=== PATIENT | male | born 1955 | race Caucasian/White ===

== ENCOUNTER 2017-03-08 23:40 | Inpatient (IN) | payer MEDICAID, OTHER ==
[~2017-03-08] VITALS: Ht 177.8 cm; Wt 81.6 kg
[~2017-03-08 23:40] MED LIST: ASPI81TA21 PO; CARV10; FURO40TA PO; LISI-360 PO; PRED-1 PO; WARF7.5T4 PO
[2017-03-08 23:49] VITALS: BP 143/68; PULSE 84; RESP 22; TEMP 98.8; O2SAT 98
[2017-03-09] VITALS (15 sets, daily range): BP systolic 118–147; BP diastolic 58–89; PULSE 40–115; RESP 12–20; TEMP 95.9–98.3; O2SAT 95–100
[2017-03-09] MEDS ORDERED: WARF-23 PO (00:01)
[2017-03-09] MEDS ORDERED: ASPI81CH CHEW (00:01)
[2017-03-09] MEDS ORDERED: FURO40TA PO (00:01)
[2017-03-09] MEDS ORDERED: LORazepam 2 MG/ML VIAL IV PUSH ONE (00:30)
[2017-03-09] MEDS ORDERED: SODIUM CHLORIDE 0.9% FLUSH 10 ML FLUSH IVF PRN (00:30)
[2017-03-09 00:58] LABS: AUTOMATED NEUTROPHIL # 2.4 TH/MM3 (1.8-7.7); BASOPHIL # 0.1 TH/MM3 (0-0.2); BASOPHIL % 2.1 % (0.0-2.0); EOSINOPHIL # 0.1 TH/MM3 (0-0.4); EOSINOPHIL % 3.4 % (0.0-4.0); HEMATOCRIT 29.4 % (39.0-51.0); HEMO FLAGS DIFF FINAL; LYMPH % 30.5 % (9.0-44.0); LYMPHOCYTE # 1.3 TH/MM3 (1.0-4.8); MEAN CELL VOLUME 87.9 FL (80.0-100.0); MONO % 9.2 % (0.0-8.0); NEUT % 54.8 % (16.0-70.0); PLATELET COUNT 164 TH/MM3 (150-450); RED BLOOD COUNT 3.35 MIL/MM3 (4.50-5.90); RED CELL DISTRIBUTION WIDTH 16.9 % (11.6-17.2); WHITE BLOOD COUNT 4.4 TH/MM3 (4.0-11.0)
--- NOTE | 2017-03-09 01:13 | RADRPT ---
EXAM DATE/TIME: 03/09/2017 00:29 [facility] COMPARISON: CHEST SINGLE AP, January 29, 2016, 1:17. INDICATIONS : Chest pain. MEDICAL HISTORY : Congestive heart failure. SURGICAL HISTORY : Pacemaker. Defibrillator ENCOUNTER: Initial ACUITY: 1 day PAIN SCORE: 10/10 LOCATION: Bilateral middle chest FINDINGS: A single view of the chest demonstrates the lungs to be symmetrically aerated without evidence of mas s, infiltrate or effusion. The cardiomediastinal contours are unremarkable. Osseous structures are intact. CONCLUSION: Normal examination. Left subclavian bipolar pacer, unchanged. Omar Egan MD on March 09, 2017 at 1:12 Board Certified Radiologist. This report was verified electronically.
[2017-03-09 01:17] LABS: APTT (PATIENT) 35.9 SEC (24.3-30.1); INTERNATIONAL NORMALIZED RATIO 1.6 RATIO; PROTHROMBIN TIME - PATIENT 17.8 SEC (9.8-11.6)
--- NOTE | 2017-03-09 01:18 | PD ---
HPI . Chest pain Chief Complaint: Chest Pain Time Seen by Provider: 00:29 Travel History International Travel<30 days: No Contact w/Intl Traveler<30days: No Traveled to known affect area: No History of Present Illness HPI Patient presents to us via [facility] with the chief complaint of chest pain. He had the acute onset of chest pain shortly prior to arrival. He rates it as a 10 out of 10. It is exacerbated by movement and breathing. PFSH Past Medical History Asthma: No Blood Disorders: No Anxiety: No Depression: Yes Heart Rhythm Problems: No Cancer: No Cardiac Catheterization: Yes Cardiovascular Problems: Yes High Cholesterol: Yes Chemotherapy: No Chest Pain: Yes Congestive Heart Failure: Yes COPD: No Diabetes: No Endocrine: No Gastrointestinal Disorders: No Genitourinary: No Hypertension: No Immune Disorder: No Implanted Vascular Access Dvce: No Musculoskeletal: No Neurologic: No Psychiatric: No Reproductive: No Respiratory: No Immunizations Current: Yes Radiation Therapy: No Sleep Apnea: No Thyroid Disease: No Tetanus Vaccination: Unknown Influenza Vaccination: No Past Surgical History Cardiac Surgery: Yes (cath ) Pacemaker: Yes (v paced) Social History Alcohol Use: Yes (socially) Tobacco Use: No Substance Use: No Allergies-Medications (Allergen,Severity, Reaction): Coded Allergies: Nitroglycerin (Verified Allergy, Severe, Anaphylaxis, 03/08/17) Reported Meds & Prescriptions Reported Meds & Active Scripts Active Reported Furosemide 40 Mg Tab 40 Mg PO BID Warfarin 5 Mg Tab 5 Mg PO DAILY Aspirin 81 Mg Chew 81 Mg CHEW DAILY Review of Systems Except as stated in HPI: all other systems reviewed are Neg Cardiovascular: Positive: Chest Pain or Discomfort Respiratory: Positive: Shortness of Breath Psychiatric: Positive: Anxiety Physical Exam Narrative GENERAL: Patient is very anxious appearing. SKIN: Warm and dry. He appears sunburn. HEAD: Atraumatic. Normocephalic. EYES: Pupils equal and round. Extraocular movements are intact. ENT: No nasal bleeding or discharge. Mucous membranes pink and moist. NECK: Trachea midline. Neck is supple. CARDIOVASCULAR: Regular rate and rhythm. Heart sounds are normal. RESPIRATORY: No accessory muscle use. Lungs are clear with good air movement throughout. He is tachypneic. He has chest wall tenderness. GASTROINTESTINAL: Abdomen soft, non-tender, nondistended. MUSCULOSKELETAL: No obvious deformities. No edema. NEUROLOGICAL: Awake and alert. No obvious cranial nerve deficits. Motor grossly within normal limits. Normal speech. PSYCHIATRIC: Anxious. Data Data Last Documented VS Vital Signs Date Time Temp Pulse Resp B/P Pulse Ox O2 Delivery O2 Flow Rate FiO2 03/09/17 02:05 78 12 138/74 99 Room Air 03/09/17 00:01 98.1 Orders Basic Metabolic Panel (Bmp) (03/09/17 00:29) Ckmb (Isoenzyme) Profile (03/09/17 00:29) Complete Blood Count With Diff (03/09/17:29) D-Dimer (03/09/17 00:29) Magnesium (Mg) (03/09/17 00:29) Prothrombin Time / Inr (Pt) (03/09/17 00:29) Act Partial Throm Time (Ptt) (03/09/17:29) Troponin I (03/09/17 00:29) Chest, Single Ap (03/09/17 00:29) Ecg Monitoring (03/09/17 00:29) Iv Access Insert/Monitor (03/09/17 00:29) Oximetry (03/09/17 00:29) Sodium Chloride 0.9% Flush (Ns Flush) (03/09/17 00:30) Lorazepam Inj (Ativan Inj) (03/09/17 00:30) Drug Screen, Random Urine (03/09/17 01:19) Alcohol (Ethanol) (03/09/17 00:36) Ct Pulmonary Angiogram (03/09/17 01:37) Morphine Inj (Morphine Inj) (03/09/17 02:00) Place In Observation (03/09/17 03:20) Activity Bed Rest With Brp (03/09/17 03:20) Vital Signs (Adult) Q4H (03/09/17 03:20) Cardiac Rhythm .As Directed (03/09/17 03:20) Notify Dr: Other .PRN (03/09/17 03:20) Notify Dr. Parameters (03/09/17 03:20) Resp Oxygen Nasal Cannula (03/09/17 ) Diet Npo (03/09/17 Breakfast) Ckmb (Isoenzyme) Profile (03/09/17 03:30) Ckmb (Isoenzyme) Profile (03/09/17 06:30) Troponin I (03/09/17 03:30) Troponin I (03/09/17 06:30) Electrocardiogram (03/09/17 03:30) Electrocardiogram (03/09/17 06:30) ^ Obtain (03/09/17 03:20) Sodium Chloride 0.9% Flush (Ns Flush) (03/09/17 03:30) Chief Communications Officer / Telemetry [id number].[id number] (03/09/17 03:20) Admit Order (Ed Use Only) (03/09/17 03:20) Labs Laboratory Tests Test 03/09/17 00:36 White Blood Count 4.4 TH/MM3 Red Blood Count 3.35 MIL/MM3 Hemoglobin 9.7 GM/DL Hematocrit 29.4 % Mean Corpuscular Volume 87.9 FL Mean Corpuscular Hemoglobin 29.0 PG Mean Corpuscular Hemoglobin 33.0 % Concent Red Cell Distribution Width 16.9 % Platelet Count 164 TH/MM3 Mean Platelet Volume 9.0 FL Neutrophils (%) (Auto) 54.8 % Lymphocytes (%) (Auto) 30.5 % Monocytes (%) (Auto) 9.2 % Eosinophils (%) (Auto) 3.4 % Basophils (%) (Auto) 2.1 % Neutrophils # (Auto) 2.4 TH/MM3 Lymphocytes # (Auto) 1.3 TH/MM3 Monocytes # (Auto) 0.4 TH/MM3 Eosinophils # (Auto) 0.1 TH/MM3 Basophils # (Auto) 0.1 TH/MM3 CBC Comment DIFF FINAL Differential Comment Prothrombin Time 17.8 SEC Prothromb Time International 1.6 RATIO Ratio Activated Partial 35.9 SEC Thromboplast Time D-Dimer Quantitative (PE/DVT) 0.84 MG/L FEU Sodium Level 142 MEQ/L Potassium Level 3.6 MEQ/L Chloride Level 109 MEQ/L Carbon Dioxide Level 25.0 MEQ/L Anion Gap 8 MEQ/L Blood Urea Nitrogen 11 MG/DL Creatinine 0.93 MG/DL Estimat Glomerular Filtration 83 ML/MIN Rate Random Glucose 90 MG/DL Calcium Level 8.2 MG/DL Magnesium Level 1.9 MG/DL Total Creatine Kinase 59 U/L Troponin I 0.03 NG/ML Ethyl Alcohol Level 10 MG/DL MDM Medical Decision Making Medical Screen Exam Complete: Yes Emergency Medical Condition: Yes Medical Record Reviewed: Yes (patient was seen here about a year ago with similar symptoms. He had an elevated troponin at that time. He does have a history of cardiomyopathy. He had had a clean catheter at an outside hospital about a month prior to that visit. Therefore, no further investigation was done.) Interpretation(s) EKG shows a paced rhythm. It is unchanged from previous. Differential Diagnosis Differential diagnosis of chest pain includes but is not limited to musculoskeletal pain, pulmonary embolism, acute coronary syndrome, pneumonia, pleurisy Narrative Course Patient presents with the chief complaint of chest pain. He appears to have an anxiety attack. He will be evaluated for possible ACS or PE. CBC & BMP Diagram 03/09/17 00:36 Initial cardiac enzymes are negative. INR is subtherapeutic at 1.6. D-dimer is slightly elevated at 0.84. A subsequent CT for PE was negative. Alcohol level is 10. He was treated with Ativan and morphine here. He is sound asleep. He reports allergy to nitroglycerin. I have a very low index suspicion for ACS. However, he does have a known cardiac history. Therefore, he will be placed in the chest pain center. Diagnosis Primary Impression: Chest pain Qualified Code: R07.9 - Chest pain, unspecified type Admitting Information Admitting Physician Requests: Observation Condition: Stable Светлана Schuler MD Mar 09, 2017 01:18
[2017-03-09 01:30] LABS: MAGNESIUM 1.9 MG/DL (1.5-2.5); POTASSIUM 3.6 MEQ/L (3.5-5.1)
[2017-03-09] MEDS ORDERED: MORPHINE SULFATE 8 MG/ML INJ IV PUSH ONE (02:00)
[2017-03-09] MEDS ORDERED: IOHEXOL 350 MG/ML 10 ML VIAL (for RAD DIAG) IV ONE (02:36)
--- NOTE | 2017-03-09 03:05 | RADRPT ---
EXAM DATE/TIME: 03/09/2017 02:36 [facility] COMPARISON: No previous studies available for comparison. INDICATIONS : Chest pain; rule out pulmonary embolus. IV CONTRAST: 74 cc Omnipaque 350 (iohexol) IV RADIATION DOSE: 17.11 CTDIvol (mGy) MEDICAL HISTORY : Myocardial infarction. Congestive heart failure. SURGICAL HISTORY : Pacemaker. ENCOUNTER: Initial ACUITY: 1 day PAIN SCALE: 7/10 LOCATION: chest TECHNIQUE: Volumetric scanning of the chest was performed using a pulmonary embolism protocol MIP images were re constructed. Using automated exposure control and adjustment of the mA and/or kV according to patien t size, radiation dose was kept as low as reasonably achievable to obtain optimal diagnostic quality images. FINDINGS: PULMONARY ARTERIES: No filling defects are seen in the pulmonary arteries through the segmental level. LUNGS: There is no consolidation or pneumothorax . No concerning pulmonary nodule is visualized. PLEURAE: There is no pleural thickening or pleural effusion. MEDIASTINUM: There is good visualization of the great vessels of the middle mediastinum. No evidence of mediastin al or hilar adenopathy/mass. MUSCULOSKELETAL: Within normal limits for patient age. MISCELLANEOUS: The visualized upper abdominal organs demonstrate no acute abnormality. CONCLUSION: Normal examination. Epicardial pacer wires. No evidence of pulmonary embolism. Omar Egan MD on March 09, 2017 at 3:03 Board Certified Radiologist. This report was verified electronically.
[2017-03-09] MEDS: MORPHINE SULFATE 4 MG/ML INJ IV PUSH PRN ×4 (06:52→21:48)
--- NOTE | 2017-03-09 08:45 | HHI.HP ---
HPI Primary Care Physician Non-Staff Chief Complaint Chest pain History of Present Illness This is a 61-year-old male with a reported history of a nonischemic cardiomyopathy. He apparently had a heart catheterization in [place] January 2016 and he states that he was told that there were no blockages but he had a low EF. He had defibrillator/pacemaker placed at that time. He follows Dr. Lazar of cardiology. He also states that last month is the fibular fired 3 times. He believes the first time it fired was when he had tripped over a parking lot curb stopper and it happened 2 more times within next 2 days. He was seen at an emergent [facility] and states that the defibrillator was interrogated but doesn't know the findings. He was discharged. He presents to the ED last evening with a complaint of developing a discomfort about 10:00 last evening while at home. He states it is still there. It as a pressure across the chest. States it hurts to take in a deep breath. Hurts with certain movements. Denies nausea or diaphoresis. Denies recent illness. The defibrillator has not fired recently. Patient reports that it is not terribly unusual for him to have chest discomfort. He states that he had a cholecystectomy 8-9 weeks ago with the thought that that may be causing some of his discomforts. Review of Systems General: Patient denies fevers, chills recent, and recent travel HEENT: Patient denies headache, sore throat, difficulty swallowing. Cardiovascular: Has the chest discomfort as mentioned above. Denies sensation of heart beating rapidly or irregularly. No syncope. Denies diaphoresis. Respiratory: Denies shortness of breath or inspirational chest discomfort. Denies coughing wheezing or hemoptysis. GI: Patient denies nausea, vomiting, diarrhea, abdominal pain, bloody stools. Musculoskeletal: Patient denies joint pain or edema. Denies calf pain or edema. Neurovascular: Patient denies numbness, tingling, weakness in extremities. Denies headache. Endocrine: Denies polyuria and polydipsia. Hematologic: Denies easy bruising. Skin: Denies rash or itching. Past Family Social History Allergies: Coded Allergies: Nitroglycerin (Verified Allergy, Severe, Anaphylaxis, 03/08/17) Past Medical History Reported history of nonischemic cardiomyopathy. Peripheral vascular disease with a left femoropopliteal bypass that was done age 37. He states that he was told by the surgeon that it was caused most likely from a football injury when he was in high school. He states he was told that a calcium buildup was pushing on the artery. Patient also history of hypertension. Cholecystectomy 8 -9 weeks ago thinking that may have been causing discomfort in his chest. Past Surgical History Cardiac catheterization January 2016 and reports that it was nonischemic. Defibrillator/pacemaker placed at that visit [facility]. Cholecystectomy 8-9 months ago. Left femoropopliteal bypass when he was 37 years of age. Reported Medications Reported Meds & Active Scripts Active Reported Furosemide 40 Mg Tab 40 Mg PO BID Warfarin 5 Mg Tab 5 Mg PO DAILY Aspirin 81 Mg Chew 81 Mg CHEW DAILY Active Ordered Medications Current Medications Medications (Trade) Dose Ordered Sig/Amelia Route Start Time Stop Time Status Last Admin (NS Flush) 2 ml UNSCH PRN IVF 03/09/17 00:30 (NS Flush) 2 ml UNSCH PRN IV FLUSH 03/09/17 03:30 (Morphine Inj) 4 mg Q3H PRN IV PUSH 03/09/17 05:00 03/09/17 06:52 Family History Denies family history of CAD. Social History Patient smokes occasionally. States that he will have maybe 1 pack of cigarettes a month. He had a couple beers and a shot of alcohol last evening the prior that had no alcohol for 6 months. He denies illicit drugs. States he recently moved to the area. Physical Exam Vital Signs Vital Signs Date Time Temp Pulse Resp B/P Pulse Ox O2 Delivery O2 Flow Rate FiO2 03/09/17 08:13 96 21 03/09/17 07:28 97.1 45 20 130/60 95 03/09/17 07:17 20 03/09/17 04:24 76 14 140/70 99 Room Air 03/09/17 04:00 95.9 40 20 147/62 99 03/09/17 03:49 99 03/09/17 02:05 78 12 138/74 99 Room Air 03/09/17 01:00 82 16 146/78 96 Room Air 03/09/17 00:01 98.1 80 14 143/68 100 Room Air 03/08/17 23:49 98.8 84 22 143/68 98 Physical Exam GENERAL: This is a well-nourished, well-developed patient, in no apparent distress. Patient speaks in clear complete sentences. Patient is pleasant. HEENT: Head is atraumatic and normocephalic. Neck is supple without lymphadenopathy and trachea is midline. No JVD or carotid bruits. CARDIOVASCULAR: Regular rate and rhythm without murmurs, gallops, or rubs. RESPIRATORY: Clear to auscultation. Breath sounds equal bilaterally. No wheezes , rales, or rhonchi. Chest wall is tender. No use of accessory muscles. Defibrillator/pacemaker site has no surrounding erythema and is nontender. GASTROINTESTINAL: Abdomen is nontender, nondistended. Abdomen soft. No obvious pulsatile mass or bruit. No CVA tenderness. Strong femoral pulses bilaterally. Normal bowel sounds in all quadrants. MUSCULOSKELETAL: Patient is moving upper and lower extremities freely. No calf tenderness or edema, no Homans sign. Strong pulses in upper and lower extremities. NEUROLOGICAL: Patient is alert and oriented. Cranial nerves 2-12 are grossly intact. No focal deficits and speech is clear. SKIN: No rash and turgor is normal. Laboratory Laboratory Tests Test 03/09/17 03/09/17 03/09/17 00:36 03:40 06:30 White Blood Count 4.4 Red Blood Count 3.35 Hemoglobin 9.7 Hematocrit 29.4 Mean Corpuscular Volume 87.9 Mean Corpuscular Hemoglobin 29.0 Mean Corpuscular Hemoglobin 33.0 Concent Red Cell Distribution Width 16.9 Platelet Count 164 Mean Platelet Volume 9.0 Neutrophils (%) (Auto) 54.8 Lymphocytes (%) (Auto) 30.5 Monocytes (%) (Auto) 9.2 Eosinophils (%) (Auto) 3.4 Basophils (%) (Auto) 2.1 Neutrophils # (Auto) 2.4 Lymphocytes # (Auto) 1.3 Monocytes # (Auto) 0.4 Eosinophils # (Auto) 0.1 Basophils # (Auto) 0.1 CBC Comment DIFF FINAL Differential Comment Prothrombin Time 17.8 Prothromb Time International 1.6 Ratio Activated Partial 35.9 Thromboplast Time D-Dimer Quantitative (PE/DVT) 0.84 Sodium Level 142 Potassium Level 3.6 Chloride Level 109 Carbon Dioxide Level 25.0 Anion Gap 8 Blood Urea Nitrogen 11 Creatinine 0.93 Estimat Glomerular Filtration 83 Rate Random Glucose 90 Calcium Level 8.2 Magnesium Level 1.9 Total Creatine Kinase 59 51 42 Troponin I 0.03 0.05 0.04 Ethyl Alcohol Level 10 Result Diagram: 03/09/17 0036 03/09/17 0036 Imaging Last [address] Angiography 03/09/17 0137 Signed Impressions: Service Date/Time: Thursday, March 09, 2017 02:36 - CONCLUSION: Normal examination. Epicardial pacer wires. No evidence of pulmonary embolism. Omar Egan MD Chest X-Ray 03/09/17 0029 Signed Impressions: Service Date/Time: Thursday, March 09, 2017 00:29 - CONCLUSION: Normal examination. Left subclavian bipolar pacer, unchanged. Omar Egan MD Course EKGs are atrial/ventricularly paced. Assessment and Plan Assessment and Plan * Atypical chest pain: Patient has had serial cardiac enzymes and EKGs for ruling out purposes. He has been seen by Dr. Miky Nice of cardiology in the chest pain center. At this time the patient will have a sedimentation rate drawn, lipase drawn, and had [employer] come into interrogate his defibrillator/ pacemaker. There will be no stress testing. Reports a heart catheterization about a year ago that had no blockages. Patient likely be discharged home today with instructions to follow-up with his mechanical insulator and local primary care physician. * Cardiomyopathy: Continue current medications. He needs to follow-up with her mechanical insulator. * Hypertension: Continue current medication. * Peripheral vascular disease: Continue current medication. * Tobacco abuse: Patient has been counseled on the importance of smoking cessation. Patient is stable at this time. He is agreeable to this plan. Bob Torres Mar 09, 2017 08:45
[2017-03-09] MEDS ORDERED: ACETAMINOPHEN/HYDROcodone 325 MG/7.5 MG TAB PO ONE (10:00)
[2017-03-09] MEDS: FUROSEMIDE 40 MG TAB PO SCH ×2 (10:08→19:33)
[2017-03-09] MEDS: ASPIRIN 81 MG CHEW TAB CHEW SCH (10:08)
[2017-03-09] MEDS ORDERED: WARF-21 PO (12:10)
[2017-03-09] MEDS ORDERED: LISI2.5T3 PO (12:11)
[2017-03-09 13:13] LABS: AMPHETAMINE, URINE NEG (NEG); BARBITURATES, URINE NEG (NEG); COCAINE, URINE NEG (NEG)
--- NOTE | 2017-03-09 14:21 | EKG ---
Date Performed: 03/09/2017 Time Performed: 03:44:16 PTAGE: 61 years EKG: ELECTRONIC VENTRICULAR PACEMAKER ABNORMAL RHYTHM ECG PREVIOUS TRACING : 01/29/2016 12.19 DOCTOR: Miky Nice Interpretating Date/Time 03/09/2017 14:20:05
--- NOTE | 2017-03-09 14:23 | EKG ---
Date Performed: 03/09/2017 Time Performed: 07:36:19 PTAGE: 61 years EKG: ELECTRONIC ATRIAL PACEMAKER ELECTRONIC VENTRICULAR PACEMAKER ABNORMAL RHYTHM ECG PREVIOUS TRACING : 03/09/2017 03.44 Since previous tracing, atrial pacer present DOCTOR: Miky Nice Interpretating Date/Time 03/09/2017 14:22:16
[2017-03-09] MEDS: LORazepam 2 MG/ML VIAL IV PUSH PRN ×2 (14:56→21:48)
[2017-03-09] MEDS: DOCUSATE SODIUM 100 MG CAP PO SCH (19:33)
[2017-03-10] VITALS (31 sets, daily range): BP systolic 106–128; BP diastolic 43–85; PULSE 76–114; RESP 16–20; TEMP 97.9–99; O2SAT 96–99
[2017-03-10 06:09] LABS: MEAN CELL VOLUME 87.4 FL (80.0-100.0); MEAN CORPUSCULAR HEMOGLOBIN 29.7 PG (27.0-34.0); MEAN CORPUSCULAR HGB CONC 33.9 % (32.0-36.0); PLATELET COUNT 157 TH/MM3 (150-450); RED BLOOD COUNT 3.32 MIL/MM3 (4.50-5.90); RED CELL DISTRIBUTION WIDTH 16.5 % (11.6-17.2); REVIEW FLAG FINAL; WHITE BLOOD COUNT 3.4 TH/MM3 (4.0-11.0)
[2017-03-10 06:34] LABS: BICARBONATE 29.6 MEQ/L (21.0-32.0); MAGNESIUM 1.5 MG/DL (1.5-2.5); POTASSIUM 3.6 MEQ/L (3.5-5.1)
--- NOTE | 2017-03-10 07:11 | MB ---
cc: NAMITA DUQUE MICHAEL DATE OF CONSULTATION 03/09/2017 REASON FOR CONSULTATION Defibrillatory shock defibrillator end of life. HISTORY OF PRESENT ILLNESS Mr. Valenzuela is a 61-year-old gentleman with a history of nonischemic cardiomyopathy, previous left heart catheterization done in [place] in January of 2016. There was no occlusive disease. The patient has previous defibrillatory shock. He was admitted due to chest pain. Workup was negative. He had three defibrillatory shocks in January. Interrogation of the device showed device end of life for over two to three-months. I was consulted for evaluation and management. The chart was reviewed. The patient was evaluated. ALLERGIES NITROGLYCERIN SOCIAL HISTORY The patient smoked a pack of cigarettes over a month. He had a couple of beers maybe once or twice a month. FAMILY HISTORY Noncontributory to his current medical condition. MEDICATIONS He is on: 1. Lasix 2. Aspirin 3. Coumadin REVIEW OF SYSTEMS Refers no chest pain or chest discomfort. At this point, no vomiting. No fever. PHYSICAL EXAM Alert, fully oriented. VITAL SIGNS: His blood pressure on evaluation 118/58, pulse 77, respiratory rate 20. LUNGS: Ventilated. CARDIOVASCULAR: S1-S2, no gallop. No murmur. ABDOMEN: Soft, obese. No mass. No wheeze. EXTREMITIES: With no edema. Electrocardiogram shows sinus rhythm, episode of AV synchronized pacing. LABORATORY DATA Hemoglobin is 9.7, potassium 3.6, creatinine 0.93, troponin 0.03, magnesium 1.9, INR 1.6. ASSESSMENT AND RECOMMENDATIONS Mr. Valenzuela has non-ischemic cardiomyopathy. He had a left heart catheterization in [facility] in [place] in January last year that indicated no occlusion. He has a negative troponin. No active ST or T-wave changes. The gentleman received in the past multiple defibrillatory shocks. The device was implanted in 2000 and end of life two to three months ago. This gentleman needs generator replacement. The risks, the nature and the benefit of the procedure are clearly stated to him. The risks include pneumothorax, cardiac perforation, stroke and even . He understood and agreed to proceed. This is secondary prevention. Namita Dquue MD /JUAN J /6:48 PM /7:03 AM
--- NOTE | 2017-03-10 08:24 | PD.CARD.PN ---
Subjective Subjective Remarks Had some CP last night, pending ICD generator change. Objective Medications Current Medications Medications (Trade) Dose Ordered Sig/Amelia Route Start Time Stop Time Status Last Admin (NS Flush) 2 ml UNSCH PRN IVF 03/09/17 00:30 (NS Flush) 2 ml UNSCH PRN IV FLUSH 03/09/17 03:30 (Morphine Inj) 4 mg Q3H PRN IV PUSH 03/09/17 05:00 03/09/17 21:48 (Aspirin Chew) 81 mg DAILY CHEW 03/09/17 10:00 03/09/17 10:08 (Lasix) 40 mg BID PO 03/09/17 10:00 03/09/17 19:33 (Ativan Inj) 0.5 mg Q4H PRN IV PUSH 03/09/17 13:00 03/09/17 21:48 (Roxicodone) 5 mg Q4H PRN PO 03/09/17 16:45 (Roxicodone) 10 mg Q4H PRN PO 03/09/17 16:45 03/09/17 19:34 (Colace) 100 mg BID PO 03/09/17 21:00 03/09/17 19:33 Vital Signs / I&O Vital Signs Date Time Temp Pulse Resp B/P Pulse Ox O2 Delivery O2 Flow Rate FiO2 03/10/17 06:00 92 03/10/17 05:00 92 03/10/17 04:00 90 03/10/17 03:57 98.6 91 16 110/43 97 03/10/17 03:00 103 03/10/17 02:00 78 03/10/17 01:00 82 03/10/17 00:00 82 03/09/17 23:03 98.3 75 16 140/76 98 03/09/17 23:00 80 03/09/17 22:00 115 03/09/17 19:23 97.0 83 20 138/63 95 03/09/17 16:25 97.9 77 20 118/58 96 03/09/17 11:20 97.6 80 18 137/89 95 03/09/17 10:08 70 I/O 03/09/17 03/09/17 03/09/17 03/10/17 03/10/17 03/10/17 07:00 15:00 23:00 07:00 15:00 23:00 Intake Total 480 ml 480 ml Output Total 600 ml 500 ml 700 ml Balance -600 ml -20 ml -220 ml Intake Oral 480 ml 480 ml Output Urine Total 600 ml 500 ml 700 ml # Voids 3 # Bowel Movements 0 Physical Exam GENERAL: Well-nourished, well-developed patient. SKIN: Warm and dry. HEAD: Normocephalic. EYES: No scleral icterus. No injection or drainage. NECK: Supple, trachea midline. No JVD or lymphadenopathy. CARDIOVASCULAR: Regular rate and rhythm without murmurs, gallops, or rubs. RESPIRATORY: Breath sounds equal bilaterally. No accessory muscle use. GASTROINTESTINAL: Abdomen soft, non-tender, nondistended. EXTREMITIES: No cyanosis, or edema. NEUROLOGICAL: Awake, alert, and oriented x 3. Non-focal. Laboratory Laboratory Tests Test 03/09/17 03/10/17 12:50 05:08 Urine Opiates Screen POS Urine Barbiturates Screen NEG Urine Amphetamines Screen NEG Urine Benzodiazepines Screen POS Urine Cocaine Screen NEG Urine Cannabinoids Screen NEG White Blood Count 3.4 TH/MM3 Red Blood Count 3.32 MIL/MM3 Hemoglobin 9.9 GM/DL Hematocrit 29.0 % Mean Corpuscular Volume 87.4 FL Mean Corpuscular Hemoglobin 29.7 PG Mean Corpuscular Hemoglobin 33.9 % Concent Red Cell Distribution Width 16.5 % Platelet Count 157 TH/MM3 Mean Platelet Volume 9.0 FL Sodium Level 139 MEQ/L Potassium Level 3.6 MEQ/L Chloride Level 103 MEQ/L Carbon Dioxide Level 29.6 MEQ/L Anion Gap 6 MEQ/L Blood Urea Nitrogen 11 MG/DL Creatinine 0.91 MG/DL Estimat Glomerular Filtration 85 ML/MIN Rate Random Glucose 95 MG/DL Calcium Level 8.5 MG/DL Magnesium Level 1.5 MG/DL Imaging Last Impressions CT Angiography 03/09/17 0137 Signed Impressions: Service Date/Time: Thursday, March 09, 2017 02:36 - CONCLUSION: Normal examination. Epicardial pacer wires. No evidence of pulmonary embolism. Omar Egan MD Chest X-Ray 03/09/17 0029 Signed Impressions: Service Date/Time: Thursday, March 09, 2017 00:29 - CONCLUSION: Normal examination. Left subclavian bipolar pacer, unchanged. Omar Egan MD Assessment and Plan Problem List: (1) Cardiomyopathy Assessment and Plan: Pending ICD generator change for SCD prevention. Device at EOL. Pt. admitted with CP, will require an ischemic w/u prior to gen change. (2) Chest pain Assessment and Plan: Dr. Goldstein consulted to evaluate for LHC today. C/O chest pain overnight. Serial troponin negative. History of cath in [place] 1 year ago per history. Assessment and Plan Assessment and plan d/w pt., RN, Dr. Adames Problem Qualifiers (1) Cardiomyopathy: Qualified Code: I42.9 - Cardiomyopathy, unspecified type (2) Chest pain: Qualified Code: R07.9 - Chest pain, unspecified type Karishma Cooper Mar 10, 2017 08:24
[2017-03-10] MEDS: SODIUM CHLOR 0.9% 1000 ML INJ 1,000 ML IV SCH (08:29)
[2017-03-10] MEDS ORDERED: ASPIRIN 325 MG TAB PO SCH (08:30)
[2017-03-10] MEDS ORDERED: diphenhydrAMINE HCL 50 MG CAP PO SCH (08:30)
[2017-03-10] MEDS: DOCUSATE SODIUM 100 MG CAP PO SCH ×2 (08:38→21:00)
[2017-03-10] MEDS: FUROSEMIDE 40 MG TAB PO SCH ×2 (08:38→21:00)
[2017-03-10] MEDS: LORazepam 2 MG/ML VIAL IV PUSH PRN ×2 (08:39→23:07)
[2017-03-10] MEDS: MORPHINE SULFATE 4 MG/ML INJ IV PUSH PRN ×4 (08:40→20:56)
[2017-03-10] MEDS: SODIUM CHLORIDE 0.9% FLUSH 10 ML FLUSH IV FLUSH PRN (08:41)
[2017-03-10] MEDS ORDERED: HEPARIN-NS/PF INJ 500 ML ONE (08:58)
[2017-03-10] MEDS: ASPIRIN 81 MG CHEW TAB CHEW SCH (09:00)
[2017-03-10] MEDS ORDERED: BACITRACIN OINT 0.9 GM PKT TOP ONE (10:15)
[2017-03-10] MEDS ORDERED: LORazepam 2 MG/ML VIAL IV PRN (10:15)
[2017-03-10] MEDS ORDERED: METOCLOPRAMIDE HCL 10 MG/2 ML VIAL IV PRN (10:15)
[2017-03-10] MEDS ORDERED: ONDANSETRON HCL 4 MG/2 ML VIAL IV PRN (10:15)
[2017-03-10] MEDS ORDERED: ATROPINE SULFATE 1 MG/ML VIAL IV PRN (10:15)
[2017-03-10] MEDS ORDERED: SODIUM CHLOR 0.9% 250 ML INJ 250 ML IV PRN (10:15)
[2017-03-10] MEDS ORDERED: LIDOCAINE HCL 1% 50 ML VIAL INFIL PRN (10:15)
[2017-03-10] MEDS ORDERED: MISC INFORMATION XX ONE (10:15)
--- NOTE | 2017-03-10 10:25 | HHI.PR ---
Subjective Remarks The patient was seen following catheterization. He reported no improvement in pain. He said that he was very anxious and requested Ativan. He had no other acute complaints. Objective Vitals Vital Signs Date Time Temp Pulse Resp B/P Pulse Ox O2 Delivery O2 Flow Rate FiO2 03/10/17 10:16 96 21 03/10/17 06:00 92 03/10/17 05:00 92 03/10/17 04:00 90 03/10/17 03:57 98.6 91 16 110/43 97 03/10/17 03:00 103 03/10/17 02:00 78 03/10/17 01:00 82 03/10/17 00:00 82 03/09/17 23:03 98.3 75 16 140/76 98 03/09/17 23:00 80 03/09/17 22:00 115 03/09/17 19:23 97.0 83 20 138/63 95 03/09/17 16:25 97.9 77 20 118/58 96 03/09/17 11:20 97.6 80 18 137/89 95 I/O 03/09/17 03/09/17 03/09/17 03/10/17 03/10/17 03/10/17 07:00 15:00 23:00 07:00 15:00 23:00 Intake Total 480 ml 480 ml Output Total 600 ml 500 ml 700 ml Balance -600 ml -20 ml -220 ml Intake Oral 480 ml 480 ml Output Urine Total 600 ml 500 ml 700 ml # Voids 3 # Bowel Movements 0 Result Diagram: 03/10/17 0508 03/10/17 [address] Angiography 03/09/17 0137 Signed Impressions: Service Date/Time: Thursday, March 09, 2017 02:36 - CONCLUSION: Normal examination. Epicardial pacer wires. No evidence of pulmonary embolism. Omar Egan MD Chest X-Ray 03/09/17 0029 Signed Impressions: Service Date/Time: Thursday, March 09, 2017 00:29 - CONCLUSION: Normal examination. Left subclavian bipolar pacer, unchanged. Omar Egan MD Objective Remarks GENERAL: This is a well-nourished, well-developed patient, in no apparent distress. HEENT: Head is atraumatic and normocephalic. Neck is supple without lymphadenopathy and trachea is midline. No JVD or carotid bruits. CARDIOVASCULAR: Regular rate and rhythm without murmurs, gallops, or rubs. RESPIRATORY: Clear to auscultation. Breath sounds equal bilaterally. No wheezes , rales, or rhonchi. Chest wall is tender. No use of accessory muscles. Defibrillator/pacemaker site has no surrounding erythema and is nontender. GASTROINTESTINAL: Abdomen is nontender, nondistended. Abdomen soft. No obvious pulsatile mass or bruit. Normal bowel sounds in all quadrants. MUSCULOSKELETAL: Patient is moving upper and lower extremities freely. NEUROLOGICAL: Patient is alert and oriented. Cranial nerves 2-12 are grossly intact. No focal deficits and speech is clear. SKIN: No rash and turgor is normal. PSYCH: Anxious. Procedures Cardiac catheterization 03/10. Medications and IVs Current Medications Medications (Trade) Dose Ordered Sig/Amelia Route Start Time Stop Time Status Last Admin (NS Flush) 2 ml UNSCH PRN IVF 03/09/17 00:30 (NS Flush) 2 ml UNSCH PRN IV FLUSH 03/09/17 03:30 03/10/17 08:41 (Morphine Inj) 4 mg Q3H PRN IV PUSH 03/09/17 05:00 03/10/17 08:40 (Aspirin Chew) 81 mg DAILY CHEW 03/09/17 10:00 03/09/17 10:08 (Lasix) 40 mg BID PO 03/09/17 10:00 03/10/17 08:38 (Ativan Inj) 0.5 mg Q4H PRN IV PUSH 03/09/17 13:00 03/10/17 08:39 (Roxicodone) 5 mg Q4H PRN PO 03/09/17 16:45 (Roxicodone) 10 mg Q4H PRN PO 03/09/17 16:45 03/09/17 19:34 Docusate Sodium 100 mg 100 mg BID PO 03/09/17 21:00 03/10/17 08:38 (NS 1000 ml Inj) 1,000 ml @ 30 mls/hr Q24H IV 03/10/17 08:29 03/15/17 08:28 Miscellaneous Information 1 ONCE ONCE XX 03/10/17 10:15 03/10/17 10:16 UNV (Ativan Inj) 0.5 mg UNSCH PRN IV 03/10/17 10:15 03/11/17 10:14 UNV Atropine Sulfate 0.5 mg 0.5 mg UNSCH PRN IV 03/10/17 10:15 UNV (NS 250 ml Inj) 250 ml @ 500 mls/hr ONCE PRN IV 03/10/17 10:15 03/11/17 10:14 UNV (Reglan Inj) 10 mg Q4H PRN IV 03/10/17 10:15 UNV (Zofran Inj) 4 mg Q4H PRN IV 03/10/17 10:15 UNV (Xylocaine 1% Inj (50 ml)) 10 ml UNSCH PRN INFIL 03/10/17 10:15 03/11/17 10:14 UNV (Bacitracin Oint Packet) 0.9 gm ONCE ONCE TOP 03/10/17 10:15 03/10/17 10:16 UNV A/P Assessment and Plan Atypical chest pain/ Cardiomyopathy Patient has had serial cardiac enzymes and EKGs for ruling out purposes. He has been seen by Dr. Miky Nice of cardiology in the chest pain center. Reports a heart catheterization about a year ago that had no blockages. Pacemaker was interrogated. The pt will need a generator change. Cardiology was consulted and catheterization was recommended prior to proceeding with generator exchange. Cath 03/10 without obstructive coronary disease, EF of about 20%. - EP to perform generator exchange. - pain control with a bowel regimen. - anxiolytics as needed. - incentive spirometry. - physical therapy. - Continue cardiac regimen. Anemia/ Leukopenia Hemoglobin level lower than previous values. WBC count stable. - check iron studies, B12, folate level and Hemoccult. - follow CBC. Tobacco abuse The patient reports smoking occasionally. - Patient has been counseled on the importance of smoking cessation. PPx: SCDs. Discharge Planning Awaiting generator exchange. Gato Swanson DO Mar 10, 2017 10:25
[2017-03-10] MEDS ORDERED: POTASSIUM CHLORIDE 20 MEQ CONTROLLED RELEASE TAB PO ONE (10:30)
[2017-03-10] MEDS ORDERED: MAGNESIUM SULFATE 1 GM PREMIX 100 ML IV ONE (10:30)
[2017-03-10] MEDS ORDERED: LORazepam 1 MG TAB PO PRN (10:30)
[2017-03-10] MEDS: SENNOSIDES 8.6 MG TAB PO SCH (10:30)
[2017-03-10] MEDS ORDERED: IOHEXOL 350 MG/ML 50 ML BTL (for Cath Lab) OTHER ONE (10:49)
[2017-03-10] MEDS ORDERED: IOHEXOL 350 MG/ML 100 ML BTL (for Cath Lab) OTHER ONE (10:49)
--- NOTE | 2017-03-10 11:09 | MB ---
Interventional Cardiology Consult cc: LEX ROSE MD DATE OF CONSULTATION 03/10/2017 REASON FOR CONSULTATION The patient is a 61-year-old man who does have a history of a nonischemic cardiomyopathy by catheterization in 2016 with an EF of approximately 20%. He subsequently had a device placed. He has had several episodes of VT and chest pain and interventional cardiology was requested to evaluate him for catheterization. The patient is having ongoing chest pain. PAST MEDICAL HISTORY Past medical history is significant for: 1. PVD with a left fem-pop bypass that was done at age 37. 2. He has a cholecystectomy eight to nine months ago. 3. Nonischemic cardiomyopathy OUTPATIENT MEDICATIONS Reportedly include: 1. Lasix 2. Coumadin 3. Aspirin FAMILY HISTORY Negative for CAD. SOCIAL HISTORY The patient occasionally smokes. PHYSICAL EXAM VITAL SIGNS: 98.6, 91, 16, 110/43. GENERAL: He is a well-appearing elderly man who is in no apparent distress. NECK: His neck is free from JVD. LUNGS: The lungs are bilaterally clear to auscultation. CARDIOVASCULAR: On examination, he has a normal S1 and an S2. ABDOMEN: The abdomen is soft. EXTREMITIES: The extremities are free from edema. Pacer interrogation shows there were five episodes of VT on 01/24/2017. He has had increasing fluid. LAB VALUES Significant for an INR of 1.6. His D-dimer was elevated at 0.84. Cardiac enzymes are 0.03/0.05/0.04 and his creatinine is 0.91. His hemoglobin is 9.9. CT angiogram was negative for any PE. IMPRESSION Evaluation for cardiac Cath - The patient has had refractory chest pain and V- tach although they do not necessarily correlate. A catheterization was requested to verify as his previous scan is over a year old and he is having ongoing symptoms. I believe this is reasonable given that this would be a life threatening event. The patient is agreeable to catheterization despite a several percent risk for , [place], CVA and bleeding. Lex Rose M.D. ELDER/JUAN J /8:34 AM /10:58 AM PREETI
--- NOTE | 2017-03-10 12:21 | MA ---
cc: LEX ROSE MD DATE 03/10/2017 INDICATION Refractory chest pain and VT. PROCEDURE Left eye catheterization, selective coronary injury, left ventriculography and ascending aortic angiography. DETAILS OF PROCEDURE The patient gave informed consent. He was prepped in the usual fashion. A subcutaneous injection of lidocaine was made in the right inguinal area. Access was achieved in the right femoral artery and a 4-Lebanese sheath was inserted. An angiogram was obtained through the sheath. The patient had ongoing 8 out of 10 chest pain throughout the case. A JL-4 and JR-4 were utilized to engage left and right coronary arteries. Angiograms were obtained in multiple views and projections. We then utilized an angled 4-Lebanese pigtail catheter for the left ventriculogram and ascending aortic angiogram. The patient was stable throughout. FINDINGS LEFT VENTRICULOGRAM This shows an EF of 20% with global hypokinesis. There was no gradient on an earlier pullback. ASCENDING AORTIC ANGIOGRAM Free of any dissection. CORONARY ANATOMY Left Main - This vessel is angiographically normal and gives rise to LAD and circumflex. LAD - The LAD gives rise to an LAD and ramus. There is a separate ostia for the circumflex. This vessel has an ostial 30% stenosis. The LAD is fairly large proximally and has a large first diagonal that functions essentially has a twin LAD. It is free of any significant disease. The mid-LAD does taper down and had some significant tortuosity. It is about 1.5 mm in the mid-vessel and is about 0.5 mm a the apex. Ramus - This is a large caliber ramus which appears to be a circumflex. However, the circumflex is anomalously located in a separate ostia. This large ramus has the course of a usual OM. It is in any case large and free of any significant disease. Circumflex - This has a separate ostia and is smaller. There is no significant disease. RCA - This is a dominant vessel that is free of any significant disease. The PDA is diminutive. CONCLUSION 1. Noncardiac chest pain. 2. 30% ostial LAD lesion that will be medically managed. 3. Nonischemic cardiomyopathy with an EF of 20%. 4. No aortic dissection on the ascending aortic angiogram. Lex Rose M.D. BAB/SSB /10:00 AM /12:13 PM
[2017-03-10 12:23] LABS: FERRITIN 39 NG/ML (26-388); TRANSFERRIN IRON PROFILE 234 MG/DL (200-360)
--- NOTE | 2017-03-10 17:37 | EKG ---
Date Performed: 03/08/2017 Time Performed: 23:49:26 PTAGE: 61 years EKG: ELECTRONIC VENTRICULAR PACEMAKER ABNORMAL RHYTHM ECG Since PREVIOUS TRACING , no significant change noted PREVIOUS TRACIN01/29/2016 12.19 DOCTOR: Dorothy Goldstein Interpretating Date/Time 03/10/2017 17:37:08
[2017-03-10] MEDS ORDERED: CHLORHEXIDINE GLUCONATE 2 % 1 PACK (2 CLOTHS) TOP SCH (19:30)
[2017-03-10] MEDS ORDERED: POVIDONE IODINE 5% (ANTISEPSIS KIT) 4 APPLICATIONS EACH NARE SCH (19:30)
[2017-03-10] MEDS ORDERED: MUPIROCIN 2% OINT 1 APPLIC/GM SYR NASAL SCH (19:30)
[2017-03-10] MEDS ORDERED: LORazepam 2 MG/ML VIAL IV PUSH PRN (20:15)
--- NOTE | 2017-03-10 23:03 | EKG ---
Date Performed: 03/10/2017 Time Performed: 18:54:30 PTAGE: 61 years EKG: Sinus tachycardia. Right axis deviation Left bundle branch block Abnormal ECG PREVIOUS TRACING : 03/09/2017 07.36 Compared to the previous tracing, previously AV paced with frequent PVCs DOCTOR: Gene Rendon Interpretating Date/Time 03/10/2017 23:02:41
[2017-03-10] MEDS ORDERED: LORazepam 2 MG/ML VIAL IV PUSH ONE (23:30)
[2017-03-10] MEDS ORDERED: HALOPERIDOL LACTATE 5 MG/ML AMP IV PUSH ONE (23:30)
[2017-03-11] VITALS (17 sets, daily range): BP systolic 85–120; BP diastolic 46–70; PULSE 88–120; RESP 16–20; TEMP 98.1–98.6; O2SAT 94–98
[2017-03-11] MEDS: LORazepam 2 MG/ML VIAL IV PUSH PRN ×4 (01:52→22:37)
[2017-03-11] MEDS: MORPHINE SULFATE 4 MG/ML INJ IV PUSH PRN ×3 (04:53→19:10)
[2017-03-11 06:20] LABS: HEMATOCRIT 30.6 % (39.0-51.0); MEAN CELL VOLUME 87.6 FL (80.0-100.0); MEAN CORPUSCULAR HEMOGLOBIN 29.6 PG (27.0-34.0); MEAN CORPUSCULAR HGB CONC 33.8 % (32.0-36.0); PLATELET COUNT 156 TH/MM3 (150-450); RED BLOOD COUNT 3.49 MIL/MM3 (4.50-5.90); RED CELL DISTRIBUTION WIDTH 16.3 % (11.6-17.2); REVIEW FLAG FINAL; WHITE BLOOD COUNT 3.5 TH/MM3 (4.0-11.0)
[2017-03-11 06:44] LABS: BICARBONATE 32.6 MEQ/L (21.0-32.0); MAGNESIUM 1.7 MG/DL (1.5-2.5); POTASSIUM 3.4 MEQ/L (3.5-5.1)
[2017-03-11] MEDS: FUROSEMIDE 40 MG TAB PO SCH ×2 (08:17→20:07)
[2017-03-11] MEDS: DOCUSATE SODIUM 100 MG CAP PO SCH ×2 (08:17→20:07)
[2017-03-11] MEDS: LORazepam 0.5 MG TAB PO PRN (08:17)
[2017-03-11] MEDS: SODIUM CHLORIDE 0.9% FLUSH 10 ML FLUSH IV FLUSH PRN (08:17)
[2017-03-11] MEDS: ASPIRIN 81 MG CHEW TAB CHEW SCH (08:17)
[2017-03-11] MEDS: SENNOSIDES 8.6 MG TAB PO SCH (08:17)
--- NOTE | 2017-03-11 08:36 | HHI.PR ---
Subjective Remarks Feeling ok Objective Vital Signs Date Time Temp Pulse Resp B/P Pulse Ox O2 Delivery O2 Flow Rate FiO2 03/11/17 04:12 98.1 88 16 99/63 94 03/11/17 01:00 97 03/11/17 00:00 96 03/10/17 23:02 98.1 92 16 116/58 97 03/10/17 22:00 106 03/10/17 21:51 98 21 03/10/17 21:00 102 03/10/17 20:00 114 03/10/17 19:35 97.9 106 20 128/79 99 03/10/17 19:00 76 03/10/17 18:00 96 03/10/17 17:09 16 03/10/17 17:00 104 03/10/17 16:33 16 03/10/17 15:00 99.0 93 16 123/73 98 03/10/17 15:00 100 03/10/17 15:00 93 123/73 03/10/17 14:00 82 03/10/17 14:00 87 117/67 03/10/17 13:00 84 118/70 03/10/17 13:00 84 03/10/17 12:15 16 03/10/17 12:00 88 119/68 03/10/17 12:00 88 03/10/17 11:30 83 114/67 03/10/17 11:16 97.9 16 112/64 98 03/10/17 11:00 86 03/10/17 11:00 97.9 98 16 112/64 98 03/10/17 10:45 78 115/68 03/10/17 10:25 89 113/62 03/10/17 10:16 96 21 03/10/17 10:08 90 112/65 I/O 03/10/17 03/10/17 03/10/17 03/11/17 03/11/17 03/11/17 07:00 15:00 23:00 07:00 15:00 23:00 Intake Total 480 ml 860 ml 240 ml Output Total 700 ml 825 ml Balance -220 ml 860 ml -585 ml Intake Oral 480 ml 360 ml 240 ml IV Total 500 ml Output Urine Total 700 ml 825 ml # Bowel Movements 0 Result Diagram: 4/19/17 0517 4/19/17 0517 Imaging Alert, fully oriented now. Knows his name, where is he and the reason for admission and the procedure that was done yesterday Lungs: ventilated Heart: S1, S2 regular, no gallop Abdomen: soft, no mass Ext: no edema Current Medications Medications (Trade) Dose Ordered Sig/Amelia Route Start Time Stop Time Status Last Admin (NS Flush) 2 ml UNSCH PRN IVF 03/09/17 00:30 (NS Flush) 2 ml UNSCH PRN IV FLUSH 03/09/17 03:30 03/11/17 08:17 (Aspirin Chew) 81 mg DAILY CHEW 03/09/17 10:00 03/11/17 08:17 (Lasix) 40 mg BID PO 03/09/17 10:00 03/11/17 08:17 (Roxicodone) 5 mg Q4H PRN PO 03/09/17 16:45 (Roxicodone) 10 mg Q4H PRN PO 03/09/17 16:45 03/11/17 08:16 Docusate Sodium 100 mg 100 mg BID PO 03/09/17 21:00 03/11/17 08:17 (NS 1000 ml Inj) 1,000 ml @ 30 mls/hr Q24H IV 03/10/17 08:29 03/15/17 08:28 (Ativan Inj) 0.5 mg UNSCH PRN IV 03/10/17 10:15 03/11/17 10:14 03/10/17 19:49 Atropine Sulfate 0.5 mg 0.5 mg UNSCH PRN IV 03/10/17 10:15 (NS 250 ml Inj) 250 ml @ 500 mls/hr ONCE PRN IV 03/10/17 10:15 03/11/17 10:14 (Reglan Inj) 10 mg Q4H PRN IV 03/10/17 10:15 (Zofran Inj) 4 mg Q4H PRN IV 03/10/17 10:15 (Xylocaine 1% Inj (50 ml)) 10 ml UNSCH PRN INFIL 03/10/17 10:15 03/11/17 10:14 (Senokot) 17.2 mg DAILY PO 03/10/17 10:30 03/11/17 08:17 (Ativan) 0.5 mg Q8H PRN PO 03/10/17 18:30 03/11/17 08:17 (Morphine Inj) 2 mg Q4H PRN IV PUSH 03/10/17 18:00 03/11/17 04:53 (Ativan Inj) 1 mg Q2H PRN IV PUSH 03/10/17 20:15 03/11/17 04:[address] Angiography 03/09/17 0137 Signed Impressions: Service Date/Time: Thursday, March 09, 2017 02:36 - CONCLUSION: Normal examination. Epicardial pacer wires. No evidence of pulmonary embolism. Omar Egan MD Chest X-Ray 03/09/17 0029 Signed Impressions: Service Date/Time: Thursday, March 09, 2017 00:29 - CONCLUSION: Normal examination. Left subclavian bipolar pacer, unchanged. Omar Egan MD Assessment and Plan Problem List: (1) Cardiomyopathy Status: Acute Plan: Stable. O optimal medical management Non ischemic. EF 20% (2) Chest pain Status: Acute Plan: No chest pain reported today (3) Alcohol intoxication Status: Acute Plan: Apparently developed alcohol withdrawal . Was agitated last night. Getting better. Device replacement was cancel this morning. Will be observed. If continue to improve, gen replacement in AM. (4) ICD (implantable cardioverter-defibrillator) battery depletion Status: Acute Plan: Gen EOL. Will need battery replacement Problem Qualifiers (1) Cardiomyopathy: Qualified Code: I42.9 - Cardiomyopathy, unspecified type (2) Chest pain: Qualified Code: R07.9 - Chest pain, unspecified type Tea Adames MD Mar 11, 2017 08:36
[2017-03-11] MEDS ORDERED: LORazepam 2 MG/ML VIAL IV PUSH PRN (11:15)
[2017-03-11] MEDS ORDERED: LORazepam 2 MG TAB PO PRN (11:15)
[2017-03-11] MEDS ORDERED: LORazepam 1 MG TAB PO PRN (11:15)
[2017-03-11] MEDS ORDERED: FLUMAZENIL 0.5 MG/5 ML VIAL IV PUSH PRN (11:15)
--- NOTE | 2017-03-11 12:05 | HHI.PR ---
Subjective Remarks DW sitter at bedside. More calm today. Still intermittent episode of hallucinations. Patient reports he is feeling ok. Objective Vitals Vital Signs Date Time Temp Pulse Resp B/P Pulse Ox O2 Delivery O2 Flow Rate FiO2 03/11/17 10:00 94 03/11/17 09:00 92 03/11/17 08:56 98 21 03/11/17 08:00 100 03/11/17 08:00 98.6 100 18 85/46 95 03/11/17 04:12 98.1 88 16 99/63 94 03/11/17 01:00 97 03/11/17 00:00 96 03/10/17 23:02 98.1 92 16 116/58 97 03/10/17 22:00 106 03/10/17 21:51 98 21 03/10/17 21:00 102 03/10/17 20:00 114 03/10/17 19:35 97.9 106 20 128/79 99 03/10/17 19:00 76 03/10/17 18:00 96 03/10/17 17:09 16 03/10/17 17:00 104 03/10/17 16:33 16 03/10/17 15:00 99.0 93 16 123/73 98 03/10/17 15:00 100 03/10/17 15:00 93 123/73 03/10/17 14:00 82 03/10/17 14:00 87 117/67 03/10/17 13:00 84 118/70 03/10/17 13:00 84 03/10/17 12:15 16 I/O 03/10/17 03/10/17 03/10/17 03/11/17 03/11/17 03/11/17 07:00 15:00 23:00 07:00 15:00 23:00 Intake Total 480 ml 860 ml 240 ml Output Total 700 ml 825 ml Balance -220 ml 860 ml -585 ml Intake Oral 480 ml 360 ml 240 ml IV Total 500 ml Output Urine Total 700 ml 825 ml # Bowel Movements 0 Result Diagram: 03/11/1751603/11/[address] Angiography 03/09/17 0137 Signed Impressions: Service Date/Time: Thursday, March 09, 2017 02:36 - CONCLUSION: Normal examination. Epicardial pacer wires. No evidence of pulmonary embolism. Omar Egan MD Chest X-Ray 03/09/17 0029 Signed Impressions: Service Date/Time: Thursday, March 09, 2017 00:29 - CONCLUSION: Normal examination. Left subclavian bipolar pacer, unchanged. Omar Egan MD Objective Remarks GENERAL: Patient appearing older than stated age, somnolent, in no apparent distress. CARDIOVASCULAR: Normal rate and regular rhythm without murmurs, gallops, or rubs. RESPIRATORY: Good respiratory efforts. Breath sounds equal and clear to auscultation bilaterally. GASTROINTESTINAL: Abdomen soft, non-tender, non-distended. Normal active bowel sounds MUSCULOSKELETAL: Extremities without cyanosis, or edema. NEURO: Somnolent, alert and oriented to time and place. PSYCH: Calm. Reports of hallucinations today but none currently. Procedures Cardiac catheterization 03/10. A/P Assessment and Plan 61-year-old male with: Atypical chest pain/ Cardiomyopathy Patient has had serial cardiac enzymes and EKGs for ruling out purposes. He has been seen by Dr. Miky Nice of cardiology in the chest pain center. Reports a heart catheterization about a year ago that had no blockages. Pacemaker was interrogated. The pt will need a generator change. Cardiology was consulted and catheterization was recommended prior to proceeding with generator exchange. Cath 03/10 without obstructive coronary disease, EF of about 20%. - EP to perform generator exchange. Patient went into alcohol withdrawal which delayed procedure. Hopefully can be done tomorrow. - pain control with a bowel regimen. - anxiolytics as needed. - incentive spirometry. - physical therapy. - Continue cardiac regimen. Alcohol withdrawal: CIWA protocol Anemia/ Leukopenia Hemoglobin level lower than previous values. WBC count stable. - check iron studies, B12, folate level and Hemoccult. - follow CBC. Tobacco abuse The patient reports smoking occasionally. - Patient has been counseled on the importance of smoking cessation. PPx: SCDs. Discharge Planning Discharge pending clinical improvement. 1-2 days Consuelo Laboy MD Mar 11, 2017 12:05
[2017-03-11] MEDS ORDERED: POTASSIUM CHLORIDE 10 MEQ CONTROLLED RELEASE TAB PO ONE (14:00)
[2017-03-12] VITALS (27 sets, daily range): BP systolic 90–116; BP diastolic 54–68; PULSE 86–112; RESP 16–18; TEMP 97.6–98.8; O2SAT 92–99
[2017-03-12] MEDS: LORazepam 2 MG/ML VIAL IV PUSH PRN ×6 (00:29→22:17)
[2017-03-12 07:03] LABS: HEMATOCRIT 29.2 % (39.0-51.0); MEAN CELL VOLUME 87.9 FL (80.0-100.0); MEAN CORPUSCULAR HEMOGLOBIN 29.2 PG (27.0-34.0); MEAN CORPUSCULAR HGB CONC 33.3 % (32.0-36.0); PLATELET COUNT 148 TH/MM3 (150-450); RED BLOOD COUNT 3.33 MIL/MM3 (4.50-5.90); RED CELL DISTRIBUTION WIDTH 16.3 % (11.6-17.2); REVIEW FLAG FINAL; WHITE BLOOD COUNT 4.3 TH/MM3 (4.0-11.0)
[2017-03-12 07:15] LABS: BICARBONATE 30.8 MEQ/L (21.0-32.0); POTASSIUM 3.9 MEQ/L (3.5-5.1)
[2017-03-12] MEDS: SODIUM CHLOR 0.9% 1000 ML INJ 1,000 ML IV SCH (07:20)
[2017-03-12] MEDS: SENNOSIDES 8.6 MG TAB PO SCH (08:09)
[2017-03-12] MEDS: DOCUSATE SODIUM 100 MG CAP PO SCH ×2 (08:09→21:00)
[2017-03-12] MEDS: ASPIRIN 81 MG CHEW TAB CHEW SCH (08:09)
[2017-03-12] MEDS: FUROSEMIDE 40 MG TAB PO SCH ×2 (08:10→21:00)
--- NOTE | 2017-03-12 12:08 | HHI.PR ---
Subjective Remarks Seen in follow-up for cardiomyopathy, alcohol withdrawal, encephalopathy, tobacco abuse The patient is alert and oriented. However he does not understand his current medical condition. No further hallucinations reported. He is still requiring IV Ativan for alcohol withdrawal symptoms. Objective Vitals Vital Signs Date Time Temp Pulse Resp B/P Pulse Ox O2 Delivery O2 Flow Rate FiO2 03/12/17 11:00 98 03/12/17 10:00 90 03/12/17 09:00 86 03/12/17 08:43 16 03/12/17 08:34 95 21 03/12/17 08:00 97.6 95 16 107/62 92 03/12/17 08:00 98 03/12/17 07:00 96 03/12/17 06:00 98 03/12/17 05:01 96 03/12/17 04:03 100 03/12/17 03:31 98.0 106 18 90/54 96 03/12/17 03:05 91 03/12/17 02:00 92 03/12/17 01:00 94 03/12/17 00:00 98 03/12/17 00:00 98.0 110 18 108/62 95 03/11/17 23:00 106 03/11/17 22:00 118 03/11/17 21:12 96 03/11/17 21:00 104 03/11/17 20:00 98.6 107 18 120/70 95 03/11/17 20:00 120 03/11/17 19:00 107 03/11/17 18:32 97 03/11/17 13:00 97 03/11/17 12:00 97 20 103/57 03/11/17 12:00 93 I/O 03/11/17 03/11/17 03/11/17 03/12/17 03/12/17 03/12/17 07:00 15:00 23:00 07:00 15:00 23:00 Intake Total 240 ml 240 ml Output Total 825 ml 500 ml Balance -585 ml -260 ml Intake Oral 240 ml 240 ml Output Urine Total 825 ml 500 ml Result Diagram: 03/12/17 0508 03/12/17 0508 Objective Remarks GENERAL: Patient appearing older than stated age, somnolent, in no apparent distress. CARDIOVASCULAR: Normal rate and regular rhythm without murmurs, gallops, or rubs. RESPIRATORY: Good respiratory efforts. Breath sounds equal and clear to auscultation bilaterally. GASTROINTESTINAL: Abdomen soft, non-tender, non-distended. Normal active bowel sounds MUSCULOSKELETAL: Extremities without cyanosis, or edema. NEURO: Somnolent, alert and oriented to time and place. PSYCH: Calm. Does not understand his current medical situation. Procedures Cardiac catheterization 03/10. A/P Assessment and Plan 61-year-old male with: Atypical chest pain/ Cardiomyopathy Patient has had serial cardiac enzymes and EKGs for ruling out purposes. He has been seen by Dr. Miky Nice of cardiology in the chest pain center. Reports a heart catheterization about a year ago that had no blockages. Pacemaker was interrogated. The pt will need a generator change. Cardiology was consulted and catheterization was recommended prior to proceeding with generator exchange. Cath 03/10 without obstructive coronary disease, EF of about 20%. - EP planning to perform generator exchange. Patient went into alcohol withdrawal which delayed the procedure. Currently he does not have capacity to give consent as he has no insight into his current medical condition. Discussed with RN who will attempt to contact his family. - pain control with a bowel regimen. - anxiolytics as needed. - incentive spirometry. - physical therapy. - Continue cardiac regimen. Alcohol withdrawal: CINE protocol. Check Ammonia levels. Anemia: Likely secondary to marrow suppression from chronic alcohol use. - H&H stable - follow CBC. Tobacco abuse The patient reports smoking occasionally. - Patient has been counseled on the importance of smoking cessation. PPx: SCDs. Discharge Planning Discharge pending clinical improvement. Alcohol withdrawal. EP following. Patient need AICD generator replacement when safe and if can provide consent. Consuelo Laboy MD Mar 12, 2017 12:08
[2017-03-12] MEDS: MORPHINE SULFATE 4 MG/ML INJ IV PUSH PRN (19:29)
[2017-03-12 19:33] LABS: AUTOMATED NEUTROPHIL # 3.1 TH/MM3 (1.8-7.7); BASOPHIL # 0.1 TH/MM3 (0-0.2); BASOPHIL % 1.5 % (0.0-2.0); EOSINOPHIL # 0.2 TH/MM3 (0-0.4); EOSINOPHIL % 4.3 % (0.0-4.0); HEMATOCRIT 32.4 % (39.0-51.0); HEMO FLAGS DIFF FINAL; LYMPH % 19.4 % (9.0-44.0); MEAN CELL VOLUME 88.9 FL (80.0-100.0); MEAN CORPUSCULAR HEMOGLOBIN 28.4 PG (27.0-34.0); MONO % 11.7 % (0.0-8.0); NEUT % 63.1 % (16.0-70.0); PLATELET COUNT 141 TH/MM3 (150-450); RED BLOOD COUNT 3.65 MIL/MM3 (4.50-5.90); RED CELL DISTRIBUTION WIDTH 16.5 % (11.6-17.2); WHITE BLOOD COUNT 4.9 TH/MM3 (4.0-11.0)
[2017-03-12 20:00] LABS: BICARBONATE 28.4 MEQ/L (21.0-32.0); POTASSIUM 4.1 MEQ/L (3.5-5.1)
[2017-03-13] VITALS (16 sets, daily range): BP systolic 89–138; BP diastolic 51–72; PULSE 78–122; RESP 18–20; TEMP 98–98.6; O2SAT 93–95
[2017-03-13] MEDS: LORazepam 2 MG/ML VIAL IV PUSH PRN ×3 (00:42→06:19)
[2017-03-13] MEDS: MORPHINE SULFATE 4 MG/ML INJ IV PUSH PRN (01:47)
[2017-03-13] MEDS: SODIUM CHLOR 0.9% 1000 ML INJ 1,000 ML IV SCH (08:29)
[2017-03-13] MEDS: SENNOSIDES 8.6 MG TAB PO SCH (09:00)
[2017-03-13] MEDS: FUROSEMIDE 40 MG TAB PO SCH ×2 (09:00→21:59)
[2017-03-13] MEDS: DOCUSATE SODIUM 100 MG CAP PO SCH ×2 (09:00→21:59)
[2017-03-13] MEDS: ASPIRIN 81 MG CHEW TAB CHEW SCH (09:00)
--- NOTE | 2017-03-13 09:36 | PD.CARD.PN ---
Subjective Subjective Remarks No events overnight on telemetry Currently lethargic from Ativan, but without it he's withdrawing Objective Medications Current Medications Medications (Trade) Dose Ordered Sig/Amelia Route Start Time Stop Time Status Last Admin (NS Flush) 2 ml UNSCH PRN IVF 03/09/17 00:30 (NS Flush) 2 ml UNSCH PRN IV FLUSH 03/09/17 03:30 03/11/17 08:17 (Aspirin Chew) 81 mg DAILY CHEW 03/09/17 10:00 03/12/17 08:09 (Lasix) 40 mg BID PO 03/09/17 10:00 03/12/17 21:00 (Roxicodone) 5 mg Q4H PRN PO 03/09/17 16:45 (Roxicodone) 10 mg Q4H PRN PO 03/09/17 16:45 03/12/17 08:10 Docusate Sodium 100 mg 100 mg BID PO 03/09/17 21:00 03/12/17 21:00 (NS 1000 ml Inj) 1,000 ml @ 30 mls/hr Q24H IV 03/10/17 08:29 03/15/17 08:28 (Atropine Inj) 0.5 mg UNSCH PRN IV 03/10/17 10:15 (Reglan Inj) 10 mg Q4H PRN IV 03/10/17 10:15 (Zofran Inj) 4 mg Q4H PRN IV 03/10/17 10:15 (Senokot) 17.2 mg DAILY PO 03/10/17 10:30 03/12/17 08:09 (Ativan) 0.5 mg Q8H PRN PO 03/10/17 18:30 03/11/17 08:17 (Morphine Inj) 2 mg Q4H PRN IV PUSH 03/10/17 18:00 03/13/17 01:47 (Romazicon Inj) 0.2 mg Q1M PRN IV PUSH 03/11/17 11:15 (Ativan) 1 mg Q4H PRN PO 03/11/17 11:15 (Ativan Inj) 1 mg Q4H PRN IV PUSH 03/11/17 11:15 (Ativan) 2 mg Q2H PRN PO 03/11/17 11:15 03/11/17 17:15 (Ativan Inj) 2 mg Q2H PRN IV PUSH 03/11/17 11:15 03/13/17 06:19 (Ativan Inj) 2 mg Q1H PRN IV PUSH 03/11/17 11:15 03/12/17 08:10 (Ativan Inj) 2 mg Q15M PRN IV PUSH 03/11/17 11:15 03/11/17 20:08 Vital Signs / I&O Vital Signs Date Time Temp Pulse Resp B/P Pulse Ox O2 Delivery O2 Flow Rate FiO2 03/13/17 06:00 94 03/13/17 05:00 98 03/13/17 04:00 98.0 78 18 96/59 95 03/13/17 04:00 94 03/13/17 03:00 115 03/13/17 02:00 110 03/13/17 01:00 122 03/13/17 00:00 108 03/13/17 00:00 98.0 108 18 108/59 95 03/12/17 23:00 98 03/12/17 22:00 94 03/12/17 21:00 92 03/12/17 20:21 98 03/12/17 20:00 102 03/12/17 20:00 98.0 95 18 116/68 95 03/12/17 19:00 90 03/12/17 18:00 90 03/12/17 17:00 104 03/12/17 16:00 98.8 100 16 103/63 97 03/12/17 16:00 90 03/12/17 15:00 92 03/12/17 14:00 112 03/12/17 13:00 110 03/12/17 12:00 97.8 96 16 101/64 99 03/12/17 12:00 100 03/12/17 11:00 98 03/12/17 10:00 90 I/O 03/12/17 03/12/17 03/12/17 03/13/17 03/13/17 03/13/17 07:00 15:00 23:00 07:00 15:00 23:00 Intake Total 240 ml 360 ml 420 ml Output Total 500 ml 550 ml Balance -260 ml 360 ml -130 ml Intake Oral 240 ml 360 ml 420 ml Output Urine Total 500 ml 550 ml # Voids 3 4 # Bowel Movements 0 Physical Exam GENERAL: NAD, lethargic SKIN: Warm and dry. HEAD: Atraumatic. Normocephalic. EYES: Pupils equal and round. No scleral icterus. No injection or drainage. ENT: No nasal bleeding or discharge. Mucous membranes pink and moist. NECK: Trachea midline. No JVD. CARDIOVASCULAR: Regular rate and rhythm. RESPIRATORY: No accessory muscle use. Clear to auscultation. Breath sounds equal bilaterally. GASTROINTESTINAL: Abdomen soft, non-tender, nondistended. Hepatic and splenic margins not palpable. MUSCULOSKELETAL: Extremities without clubbing, cyanosis, or edema. No obvious deformities. NEUROLOGICAL: Lethargic Laboratory Laboratory Tests Test 03/12/17 03/12/17 14:59 19:23 Ammonia 22 MCMOL/L White Blood Count 4.9 TH/MM3 Red Blood Count 3.65 MIL/MM3 Hemoglobin 10.4 GM/DL Hematocrit 32.4 % Mean Corpuscular Volume 88.9 FL Mean Corpuscular Hemoglobin 28.4 PG Mean Corpuscular Hemoglobin 32.0 % Concent Red Cell Distribution Width 16.5 % Platelet Count 141 TH/MM3 Mean Platelet Volume 8.9 FL Neutrophils (%) (Auto) 63.1 % Lymphocytes (%) (Auto) 19.4 % Monocytes (%) (Auto) 11.7 % Eosinophils (%) (Auto) 4.3 % Basophils (%) (Auto) 1.5 % Neutrophils # (Auto) 3.1 TH/MM3 Lymphocytes # (Auto) 1.0 TH/MM3 Monocytes # (Auto) 0.6 TH/MM3 Eosinophils # (Auto) 0.2 TH/MM3 Basophils # (Auto) 0.1 TH/MM3 CBC Comment DIFF FINAL Differential Comment Sodium Level 135 MEQ/L Potassium Level 4.1 MEQ/L Chloride Level 99 MEQ/L Carbon Dioxide Level 28.4 MEQ/L Anion Gap 8 MEQ/L Blood Urea Nitrogen 28 MG/DL Creatinine 1.60 MG/DL Estimat Glomerular Filtration 44 ML/MIN Rate Random Glucose 112 MG/DL Calcium Level 8.8 MG/DL Assessment and Plan Problem List: (1) Cardiomyopathy (2) Chest pain (3) Alcohol intoxication (4) ICD (implantable cardioverter-defibrillator) battery depletion Assessment and Plan 1) ICD at EOL 2) Patient unable to sign own consent, nurse attempting to get consent from family 3) Will be re-evaluated for battery change next week by Dr. Adames if consent can be obtained 4) ETOH withdrawal per the primary team Problem Qualifiers (1) Cardiomyopathy: Qualified Code: I42.9 - Cardiomyopathy, unspecified type (2) Chest pain: Qualified Code: R07.9 - Chest pain, unspecified type Gene Rendon DO Mar 13, 2017 09:36
--- NOTE | 2017-03-13 10:21 | HHI.PR ---
Subjective Remarks Pt encountered laying a bed. Alert and oriented x 1-self only. Follows commands. Based on responses, pt is unreliable in providing history or self report. In no apparent distress. mentation is on/off. Poor judgement. When asked, he is denying having any pain at this time. Denies chest pain, sob, n/v/d/c. No fever or chills. Objective Vitals Vital Signs Date Time Temp Pulse Resp B/P Pulse Ox O2 Delivery O2 Flow Rate FiO2 03/13/17 06:00 94 03/13/17 05:00 98 03/13/17 04:00 98.0 78 18 96/59 95 03/13/17 04:00 94 03/13/17 03:00 115 03/13/17 02:00 110 03/13/17 01:00 122 03/13/17 00:00 108 03/13/17 00:00 98.0 108 18 108/59 95 03/12/17 23:00 98 03/12/17 22:00 94 03/12/17 21:00 92 03/12/17 20:21 98 03/12/17 20:00 102 03/12/17 20:00 98.0 95 18 116/68 95 03/12/17 19:00 90 03/12/17 18:00 90 03/12/17 17:00 104 03/12/17 16:00 98.8 100 16 103/63 97 03/12/17 16:00 90 03/12/17 15:00 92 03/12/17 14:00 112 03/12/17 13:00 110 03/12/17 12:00 97.8 96 16 101/64 99 03/12/17 12:00 100 03/12/17 11:00 98 I/O 03/12/17 03/12/17 03/12/17 03/13/17 03/13/17 03/13/17 07:00 15:00 23:00 07:00 15:00 23:00 Intake Total 240 ml 360 ml 420 ml Output Total 500 ml 550 ml Balance -260 ml 360 ml -130 ml Intake Oral 240 ml 360 ml 420 ml Output Urine Total 500 ml 550 ml # Voids 3 4 # Bowel Movements 0 Result Diagram: 03/12/17192203/12/171922 Other Results Reviewed nursing record. Pt with [place] coma scale of 13. CIWA score at 01:45 was reported as 11 and at 0400 this morning of 0. Imaging Per medical record, vascular ultra sound completed on 03/12/17 at 00:00, results have not posted at this time. Objective Remarks GENERAL: Constitutional: pt laying abed, responsive to questions with low voice. No apparent distress. SKIN: Warm and dry. HEAD: Normocephalic. EYES: No scleral icterus. No injection or drainage. NECK: Supple, trachea midline. No JVD or lymphadenopathy. CARDIOVASCULAR: Regular rate and rhythm without murmurs, gallops, or rubs. RESPIRATORY: Breath sounds equal bilaterally. No accessory muscle use. GASTROINTESTINAL: Abdomen soft, non-tender, nondistended. MUSCULOSKELETAL: No cyanosis, or edema. Neurological: Moves limbs on command, grasps fingers yet needs direction to release examiner's hand. Muscle strength is 3/5. When present with one finger he said he saw "12". BACK: Nontender without obvious deformity. Procedures Cardiac catheterization 03/10. Medications and IVs Current Medications Medications (Trade) Dose Ordered Sig/Amelia Route Start Time Stop Time Status Last Admin (NS Flush) 2 ml UNSCH PRN IVF 03/09/17 00:30 (NS Flush) 2 ml UNSCH PRN IV FLUSH 03/09/17 03:30 03/11/17 08:17 (Aspirin Chew) 81 mg DAILY CHEW 03/09/17 10:00 03/13/17 09:00 (Lasix) 40 mg BID PO 03/09/17 10:00 03/12/17 21:00 (Roxicodone) 5 mg Q4H PRN PO 03/09/17 16:45 (Roxicodone) 10 mg Q4H PRN PO 03/09/17 16:45 03/12/17 08:10 Docusate Sodium 100 mg 100 mg BID PO 03/09/17 21:00 03/13/17 09:00 (NS 1000 ml Inj) 1,000 ml @ 30 mls/hr Q24H IV 03/10/17 08:29 03/15/17 08:28 (Atropine Inj) 0.5 mg UNSCH PRN IV 03/10/17 10:15 (Reglan Inj) 10 mg Q4H PRN IV 03/10/17 10:15 (Zofran Inj) 4 mg Q4H PRN IV 03/10/17 10:15 (Senokot) 17.2 mg DAILY PO 03/10/17 10:30 03/13/17 09:00 (Ativan) 0.5 mg Q8H PRN PO 03/10/17 18:30 03/11/17 08:17 (Morphine Inj) 2 mg Q4H PRN IV PUSH 03/10/17 18:00 03/13/17 01:47 (Romazicon Inj) 0.2 mg Q1M PRN IV PUSH 03/11/17 11:15 (Ativan) 1 mg Q4H PRN PO 03/11/17 11:15 (Ativan Inj) 1 mg Q4H PRN IV PUSH 03/11/17 11:15 (Ativan) 2 mg Q2H PRN PO 03/11/17 11:15 03/11/17 17:15 (Ativan Inj) 2 mg Q2H PRN IV PUSH 03/11/17 11:15 03/13/17 06:19 (Ativan Inj) 2 mg Q1H PRN IV PUSH 03/11/17 11:15 03/12/17 08:10 (Ativan Inj) 2 mg Q15M PRN IV PUSH 03/11/17 11:15 03/11/17 20:08 A/P Assessment and Plan Atypical chest pain/ Cardiomyopathy Patient has had serial cardiac enzymes and EKGs for ruling out purposes. He has been seen by Dr. Miky Nice of cardiology in the chest pain center. Reports a heart catheterization about a year ago that had no blockages. Pacemaker was interrogated. The pt will need a generator change. Cardiology was consulted and catheterization was recommended prior to proceeding with generator exchange. Cath 03/10 without obstructive coronary disease, EF of about 20%. - EP planning to perform generator exchange. Patient went into alcohol withdrawal which delayed the procedure. Currently he does not have capacity to give consent as he has no insight into his current medical condition. Discussed with RN who will attempt to contact his family. - pain control with a bowel regimen. - anxiolytics as needed. - incentive spirometry. - physical therapy. - Continue cardiac regimen. 03/13/17 Pt has been seen by Dr. Vega with cardiology, plan is to replace pt's defibrillator batteries if pt improves and consent can be obtained. Patient is oriented only by name, follows some commands, poor judgement Paged by the nurse. Pt was also noted agitated, will give haldol, , soft restraints. Will consult psychiatry Also patient daughter doesn't want to give consents on behalf of her father. Alcohol withdrawal: CIWA protocol. Check Ammonia levels. 03/13/17 Ciwa protocol continues, score noted t obe 0 this am, as noted above. Ammonia level of 03/12/17 was 20, within normal limits. Anemia: Likely secondary to marrow suppression from chronic alcohol use. - H&H stable - follow CBC. 03/13/17 H&H are improving, though continue to be in anemic levels. Continue to follow CBC. Tobacco abuse The patient reports smoking occasionally. - Patient has been counseled on the importance of smoking cessation. 03/13/17 When pt's mental status, would advise reviewing smoking cessation information PPx: SCDs. Written by Ki Gross, acting as scribe for Dr. Myers on 03/13/17 at 10:20. This note was transcribed by scribJose FLOREZ. I, Dr. Salud Myers personally performed the history, physical exam, and medical decision making; and confirmed the accuracy of the information in the transcribed note. Authenticated by Dr. Salud Myers on 03/13/17 at 10:20. Ki Gross Jr. Mar 13, 2017 10:20 Salud Myers MD Mar 13, 2017 15:46
[2017-03-13] MEDS ORDERED: HALOPERIDOL LACTATE 5 MG/ML AMP IV PUSH PRN (15:45)
[2017-03-14] VITALS (27 sets, daily range): BP systolic 101–117; BP diastolic 49–70; PULSE 76–92; RESP 18–20; TEMP 97.7–99.3; O2SAT 79–97
[2017-03-14] MEDS: LORazepam 2 MG/ML VIAL IV PUSH PRN ×2 (00:59→11:45)
[2017-03-14 05:27] LABS: AUTOMATED NEUTROPHIL # 2.7 TH/MM3 (1.8-7.7); BASOPHIL # 0.1 TH/MM3 (0-0.2); BASOPHIL % 1.2 % (0.0-2.0); EOSINOPHIL # 0.2 TH/MM3 (0-0.4); EOSINOPHIL % 3.2 % (0.0-4.0); HEMATOCRIT 29.9 % (39.0-51.0); HEMO FLAGS DIFF FINAL; LYMPHOCYTE # 1.5 TH/MM3 (1.0-4.8); MEAN CELL VOLUME 88.4 FL (80.0-100.0); MEAN CORPUSCULAR HEMOGLOBIN 29.2 PG (27.0-34.0); MONO % 11.2 % (0.0-8.0); NEUT % 54.4 % (16.0-70.0); PLATELET COUNT 125 TH/MM3 (150-450); RED BLOOD COUNT 3.38 MIL/MM3 (4.50-5.90); RED CELL DISTRIBUTION WIDTH 16.3 % (11.6-17.2)
[2017-03-14 05:57] LABS: BICARBONATE 28.6 MEQ/L (21.0-32.0); POTASSIUM 3.5 MEQ/L (3.5-5.1)
[2017-03-14] MEDS: SODIUM CHLOR 0.9% 1000 ML INJ 1,000 ML IV SCH (08:29)
[2017-03-14] MEDS: MORPHINE SULFATE 4 MG/ML INJ IV PUSH PRN ×3 (09:52→22:32)
[2017-03-14] MEDS: ASPIRIN 81 MG CHEW TAB CHEW SCH (09:55)
[2017-03-14] MEDS: DOCUSATE SODIUM 100 MG CAP PO SCH ×2 (09:55→20:50)
[2017-03-14] MEDS: SENNOSIDES 8.6 MG TAB PO SCH (09:55)
[2017-03-14] MEDS: FUROSEMIDE 40 MG TAB PO SCH ×2 (09:55→20:50)
--- NOTE | 2017-03-14 10:30 | PD.CARD.PN ---
Subjective Subjective Remarks Somewhat more oriented today, less agitation Objective Medications Current Medications Medications (Trade) Dose Ordered Sig/Amelia Route Start Time Stop Time Status Last Admin (NS Flush) 2 ml UNSCH PRN IVF 03/09/17 00:30 (NS Flush) 2 ml UNSCH PRN IV FLUSH 03/09/17 03:30 03/11/17 08:17 (Aspirin Chew) 81 mg DAILY CHEW 03/09/17 10:00 03/14/17 09:55 (Lasix) 40 mg BID PO 03/09/17 10:00 03/14/17 09:55 (Roxicodone) 5 mg Q4H PRN PO 03/09/17 16:45 (Roxicodone) 10 mg Q4H PRN PO 03/09/17 16:45 03/13/17 21:59 Docusate Sodium 100 mg 100 mg BID PO 03/09/17 21:00 03/14/17 09:55 (NS 1000 ml Inj) 1,000 ml @ 30 mls/hr Q24H IV 03/10/17 08:29 03/15/17 08:28 (Atropine Inj) 0.5 mg UNSCH PRN IV 03/10/17 10:15 (Reglan Inj) 10 mg Q4H PRN IV 03/10/17 10:15 (Zofran Inj) 4 mg Q4H PRN IV 03/10/17 10:15 (Senokot) 17.2 mg DAILY PO 03/10/17 10:30 03/14/17 09:55 (Ativan) 0.5 mg Q8H PRN PO 03/10/17 18:30 03/11/17 08:17 (Morphine Inj) 2 mg Q4H PRN IV PUSH 03/10/17 18:00 03/14/17 09:52 (Romazicon Inj) 0.2 mg Q1M PRN IV PUSH 03/11/17 11:15 (Ativan) 1 mg Q4H PRN PO 03/11/17 11:15 (Ativan Inj) 1 mg Q4H PRN IV PUSH 03/11/17 11:15 (Ativan) 2 mg Q2H PRN PO 03/11/17 11:15 03/11/17 17:15 (Ativan Inj) 2 mg Q2H PRN IV PUSH 03/11/17 11:15 03/13/17 06:19 (Ativan Inj) 2 mg Q1H PRN IV PUSH 03/11/17 11:15 03/14/17 00:59 (Ativan Inj) 2 mg Q15M PRN IV PUSH 03/11/17 11:15 03/11/17 20:08 (Haldol Inj) 2 mg Q6HR PRN IV PUSH 03/13/17 15:45 Vital Signs / I&O Vital Signs Date Time Temp Pulse Resp B/P Pulse Ox O2 Delivery O2 Flow Rate FiO2 03/14/17 08:25 93 21 03/14/17 06:00 80 03/14/17 05:00 83 03/14/17 04:45 97.8 81 20 101/49 94 03/14/17 04:00 80 03/14/17 03:00 78 03/14/17 02:00 78 03/14/17 01:00 84 03/14/17 00:00 99.1 87 20 104/55 92 03/14/17 00:00 86 03/13/17 23:00 88 03/13/17 22:40 20 03/13/17 22:30 94 21 03/13/17 22:00 84 03/13/17 21:00 86 03/13/17 20:00 90 03/13/17 20:00 98.6 86 20 138/72 93 03/13/17 19:00 85 03/13/17 12:00 98.5 91 18 100/58 93 03/13/17 10:33 95 21 I/O 03/13/17 03/13/17 03/13/17 03/14/17 03/14/17 03/14/17 07:00 15:00 23:00 07:00 15:00 23:00 Intake Total 420 ml 520 ml Output Total 550 ml 280 ml Balance -130 ml 240 ml Intake Oral 420 ml 520 ml IV Total 0 ml Output Urine Total 550 ml 280 ml Emesis 0 ml # Voids 4 1 # Bowel Movements 1 Physical Exam GENERAL: NAD, AAOx3 SKIN: Warm and dry. HEAD: Atraumatic. Normocephalic. EYES: Pupils equal and round. No scleral icterus. No injection or drainage. ENT: No nasal bleeding or discharge. Mucous membranes pink and moist. NECK: Trachea midline. No JVD. CARDIOVASCULAR: Regular rate and rhythm. RESPIRATORY: No accessory muscle use. Clear to auscultation. Breath sounds equal bilaterally. GASTROINTESTINAL: Abdomen soft, non-tender, nondistended. Hepatic and splenic margins not palpable. MUSCULOSKELETAL: Extremities without clubbing, cyanosis, or edema. No obvious deformities. NEUROLOGICAL: No focal deficits Laboratory Laboratory Tests Test 03/14/17 04:07 White Blood Count 5.0 TH/MM3 Red Blood Count 3.38 MIL/MM3 Hemoglobin 9.9 GM/DL Hematocrit 29.9 % Mean Corpuscular Volume 88.4 FL Mean Corpuscular Hemoglobin 29.2 PG Mean Corpuscular Hemoglobin 33.0 % Concent Red Cell Distribution Width 16.3 % Platelet Count 125 TH/MM3 Mean Platelet Volume 10.8 FL Neutrophils (%) (Auto) 54.4 % Lymphocytes (%) (Auto) 30.0 % Monocytes (%) (Auto) 11.2 % Eosinophils (%) (Auto) 3.2 % Basophils (%) (Auto) 1.2 % Neutrophils # (Auto) 2.7 TH/MM3 Lymphocytes # (Auto) 1.5 TH/MM3 Monocytes # (Auto) 0.6 TH/MM3 Eosinophils # (Auto) 0.2 TH/MM3 Basophils # (Auto) 0.1 TH/MM3 CBC Comment DIFF FINAL Differential Comment Sodium Level 138 MEQ/L Potassium Level 3.5 MEQ/L Chloride Level 103 MEQ/L Carbon Dioxide Level 28.6 MEQ/L Anion Gap 6 MEQ/L Blood Urea Nitrogen 28 MG/DL Creatinine 1.14 MG/DL Estimat Glomerular Filtration 66 ML/MIN Rate Random Glucose 87 MG/DL Calcium Level 8.8 MG/DL Magnesium Level 2.0 MG/DL Assessment and Plan Problem List: (1) Cardiomyopathy (2) Chest pain (3) Alcohol intoxication (4) ICD (implantable cardioverter-defibrillator) battery depletion Assessment and Plan 1) ICD at EOL 2) Daughter does not want to sign the consent for ICD generator change... patient is more oriented today 3) Dr. Adames will be back next week for consideration of ICD generator change if patient is able to consent 4) ETOH withdrawal per the primary team 5) Please call with any questions over the weekend Problem Qualifiers (1) Cardiomyopathy: Qualified Code: I42.9 - Cardiomyopathy, unspecified type (2) Chest pain: Qualified Code: R07.9 - Chest pain, unspecified type Gene Rendon DO Mar 14, 2017 10:30
--- NOTE | 2017-03-14 15:13 | HHI.PR ---
Subjective Remarks In bed, he is more awake and oriented today x full name, , location. Not by time. Discussed events patient says he is agreable to change to AICD, says his cardiology is Dr Glover. He says he did have chest pain after he walked with the PT today. he is feeling much jessie rnow. Pain meds helped. No fever or chills. No n/v/d/c. Objective Vitals Vital Signs Date Time Temp Pulse Resp B/P Pulse Ox O2 Delivery O2 Flow Rate FiO2 03/14/17 14:28 16 03/14/17 14:10 16 03/14/17 12:00 98.4 81 18 117/66 92 03/14/17 08:25 93 21 03/14/17 07:30 97.7 79 18 112/62 79 03/14/17 06:00 80 03/14/17 05:00 83 03/14/17 04:45 97.8 81 20 101/49 94 03/14/17 04:00 80 03/14/17 03:00 78 03/14/17 02:00 78 03/14/17 01:00 84 03/14/17 00:00 99.1 87 20 104/55 92 03/14/17 00:00 86 03/13/17 23:00 88 03/13/17 22:30 94 21 03/13/17 22:00 84 03/13/17 21:00 86 03/13/17 20:00 90 03/13/17 20:00 98.6 86 20 138/72 93 03/13/17 19:00 85 I/O 03/13/17 03/13/17 03/13/17 03/14/17 03/14/17 03/14/17 07:00 15:00 23:00 07:00 15:00 23:00 Intake Total 420 ml 520 ml Output Total 550 ml 280 ml Balance -130 ml 240 ml Intake Oral 420 ml 520 ml IV Total 0 ml Output Urine Total 550 ml 280 ml Emesis 0 ml # Voids 4 1 # Bowel Movements 1 Result Diagram: 03/14/1740603/14/17[address] Angiography 03/09/17 0137 Signed Impressions: Service Date/Time: Thursday, March 09, 2017 02:36 - CONCLUSION: Normal examination. Epicardial pacer wires. No evidence of pulmonary embolism. Omar Egan MD Chest X-Ray 03/09/17 0029 Signed Impressions: Service Date/Time: Thursday, March 09, 2017 00:29 - CONCLUSION: Normal examination. Left subclavian bipolar pacer, unchanged. Omar Egan MD Objective Remarks GENERAL: Pleasant 61 yo male, in bed, appears in nad. SKIN: Warm and dry. HEAD: Atraumatic. Normocephalic. EYES: Pupils equal and round. No scleral icterus. No injection or drainage. ENT: No nasal bleeding or discharge. Mucous membranes pink and moist. NECK: Trachea midline. No JVD. CARDIOVASCULAR: Regular rate and rhythm. RESPIRATORY: No accessory muscle use. Clear to auscultation. Breath sounds equal bilaterally. GASTROINTESTINAL: Abdomen soft, non-tender, nondistended. Hepatic and splenic margins not palpable. MUSCULOSKELETAL: Extremities without clubbing, cyanosis, or edema. No obvious deformities. NEUROLOGICAL: Awake and alert x name, , location. No obvious cranial nerve deficits. Motor grossly within normal limits. Five out of 5 muscle strength in the arms and legs. Normal speech. PSYCHIATRIC: Appropriate mood and affect; poor insight and judgment. Procedures Cardiac catheterization 03/10. A/P Assessment and Plan 61-year-old male with: Atypical chest pain/ Cardiomyopathy Patient has had serial cardiac enzymes and EKGs for ruling out purposes. He has been seen by Dr. Miky Nice of cardiology in the chest pain center. Reports a heart catheterization about a year ago that had no blockages. Pacemaker was interrogated. The pt will need a generator change. Cardiology was consulted and catheterization was recommended prior to proceeding with generator exchange. Cath 03/10 without obstructive coronary disease, EF of about 20%. - EP planning to perform generator exchange. Patient went into alcohol withdrawal which delayed the procedure. Currently he does not have capacity to give consent as he has no insight into his current medical condition. Discussed with RN who will attempt to contact his family. - pain control with a bowel regimen. - anxiolytics as needed. - incentive spirometry. - physical therapy. - Continue cardiac regimen. Alcohol withdrawal: CIWA protocol. Check Ammonia levels. Improving. Anemia: Likely secondary to marrow suppression from chronic alcohol use. - H&H stable - follow CBC. Tobacco abuse The patient reports smoking occasionally. - Patient has been counseled on the importance of smoking cessation. PPx: SCDs. Discharge Planning Discharge pending clinical improvement. Alcohol withdrawal. EP following. Patient need AICD generator replacement when safe and if can provide consent. Patient is improving , he is alert and oriented by name, , location. Says his cardiology is Dr Glover. Salud Myers MD Mar 14, 2017 15:13
[2017-03-14] MEDS: SODIUM CHLORIDE 0.9% FLUSH 10 ML FLUSH IV FLUSH PRN (20:51)
[2017-03-15] VITALS (23 sets, daily range): BP systolic 101–136; BP diastolic 61–75; PULSE 76–108; RESP 18–22; TEMP 97.9–99.2; O2SAT 94–100
[2017-03-15] MEDS: LORazepam 2 MG/ML VIAL IV PUSH PRN ×2 (00:32→09:15)
--- NOTE | 2017-03-15 07:19 | HHI.PR ---
Subjective Remarks More awake and alert today (amada gillis , location, year and month). Says he did not have any chest pain since yesterday when he walked with PT. No fever or chills. No n/v/d/c. Says he wants to have the surgery. No tremors. Objective Vitals Vital Signs Date Time Temp Pulse Resp B/P Pulse Ox O2 Delivery O2 Flow Rate FiO2 03/15/17 06:00 78 03/15/17 05:00 80 03/15/17 04:00 81 03/15/17 03:20 98.6 81 20 126/71 99 03/15/17 03:00 78 03/15/17 02:00 76 03/15/17 01:00 87 03/15/17 00:29 99.2 91 20 136/75 100 03/15/17 00:00 83 03/14/17 23:00 86 03/14/17 22:37 20 03/14/17 22:00 84 03/14/17 21:00 82 03/14/17 21:00 20 03/14/17 20:00 86 03/14/17 19:59 99.3 86 20 108/69 97 03/14/17 19:00 91 03/14/17 17:00 84 03/14/17 16:00 77 18 110/70 96 03/14/17 16:00 80 03/14/17 15:00 80 03/14/17 14:00 84 03/14/17 13:00 86 03/14/17 12:00 98.4 81 18 117/66 92 03/14/17 12:00 92 03/14/17 11:00 76 03/14/17 10:00 84 03/14/17 09:00 86 03/14/17 08:25 93 21 03/14/17 08:00 84 03/14/17 07:30 97.7 79 18 112/62 97 I/O 03/14/17 03/14/17 03/14/17 03/15/17 03/15/17 03/15/17 07:00 15:00 23:00 07:00 15:00 23:00 Intake Total 520 ml 600 ml 480 ml Output Total 280 ml 0 ml Balance 240 ml 600 ml 480 ml Intake Oral 520 ml 600 ml 480 ml IV Total 0 ml 0 ml Output Urine Total 280 ml Emesis 0 ml 0 ml # Voids 1 3 3 # Bowel Movements 1 0 Result Diagram: 03/14/17 0407 03/14/17[address] Angiography 03/09/17 013 Signed Impressions: Service Date/Time: Thursday, March 09, 2017 02:36 - CONCLUSION: Normal examination. Epicardial pacer wires. No evidence of pulmonary embolism. Omar Egan MD Chest X-Ray 03/09/17 0029 Signed Impressions: Service Date/Time: Thursday, March 09, 2017 00:29 - CONCLUSION: Normal examination. Left subclavian bipolar pacer, unchanged. Omar Egan MD Objective Remarks GENERAL: Pleasant 61 yo male, in bed, appears in nad. SKIN: Warm and dry. HEAD: Atraumatic. Normocephalic. EYES: Pupils equal and round. No scleral icterus. No injection or drainage. ENT: No nasal bleeding or discharge. Mucous membranes pink and moist. NECK: Trachea midline. No JVD. CARDIOVASCULAR: Regular rate and rhythm. RESPIRATORY: No accessory muscle use. Clear to auscultation. Breath sounds equal bilaterally. GASTROINTESTINAL: Abdomen soft, non-tender, nondistended. Hepatic and splenic margins not palpable. MUSCULOSKELETAL: Extremities without clubbing, cyanosis, or edema. No obvious deformities. NEUROLOGICAL: Awake and alert x name, , location. No obvious cranial nerve deficits. Motor grossly within normal limits. Five out of 5 muscle strength in the arms and legs. Normal speech. PSYCHIATRIC: Appropriate mood and affect; poor insight and judgment. Procedures Cardiac catheterization 03/10. A/P Assessment and Plan 61-year-old male with: Atypical chest pain/ Cardiomyopathy Patient has had serial cardiac enzymes and EKGs for ruling out purposes. He has been seen by Dr. Miky Nice of cardiology in the chest pain center. Reports a heart catheterization about a year ago that had no blockages. Pacemaker was interrogated. The pt will need a generator change. Cardiology was consulted and catheterization was recommended prior to proceeding with generator exchange. Cath 03/10 without obstructive coronary disease, EF of about 20%. - EP planning to perform generator exchange. Patient went into alcohol withdrawal which delayed the procedure. Currently he does not have capacity to give consent as he has no insight into his current medical condition. Discussed with RN who will attempt to contact his family. - pain control with a bowel regimen. - anxiolytics as needed. - incentive spirometry. - physical therapy. - Continue cardiac regimen. Alcohol withdrawal: CIWA protocol. Check Ammonia levels. Improving. Anemia: Likely secondary to marrow suppression from chronic alcohol use. - H&H stable - follow CBC. Tobacco abuse The patient reports smoking occasionally. - Patient has been counseled on the importance of smoking cessation. PPx: SCDs. Discharge Planning Discharge pending clinical improvement. Alcohol withdrawal. EP following. Patient need AICD generator replacement when safe and if can provide consent. Patient is improving , he is alert and oriented by name, , location, year and month. Salud Myers MD Mar 15, 2017 07:19
[2017-03-15] MEDS: ASPIRIN 81 MG CHEW TAB CHEW SCH (09:00)
[2017-03-15] MEDS: SENNOSIDES 8.6 MG TAB PO SCH (09:15)
[2017-03-15] MEDS: FUROSEMIDE 40 MG TAB PO SCH ×2 (09:15→20:49)
[2017-03-15] MEDS: DOCUSATE SODIUM 100 MG CAP PO SCH ×2 (09:15→20:49)
[2017-03-15] MEDS: MORPHINE SULFATE 4 MG/ML INJ IV PUSH PRN ×2 (09:46→17:24)
[2017-03-15] MEDS ORDERED: LIDOCAINE/D5W INJ 500 ML IV SCH (19:01)
[2017-03-15] MEDS ORDERED: LIDOCAINE HCL 2% 100 MG/5 ML SYRINGE IV PUSH ONE (19:15)
[2017-03-15] MEDS ORDERED: MAGNESIUM SULFATE 1 GM PREMIX 100 ML IV ONE (19:45)
[2017-03-15] MEDS ORDERED: NS IV ONE ×2 (19:45)
[2017-03-15] MEDS ORDERED: MAGNESIUM SULFATE IV ONE ×2 (19:45)
[2017-03-15] MEDS ORDERED: AMIODARONE INJ 150 MG in DEXTROSE 5% IN WATER 100ML INJ 97 ML IV ONE ×2 (20:00)
[2017-03-15] MEDS: DEXTROSE 5% IV SCH ×2 (20:50)
[2017-03-15] MEDS: AMIODARONE IV SCH ×2 (20:50)
[2017-03-15] MEDS: WATER IV SCH ×2 (20:50)
[2017-03-15 23:58] LABS: ALT (GPT) 44 U/L (12-78); ANION GAP 9 MEQ/L (5-15); AST (GOT) 71 U/L (15-37); BICARBONATE 27.5 MEQ/L (21.0-32.0); BLOOD UREA NITROGEN 24 MG/DL (7-18); CHLORIDE 99 MEQ/L (98-107); GLOMERULAR FILTRATION RATE 70 ML/MIN (>89); SODIUM (NA) 135 MEQ/L (136-145)
[2017-03-15 23:59] LABS: POTASSIUM 3.5 MEQ/L (3.5-5.1)
[2017-03-16] VITALS (16 sets, daily range): BP systolic 93–140; BP diastolic 47–76; PULSE 66–88; RESP 16–18; TEMP 97.6–99; O2SAT 94–100
[2017-03-16 00:01] LABS: ALKALINE PHOSPHATASE 75 U/L (45-117); TOTAL BILIRUBIN ADULT 1.2 MG/DL (0.2-1.0)
[2017-03-16] MEDS ORDERED: POTASSIUM CHLORIDE 20 MEQ CONTROLLED RELEASE TAB PO ONE (00:45)
[2017-03-16 06:05] LABS: BASOPHIL # 0.1 TH/MM3 (0-0.2); BASOPHIL % 1.4 % (0.0-2.0); EOSINOPHIL # 0.1 TH/MM3 (0-0.4); EOSINOPHIL % 2.5 % (0.0-4.0); HEMATOCRIT 33.2 % (39.0-51.0); HEMO FLAGS DIFF FINAL; LYMPH % 22.8 % (9.0-44.0); LYMPHOCYTE # 1.2 TH/MM3 (1.0-4.8); MEAN CELL VOLUME 89.5 FL (80.0-100.0); MEAN CORPUSCULAR HEMOGLOBIN 28.9 PG (27.0-34.0); MEAN CORPUSCULAR HGB CONC 32.3 % (32.0-36.0); MONO % 16.2 % (0.0-8.0); NEUT % 57.1 % (16.0-70.0); PLATELET COUNT 134 TH/MM3 (150-450); RED BLOOD COUNT 3.71 MIL/MM3 (4.50-5.90); RED CELL DISTRIBUTION WIDTH 16.3 % (11.6-17.2); WHITE BLOOD COUNT 5.3 TH/MM3 (4.0-11.0)
[2017-03-16 06:31] LABS: BICARBONATE 27.9 MEQ/L (21.0-32.0); POTASSIUM 3.7 MEQ/L (3.5-5.1)
--- NOTE | 2017-03-16 07:12 | HHI.PR ---
Subjective Remarks Patient with weak voice, appears sleepy. He is oriented by name, , location, year/month. He is complaining of chest pain. No n/v/d/c. he is able to eat. Did not fee any palpitations. No diaphoresis. Objective Vitals Vital Signs Date Time Temp Pulse Resp B/P Pulse Ox O2 Delivery O2 Flow Rate FiO2 03/16/17 04:00 77 03/16/17 00:00 95 Nasal Cannula 3.00 03/16/17 00:00 88 03/16/17 00:00 85 16 114/60 95 03/15/17 20:58 98 Nasal Cannula 3.00 03/15/17 20:00 99.2 95 22 123/70 95 03/15/17 20:00 102 03/15/17 19:55 95 Nasal Cannula 3.00 03/15/17 18:34 18 03/15/17 17:00 92 03/15/17 16:00 90 03/15/17 15:00 92 03/15/17 14:00 108 03/15/17 13:00 90 03/15/17 12:00 98.7 88 18 112/63 96 03/15/17 12:00 100 03/15/17 11:00 78 03/15/17 10:00 84 03/15/17 09:00 106 03/15/17 08:00 82 03/15/17 08:00 97.9 78 18 101/61 94 I/O 03/15/17 03/15/17 03/15/17 03/16/17 03/16/17 03/16/17 07:00 15:00 23:00 07:00 15:00 23:00 Intake Total 480 ml Output Total 0 ml Balance 480 ml Intake Oral 480 ml IV Total 0 ml Emesis 0 ml # Voids 3 # Bowel Movements 0 Result Diagram: 03/16/17 0520 03/16/17 [address] Angiography 03/09/17 0137 Signed Impressions: Service Date/Time: Thursday, March 09, 2017 02:36 - CONCLUSION: Normal examination. Epicardial pacer wires. No evidence of pulmonary embolism. Omar Egan MD Chest X-Ray 03/09/17 0029 Signed Impressions: Service Date/Time: Thursday, March 09, 2017 00:29 - CONCLUSION: Normal examination. Left subclavian bipolar pacer, unchanged. Omar Egan MD Objective Remarks GENERAL: Pleasant 61 yo male, in bed, appears in nad. SKIN: Warm and dry. HEAD: Atraumatic. Normocephalic. EYES: Pupils equal and round. No scleral icterus. No injection or drainage. ENT: No nasal bleeding or discharge. Mucous membranes pink and moist. NECK: Trachea midline. No JVD. CARDIOVASCULAR: Regular rate and rhythm. RESPIRATORY: No accessory muscle use. Clear to auscultation. Breath sounds equal bilaterally. GASTROINTESTINAL: Abdomen soft, non-tender, nondistended. Hepatic and splenic margins not palpable. MUSCULOSKELETAL: Extremities without clubbing, cyanosis, or edema. No obvious deformities. NEUROLOGICAL: Awake and alert x name, , location. No obvious cranial nerve deficits. Motor grossly within normal limits. Five out of 5 muscle strength in the arms and legs. Normal speech. PSYCHIATRIC: Appropriate mood and affect; poor insight and judgment. Procedures Cardiac catheterization 03/10. A/P Assessment and Plan 61-year-old male with: Atypical chest pain/ Cardiomyopathy Patient has had serial cardiac enzymes and EKGs for ruling out purposes. He has been seen by Dr. Miky Nice of cardiology in the chest pain center. Reports a heart catheterization about a year ago that had no blockages. Pacemaker was interrogated. The pt will need a generator change. Cardiology was consulted and catheterization was recommended prior to proceeding with generator exchange. Cath 03/10 without obstructive coronary disease, EF of about 20%. - EP planning to perform generator exchange. Patient went into alcohol withdrawal which delayed the procedure. Currently he does not have capacity to give consent as he has no insight into his current medical condition. Discussed with RN who will attempt to contact his family, daughter says she would not take decisions for him. However, the patient mentation is improving. - Currently on amiodarone drip . Plan for AICD replacement poss tomorrow? NPO after midnight - pain control with a bowel regimen. - anxiolytics as needed. - incentive spirometry. - physical therapy. - Continue cardiac regimen. Alcohol withdrawal: [facility] protocol. Check Ammonia levels. Improving. Anemia: Likely secondary to marrow suppression from chronic alcohol use. - H&H stable - follow CBC. Tobacco abuse The patient reports smoking occasionally. - Patient has been counseled on the importance of smoking cessation. PPx: SCDs. Discharge Planning Discharge pending clinical improvement. Alcohol withdrawal. EP following. Patient need AICD generator replacement when safe and if can provide consent. Patient is improving , he is alert and oriented by name, , location, year and month. Salud Myers MD Mar 16, 2017 07:12
[2017-03-16] MEDS: WATER IV SCH ×4 (07:52→21:07)
[2017-03-16] MEDS: DEXTROSE 5% IV SCH ×4 (07:52→21:07)
[2017-03-16] MEDS: AMIODARONE IV SCH ×4 (07:52→21:07)
[2017-03-16] MEDS: MORPHINE SULFATE 4 MG/ML INJ IV PUSH PRN ×3 (08:29→17:07)
[2017-03-16] MEDS: DOCUSATE SODIUM 100 MG CAP PO SCH ×2 (09:23→21:07)
[2017-03-16] MEDS: FUROSEMIDE 40 MG TAB PO SCH ×2 (09:23→21:07)
[2017-03-16] MEDS: ASPIRIN 81 MG CHEW TAB CHEW SCH (09:23)
[2017-03-16] MEDS: SENNOSIDES 8.6 MG TAB PO SCH (09:23)
[2017-03-16] MEDS ORDERED: MORPHINE SULFATE 4 MG/ML INJ IV PUSH ONE (09:55)
[2017-03-16] MEDS ORDERED: EPINEPHrine HCL (1:10,000) 1 MG/10 ML SYRINGE ONE (14:48)
[2017-03-16] MEDS ORDERED: ATROPINE SULFATE 1 MG/10 ML SYRINGE ONE (14:48)
--- NOTE | 2017-03-16 17:10 | EKG ---
Date Performed: 03/16/2017 Time Performed: 08:35:14 PTAGE: 61 years EKG: Sinus rhythm with ventricular pacing Prolonged QT interval Abnormal ECG PREVIOUS TRACING : 03/10/2017 18.54 DOCTOR: Mane Coombs Interpretating Date/Time 03/16/2017 17:08:35
[2017-03-16] MEDS: ACETAMINOPHEN/HYDROcodone 325 MG/5 MG TAB PO PRN (21:08)
--- NOTE | 2017-03-16 23:40 | HHI.PR ---
Subjective Remarks Doing ok Objective Vital Signs Date Time Temp Pulse Resp B/P Pulse Ox O2 Delivery O2 Flow Rate FiO2 03/16/17 23:00 76 03/16/17 22:00 78 03/16/17 21:00 80 03/16/17 20:45 74 03/16/17 19:30 100 Nasal Cannula 2.00 03/16/17 19:30 97.6 77 16 140/73 100 03/16/17 19:00 76 03/16/17 18:00 68 03/16/17 17:16 16 03/16/17 17:00 72 03/16/17 16:00 Nasal Cannula 2.00 03/16/17 16:00 97.6 77 16 121/68 98 03/16/17 16:00 71 03/16/17 15:53 20 03/16/17 15:00 72 03/16/17 12:00 80 03/16/17 12:00 98.4 69 18 108/58 97 03/16/17 11:00 97 Nasal Cannula 2.00 03/16/17 10:55 96 Nasal Cannula 3.00 03/16/17 08:00 98.9 76 18 112/76 96 03/16/17 08:00 76 03/16/17 07:00 97 Nasal Cannula 2.00 03/16/17 04:00 77 03/16/17 04:00 95 Nasal Cannula 3.00 03/16/17 04:00 99.0 66 18 93/47 94 03/16/17 00:00 95 Nasal Cannula 3.00 03/16/17 00:00 88 03/16/17 00:00 85 16 114/60 95 I/O 03/15/17 03/15/17 03/15/17 03/16/17 03/16/17 03/16/17 07:00 15:00 23:00 07:00 15:00 23:00 Intake Total 480 ml 979 ml 802 ml Output Total 0 ml 425 ml 350 ml Balance 480 ml 554 ml 452 ml Intake Oral 480 ml 340 ml 760 ml IV Total 0 ml 639 ml 42 ml Output Urine Total 425 ml 350 ml Emesis 0 ml # Voids 3 # Bowel Movements 0 0 Result Diagram: 03/16/1720 03/16/1720 Imaging Alert, fully oriented, in bed Lungs: ventilated Heart: S!, S2 regular, no gallop Abdomen: sift, no mass Ext: no edema Last Impressions CT Angiography 03/09/17 0137 Signed Impressions: Service Date/Time: Thursday, March 09, 2017 02:36 - CONCLUSION: Normal examination. Epicardial pacer wires. No evidence of pulmonary embolism. Omar Egan MD Chest X-Ray 03/09/17 0029 Signed Impressions: Service Date/Time: Thursday, March 09, 2017 00:29 - CONCLUSION: Normal examination. Left subclavian bipolar pacer, unchanged. Omar Egan MD Current Medications Medications (Trade) Dose Ordered Sig/Amelia Route Start Time Stop Time Status Last Admin (NS Flush) 2 ml UNSCH PRN IVF 03/09/17 00:30 03/15/17 20:51 (NS Flush) 2 ml UNSCH PRN IV FLUSH 03/09/17 03:30 03/14/17 20:51 (Aspirin Chew) 81 mg DAILY CHEW 03/09/17 10:00 03/16/17 09:23 (Lasix) 40 mg BID PO 03/09/17 10:00 03/16/17 21:07 (Colace) 100 mg BID PO 03/09/17 21:00 03/16/17 21:07 (Atropine Inj) 0.5 mg UNSCH PRN IV 03/10/17 10:15 (Reglan Inj) 10 mg Q4H PRN IV 03/10/17 10:15 (Zofran Inj) 4 mg Q4H PRN IV 03/10/17 10:15 (Senokot) 17.2 mg DAILY PO 03/10/17 10:30 03/16/17 09:23 (Ativan) 0.5 mg Q8H PRN PO 03/10/17 18:30 03/11/17 08:17 (Morphine Inj) 2 mg Q4H PRN IV PUSH 03/10/17 18:00 03/16/17 17:07 (Romazicon Inj) 0.2 mg Q1M PRN IV PUSH 03/11/17 11:15 (Ativan) 1 mg Q4H PRN PO 03/11/17 11:15 (Ativan Inj) 1 mg Q4H PRN IV PUSH 03/11/17 11:15 03/15/17 09:15 (Ativan) 2 mg Q2H PRN PO 03/11/17 11:15 03/11/17 17:15 (Ativan Inj) 2 mg Q2H PRN IV PUSH 03/11/17 11:15 03/15/17 00:32 (Ativan Inj) 2 mg Q1H PRN IV PUSH 03/11/17 11:15 03/14/17 00:59 Lorazepam 2 mg 2 mg Q15M PRN IV PUSH 03/11/17 11:15 03/11/17 20:08 (Cordarone Inj/ D5W Inj) 250 ml @ 0 mls/hr CONTINUOUS IV 03/15/17 20:00 03/16/17 21:07 ([place] 5-325 Mg) 1 tab Q6H PRN PO 03/16/17 20:00 03/16/17 21:08 Assessment and Plan Problem List: (1) Cardiomyopathy Status: Acute Plan: Stable. O optimal medical management Non ischemic. EF 20% (2) Chest pain Status: Acute Plan: Patient today report chest pain 09/01. I was called by the CVICU staff. I did explain to Patricia the nurse that patient had a recent cath and there was no significant occlusion. Device was previously postpone due to chest pain. Morphine was given and pain completely resolved. Further management by hospitalist (3) Alcohol intoxication Status: Acute Plan: Patient appears to be completely oriented. (4) ICD (implantable cardioverter-defibrillator) battery depletion Status: Acute Plan: Device replacement was again scheduled for today. This morning patient developed chest pain that resolved completely with morphine. Later, consent was obtained. This afternoon when GAURAV Mcqueen, went to talk to the patient, he was alert and oriented. Suddenly in a change of mood patient appear agitated and slammed his phone at the nurse station. Nurses refer patient getting agitated earlier and disoriented. Because of that, procedure was cancelled. Apparently there are moments of lucidity followed by agitation and disorientation. No family(he has a son) available to sign consent. Before proceed, I need an other MR (the hospitalist) to state in a note that the patient agree for device replacement and understand the procedure. Problem Qualifiers (1) Cardiomyopathy: Qualified Code: I42.9 - Cardiomyopathy, unspecified type (2) Chest pain: Qualified Code: R07.9 - Chest pain, unspecified type Tea Adames MD Mar 16, 2017 23:40
[2017-03-17] VITALS (26 sets, daily range): BP systolic 103–138; BP diastolic 62–75; PULSE 66–92; RESP 18; TEMP 97.5–98.5; O2SAT 96–100
[2017-03-17] MEDS ORDERED: CYCLOBENZAPRINE HCL 10 MG TAB PO PRN (07:15)
[2017-03-17 07:24] LABS: AUTOMATED NEUTROPHIL # 2.7 TH/MM3 (1.8-7.7); BASOPHIL # 0.1 TH/MM3 (0-0.2); EOSINOPHIL # 0.2 TH/MM3 (0-0.4); EOSINOPHIL % 4.8 % (0.0-4.0); HEMATOCRIT 30.7 % (39.0-51.0); HEMO FLAGS DIFF FINAL; LYMPH % 23.8 % (9.0-44.0); LYMPHOCYTE # 1.1 TH/MM3 (1.0-4.8); MEAN CELL VOLUME 87.9 FL (80.0-100.0); MEAN CORPUSCULAR HEMOGLOBIN 30.1 PG (27.0-34.0); MEAN CORPUSCULAR HGB CONC 34.2 % (32.0-36.0); MONO % 11.2 % (0.0-8.0); NEUT % 58.2 % (16.0-70.0); PLATELET COUNT 153 TH/MM3 (150-450); RED BLOOD COUNT 3.49 MIL/MM3 (4.50-5.90); WHITE BLOOD COUNT 4.6 TH/MM3 (4.0-11.0)
[2017-03-17] MEDS ORDERED: PILL SPLITTER OTHER PRN (07:45)
[2017-03-17 08:02] LABS: BICARBONATE 30.8 MEQ/L (21.0-32.0); MAGNESIUM 1.9 MG/DL (1.5-2.5); POTASSIUM 3.5 MEQ/L (3.5-5.1)
[2017-03-17] MEDS: SENNOSIDES 8.6 MG TAB PO SCH (09:13)
[2017-03-17] MEDS: DOCUSATE SODIUM 100 MG CAP PO SCH ×2 (09:13→20:04)
[2017-03-17] MEDS: ASPIRIN 81 MG CHEW TAB CHEW SCH (09:14)
[2017-03-17] MEDS: FUROSEMIDE 40 MG TAB PO SCH ×2 (09:14→20:04)
--- NOTE | 2017-03-17 12:06 | HHI.PR ---
Subjective Remarks Seen air pollution specialist. Patient is alert and oriented and is capable to give consent. He is alert and oriented by name, , location, year/month, president , knows his medical problems and his doctors that he follows as OP. He is telling me he knows about the indications of the cardiology to replace AICD and he is agreeable, says Dr Glover cardiology placed the AICD initially. Patient denies any chest pain sob at this time. Objective Vitals Vital Signs Date Time Temp Pulse Resp B/P Pulse Ox O2 Delivery O2 Flow Rate FiO2 03/17/17 10:00 92 03/17/17 09:00 66 03/17/17 08:00 72 03/17/17 07:15 98.2 76 18 123/71 98 03/17/17 07:15 98 Room Air 03/17/17 07:00 79 03/17/17 06:22 77 03/17/17 05:25 72 03/17/17 04:16 66 03/17/17 03:46 98 Room Air 03/17/17 03:46 97.8 73 18 118/67 99 03/17/17 03:10 70 03/17/17 02:00 68 03/17/17 01:30 72 03/17/17 00:33 68 03/16/17 23:30 97.8 75 18 116/63 97 03/16/17 23:30 97 Nasal Cannula 1.00 03/16/17 23:00 76 03/16/17 22:00 78 03/16/17 21:00 80 03/16/17 20:45 74 03/16/17 19:30 100 Nasal Cannula 2.00 03/16/17 19:30 97.6 77 16 140/73 100 03/16/17 19:00 76 03/16/17 18:00 68 03/16/17 17:16 16 03/16/17 17:00 72 03/16/17 16:00 Nasal Cannula 2.00 03/16/17 16:00 97.6 77 16 121/68 98 03/16/17 16:00 71 03/16/17 15:53 20 03/16/17 15:00 72 03/16/17 12:00 80 03/16/17 12:00 98.4 69 18 108/58 97 I/O 4/24/03/16/17 03/16/17 03/17/17 03/17/17 03/17/17 07:00 15:00 23:00 07:00 15:00 23:00 Intake Total 979 ml 802 ml 448 ml Output Total 425 ml 350 ml 550 ml Balance 554 ml 452 ml -102 ml Intake Oral 340 ml 760 ml 240 ml IV Total 639 ml 42 ml 208 ml Output Urine Total 425 ml 350 ml 550 ml # Bowel Movements 0 Result Diagram: 03/17/17 0624 03/17/17 [address] Angiography 03/09/17 0137 Signed Impressions: Service Date/Time: Thursday, March 09, 2017 02:36 - CONCLUSION: Normal examination. Epicardial pacer wires. No evidence of pulmonary embolism. Omar Egan MD Chest X-Ray 03/09/17 0029 Signed Impressions: Service Date/Time: Thursday, March 09, 2017 00:29 - CONCLUSION: Normal examination. Left subclavian bipolar pacer, unchanged. Omar Egan MD Objective Remarks GENERAL: Pleasant 61 yo male, in bed, appears in nad. SKIN: Warm and dry. HEAD: Atraumatic. Normocephalic. EYES: Pupils equal and round. No scleral icterus. No injection or drainage. ENT: No nasal bleeding or discharge. Mucous membranes pink and moist. NECK: Trachea midline. No JVD. CARDIOVASCULAR: Regular rate and rhythm. RESPIRATORY: No accessory muscle use. Clear to auscultation. Breath sounds equal bilaterally. GASTROINTESTINAL: Abdomen soft, non-tender, nondistended. Hepatic and splenic margins not palpable. MUSCULOSKELETAL: Extremities without clubbing, cyanosis, or edema. No obvious deformities. NEUROLOGICAL: Awake and alert x name, , location. No obvious cranial nerve deficits. Motor grossly within normal limits. Five out of 5 muscle strength in the arms and legs. Normal speech. PSYCHIATRIC: Appropriate mood and affect; poor insight and judgment. Procedures Cardiac catheterization 03/10. A/P Assessment and Plan 61-year-old male with: Atypical chest pain/ Cardiomyopathy Patient has had serial cardiac enzymes and EKGs for ruling out purposes. He has been seen by Dr. Miky Nice of cardiology in the chest pain center. Reports a heart catheterization about a year ago that had no blockages. Pacemaker was interrogated. The pt will need a generator change. Cardiology was consulted and catheterization was recommended prior to proceeding with generator exchange. Cath 03/10 without obstructive coronary disease, EF of about 20%. - EP planning to perform generator exchange. Patient went into alcohol withdrawal which delayed the procedure. Currently he does have capacity to give consent, he does have insight regardin g his medical problems and the plan for AICD replacement. - Currently on amiodarone drip . Plan for AICD replacement - pain control with a bowel regimen. - anxiolytics as needed. - incentive spirometry. - physical therapy. - Continue cardiac regimen. Alcohol withdrawal: [facility] protocol. Check Ammonia levels. Improving. Anemia: Likely secondary to marrow suppression from chronic alcohol use. - H&H stable - follow CBC. Tobacco abuse The patient reports smoking occasionally. - Patient has been counseled on the importance of smoking cessation. PPx: SCDs. Discharge Planning Discharge pending clinical improvement. Alcohol withdrawal. EP following. Patient need AICD generator replacement. Patient is improving , he is alert and oriented by name, , location, year and month, president of the . He also has insight regarding his medical problems, says AICD was placed by Dr Glover and cardiology here recommends replacement of AICD, Patient is agreeable with the palan. Salud Myers MD Mar 17, 2017 12:06
[2017-03-17] MEDS: LORazepam 0.5 MG TAB PO PRN ×2 (12:48→20:14)
[2017-03-17] MEDS: WATER IV SCH ×2 (13:46)
[2017-03-17] MEDS: AMIODARONE IV SCH ×2 (13:46)
[2017-03-17] MEDS: DEXTROSE 5% IV SCH ×2 (13:46)
[2017-03-17] MEDS ORDERED: ceFAZolin INJ 1,000 MG VIAL ONE (17:07)
[2017-03-17] MEDS ORDERED: VANCOMYCIN 500 MG VIAL ONE (17:07)
[2017-03-17] MEDS ORDERED: VANCOMYCIN HCL 1000 MG VIAL ONE (17:07)
[2017-03-17] MEDS ORDERED: LIDOCAINE HCL 2% 50 ML VIAL ONE (17:07)
[2017-03-17] MEDS ORDERED: DO NOT ADM ANY ANTICOAGULANT DRUGS PRN (18:07)
[2017-03-17] MEDS ORDERED: ONDANSETRON HCL 4 MG/2 ML VIAL IV PRN (19:30)
[2017-03-17] MEDS: ACETAMINOPHEN/HYDROcodone 325 MG/5 MG TAB PO PRN (20:04)
[2017-03-17] MEDS ORDERED: MIDAZOLAM HCL 2 MG/2 ML VIAL ONE (20:14)
[2017-03-17] MEDS: MORPHINE SULFATE 4 MG/ML INJ IV PUSH PRN (23:33)
[2017-03-18] VITALS (14 sets, daily range): BP systolic 119–138; BP diastolic 65–84; PULSE 72–99; RESP 18; TEMP 97.4–98.4; O2SAT 98–100
[2017-03-18] MEDS: ceFAZolin 2 GM PREMIX 50 ML IV SCH ×2 (01:16→09:00)
--- NOTE | 2017-03-18 07:12 | HHI.PR ---
Subjective Remarks Pain at the surgical site. No sob, lightheadedness. Thinks pain is less with the new device. Patient is however asking for IV ana meds only morphine or dilaudid No n/v/d/c. Objective Vitals Vital Signs Date Time Temp Pulse Resp B/P Pulse Ox O2 Delivery O2 Flow Rate FiO2 03/18/17 06:10 79 03/18/17 05:07 72 03/18/17 04:38 85 03/18/17 04:25 100 Room Air 03/18/17 04:25 98.4 86 18 119/65 100 03/18/17 03:00 77 03/18/17 02:00 78 03/18/17 01:00 80 03/18/17 00:38 77 03/17/17 23:51 79 03/17/17 23:30 96 Room Air 03/17/17 23:30 98.3 83 18 138/75 96 03/17/17 22:00 82 03/17/17 21:27 99 21 03/17/17 21:00 72 03/17/17 20:00 76 03/17/17 19:30 98.0 70 16 119/64 100 Room Air 03/17/17 19:15 71 16 120/59 100 Room Air 03/17/17 19:15 72 03/17/17 19:15 97.5 76 18 125/66 100 03/17/17 19:15 100 Room Air 03/17/17 19:00 68 16 120/59 100 Room Air 03/17/17 18:45 74 16 104/70 100 Room Air 03/17/17 18:30 67 15 113/59 100 Room Air 03/17/17 18:15 97.5 71 15 117/57 100 Room Air 03/17/17 16:00 84 03/17/17 15:00 98 Room Air 03/17/17 15:00 74 03/17/17 15:00 98.5 87 18 111/62 98 03/17/17 14:00 71 03/17/17 13:00 85 03/17/17 12:00 79 03/17/17 11:00 98 Room Air 03/17/17 11:00 98.3 72 18 103/63 99 03/17/17 11:00 77 03/17/17 10:00 92 4/25/17 09:00 66 03/17/17 08:00 72 03/17/17 07:15 98.2 76 18 123/71 98 03/17/17 07:15 98 Room Air I/O 03/17/17 03/17/17 03/17/17 03/18/17 03/18/17 03/18/17 07:00 15:00 23:00 07:00 15:00 23:00 Intake Total 448 ml 500 ml 770 ml Output Total 550 ml 5 ml 451 ml Balance -102 ml 495 ml 319 ml Intake Oral 240 ml 0 ml 720 ml IV Total 208 ml 100 ml 50 ml Other 400 ml Output Urine Total 550 ml 0 ml 450 ml Stool Total 1 ml Estimated Blood Loss 5 ml # Voids 3 Result Diagram: 03/17/17 0624 03/17/[address] Angiography 03/09/17 0137 Signed Impressions: Service Date/Time: Thursday, March 09, 2017 02:36 - CONCLUSION: Normal examination. Epicardial pacer wires. No evidence of pulmonary embolism. Omar Egan MD Chest X-Ray 03/09/17 0029 Signed Impressions: Service Date/Time: Thursday, March 09, 2017 00:29 - CONCLUSION: Normal examination. Left subclavian bipolar pacer, unchanged. Omar Egan MD Objective Remarks GENERAL: Pleasant 61 yo male, in bed, appears in nad. SKIN: Warm and dry. HEAD: Atraumatic. Normocephalic. EYES: Pupils equal and round. No scleral icterus. No injection or drainage. ENT: No nasal bleeding or discharge. Mucous membranes pink and moist. NECK: Trachea midline. No JVD. CARDIOVASCULAR: Regular rate and rhythm. RESPIRATORY: No accessory muscle use. Clear to auscultation. Breath sounds equal bilaterally. GASTROINTESTINAL: Abdomen soft, non-tender, nondistended. Hepatic and splenic margins not palpable. MUSCULOSKELETAL: Extremities without clubbing, cyanosis, or edema. No obvious deformities. NEUROLOGICAL: Awake and alert x name, , location. No obvious cranial nerve deficits. Motor grossly within normal limits. Five out of 5 muscle strength in the arms and legs. Normal speech. PSYCHIATRIC: Appropriate mood and affect; poor insight and judgment. Procedures Cardiac catheterization 03/10. A/P Assessment and Plan 61-year-old male with: Atypical chest pain/ Cardiomyopathy Patient has had serial cardiac enzymes and EKGs for ruling out purposes. He has been seen by Dr. Miky Nice of cardiology in the chest pain center. Reports a heart catheterization about a year ago that had no blockages. Pacemaker was interrogated. The pt will need a generator change. Cardiology was consulted and catheterization was recommended prior to proceeding with generator exchange. Cath 03/10 without obstructive coronary disease, EF of about 20%. - EP planning to perform generator exchange. Patient went into alcohol withdrawal which delayed the procedure. Currently he does have capacity to give consent, he does have insight regardin g his medical problems and the plan for AICD replacement. - Currently on amiodarone drip . Plan for AICD replacement - pain control with a bowel regimen. - anxiolytics as needed. - incentive spirometry. - physical therapy. - Continue cardiac regimen. Alcohol withdrawal: [facility] protocol. Check Ammonia levels. Improving. Anemia: Likely secondary to marrow suppression from chronic alcohol use. - H&H stable - follow CBC. Tobacco abuse The patient reports smoking occasionally. - Patient has been counseled on the importance of smoking cessation. PPx: SCDs. Discharge Planning Discharge pending clinical improvement. Alcohol withdrawal. EP following. Patient had AICD generator replacement. Patient is improving , he is alert and oriented by name, , location, year and month, president of the . He also has insight regarding his medical problems. Drug seeking behavior, wants only IV morphine and dilaudid. Appears stable. Poss DC if cleared by Dr Adames for DC Salud Myers MD Mar 18, 2017 07:12
[2017-03-18] MEDS: ASPIRIN 81 MG CHEW TAB CHEW SCH (09:00)
[2017-03-18] MEDS ORDERED: RAMIPRIL 5 MG CAP PO SCH (09:00)
[2017-03-18] MEDS ORDERED: CARVEDILOL 6.25 MG TAB PO SCH (09:00)
[2017-03-18] MEDS: SENNOSIDES 8.6 MG TAB PO SCH (09:00)
[2017-03-18] MEDS: DOCUSATE SODIUM 100 MG CAP PO SCH (09:00)
[2017-03-18] MEDS ORDERED: PROPOFOL 200 MG/20 ML AMP IV ONE (09:13)
[2017-03-18] MEDS: FUROSEMIDE 40 MG TAB PO SCH (09:33)
--- NOTE | 2017-03-18 11:05 | EKG ---
Date Performed: 03/17/2017 Time Performed: 20:02:22 PTAGE: 61 years EKG: Demand pacing Pacemaker rhythm - no further analysis Abnormal ECG PREVIOUS TRACING : 03/16/2017 08.35 Compared to prior tracing no significant change DOCTOR: Dorothy Goldstein Interpretating Date/Time 03/18/2017 11:04:40
[2017-03-18] MEDS ORDERED: FURO40TA PO (12:21)
[2017-03-18] MEDS ORDERED: RAMI5CAP PO (12:21)
[2017-03-18] MEDS ORDERED: ASPI81CH CHEW (12:21)
[2017-03-18] MEDS ORDERED: CARV6.25 PO (12:21)
--- NOTE | 2017-03-18 12:21 | HHI.DS ---
Discharge Summary Admission Date Mar 11, 2017 at 11:13 Discharge Date: Mar 18, 2017 Admitting Diagnosis chest pain (1) ICD (implantable cardioverter-defibrillator) battery depletion ICD Code: Z45.02 Diagnosis: Principal (2) Alcohol intoxication ICD Code: F10.129 Diagnosis: Secondary (3) PVD (peripheral vascular disease) ICD Code: I73.9 Diagnosis: Secondary (4) Chest pain ICD Code: R07.9 Diagnosis: Secondary (5) Cardiomyopathy ICD Code: I42.9 Diagnosis: Secondary (6) NSTEMI (non-ST elevated myocardial infarction) ICD Code: I21.4 Diagnosis: Secondary Procedures Cardiac catheterization 03/10. Brief History - From Admission This is a 61-year-old male with a reported history of a nonischemic cardiomyopathy. He apparently had a heart catheterization in [place] January 2016 and he states that he was told that there were no blockages but he had a low EF. He had defibrillator/pacemaker placed at that time. He follows Dr. Lazar of cardiology. He also states that last month is the fibular fired 3 times. He believes the first time it fired was when he had tripped over a parking lot curb stopper and it happened 2 more times within next 2 days. He was seen at an emergent [facility] and states that the defibrillator was interrogated but doesn't know the findings. He was discharged. He presents to the ED last evening with a complaint of developing a discomfort about 10:00 last evening while at home. He states it is still there. It as a pressure across the chest. States it hurts to take in a deep breath. Hurts with certain movements. Denies nausea or diaphoresis. Denies recent illness. The defibrillator has not fired recently. Patient reports that it is not terribly unusual for him to have chest discomfort. He states that he had a cholecystectomy 8-9 weeks ago with the thought that that may be causing some of his discomforts. CBC/BMP: 03/17/17 0624 03/17/17 0624 Significant Findings Laboratory Tests Test 03/15/17 03/16/17 03/17/17 22:58 05:20 06:24 Sodium Level 135 MEQ/L 135 MEQ/L (136-145) (136-145) Blood Urea Nitrogen 24 MG/DL (7-18) 22 MG/DL (7-18) 27 MG/DL (7-18) Estimat Glomerular Filtration 70 ML/MIN (>89) 69 ML/MIN (>89) 59 ML/MIN (>89) Rate Random Glucose 119 MG/DL (74-106) Total Bilirubin 1.2 MG/DL (0.2-1.0) Aspartate Amino Transf 71 U/L (15-37) (AST/SGOT) Albumin 2.8 GM/DL (3.4-5.0) Red Blood Count 3.71 MIL/MM3 3.49 MIL/MM3 (4.50-5.90) (4.50-5.90) Hemoglobin 10.7 GM/DL 10.5 GM/DL (13.0-17.0) (13.0-17.0) Hematocrit 33.2 % 30.7 % (39.0-51.0) (39.0-51.0) Platelet Count 134 TH/MM3 (150-450) Monocytes (%) (Auto) 16.2 % 11.2 % (0.0-8.0) (0.0-8.0) Eosinophils (%) (Auto) 4.8 % (0.0-4.0) Imaging Last Impressions CT Angiography 03/09/17 0137 Signed Impressions: Service Date/Time: Thursday, March 09, 2017 02:36 - CONCLUSION: Normal examination. Epicardial pacer wires. No evidence of pulmonary embolism. Omar Egan MD Chest X-Ray 03/09/17 0029 Signed Impressions: Service Date/Time: Thursday, March 09, 2017 00:29 - CONCLUSION: Normal examination. Left subclavian bipolar pacer, unchanged. Omar Egan MD PE at Discharge GENERAL: Pleasant 61 yo male, in bed, appears in nad. SKIN: Warm and dry. HEAD: Atraumatic. Normocephalic. EYES: Pupils equal and round. No scleral icterus. No injection or drainage. ENT: No nasal bleeding or discharge. Mucous membranes pink and moist. NECK: Trachea midline. No JVD. CARDIOVASCULAR: Regular rate and rhythm. RESPIRATORY: No accessory muscle use. Clear to auscultation. Breath sounds equal bilaterally. GASTROINTESTINAL: Abdomen soft, non-tender, nondistended. Hepatic and splenic margins not palpable. MUSCULOSKELETAL: Extremities without clubbing, cyanosis, or edema. No obvious deformities. NEUROLOGICAL: Awake and alert x name, , location. No obvious cranial nerve deficits. Motor grossly within normal limits. Five out of 5 muscle strength in the arms and legs. Normal speech. PSYCHIATRIC: Appropriate mood and affect; poor insight and judgment. Hospital Course 61-year-old male with: Atypical chest pain/ Cardiomyopathy Patient has had serial cardiac enzymes and EKGs for ruling out purposes. He has been seen by Dr. Miky Nice of cardiology in the chest pain center. Reports a heart catheterization about a year ago that had no blockages. Pacemaker was interrogated. The pt will need a generator change. Cardiology was consulted and catheterization was recommended prior to proceeding with generator exchange. Cath 03/10 without obstructive coronary disease, EF of about 20%. - EP planning to perform generator exchange. Patient went into alcohol withdrawal which delayed the procedure. Currently he does have capacity to give consent, he does have insight regarding his medical problems and he had AICD replacement. - Was treated with amiodarone drip , off after AICD replacement. Improved. - pain control with a bowel regimen. - anxiolytics as needed. - incentive spirometry. - physical therapy. - Continue cardiac regimen. Alcohol withdrawal: [facility] protocol. Check Ammonia levels. Improving. Anemia: Likely secondary to marrow suppression from chronic alcohol use. - H&H stable - follow CBC. Tobacco abuse The patient reports smoking occasionally. - Patient has been counseled on the importance of smoking cessation. PPx: SCDs. Discharge Planning Discharge pending clinical improvement. Alcohol withdrawal. EP following. Patient had AICD generator replacement. Patient is improving , he is alert and oriented by name, , location, year and month, president of the . He also has insight regarding his medical problems. no tremors, did not require ativan lately. Drug seeking behavior, wants only IV morphine and dilaudid. Appears stable. Cleared by Dr Adames for DC, to follow up as OP. Patient to follow up as OP with PCP and consultants. Pt Condition on Discharge: Stable Discharge Disposition: Discharge Home Discharge Time: > 30 minutes Discharge Instructions DIET: Follow Instructions for: As Tolerated, No Restrictions Activities you can perform: Regular-No Restrictions Follow up Referrals: Cardiology - 1 Week PCP Follow-up - 3-5 Days New Medications: Thiamine (Thiamine) 100 Mg Tab 100 MG PO DAILY Nutritional Supplement #60 Ref 0 TAB Carvedilol (Coreg) 6.25 Mg Tab 6.25 MG PO Q12HR Blood Pressure Management #60 TAB Ramipril (Ramipril) 5 Mg Cap 5 MG PO DAILY Blood Pressure Management #30 CAP Continued Medications: Aspirin (Aspirin) 81 Mg Chew 81 MG CHEW DAILY Blood Clot Prevention #30 Ref 0 TAB (This prescription has been renewed) Furosemide (Furosemide) 40 Mg Tab 40 MG PO BID Blood Pressure Management #60 Ref 0 TAB (This prescription has been renewed) Discontinued Medications: Lisinopril (Lisinopril) 2.5 Mg Tab Unknown Dose PO DAILY #30 Ref 0 TAB Warfarin (Warfarin) 7.5 Mg Tab 7.5 MG PO DAILY Blood Clot Prevention #30 Ref 0 TAB Salud Myers MD Mar 18, 2017 12:21
[2017-03-18] MEDS ORDERED: THIA100T PO (12:23)
--- NOTE | 2017-03-20 09:51 | MP ---
cc: NAMITA DUQUE M.D. DATE OF SURGERY: 03/20/2017 PROCEDURE 1. Biventricular pacer defibrillator removal. 2. Biventricular pacer defibrillator implantation. 3. Ventricular tachycardia induction for device testing. INDICATION Mr. Valenzuela is a 51-year-old gentleman with congestive heart failure, cardiomyopathy, ejection fraction 20%, previous defibrillator implanted in 2010, defibrillator end-of-life, who will undergo generator replacement and device testing. The risks, the nature and the benefit of the procedure were clearly stated to him. The risks include pneumothorax, cardiac perforation, stroke and even . He understood and agreed to proceed. The patient's EF is 20%. The patient is on optimum medical management. DETAILS OF PROCEDURE After written informed consent was obtained, the patient was brought to the EP lab where he was prepped and draped in the usual sterile fashion. Conscious sedation was initiated and maintained throughout the procedure by the anesthesiologist. Once sedation was verified, the left infraclavicular area was anesthetized with 2% Xylocaine. Using a 11 blade scalpel, a 3 cm incision was made over the existing generator. This incision was then taken down to the fascial layer using Bovie cautery and blunt dissection. Once exposed the generator was removed from the pocket. was removed around the lead. The pocket was expanded. Pocket revision was performed. Then the lead was connected to the generator and after adequate pacing and sensing thresholds were obtained, the pocket was copiously irrigated using antibiotic solution. The leads were connected to the new generator and placed into the pocket. I did proceed with device testing. Initial induction consisted of T-wave shock which induced ventricular tachycardia but the tachyarrhythmia was self-limited. At that point the patient was already on amiodarone and lidocaine IV due to ventricular tachycardia. I decided not to proceed with further testing. I did proceed with wound closure. The deep fascial layer was approximated using 2-0 Vicryl suture in a continuous fashion. The subcutaneous layer was approximated using 2-0 Vicryl suture in a continuous fashion. The subcuticular layer was approximated using 2-0 Vicryl suture in a continuous fashion. Dermabond adhesive was applied to the wound followed by a sterile pressure dressing. There was no complication. The patient tolerated the procedure. Blood loss minimal. HARDWARE The explanted defibrillator generator is a [employer]tr[employer], model [id number], serial number [id number]. The implanted biventricular defibrillator is a [employer]tronic, model [id number], serial number [id number]. THRESHOLDS The right atrial pacing threshold in the bipolar mode was 0.5 volts at 0.5 milliseconds, lead impedance 400 ohms, P wave at 2.5 millivolts. The right ventricular pacing threshold in the bipolar mode was 1.25 volts at 0.5 milliseconds, lead impedance 430 ohms, R wave over 20 millivolts. The left ventricular pacing threshold in the bipolar mode was 0.7 volts at 0.5 milliseconds, lead impedance 456 ohms. The right ventricular defibrillatory threshold could not be reached. The patient is on a lot of medication. Multiple induction attempts induced ventricular tachycardia but was self-limited. SETTINGS The device is set in a DDD 60, upper limit 130 beats per minute. LV first by 40 milliseconds. AVD paced at 140 and sensed at 160. The defibrillatory portion was for two zones, one zone for ventricular tachycardia between 170 and 250 beats per minute. Initial therapy consists of one burst of ATP, one RAMP, 81%, 10 pause, 10 milliseconds incremental followed by 20 then 25 and all subsequent shocks at 35 defibrillatory shock. The second zone is for ventricular fibrillation above 250 beats per minute, first therapy at 25 and all subsequent shocks 35 defibrillatory shock. CONCLUSIONS Successful biventricular pacer defibrillator removal, biventricular pacer defibrillator replacement and device testing. COMMENT/RECOMMENDATION The patient is going to be transferred to the telemetry unit. He will be observed and when stable can be discharged home. Namita Duque MD HS/TISHA /10:56 PM /9:34 AM
== END 2017-03-18 14:58 | disposition home or self-care (01) | DRG 245 ==
LOC: NEPC 23:40 → NEDA 03-09 03:24 → NEPGCP 03-09 04:50 → HCIS 03-09 17:14 → OBSVTOIN 03-11 11:13 → HCVR 03-15 19:52 → HCIS 03-16 15:01
PROVIDERS: ADMIT Hospitalist; ATTEND Hospitalist
PROC: 4A023N7 Measurement of Cardiac Sampling and Pressure, Left Heart, Percutaneous Approach (ICD-10-PCS; 2017-03-10)
PROC: B2111ZZ Fluoroscopy of Multiple Coronary Arteries using Low Osmolar Contrast (ICD-10-PCS; 2017-03-10)
PROC: B2151ZZ Fluoroscopy of Left Heart using Low Osmolar Contrast (ICD-10-PCS; 2017-03-10)
PROC: 0JPT0PZ Removal of Cardiac Rhythm Related Device from Trunk Subcutaneous Tissue and Fascia, Open Approach (ICD-10-PCS; principal; 2017-03-17)
PROC: 0JH608Z Insertion of Defibrillator Generator into Chest Subcutaneous Tissue and Fascia, Open Approach (ICD-10-PCS; 2017-03-17)
DX: R07.89 Other chest pain (principal); I42.9 Cardiomyopathy, unspecified; I50.9 Heart failure, unspecified; F10.239 Alcohol dependence with withdrawal, unspecified; I10 Essential (primary) hypertension; F32.9 Major depressive disorder, single episode, unspecified; E78.00 Pure hypercholesterolemia, unspecified; Y90.0 Blood alcohol level of less than 20 mg/100 ml; F41.8 Other specified anxiety disorders; I73.9 Peripheral vascular disease, unspecified; F17.200 Nicotine dependence, unspecified, uncomplicated; D64.9 Anemia, unspecified; Z53.8 Procedure and treatment not carried out for other reasons; Z45.02 Encounter for adjustment and management of automatic implantable cardiac defibrillator
CPT/HCPCS: 33264; 71010; 71275; 76937; 80048; 80053; 80307; 82140; 82550; 82607; 82728; 82746; 83540; 83550; 83690; 83735; 84100; 84484; 85025; 85027; 85379; 85610; 85652; 85730; 93005; 93458; 93567; 96374; 96375; C1730; C1731; C1732; C1759; C1766; C1769; C1882; C1893; C2630; G0378; J0171; J0282; J0461; J0690; J1630; J1644; J2060; J2250; J2270; J3010; J3370; J3475; J7060; Q0163; Q9967

== ENCOUNTER 2017-03-20 11:24 | Emergency (ER) | payer MEDICAID, OTHER ==
[~2017-03-20] VITALS: Ht 172.7 cm; Wt 82.0 kg
[~2017-03-20 11:24] MED LIST changes: +ASPI81CH CHEW; -ASPI81TA21 PO; -CARV10; +CARV6.25 PO; -LISI-360 PO; -PRED-1 PO; +RAMI5CAP PO; +THIA100T PO; -WARF7.5T4 PO
[2017-03-20 11:26] VITALS: BP 139/65; PULSE 105; RESP 20; TEMP 98; O2SAT 97
--- NOTE | 2017-03-20 11:37 | PD ---
Physical Exam Date Seen by Provider: Mar 20, 2017 Time Seen by Provider: 11:33 Narrative 61 yo male that presents to the ED for evaluation of weakness, palpitations, defibrillator went off today. Was just discharged from here two days ago. Chest pain present on left side chest. SOB. Triston did a cath on him recently and Dr Adames put the new pacemaker and defibrillator. No trauma. No other complains. Concerned that something is going off. Took his meds today, cannot take nitro secondary to allergy. Pain is 9/10. Vitals sign stable. Patient awaiting bed placement. Data Data Last Documented VS Vital Signs Date Time Temp Pulse Resp B/P Pulse Ox O2 Delivery O2 Flow Rate FiO2 03/20/17 11:26 98.0 105 20 139/65 97 Room Air [facility] Medical Record Reviewed: Yes Supervised Visit with LENIN: Ghulam Garcia Mar 20, 2017 11:37
--- NOTE | 2017-03-20 12:08 | PD ---
HPI Chief Complaint: Cardiac Complaint Time Seen by Provider: 12:08 Travel History International Travel<30 days: No Contact w/Intl Traveler<30days: No Traveled to known affect area: No History of Present Illness HPI 61-year-old male recently discharged 2 days ago after cardiac catheterization and replacement of his pacemaker/defibrillator Dr. Bush. Patient states he was at home when he developed chest pain and his defibrillator went off times one. He continues to have anxiety, and chest discomfort of 9/10. He denies nausea, vomiting, or other symptoms. Patient states that the fever on and off the one time. He has no fever or chills or other symptoms. Patient states he is allergic to nitroglycerin. PFSH Past Medical History Hx Anticoagulant Therapy: Yes (COUMADIN ) Asthma: No Blood Disorders: No Anxiety: No Depression: Yes Heart Rhythm Problems: No Cancer: No Cardiac Catheterization: Yes Cardiovascular Problems: Yes (HTN ) High Cholesterol: Yes Chemotherapy: No Chest Pain: Yes Congestive Heart Failure: Yes COPD: No Diabetes: No Endocrine: No Gastrointestinal Disorders: No Genitourinary: No Hypertension: No Immune Disorder: No Implanted Vascular Access Dvce: No Musculoskeletal: No Neurologic: No Psychiatric: No Reproductive: No Respiratory: No Immunizations Current: Yes Radiation Therapy: No Sleep Apnea: No Thyroid Disease: No ?: Past Surgical History Cardiac Surgery: Yes (cath ) Coronary Artery Bypass Graft: No Pacemaker: Yes (v paced) Social History Alcohol Use: Yes (socially) Tobacco Use: No Substance Use: No Allergies-Medications (Allergen,Severity, Reaction): Coded Allergies: Nitroglycerin (Verified Allergy, Severe, Anaphylaxis, 03/20/17) Reported Meds & Prescriptions Reported Meds & Active Scripts Active Thiamine (Thiamine HCl) 100 Mg Tab 100 Mg PO DAILY Ramipril 5 Mg Cap 5 Mg PO DAILY Coreg (Carvedilol) 6.25 Mg Tab 6.25 Mg PO Q12HR Furosemide 40 Mg Tab 40 Mg PO BID Aspirin 81 Mg Chew 81 Mg CHEW DAILY Reported Warfarin 7.5 Mg Tab 7.5 Mg PO DAILY Review of Systems Except as stated in HPI: all other systems reviewed are Neg General / Constitutional: No: Fever Eyes: No: Visual changes HENT: No: Headaches Cardiovascular: Positive: Chest Pain or Discomfort, Other (patient reports defibrillator activated 1.) Respiratory: No: Cough, Shortness of Breath, Wheezing Gastrointestinal: No: Nausea, Vomiting, Diarrhea, Abdominal Pain Genitourinary: No: Dysuria Musculoskeletal: No: Pain Skin: No Rash Neurologic: No: Weakness Psychiatric: No: Depression Endocrine: No: Polydipsia Hematologic/Lymphatic: No: Easy Bruising Physical Exam Narrative GENERAL: Patient appears anxious and in distress. SKIN: Warm and dry. Normal color. Normal turgor. Well healing surgical wound to the left upper chest status post pacemaker/defibrillator placement. No signs of infection. No wound dehiscence. HEAD: Atraumatic. Normocephalic. EYES: Pupils equal and round. No scleral icterus. No injection or drainage. ENT: No nasal bleeding or discharge. Mucous membranes pink and moist. Pharynx is clear. Airway is patent. NECK: Trachea midline. No JVD. Supple nontender. CARDIOVASCULAR: Regular rate and rhythm. No murmurs gallops or rubs appreciated. RESPIRATORY: No accessory muscle use. Clear to auscultation. Breath sounds equal bilaterally. GASTROINTESTINAL: Abdomen soft, non-tender, nondistended. Hepatic and splenic margins not palpable. MUSCULOSKELETAL: Extremities without clubbing, cyanosis, or edema. No obvious deformities. NEUROLOGICAL: Awake and alert. No obvious cranial nerve deficits. Motor grossly within normal limits. Five out of 5 muscle strength in the arms and legs. Normal speech. PSYCHIATRIC: Appropriate mood and affect; insight and judgment normal. Data Data Last Documented VS Vital Signs Date Time Temp Pulse Resp B/P Pulse Ox O2 Delivery O2 Flow Rate FiO2 03/20/17 15:42 97.8 91 16 115/64 99 Room Air Orders Electrocardiogram (03/20/17 ) Complete Blood Count With Diff (03/20/17 11:40) Comprehensive Metabolic Panel (03/20/17 11:40) Troponin I (03/20/17 11:40) Prothrombin Time / Inr (Pt) (03/20/17 11:40) Act Partial Throm Time (Ptt) (03/20/17 11:40) Electrocardiogram (03/20/17 12:14) Chest, Single Ap (03/20/17 12:14) Ecg Monitoring (03/20/17 12:14) Bilateral Bp Monitoring (03/20/17 12:14) Iv Access Insert/Monitor (03/20/17 12:14) Oximetry (03/20/17 12:14) Oxygen Administration (03/20/17 12:14) Aspirin Chew (Aspirin Chew) (03/20/17 12:15) Morphine Inj (Morphine Inj) (03/20/17 12:15) Sodium Chloride 0.9% Flush (Ns Flush) (03/20/17 12:15) Sodium Chlorid 0.9% 500 Ml Inj (Ns 500 M (03/20/17 12:15) Lorazepam Inj (Ativan Inj) (03/20/17 12:15) Magnesium (Mg) (03/20/17 12:25) Amiodarone Inj (Cordarone Inj) (03/20/17 15:45) Labs Laboratory Tests Test 03/20/17 12:25 White Blood Count 6.4 TH/MM3 Red Blood Count 3.66 MIL/MM3 Hemoglobin 10.8 GM/DL Hematocrit 32.2 % Mean Corpuscular Volume 88.1 FL Mean Corpuscular Hemoglobin 29.6 PG Mean Corpuscular Hemoglobin 33.6 % Concent Red Cell Distribution Width 16.2 % Platelet Count 219 TH/MM3 Mean Platelet Volume 9.4 FL Neutrophils (%) (Auto) 67.7 % Lymphocytes (%) (Auto) 19.1 % Monocytes (%) (Auto) 7.5 % Eosinophils (%) (Auto) 3.2 % Basophils (%) (Auto) 2.5 % Neutrophils # (Auto) 4.3 TH/MM3 Lymphocytes # (Auto) 1.2 TH/MM3 Monocytes # (Auto) 0.5 TH/MM3 Eosinophils # (Auto) 0.2 TH/MM3 Basophils # (Auto) 0.2 TH/MM3 CBC Comment DIFF FINAL Differential Comment Prothrombin Time 13.5 SEC Prothromb Time International 1.2 RATIO Ratio Activated Partial 31.5 SEC Thromboplast Time Sodium Level 139 MEQ/L Potassium Level 3.2 MEQ/L Chloride Level 106 MEQ/L Carbon Dioxide Level 23.4 MEQ/L Anion Gap 10 MEQ/L Blood Urea Nitrogen 25 MG/DL Creatinine 1.25 MG/DL Estimat Glomerular Filtration 59 ML/MIN Rate Random Glucose 105 MG/DL Calcium Level 7.8 MG/DL Magnesium Level 1.7 MG/DL Total Bilirubin 0.5 MG/DL Aspartate Amino Transf 65 U/L (AST/SGOT) Alanine Aminotransferase 38 U/L (ALT/SGPT) Alkaline Phosphatase 75 U/L Troponin I 0.03 NG/ML Total Protein 7.7 GM/DL Albumin 2.7 GM/DL [facility] Medical Decision Making Medical Screen Exam Complete: Yes Emergency Medical Condition: Yes Differential Diagnosis Defibrillator activation. Chest pain. Anxiety. Recent ICD placement. Recent and non-STEMI. Narrative Course Patient is felt to be medically stable at time of exam. Laboratory including CBC, CMP, and cardiac enzymes. Chest x-ray is ordered as well as EKG. IV access is obtained and the patient is given 4 mg morphine IV as well as 4 mg Zofran IV, as well as 1 mg lorazepam IV. [employer] is called to come and evaluate his pacemaker. CBC is unremarkable except for his chronic anemia which is stable compared to previous. CMP is unremarkable. Troponin is 0.03. Chest x-ray shows no acute process. EKG shows ventricular paced rhythm. Interrogation of the pacemaker/defibrillator shows that the patient did in fact have a run of V. tach appropriately defibrillated by his defibrillator. Call was placed to Dr. Pineda, and Dr. Cabrera spoke with Dr. Enrique who recommended amiodarone under 150 mg IV, and a continuing dose of 400 mg twice a day and follow-up with Dr. Pineda. Diagnosis Primary Impression: Defibrillator discharge Additional Impression: Arrhythmia, ventricular Referrals: Tea Adames MD call for appointment Patient Instructions: General Instructions Additional Instructions: CBC is unremarkable except for his chronic anemia which is stable compared to previous. CMP is unremarkable. Troponin is 0.03. Chest x-ray shows no acute process. EKG shows ventricular paced rhythm. Interrogation of the pacemaker/defibrillator shows that the patient did in fact have a run of V. tach appropriately defibrillated by his defibrillator. Call was placed to Dr. Pineda, and Dr. Cabrera spoke with Dr. Enrique who recommended amlodipine under 150 mg IV, and a continuing dose of 400 mg twice a day and follow-up with Dr. Pineda. Med/Other Pt SpecificInfo: Prescription(s) given Scripts Amiodarone 400 Mg [id number] Mg PO BID #60 TAB Ref 0 Prov:Omar Cabrera MD 03/20/17 Disposition: 01 DISCHARGE HOME Condition: Stable Narinder Almanzar Mar 20, 2017 12:08
[2017-03-20] MEDS ORDERED: ASPIRIN 81 MG CHEW TAB PO ONE (12:15)
[2017-03-20] MEDS ORDERED: SODIUM CHLORIDE 0.9% FLUSH 10 ML FLUSH IVF PRN (12:15)
[2017-03-20] MEDS ORDERED: LORazepam 2 MG/ML VIAL IV PUSH ONE (12:15)
[2017-03-20] MEDS ORDERED: MORPHINE SULFATE 4 MG/ML INJ IV PUSH ONE (12:15)
[2017-03-20] MEDS ORDERED: SODIUM CHLORID 0.9% 500 ML INJ 500 ML IV ONE (12:15)
[2017-03-20 12:16] VITALS: BP_SYST 110; BP_SYST 125; BP_DIAS 70; BP_DIAS 71; PULSE 89; RESP 16; RESP 17; O2SAT 99
[2017-03-20] MEDS ORDERED: WARF-21 PO (12:52)
[2017-03-20 12:55] LABS: AUTOMATED NEUTROPHIL # 4.3 TH/MM3 (1.8-7.7); BASOPHIL # 0.2 TH/MM3 (0-0.2); BASOPHIL % 2.5 % (0.0-2.0); EOSINOPHIL # 0.2 TH/MM3 (0-0.4); EOSINOPHIL % 3.2 % (0.0-4.0); HEMATOCRIT 32.2 % (39.0-51.0); HEMO FLAGS DIFF FINAL; LYMPH % 19.1 % (9.0-44.0); LYMPHOCYTE # 1.2 TH/MM3 (1.0-4.8); MEAN CELL VOLUME 88.1 FL (80.0-100.0); MEAN CORPUSCULAR HEMOGLOBIN 29.6 PG (27.0-34.0); MEAN CORPUSCULAR HGB CONC 33.6 % (32.0-36.0); MONO % 7.5 % (0.0-8.0); NEUT % 67.7 % (16.0-70.0); PLATELET COUNT 219 TH/MM3 (150-450); RED BLOOD COUNT 3.66 MIL/MM3 (4.50-5.90); RED CELL DISTRIBUTION WIDTH 16.2 % (11.6-17.2); WHITE BLOOD COUNT 6.4 TH/MM3 (4.0-11.0)
[2017-03-20 13:04] LABS: APTT (PATIENT) 31.5 SEC (24.3-30.1); INTERNATIONAL NORMALIZED RATIO 1.2 RATIO; PROTHROMBIN TIME - PATIENT 13.5 SEC (9.8-11.6)
[2017-03-20 13:17] LABS: ANION GAP 10 MEQ/L (5-15); AST (GOT) 65 U/L (15-37); BICARBONATE 23.4 MEQ/L (21.0-32.0); BLOOD UREA NITROGEN 25 MG/DL (7-18); CHLORIDE 106 MEQ/L (98-107); GLOMERULAR FILTRATION RATE 59 ML/MIN (>89); MAGNESIUM 1.7 MG/DL (1.5-2.5); POTASSIUM 3.2 MEQ/L (3.5-5.1); SODIUM (NA) 139 MEQ/L (136-145)
[2017-03-20 13:24] LABS: ALKALINE PHOSPHATASE 75 U/L (45-117); ALT (GPT) 38 U/L (12-78); TOTAL BILIRUBIN ADULT 0.5 MG/DL (0.2-1.0)
--- NOTE | 2017-03-20 13:32 | RADRPT ---
EXAM DATE/TIME: 03/20/2017 12:32 [place] COMPARISON: CHEST SINGLE AP, March 09, 2017, 0:29. INDICATIONS : Patient states chest pains. MEDICAL HISTORY : Congestive heart failure. SURGICAL HISTORY : Pacemaker. Defibrillator ENCOUNTER: Initial ACUITY: 1 day PAIN SCORE: 6/10 LOCATION: Bilateral chest FINDINGS: Pacemaker is implanted in the left chest. Heart is minimally enlarged, pulmonary vascularity is norm al. Portion of bony skeleton visualized unremarkable. CONCLUSION: 1. Mild compensated cardiomegaly. 2. Pacer in good position. Vince Aparicio MD FACR on March 20, 2017 at 13:29 Board Certified Radiologist. This report was verified electronically.
[2017-03-20 13:51] VITALS: BP 126/74; PULSE 91; RESP 16; TEMP 97.8; O2SAT 98
[2017-03-20 15:42] VITALS: BP 115/64; PULSE 91; RESP 16; TEMP 97.8; O2SAT 99
[2017-03-20] MEDS ORDERED: AMIODARONE INJ 150 MG in DEXTROSE 5% IN WATER 100ML INJ 97 ML IV ONE ×2 (15:45)
[2017-03-20] MEDS ORDERED: AMIO400T PO (16:09)
[2017-03-20] MEDS ORDERED: ACETAMINOPHEN/HYDROcodone 325 MG/10 MG TAB PO ONE (16:30)
--- NOTE | 2017-03-20 17:00 | PD ---
Data Data Last Documented VS Vital Signs Date Time Temp Pulse Resp B/P Pulse Ox O2 Delivery O2 Flow Rate FiO2 03/20/17 15:42 97.8 91 16 115/64 99 Room Air Orders Electrocardiogram (03/20/17 ) Complete Blood Count With Diff (03/20/17 11:40) Comprehensive Metabolic Panel (03/20/17 11:40) Troponin I (03/20/17 11:40) Prothrombin Time / Inr (Pt) (03/20/17 11:40) Act Partial Throm Time (Ptt) (03/20/17 11:40) Chest, Single Ap (03/20/17 12:14) Ecg Monitoring (03/20/17 12:14) Bilateral Bp Monitoring (03/20/17 12:14) Iv Access Insert/Monitor (03/20/17 12:14) Oximetry (03/20/17 12:14) Oxygen Administration (03/20/17 12:14) Aspirin Chew (Aspirin Chew) (03/20/17 12:15) Morphine Inj (Morphine Inj) (03/20/17 12:15) Sodium Chloride 0.9% Flush (Ns Flush) (03/20/17 12:15) Sodium Chlorid 0.9% 500 Ml Inj (Ns 500 M (03/20/17 12:15) Lorazepam Inj (Ativan Inj) (03/20/17 12:15) Magnesium (Mg) (03/20/17 12:25) Amiodarone Inj (Cordarone Inj) (03/20/17 15:45) Acetamin-Hydrocod 325-10 Mg ([place] 10-32 (03/20/17 16:30) Labs Laboratory Tests Test 03/20/17 12:25 White Blood Count 6.4 TH/MM3 Red Blood Count 3.66 MIL/MM3 Hemoglobin 10.8 GM/DL Hematocrit 32.2 % Mean Corpuscular Volume 88.1 FL Mean Corpuscular Hemoglobin 29.6 PG Mean Corpuscular Hemoglobin 33.6 % Concent Red Cell Distribution Width 16.2 % Platelet Count 219 TH/MM3 Mean Platelet Volume 9.4 FL Neutrophils (%) (Auto) 67.7 % Lymphocytes (%) (Auto) 19.1 % Monocytes (%) (Auto) 7.5 % Eosinophils (%) (Auto) 3.2 % Basophils (%) (Auto) 2.5 % Neutrophils # (Auto) 4.3 TH/MM3 Lymphocytes # (Auto) 1.2 TH/MM3 Monocytes # (Auto) 0.5 TH/MM3 Eosinophils # (Auto) 0.2 TH/MM3 Basophils # (Auto) 0.2 TH/MM3 CBC Comment DIFF FINAL Differential Comment Prothrombin Time 13.5 SEC Prothromb Time International 1.2 RATIO Ratio Activated Partial 31.5 SEC Thromboplast Time Sodium Level 139 MEQ/L Potassium Level 3.2 MEQ/L Chloride Level 106 MEQ/L Carbon Dioxide Level 23.4 MEQ/L Anion Gap 10 MEQ/L Blood Urea Nitrogen 25 MG/DL Creatinine 1.25 MG/DL Estimat Glomerular Filtration 59 ML/MIN Rate Random Glucose 105 MG/DL Calcium Level 7.8 MG/DL Magnesium Level 1.7 MG/DL Total Bilirubin 0.5 MG/DL Aspartate Amino Transf 65 U/L (AST/SGOT) Alanine Aminotransferase 38 U/L (ALT/SGPT) Alkaline Phosphatase 75 U/L Troponin I 0.03 NG/ML Total Protein 7.7 GM/DL Albumin 2.7 GM/DL MDM Supervised Visit with LENIN: Yes Narrative Course The history, exam, and medical decision-making in the associated mid-level provider note were completed with my assistance. I reviewed and agree with the findings presented. I attest that I had a [id number] encounter with the patient on the same day, and personally performed and documented my assessment and findings in the medical record. *My assessment and Findings: 7-year-old man who presents emergency department after his defibrillator fired. He's had a couple firings recently. He was just admitted for chest pain and had his AICD battery pack replaced by Dr. Adames. If fired this morning. Interrogation shows that was inappropriate shock or V. tach. Looks well. This one episode. Is not on any antiarrhythmics. We spoke with Dr. Enrique, on-call for Dr. Adames, recommends a load of amiodarone, and outpatient follow-up. Patient agreeable. Diagnosis Primary Impression: Defibrillator discharge Additional Impression: Arrhythmia, ventricular Referrals: Tea Adames MD call for appointment Patient Instructions: General Instructions, Chest Pain (ED), Pacemaker Generator Change (GEN) Departure Forms: Tests/Procedures Additional Instruction: CBC is unremarkable except for his chronic anemia which is stable compared to previous. CMP is unremarkable. Troponin is 0.03. Chest x-ray shows no acute process. EKG shows ventricular paced rhythm. Interrogation of the pacemaker/defibrillator shows that the patient did in fact have a run of V. tach appropriately defibrillated by his defibrillator. Call was placed to Dr. Pineda, and Dr. Cabrera spoke with Dr. Enrique who recommended amlodipine under 150 mg IV, and a continuing dose of 400 mg twice a day and follow-up with Dr. Pineda. Scripts Amiodarone 400 Mg Cpr186 Mg PO BID #60 TAB Ref 0 Prov:Omar Cabrera MD 03/20/17 Disposition: 01 DISCHARGE HOME Condition: Stable Omar Cabrera MD Mar 20, 2017 17:00
[2017-03-20 17:34] VITALS: BP 120/77; TEMP 97.8
--- NOTE | 2017-03-21 19:31 | EKG ---
Date Performed: 03/20/2017 Time Performed: 11:46:29 PTAGE: 61 years EKG: ELECTRONIC VENTRICULAR PACEMAKER ABNORMAL RHYTHM ECG PREVIOUS TRACING : 03/17/2017 20.02 Compared to prior tracing no significant change DOCTOR: Darya Francis Interpretating Date/Time 03/21/2017 19:30:41
== END 2017-03-20 17:34 | disposition home or self-care (01) ==
LOC: NEPE 11:24
DX: I49.8 Other specified cardiac arrhythmias (principal); I47.2 Ventricular tachycardia; R94.31 Abnormal electrocardiogram [ECG] [EKG]; E78.00 Pure hypercholesterolemia, unspecified; Z95.810 Presence of automatic (implantable) cardiac defibrillator; Z98.890 Other specified postprocedural states; Z79.01 Long term (current) use of anticoagulants; Z86.59 Personal history of other mental and behavioral disorders
CPT/HCPCS: 71010; 80053; 83735; 84484; 85025; 85610; 85730; 93005; 96361; 96365; 96375; 99284; J0282; J2060; J2270; J7040

== ENCOUNTER 2017-05-11 16:42 | Observation (INO) | payer MEDICAID ==
[~2017-05-11] VITALS: Ht 172.7 cm; Wt 91.0 kg
[~2017-05-11 16:42] MED LIST changes: +AMIO400T PO; +WARF-21 PO
[2017-05-11 16:45] VITALS: BP 129/71; PULSE 132; RESP 20; TEMP 98; O2SAT 100
[2017-05-11 17:37] VITALS: BP 137/81; PULSE 117; RESP 20; TEMP 99.7; O2SAT 97
[2017-05-11 17:38] LABS: AUTOMATED NEUTROPHIL # 6.1 TH/MM3 (1.8-7.7); EOSINOPHIL % 0.3 % (0.0-4.0); HEMATOCRIT 31.6 % (39.0-51.0); HEMO FLAGS DIFF FINAL; LYMPH % 2.1 % (9.0-44.0); LYMPHOCYTE # 0.1 TH/MM3 (1.0-4.8); MEAN CELL VOLUME 88.5 FL (80.0-100.0); MEAN CORPUSCULAR HEMOGLOBIN 29.1 PG (27.0-34.0); MEAN CORPUSCULAR HGB CONC 32.9 % (32.0-36.0); MONO % 0.7 % (0.0-8.0); NEUT % 96.9 % (16.0-70.0); PLATELET COUNT 135 TH/MM3 (150-450); RED BLOOD COUNT 3.57 MIL/MM3 (4.50-5.90); RED CELL DISTRIBUTION WIDTH 17.3 % (11.6-17.2); WHITE BLOOD COUNT 6.3 TH/MM3 (4.0-11.0)
[2017-05-11] MEDS ORDERED: ASPIRIN 325 MG TAB PO ONE (17:45)
[2017-05-11] MEDS ORDERED: ONDANSETRON HCL 4 MG/2 ML VIAL IV PUSH ONE (17:45)
[2017-05-11] MEDS ORDERED: MORPHINE SULFATE 4 MG/ML INJ IV PUSH ONE (17:45)
--- NOTE | 2017-05-11 17:50 | RADRPT ---
EXAM DATE/TIME: 05/11/2017 16:53 [facility] COMPARISON: CHEST SINGLE AP, March 20, 2017, 12:32. INDICATIONS : Chest pain. MEDICAL HISTORY : Congestive heart failure. SURGICAL HISTORY : Pacemaker. ENCOUNTER: Initial ACUITY: 1 day PAIN SCORE: 10/10 LOCATION: Bilateral chest FINDINGS: There is a pacing/AICD device in place from the left subclavian approach. The heart size is normal. T he lungs are grossly clear. No effusion is seen. CONCLUSION: No definite acute abnormality is seen. There is a pacing/AICD device in good positio n. Nito Silva MD on May 11, 2017 at 17:40 Board Certified Radiologist. This report was verified electronically.
[2017-05-11 18:06] LABS: ANION GAP 10 MEQ/L (5-15); BICARBONATE 26.1 MEQ/L (21.0-32.0); BLOOD UREA NITROGEN 13 MG/DL (7-18); CHLORIDE 105 MEQ/L (98-107); CREATINE KINASE 126 U/L (39-308); GLOMERULAR FILTRATION RATE 78 ML/MIN (>89); POTASSIUM 4.2 MEQ/L (3.5-5.1); SODIUM (NA) 141 MEQ/L (136-145)
[2017-05-11 18:19] LABS: CKMB 1.8 NG/ML (0.5-3.6)
[2017-05-11 18:27] LABS: INDIRECT BILIRUBIN 0.4 MG/DL (0.0-0.8); TOTAL BILIRUBIN ADULT 0.8 MG/DL (0.2-1.0)
[2017-05-11] MEDS ORDERED: SODIUM CHLOR 0.9% 1000 ML INJ 1,000 ML IV SCH ×2 (18:43→20:20)
--- NOTE | 2017-05-11 18:49 | PD ---
HPI Chief Complaint: Chest Pain Time Seen by Provider: 18:45 Travel History International Travel<30 days: No Contact w/Intl Traveler<30days: No Traveled to known affect area: No History of Present Illness HPI 61-year-old male that presents to the ED for evaluation of midsternal chest pain. Per patient she's had this pain for the past 2 hours. He denies any shortness of breath. Per patient she does have a history of triple bypass in the past as well as a defibrillator. Per patient he is defibrillator secondary to SVTs. Per patient he does not feel like the fibular is going. Patient denies any drugs recently. He states that he is compliant with his medications. He does take Coumadin. He denies any cough or runny nose. He denies any abdominal pain. No nausea or vomiting. No bowel movement or urinary issues. Allergy to nitroglycerin which gives him convulsions. He denies any back pain. No neck pain. States that the pain is significant and attendant does not radiate. States mainly on the epigastric area. PFSH Past Medical History Hx Anticoagulant Therapy: Yes (COUMADIN ) Asthma: No Blood Disorders: No Anxiety: No Depression: Yes Heart Rhythm Problems: Yes Cancer: No Cardiac Catheterization: Yes Cardiovascular Problems: Yes (HTN ) High Cholesterol: Yes Chemotherapy: No Chest Pain: Yes Congestive Heart Failure: Yes COPD: No Diabetes: No Diminished Hearing: No Endocrine: No Gastrointestinal Disorders: No Genitourinary: No Hypertension: No Immune Disorder: No Implanted Vascular Access Dvce: No Musculoskeletal: No Neurologic: No Psychiatric: No Reproductive: No Respiratory: No Immunizations Current: Yes Radiation Therapy: No Sleep Apnea: No Thyroid Disease: No Tetanus Vaccination: < 5 Years Past Surgical History Abdominal Surgery: Yes (GALLBLADDER REMOVAL) Cardiac Surgery: Yes (CATH , [employer] ICD PLACEMENT 2017 ) Coronary Artery Bypass Graft: No Pacemaker: Yes (v paced) Family History Family Myocardial Infarction: Yes (father) Social History Alcohol Use: Yes (RARE) Tobacco Use: No Substance Use: No Allergies-Medications (Allergen,Severity, Reaction): Coded Allergies: Nitroglycerin (Verified Allergy, Severe, Anaphylaxis, 05/11/17) Reported Meds & Prescriptions Reported Meds & Active Scripts Active Furosemide 40 Mg Tab 40 Mg PO BID Aspirin 81 Mg Chew 81 Mg CHEW DAILY Reported Warfarin 7.5 Mg Tab 7.5 Mg PO DAILY Review of Systems Except as stated in HPI: all other systems reviewed are Neg Physical Exam Narrative GENERAL: SKIN: Warm and dry. HEAD: Atraumatic. Normocephalic. EYES: Pupils equal and round. No scleral icterus. No injection or drainage. ENT: No nasal bleeding or discharge. Mucous membranes pink and moist. Tongue is midline. No uvula deviation. NECK: Trachea midline. No JVD. CARDIOVASCULAR: Regular rate and rhythm. No murmurs, S3, S4. Chest pain is not really reproducible with touch. RESPIRATORY: No accessory muscle use. Clear to auscultation. Breath sounds equal bilaterally. GASTROINTESTINAL: Abdomen soft, non-tender, nondistended. Hepatic and splenic margins not palpable. MUSCULOSKELETAL: Extremities without clubbing, cyanosis, or edema. No obvious deformities. Full range of motion of the upper and lower extremities bilaterally. 2+ pulses bilaterally. NEUROLOGICAL: Awake and alert. No obvious cranial nerve deficits. Motor grossly within normal limits. Five out of 5 muscle strength in the arms and legs. Normal speech. PSYCHIATRIC: Appropriate mood and affect; insight and judgment normal. Data Data Last Documented VS Vital Signs Date Time Temp Pulse Resp B/P Pulse Ox O2 Delivery O2 Flow Rate FiO2 05/11/17 20:39 80 18 155/69 95 Room Air 05/11/17 17:37 99.7 Orders Electrocardiogram (05/11/17 ) Electrocardiogram (05/11/17 16:48) Complete Blood Count With Diff (05/11/17 16:48) Basic Metabolic Panel (Bmp) (05/11/17 16:48) Ckmb (Isoenzyme) Profile (05/11/17 16:48) Troponin I (05/11/17 16:48) Chest, Single Ap (05/11/17 16:48) B-Type Natriuretic Peptide (05/11/17 16:56) Lipase (05/11/17 17:33) Morphine Inj (Morphine Inj) (05/11/17 17:45) Ondansetron Inj (Zofran Inj) (05/11/17 17:45) Aspirin (Aspirin) (05/11/17 17:45) Hepatic Functional Panel (05/11/17 17:42) CKMB (05/11/17 16:50) CKMB% (05/11/17 16:50) Sodium Chlor 0.9% 1000 Ml Inj (Ns 1000 M (05/11/17 18:43) Coag Profile (05/11/17 18:49) Ct Pulmonary Angiogram (05/11/17 ) Iohexol 350 Inj (Omnipaque 350 Inj) (05/11/17 19:58) Lorazepam Inj (Ativan Inj) (05/11/17 20:30) Sodium Chlor 0.9% 1000 Ml Inj (Ns 1000 M (05/11/17 20:20) Admit Order (Ed Use Only) (05/11/17 20:36) Place In Observation (05/11/17 ) Vital Signs (Adult) Q4H (05/11/17 20:36) Activity Oob With Assistance (05/11/17 20:36) Book Cutter / Telemetry .CONTINUOUS (05/11/17 20:36) Intake + Output MAGUE.QSHIFT (05/11/17 20:36) Diet Heart Healthy (05/12/17 Breakfast) Sodium Chloride 0.9% Flush (Ns Flush) (05/11/17 20:45) Sodium Chloride 0.9% Flush (Ns Flush) (05/11/17 21:00) Basic Metabolic Panel (Bmp) (05/12/17 06:00) Complete Blood Count With Diff (05/12/17 06:00) Creatine Kinase (Cpk) (05/12/17 01:00) Creatine Kinase (Cpk) (05/12/17 07:00) Troponin I (05/12/17 01:00) Troponin I (05/12/17 07:00) Electrocardiogram (05/12/17 01:00) Electrocardiogram (05/12/17 07:00) Case Management Consult (05/11/17 20:36) Naloxone Inj (Narcan Inj) (05/11/17 20:45) Alcohol Withdrawal Asmt-Ciwa Q4HX18 (05/11/17 20:36) ^ Seizure Precautions (05/11/17 20:36) Sodium Chloride 0.9% Flush (Ns Flush) (05/11/17 20:45) Sodium Chloride 0.9% Flush (Ns Flush) (05/11/17 21:00) Consult Cm-Etoh Abuse Dc Plan (05/11/17 ) Flumazenil Inj (Romazicon Inj) (05/11/17 20:45) Lorazepam (Ativan) (05/11/17 20:45) Lorazepam Inj (Ativan Inj) (05/11/17 20:45) Lorazepam (Ativan) (05/11/17 20:45) Lorazepam Inj (Ativan Inj) (05/11/17 20:45) Lorazepam Inj (Ativan Inj) (05/11/17 20:45) Lorazepam Inj (Ativan Inj) (05/11/17 20:45) Labs Laboratory Tests Test 05/11/17 05/11/17 05/11/17 16:50 17:50 19:05 White Blood Count 6.3 TH/MM3 Red Blood Count 3.57 MIL/MM3 Hemoglobin 10.4 GM/DL Hematocrit 31.6 % Mean Corpuscular Volume 88.5 FL Mean Corpuscular Hemoglobin 29.1 PG Mean Corpuscular Hemoglobin 32.9 % Concent Red Cell Distribution Width 17.3 % Platelet Count 135 TH/MM3 Mean Platelet Volume 9.4 FL Neutrophils (%) (Auto) 96.9 % Lymphocytes (%) (Auto) 2.1 % Monocytes (%) (Auto) 0.7 % Eosinophils (%) (Auto) 0.3 % Basophils (%) (Auto) 0.0 % Neutrophils # (Auto) 6.1 TH/MM3 Lymphocytes # (Auto) 0.1 TH/MM3 Monocytes # (Auto) 0.0 TH/MM3 Eosinophils # (Auto) 0.0 TH/MM3 Basophils # (Auto) 0.0 TH/MM3 CBC Comment DIFF FINAL Differential Comment Sodium Level 141 MEQ/L Potassium Level 4.2 MEQ/L Chloride Level 105 MEQ/L Carbon Dioxide Level 26.1 MEQ/L Anion Gap 10 MEQ/L Blood Urea Nitrogen 13 MG/DL Creatinine 0.98 MG/DL Estimat Glomerular Filtration 78 ML/MIN Rate Random Glucose 128 MG/DL Calcium Level 8.1 MG/DL Total Creatine Kinase 126 U/L Creatine Kinase MB 1.8 NG/ML Troponin I 0.05 NG/ML B-Type Natriuretic Peptide 91 PG/ML Lipase 111 U/L Total Bilirubin 0.8 MG/DL Direct Bilirubin 0.4 MG/DL Indirect Bilirubin 0.4 MG/DL Aspartate Amino Transf 109 U/L (AST/SGOT) Alanine Aminotransferase 55 U/L (ALT/SGPT) Alkaline Phosphatase 89 U/L Total Protein 7.2 GM/DL Albumin 2.6 GM/DL Prothrombin Time 13.6 SEC Prothromb Time International 1.2 RATIO Ratio Activated Partial 28.5 SEC Thromboplast Time MDM Medical Decision Making Medical Screen Exam Complete: Yes Emergency Medical Condition: Yes Medical Record Reviewed: Yes Interpretation(s) EKG showed tachycardia but no sign of acute ischemia read by me and attending. BMP Diagram 05/11/17 16:50 CBC Diagram 05/11/17 16:50 LFTS and lipase WNL Troponin and CKMB WNL CXR negative CT chest negative Differential Diagnosis Chest pain versus tachycardia versus pancreatitis versus acute abdomen versus n STEMI Narrative Course 61-year-old male that presents to the ED for evaluation of chest pain. Patient was properly examined and was found to have signs and symptoms concerning for ACS. Labs and imaging ordered. Patient does appear to be very tachycardic on exam. We have interrogation of the pacemaker done. Labs and imaging here were essentially unremarkable other than for tachycardia. My attending Dr. Cortes evaluated the patient and recommends CT to rule out any sign of PE. CT negative she recommends admission of this for chest pain rule out. This was discussed with the patient is in agreement with plan. Patient was given IV fluids and CT was ordered. CT showed no sign of PE. At this time his symptoms appear to be more consistent with a typical pain. Possibility of withdrawal with patient for she does have significant history of heart disease. We do recommend admission for cardiac rule out. RADHA was paged. Dr Vázquez agrees to obs admission. Diagnosis Primary Impression: Chest pain Qualified Code: R07.9 - Chest pain, unspecified type Additional Impression: Tachycardia Admitting Information Admitting Physician Requests: Observation Ghulam Crowell May 11, 2017 18:49
[2017-05-11 19:06] VITALS: BP 150/68; PULSE 110; RESP 18; O2SAT 98
[2017-05-11] MEDS ORDERED: IOHEXOL 350 MG/ML 10 ML VIAL (for RAD DIAG) IV ONE (19:58)
[2017-05-11 20:15] LABS: APTT (PATIENT) 28.5 SEC (24.3-30.1); INTERNATIONAL NORMALIZED RATIO 1.2 RATIO; PROTHROMBIN TIME - PATIENT 13.6 SEC (9.8-11.6)
--- NOTE | 2017-05-11 20:18 | RADRPT ---
EXAM DATE/TIME: 05/11/2017 19:54 [facility] COMPARISON: CT PULMONARY ANGIOGRAM, March 09, 2017, 2:36. INDICATIONS : Chest pain with tachycardia today. IV CONTRAST: 50 cc Omnipaque 350 (iohexol) IV RADIATION DOSE: 16.32 CTDIvol (mGy) MEDICAL HISTORY : Myocardial infarction. Cardiovascular disease Congestive heart failure.Cardiac catherization. Hyperte nsion. SURGICAL HISTORY : Pacemaker. Cholecystectomy. ENCOUNTER: Initial ACUITY: 1 day PAIN SCALE: 9/10 LOCATION: chest TECHNIQUE: Volumetric scanning of the chest was performed using a pulmonary embolism protocol MIP images were re constructed. Using automated exposure control and adjustment of the mA and/or kV according to patien t size, radiation dose was kept as low as reasonably achievable to obtain optimal diagnostic quality images. FINDINGS: PULMONARY ARTERIES: No filling defects are seen in the pulmonary arteries through the segmental level. LUNGS: There is no consolidation or pneumothorax . No concerning pulmonary nodule is visualized. PLEURAE: There is no pleural thickening or pleural effusion. MEDIASTINUM: There is coronary artery calcification and calcification of the mitral anulus. Left chest wall cardia c pacing device is present and there are biventricular pacing leads in place. No lymphadenopathy is s een. MUSCULOSKELETAL: No acute abnormality. MISCELLANEOUS: The visualized upper abdominal organs demonstrate no acute abnormality. There is bilateral gynecomast ia. CONCLUSION: No PE or acute abnormality is identified. Nito Borja MD on May 11, 2017 at 20:13 Board Certified Radiologist. This report was verified electronically.
[2017-05-11] MEDS ORDERED: LORazepam 2 MG/ML VIAL IV PUSH ONE (20:30)
[2017-05-11 20:39] VITALS: BP 155/69; PULSE 80; RESP 18; O2SAT 95
[2017-05-11] MEDS ORDERED: LORazepam 2 MG/ML VIAL IV PUSH PRN ×4 (20:45)
[2017-05-11] MEDS ORDERED: LORazepam 1 MG TAB PO PRN (20:45)
[2017-05-11] MEDS ORDERED: FLUMAZENIL 0.5 MG/5 ML VIAL IV PUSH PRN (20:45)
[2017-05-11] MEDS ORDERED: NALOXONE HCL 0.4 MG/ML AMP IV PRN (20:45)
[2017-05-11] MEDS ORDERED: LORazepam 2 MG TAB PO PRN (20:45)
[2017-05-11] MEDS ORDERED: SODIUM CHLORIDE 0.9% FLUSH 10 ML FLUSH IV FLUSH PRN ×2 (20:45)
[2017-05-11] MEDS ORDERED: SODIUM CHLORIDE 0.9% FLUSH 10 ML FLUSH IV FLUSH SCH (21:00)
[2017-05-11] MEDS: SODIUM CHLORIDE 0.9% FLUSH 10 ML FLUSH IV FLUSH SCH (21:25)
[2017-05-11 21:56] VITALS: BP 128/76; PULSE 70; RESP 18; TEMP 98.1; O2SAT 98
[2017-05-12] VITALS (7 sets, daily range): BP systolic 105–133; BP diastolic 52–64; PULSE 57–78; RESP 18–20; TEMP 98–98.5; O2SAT 94–98
[2017-05-12 03:24] LABS: AUTOMATED NEUTROPHIL # 6.6 TH/MM3 (1.8-7.7); BASOPHIL # 0.1 TH/MM3 (0-0.2); BASOPHIL % 0.9 % (0.0-2.0); EOSINOPHIL % 0.2 % (0.0-4.0); HEMATOCRIT 27.7 % (39.0-51.0); LYMPH % 10.1 % (9.0-44.0); LYMPHOCYTE # 0.8 TH/MM3 (1.0-4.8); MEAN CELL VOLUME 88.8 FL (80.0-100.0); MEAN CORPUSCULAR HEMOGLOBIN 29.3 PG (27.0-34.0); MEAN CORPUSCULAR HGB CONC 32.9 % (32.0-36.0); MONO % 6.7 % (0.0-8.0); NEUT % 82.1 % (16.0-70.0); PLATELET COUNT 99 TH/MM3 (150-450); RED BLOOD COUNT 3.12 MIL/MM3 (4.50-5.90); RED CELL DISTRIBUTION WIDTH 16.7 % (11.6-17.2); WHITE BLOOD COUNT 8.1 TH/MM3 (4.0-11.0)
[2017-05-12 03:26] LABS: HEMO FLAGS AUTO DIFF
[2017-05-12 03:49] LABS: BICARBONATE 31.5 MEQ/L (21.0-32.0); POTASSIUM 3.7 MEQ/L (3.5-5.1)
[2017-05-12 03:52] LABS: PLATELET ESTIMATE SMEAR LOW (NORMAL); PLATELET MORPHOLOGY NORMAL (NORMAL); SCAN/DIFF AUTO DIFF CONFIRMED
[2017-05-12 04:07] LABS: CALCIUM-PROTEIN CORRECTED 7.7 MG/DL (8.5-10.1)
--- NOTE | 2017-05-12 04:19 | HHI.HP ---
HPI Service [facility] Primary Care Physician No Primary Care Physician Admission Diagnosis chest pain r/o ACS, tachycardia Diagnoses: Travel History International Travel<30 Days: No Contact w/Intl Traveler <30 Da: No Traveled to Known Affected Are: No History of Present Illness c/o chest pain since yesterday never went away sharp stabbing pain radiates to left shoulder was nauseous vomited yesterday 3-4x , no black or red pain worsened with breathing, or pushing chest fell down 3-4 days ago coming down the stairs and missed a step and hit head, but no loss of consciousness Initially reported he is not on blood thinners. However later stated that he is on Coumadin at home and that he has not taken it for past 3 days or so. His INR is within normal limits. no fever no cough dizziness , light headead shortness of breath yesterday no diarrhea, no burning urination, no blood tachycardia here Review of Systems Except as stated in HPI: all other systems reviewed are Neg Past Family Social History Past Medical History htn- havent taken bp meds for few months ago no dm chf- 30% s/p aicd s/p ppm copd - unsure , but smoker for >20yrs DVT - bilateral - latest one was RLE chronic anticoagulation on coumadin - hasnt taken it for about 2 days Past Surgical History aicd, ppm coronary angiogram cholecystectomy Allergies: Coded Allergies: Nitroglycerin (Verified Allergy, Severe, Anaphylaxis, 05/11/17) Family History mother- vascular problems- varicose veins Social History half a pack a day, started smoking at age 41- used to smoke prior, but then stopped for 20yrs till 41yo quit drinking 6 months ago- but again drinking heavily for 3 days straight, but then stopped drinking 3 days ago no drugs Physical Exam Vital Signs Vital Signs Date Time Temp Pulse Resp B/P Pulse Ox O2 Delivery O2 Flow Rate FiO2 05/12/17 02:33 66 05/12/17 00:21 98.0 77 18 127/58 97 05/11/17 21:56 98.1 70 18 128/76 98 05/11/17 20:39 80 18 155/69 95 Room Air 05/11/17 19:06 110 18 150/68 98 Room Air 05/11/17 18:09 20 05/11/17 17:37 99.7 117 20 137/81 97 05/11/17 16:45 98.0 132 20 129/71 100 Physical Exam GENERAL: This is a well-nourished, well-developed patient, in no apparent distress. SKIN: Left periorbital ecchymosis. Cool and dry.flushed skin, poor skin hygiene HEAD: Atraumatic. Normocephalic. No temporal or scalp tenderness. EYES: No scleral icterus. No injection or drainage. ENT: Nose without bleeding, purulent drainage or septal hematoma. Airway patent. NECK: Trachea midline. No JVD or lymphadenopathy. Supple, nontender, no meningeal signs. CARDIOVASCULAR: Regular rate and rhythm without murmurs, gallops, or rubs. RESPIRATORY: Clear to auscultation. Breath sounds equal bilaterally. No wheezes , rales, or rhonchi. GASTROINTESTINAL: Abdomen soft, non-tender, nondistended. No guarding. MUSCULOSKELETAL: Extremities without clubbing, cyanosis, or edema No calf tenderness NEUROLOGICAL: Awake and alert. Motor and sensory grossly within normal limits.normal speech. Laboratory Laboratory Tests Test 05/11/17 05/11/17 05/11/17 05/12/17 16:50 17:50 19:05 02:53 White Blood Count 6.3 8.1 Red Blood Count 3.57 3.12 Hemoglobin 10.4 9.1 Hematocrit 31.6 27.7 Mean Corpuscular Volume 88.5 88.8 Mean Corpuscular Hemoglobin 29.1 29.3 Mean Corpuscular Hemoglobin 32.9 32.9 Concent Red Cell Distribution Width 17.3 16.7 Platelet Count 135 99 Mean Platelet Volume 9.4 8.7 Neutrophils (%) (Auto) 96.9 82.1 Lymphocytes (%) (Auto) 2.1 10.1 Monocytes (%) (Auto) 0.7 6.7 Eosinophils (%) (Auto) 0.3 0.2 Basophils (%) (Auto) 0.0 0.9 Neutrophils # (Auto) 6.1 6.6 Lymphocytes # (Auto) 0.1 0.8 Monocytes # (Auto) 0.0 0.5 Eosinophils # (Auto) 0.0 0.0 Basophils # (Auto) 0.0 0.1 CBC Comment DIFF FINAL AUTO DIFF Differential Comment AUTO DIFF CONFIRMED Sodium Level 141 143 Potassium Level 4.2 3.7 Chloride Level 105 106 Carbon Dioxide Level 26.1 31.5 Anion Gap 10 6 Blood Urea Nitrogen 13 14 Creatinine 0.98 0.90 Estimat Glomerular Filtration 78 86 Rate Random Glucose 128 98 Calcium Level 8.1 7.4 Total Creatine Kinase 126 59 Creatine Kinase MB 1.8 Troponin I 0.05 0.06 B-Type Natriuretic Peptide 91 Lipase 111 Total Bilirubin 0.8 Direct Bilirubin 0.4 Indirect Bilirubin 0.4 Aspartate Amino Transf 109 (AST/SGOT) Alanine Aminotransferase 55 (ALT/SGPT) Alkaline Phosphatase 89 Total Protein 7.2 6.6 Albumin 2.6 Ethyl Alcohol Level 13 Prothrombin Time 13.6 Prothromb Time International 1.2 Ratio Activated Partial 28.5 Thromboplast Time Platelet Estimate LOW Platelet Morphology Comment NORMAL Protein Corrected Calcium 7.7 Result Diagram: 05/12/17 0253 05/12/17 0253 Imaging Last [address] 05/12/17 0000 Signed Impressions: Service Date/Time: Friday, May 12, 2017 05:07 - CONCLUSION: 1. Questionable small amounts of subdural blood in between the leaves of the falx cerebri. Otherwise no evidence of intracranial hemorrhage. No mass effect or midline shift. 2. There are nonacute extra-axial fluid collections anterior to both temporal lobes typical of benign arachnoid cysts. These are right larger than left. Nito Fisher MD ADDENDUM: A mildly displaced, non-acute healed appearing fracture seen of the left zygomatic arch. There is mildly comminuted , minimally displaced fracture of the lateral wall of the left orbit that is also probably nonacute. I don't see any associated periorbital soft tissue swelling. Nito Fisher MD CT Angiography 05/11/17 0000 Signed Impressions: Service Date/Time: Thursday, May 11, 2017 19:54 - CONCLUSION: No PE or acute abnormality is identified. Nito Borja MD Assessment and Plan Assessment and Plan Impression: Chest painrule out AR. Frequent fallswith left periorbital ecchymosis which seems to be improving. History of EtOH abusewith current relapse and discontinuation about 3 days ago. Watch for DT. Tachycardialikely secondary to alcohol withdrawal. Chronic anticoagulation on Coumadin per patient. We'll need to rule out IC bleed given that patient had fallen down about 3 days ago. Subtherapeutic INRpatient reports not taking Coumadin for about 2 days. Thrombocytopenialikely due to EtOH abuse. htn- havent taken bp meds for few months ago no dm chf- 30% s/p aicd s/p ppm copd - unsure , but smoker for >20yrs DVT - bilateral - latest one was RLE chronic anticoagulation on coumadin - hasnt taken it for about 2 days Plan: Head CT stat. Serial cardiac enzymes and EKGs. Alcohol withdrawal protocol. CT pulmonary angiogramreviewed. No evidence of pulmonary embolism. No infiltrates/pulmonary edema/pneumothorax. For now, hold blood thinners to head CT is negative. DVT prophylaxiswith SCD. GI prophylaxis on pantoprazole. Discussed Condition With Patient, ER physician, nursing staff Beverley Vázquez MD May 12, 2017 04:19
[2017-05-12] MEDS: MORPHINE SULFATE 4 MG/ML INJ IV PUSH PRN ×4 (04:44→18:18)
--- NOTE | 2017-05-12 05:33 | RADRPT ---
EXAM DATE/TIME: 05/12/2017 05:07 This report includes an Addendum and supersedes previous reports for this exam. [facility] COMPARISON: No previous studies available for comparison. INDICATIONS : Trauma, fell and hit head 3-4 days ago. RADIATION DOSE: 43.69 CTDIvol (mGy) MEDICAL HISTORY : Cardiovascular disease. Myocardial infarction. Hypertension. SURGICAL HISTORY : Pacemaker. ENCOUNTER: Initial ACUITY: 3 days PAIN SCALE: 0/10 LOCATION: cranial TECHNIQUE: Multiple contiguous axial images were obtained of the head. Using automated exposure control and adj ustment of the mA and/or kV according to patient size, radiation dose was kept as low as reasonably a chievable to obtain optimal diagnostic quality images. FINDINGS: Mildly prominent thickness of the falx cerebri and small subdural blood in between the leaves would b e possible. No other evidence of intracranial hemorrhage. There is no mass effect or midline shift. Nonacute/low-attenuation extra-axial fluid collections are seen anterior to the temporal lobes m easuring 2.3 x 3.1 cm on the right and 1.3 x 2.6 cm on the left. No mass or evidence of an acute ischemic event. CONCLUSION: 1. Questionable small amounts of subdural blood in between the leaves of the falx cerebri. Otherwise no evidence of intracranial hemorrhage. No mass effect or midline shift. 2. There are nonacute extra-axial fluid collections anterior to both temporal lobes typical of benign arachnoid cysts. These are right larger than left. Nito Fisher MD on May 12, 2017 at 5:28 Board Certified Radiologist. This report was verified electronically. ADDENDUM: A mildly displaced, non-acute healed appearing fracture seen of the left zygomatic arch. There is mil dly comminuted, minimally displaced fracture of the lateral wall of the left orbit that is also proba germaine nonacute. I don't see any associated periorbital soft tissue swelling. Nito Fisher MD on May 12, 2017 at 5:57 Board Certified Radiologist. This report was verified electronically.
[2017-05-12] MEDS ORDERED: CALCIUM GLUCONATE 10% 1 GM/10 ML VIAL IV PUSH ONE (08:15)
[2017-05-12] MEDS ORDERED: CALCIUM GLUCONATE INJ 1 GM in SODIUM CHLORIDE 0.9% INJ 100 ML IV ONE (08:15)
[2017-05-12] MEDS: THIAMINE HCL 100 MG TAB PO SCH (08:54)
[2017-05-12] MEDS: SODIUM CHLORIDE 0.9% FLUSH 10 ML FLUSH IV FLUSH SCH (08:54)
[2017-05-12] MEDS: FUROSEMIDE 40 MG TAB PO SCH (08:54)
--- NOTE | 2017-05-12 11:10 | HHI.PR ---
Subjective Remarks Follow up for fall, chest pain, subdural hematoma. The patient reports continued chest pains this morning, located substernally, described as sharp stabbing pains, relieved by IV Morphine. Denies any shortness of breath, nausea/ vomiting, or diaphoresis. He reports his leg swelling is at baseline. He denies any specific headache but does report facial pain throughout left cheek and periorbital area. Denies any neck pain. Denies any other medical complaints at this time. Objective Vitals Vital Signs Date Time Temp Pulse Resp B/P Pulse Ox O2 Delivery O2 Flow Rate FiO2 05/12/17 08:54 78 05/12/17 08:28 98.3 76 18 133/64 97 05/12/17 04:36 98.2 68 18 129/62 98 05/12/17 02:33 66 05/12/17 00:21 98.0 77 18 127/58 97 05/11/17 21:56 98.1 70 18 128/76 98 05/11/17 20:39 80 18 155/69 95 Room Air 05/11/17 19:06 110 18 150/68 98 Room Air 05/11/17 18:09 20 05/11/17 17:37 99.7 117 20 137/81 97 05/11/17 16:45 98.0 132 20 129/71 100 I/O 05/11/17 05/11/17 05/11/17 05/12/17 05/12/17 05/12/17 07:00 15:00 23:00 07:00 15:00 23:00 Intake Total 1000 ml 240 ml Output Total 400 ml Balance 1000 ml -160 ml Intake Oral 240 ml IV Total 1000 ml Output Urine Total 400 ml Result Diagram: 05/12/17 0253 05/12/17 0253 Imaging Last Impressions Head CT 05/12/17 0000 Signed Impressions: Service Date/Time: Friday, May 12, 2017 05:07 - CONCLUSION: 1. Questionable small amounts of subdural blood in between the leaves of the falx cerebri. Otherwise no evidence of intracranial hemorrhage. No mass effect or midline shift. 2. There are nonacute extra-axial fluid collections anterior to both temporal lobes typical of benign arachnoid cysts. These are right larger than left. Nito Fisher MD ADDENDUM: A mildly displaced, non-acute healed appearing fracture seen of the left zygomatic arch. There is mildly comminuted , minimally displaced fracture of the lateral wall of the left orbit that is also probably nonacute. I don't see any associated periorbital soft tissue swelling. Nito Fisher MD CT Angiography 05/11/17 0000 Signed Impressions: Service Date/Time: Thursday, May 11, 2017 19:54 - CONCLUSION: No PE or acute abnormality is identified. Nito Borja MD Objective Remarks GENERAL: Well-nourished, well-developed male patient in NAD. SKIN: Warm and dry. No rash. HEENT: Normocephalic. Left periorbital ecchymosis. Pupils equal and round. Mucous membranes pink and moist. NECK: Supple. Trachea midline. CARDIOVASCULAR: Regular rate and rhythm. S1, S2 noted. No murmur appreciated. RESPIRATORY: No accessory muscle use. Clear to auscultation. Breath sounds equal bilaterally. GASTROINTESTINAL: Abdomen soft, non-tender, nondistended. Normoactive bowel sounds x4. MUSCULOSKELETAL: No obvious deformities. 1+ bilateral lower extremity edema. NEUROLOGICAL: Awake and alert. No obvious cranial nerve deficits. Motor grossly within normal limits. Normal speech. PSYCHIATRIC: Appropriate mood and affect; insight and judgment normal. Medications and IVs Current Medications Medications (Trade) Dose Ordered Sig/Amelia Route Start Time Stop Time Status Last Admin (NS Flush) 2 ml UNSCH PRN IV FLUSH 05/11/17 20:45 (NS Flush) 2 ml BID IV FLUSH 05/11/17 21:00 05/12/17 08:54 (Narcan Inj) 0.4 mg UNSCH PRN IV 05/11/17 20:45 (Romazicon Inj) 0.2 mg Q1M PRN IV PUSH 05/11/17 20:45 (Ativan) 1 mg Q4H PRN PO 05/11/17 20:45 (Ativan Inj) 1 mg Q4H PRN IV PUSH 05/11/17 20:45 (Ativan) 2 mg Q2H PRN PO 05/11/17 20:45 (Ativan Inj) 2 mg Q2H PRN IV PUSH 05/11/17 20:45 (Ativan Inj) 2 mg Q1H PRN IV PUSH 05/11/17 20:45 (Ativan Inj) 2 mg Q15M PRN IV PUSH 05/11/17 20:45 (Morphine Inj) 2 mg Q4H PRN IV PUSH 05/12/17 04:00 05/12/17 09:12 (Lasix) 40 mg BID PO 05/12/17 09:00 05/12/17 08:54 (Vitamin B1) 100 mg DAILY PO 05/12/17 09:00 05/12/17 08:54 A/P Assessment and Plan 61-year-old male with history of HTN, CHF, nonischemic cardiomyopathy, s/p AICD , bilateral DVTs on Coumadin, presents with chest pain, recent fall Atypical chest pain: s/p cardiac catheterization 03/10/[address] Goldstein showed 30% ostial LAD lesion, recommended medical management. CT-PA images reviewed, no evidence for PE. Troponins 0.05, 0.06 and EKG without acute ischemic changes. Possibly musculoskeletal with recent fall. -Continue to rule out ACS with serial cardiac enzymes/EKGs. -continue BB, JOE -aspirin on hold with subdural hematoma -[employer] pacer interrogation showed normal pacer function, no VT/VF episodes, however with 15 episodes SVT and sinus tach -IV morphine prn chest pain -patient with ongoing chest pain today, will consult cardiology CHF/Nonischemic Cardiomyopathy: EF by cath 20% in February 2017. S/p pacer/AICD. BNP 91. Does not appear to be in acute exacerbation. -continue home medications including Coreg and Rampiril -continue lasix 40mg bid Subdural Hematoma: secondary to recent fall 3 days prior to arrival. -Head CT reviewed, shows questionable subdural hematoma. Also has old healed maxillofacial fractures. -Patient cannot undergo MRI due to AICD placement. -monitor neuro checks -hold patient's Coumadin -control blood pressure -consult neurosurgery. Frequent falls: suspect secondary to alcohol abuse although patient denies alcohol use with recent fall. +Left periorbital ecchymosis, seems to be improving. -Consult PT Alcohol abuse: patient denies recent alcohol abuse however told admitting MD he relapsed, but stopped drinking 3 days ago -Monitor for withdrawal -CIWA protocol -thiamine/folate/multivitamin Chronic anticoagulation with Subtherapeutic INR: on Coumadin for DVTs per the patient. However ran out of meds and did not take for 2 days, patient did refill prescription yesterday.States a PCP in [place] follows his INR however he hasn't had any recent INR check because he's been on Coumadin since age 37 and he knows when his level is "out of whack". -INR 1.2 subtherapeutic -Hold coumadin for now with subdural hematoma, until cleared by neurosurgery -Monitor INR daily Thrombocytopenia: suspect secondary to EtOH abuse. -avoid antiplatelets -monitor CBC Hypertension: patient reports not taking meds for a few months. -monitor BP, adjust antihypertensives as needed DVT prophylaxis: teds/SCDs, avoid chemical prophylaxis until cleared by neurosurgery GI prophylaxis: pantoprazole. Brandee Collado PA-C May 12, 2017 11:10 am
[2017-05-12] MEDS: RAMIPRIL 5 MG CAP PO SCH (11:23)
[2017-05-12] MEDS: CARVEDILOL 6.25 MG TAB PO SCH ×2 (11:23→21:00)
--- NOTE | 2017-05-12 11:51 | PD.CONS ---
(Sixto Connolly) [facility] Service Neurosurgery Consult Requested By Dr Vázquez Reason for Consult Questionable subdural haematoma s/p fall approximately 4 days ago Primary Care Physician No Primary Care Physician History of Present Illness This is a 61-year-old male who was going down the steps at his home and fell. He states that he struck his face which is numb and painful to the left cheek. He denies any loss of consciousness but did say it "rang my carrion." He endorses some lightheadedness after that but is unable to say whether it was present before he fell. Then two days ago he had nausea with vomiting and developed chest pain which was worse yesterday prompting him to come into the Emergency Department for evaluation. The pain did radiate toward the left shoulder. He was taking warfarin for a history of deep venous thromboses to the right lower extremity. He reported not having taken it for a few days before admission and his INR was within normal limits. (Sixto Connolly) Review of Systems CONSTITUTIONAL: Patient denies any fever or chills. HEENT: Patient complains of pain and numbness to the left cheek and blood to the left eye. He states he did have double vision for 2 days following the fall but now it is blurry to the left eye. NECK: Patient denies any neck pain. RESPIRATORY: Patient states some shortness of breath due to pain. He denies any productive cough. CARDIOVASCULAR: Patient complains of chest pain with radiation to the left shoulder yesterday. Today still with the chest pain. GASTROINTESTINAL: Patient states that he had nausea for the past two days with vomiting but he denies any at present. He denies any abdominal pain or incontinence of stool. GENITOURINARY: Patient denies any incontinence of urine. INTEGUMENTARY: Patient states several small abrasions and cuts from fall. MUSCULOSKELETAL: Patient states that he gets cramps from using a diuretic and at night his feet are restless. HAEMATOLOGICAL/LYMPHATIC: Patient states that he bruises and bleeds easily due to being on warfarin. NEUROLOGICAL: Patient states that he has been lightheaded since the fall and is unsure if he was before he fell. He did have a "really bad" headache yesterday but none at present. He has numbness to the left cheek. He denies any dizziness or tingling. PSYCHIATRIC: Patient states "Not really." He does not elaborate. (Sixto Connolly) Past Family Social History Allergies: Coded Allergies: Nitroglycerin (Verified Allergy, Severe, Anaphylaxis, 05/11/17) Past Medical History Congestive heart failure Cardiac dysrhythmia problems (irregular heartbeat) Cholecystitis Deep vein thromboses Chronic anticoagulation with warfarin Peripheral vascular disease Hypertension Pneumonia (as child) Tonsillitis Past Surgical History Tonsillectomy Cholecystectomy Angiogram Pacemaker insertion x2 Arterial bypass LLE Active Ordered Medications Current Medications Medications (Trade) Dose Ordered Sig/Amelia Route Start Time Stop Time Status Last Admin (NS Flush) 2 ml UNSCH PRN IV FLUSH 05/11/17 20:45 (NS Flush) 2 ml BID IV FLUSH 05/11/17 21:00 05/12/17 08:54 (Narcan Inj) 0.4 mg UNSCH PRN IV 05/11/17 20:45 (Romazicon Inj) 0.2 mg Q1M PRN IV PUSH 05/11/17 20:45 (Ativan) 1 mg Q4H PRN PO 05/11/17 20:45 05/12/17 11:01 (Ativan Inj) 1 mg Q4H PRN IV PUSH 05/11/17 20:45 (Ativan) 2 mg Q2H PRN PO 05/11/17 20:45 (Ativan Inj) 2 mg Q2H PRN IV PUSH 05/11/17 20:45 (Ativan Inj) 2 mg Q1H PRN IV PUSH 05/11/17 20:45 (Ativan Inj) 2 mg Q15M PRN IV PUSH 05/11/17 20:45 (Morphine Inj) 2 mg Q4H PRN IV PUSH 05/12/17 04:00 05/12/17 09:12 (Lasix) 40 mg BID PO 05/12/17 09:00 05/12/17 08:54 (Vitamin B1) 100 mg DAILY PO 05/12/17 09:00 05/12/17 08:54 Family History Father - CAD w/CABG, diverticulitis Mother - Vascular problems (varicose veins) Social History 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, 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 Smoker for 23 years, about a pack per week Reports having quit drinking approximately 6 months ago but about 10 days ago went on a binge for 2 days No illicit drug use (Sixto Connolly) Physical Exam Vital Signs Vital Signs Date Time Temp Pulse Resp B/P Pulse Ox O2 Delivery O2 Flow Rate FiO2 05/12/17 08:54 78 05/12/17 08:28 98.3 76 18 133/64 97 05/12/17 04:36 98.2 68 18 129/62 98 05/12/17 02:33 66 05/12/17 00:21 98.0 77 18 127/58 97 05/11/17 21:56 98.1 70 18 128/76 98 05/11/17 20:39 80 18 155/69 95 Room Air 05/11/17 19:06 110 18 150/68 98 Room Air 05/11/17 18:09 20 05/11/17 17:37 99.7 117 20 137/81 97 05/11/17 16:45 98.0 132 20 129/71 100 Physical Exam GENERAL: This is a well-developed, well-nourished male who appears his stated age. No apparent distress. HEENT: Normocephalic. Left maxilla & zygoma numb & mildly TTP and extends to nasal bridge. PERRLA, EOMs intact, inferior left lateral eye subconjunctival haemorrhage. MMM & pink, no lesions. TMs intact & pearly calix, no evident drainage or erythema to canals, no external lesions/wounds. Nares moist & pink, nasal bridge NTTP. NECK: Midline cervical spine is NTTP, no step off or deformities, no JVD, trachea midline. RESPIRATORY: CTAB w/o W/R/R, equal excursion, nonlaboured, on RA. Mildly TTP to sternum. CARDIOVASCULAR: S1S2 w/RRR w/o M/G/R, radial & pedal pulses 2+ bilaterally, cap refill < 2 sec. Monitor is sinus rhythm w/o any ectopy noted. GASTROINTESTINAL: Abdomen soft, nontender, no organomegaly or palpable masses, positive bowel sounds. GENITOURINARY: Normal male genitalia. INTEGUMENTARY: Several small abrasions/lacerations are noted to the upper extremities w/o any evident drainage, erythema or streaking. No other rashes, lesions or ulcerations are noted. MUSCULOSKELETAL: CARDONA w/o difficulty, no deformities or clubbing, extremities NTTP. Thoracolumbar spine NTTP, no step offs or deformities. HAEMATOLOGICAL/LYMPHATIC: No evident ecchymosis. No palpable lymph nodes. NEUROLOGICAL: AAOx3. Speech clear & appropriate. Follows simple commands. CN II - XII intact except for numbness/pain along branches 2 & 3 of the left CN VII. Sensation intact to light touch to all extremities. Motor strength 5/5 to all major flexion & extension muscle groups to include hand extensors & intrinsics. DTR to BLE 3+ & BUE 2+. No ankle clonus. No Small's sign. PSYCHIATRIC: Affect is slightly flat. Laboratory Laboratory Tests Test 05/11/17 05/11/17 05/11/17 05/12/17 16:50 17:50 19:05 02:53 White Blood Count 6.3 8.1 Red Blood Count 3.57 3.12 Hemoglobin 10.4 9.1 Hematocrit 31.6 27.7 Mean Corpuscular Volume 88.5 88.8 Mean Corpuscular Hemoglobin 29.1 29.3 Mean Corpuscular Hemoglobin 32.9 32.9 Concent Red Cell Distribution Width 17.3 16.7 Platelet Count 135 99 Mean Platelet Volume 9.4 8.7 Neutrophils (%) (Auto) 96.9 82.1 Lymphocytes (%) (Auto) 2.1 10.1 Monocytes (%) (Auto) 0.7 6.7 Eosinophils (%) (Auto) 0.3 0.2 Basophils (%) (Auto) 0.0 0.9 Neutrophils # (Auto) 6.1 6.6 Lymphocytes # (Auto) 0.1 0.8 Monocytes # (Auto) 0.0 0.5 Eosinophils # (Auto) 0.0 0.0 Basophils # (Auto) 0.0 0.1 CBC Comment DIFF FINAL AUTO DIFF Differential Comment AUTO DIFF CONFIRMED Sodium Level 141 143 Potassium Level 4.2 3.7 Chloride Level 105 106 Carbon Dioxide Level 26.1 31.5 Anion Gap 10 6 Blood Urea Nitrogen 13 14 Creatinine 0.98 0.90 Estimat Glomerular Filtration 78 86 Rate Random Glucose 128 98 Calcium Level 8.1 7.4 Total Creatine Kinase 126 59 Creatine Kinase MB 1.8 Troponin I 0.05 0.06 B-Type Natriuretic Peptide 91 Lipase 111 Total Bilirubin 0.8 Direct Bilirubin 0.4 Indirect Bilirubin 0.4 Aspartate Amino Transf 109 (AST/SGOT) Alanine Aminotransferase 55 (ALT/SGPT) Alkaline Phosphatase 89 Total Protein 7.2 6.6 Albumin 2.6 Ethyl Alcohol Level 13 Prothrombin Time 13.6 Prothromb Time International 1.2 Ratio Activated Partial 28.5 Thromboplast Time Platelet Estimate LOW Platelet Morphology Comment NORMAL Protein Corrected Calcium 7.7 Test 05/12/17 09:30 Total Creatine Kinase 54 Troponin I 0.06 (Sixto Connolly) Result Diagram: 05/12/17 0253 05/12/17 0253 Imaging Recent Impressions Head CT 05/12/17 0000 Signed Impressions: Service Date/Time: Friday, May 12, 2017 05:07 - CONCLUSION: 1. Questionable small amounts of subdural blood in between the leaves of the falx cerebri. Otherwise no evidence of intracranial hemorrhage. No mass effect or midline shift. 2. There are nonacute extra-axial fluid collections anterior to both temporal lobes typical of benign arachnoid cysts. These are right larger than left. Nito Fisher MD ADDENDUM: A mildly displaced, non-acute healed appearing fracture seen of the left zygomatic arch. There is mildly comminuted , minimally displaced fracture of the lateral wall of the left orbit that is also probably nonacute. I don't see any associated periorbital soft tissue swelling. Nito Fisher MD CT Angiography 05/11/17 0000 Signed Impressions: Service Date/Time: Thursday, May 11, 2017 19:54 - CONCLUSION: No PE or acute abnormality is identified. Nito Borja MD (Sixto Connolly) Assessment and Plan Assessment and Plan Impression: Small bilateral middle fossa probable chronic subdural haematomas Numbness along the left CN VII 2nd & 3rd branches Inferior left lateral subconjunctival haemorrhage Chest pain S/P fall 3-4 days ago Plan: Primary mgmt per Hospitalist Neuro checks Mobilise patient w/assistance PRN Repeat CT brain w/o contrast in 3-5 days (Sixto Connolly) Attending Statement I have personally seen and examined the patient on the date of this note. Pertinent documentation and study results have been reviewed by the undersigned. I have personally developed the treatment plan and performed medical decision making. Agree with findings, exam, and treatment plan as noted above. Patient has moderate left periorbital edema and ecchymosis but tympanic membranes clear no definite basilar skull fracture on CT scan. He does have a left orbital fracture which per radiology report may be chronic, but based on the patient's present findings and history is likely acute. His cranial nerve and extremity sensorimotor exam are nonfocal. Discussed findings at length with the patient. The increased subdural space at the bilateral anterior middle fossa may represent arachnoid cyst versus small chronic subdural effusion or hematoma. No neurosurgical intervention anticipated at the present time. A follow-up CT scan of the head in 5-7 days should be prudent to make certain that the anterior middle fossa fluid collections are stable. He may resume anticoagulation from a neurosurgery standpoint. (Domenico Sanford MD) Sixto Connolly May 12, 2017 11:51 Domenico Sanford MD May 12, 2017 17:56
--- NOTE | 2017-05-12 16:41 | EKG ---
Date Performed: 05/11/2017 Time Performed: 16:52:11 PTAGE: 61 years EKG: ELECTRONIC VENTRICULAR PACEMAKER ABNORMAL RHYTHM ECG PREVIOUS TRACING : 03/20/2017 11.46 Since previous tracing, no significant change noted DOCTOR: Dorothy Goldstein Interpretating Date/Time 05/12/2017 16:39:32
--- NOTE | 2017-05-12 16:42 | EKG ---
Date Performed: 05/12/2017 Time Performed: 06:48:16 PTAGE: 61 years EKG: ELECTRONIC VENTRICULAR PACEMAKER ABNORMAL RHYTHM ECG PREVIOUS TRACING : 05/12/2017 00.55 Since previous tracing, no significant change noted DOCTOR: Dorothy Goldstein Interpretating Date/Time 05/12/2017 16:41:38
--- NOTE | 2017-05-12 16:42 | EKG ---
Date Performed: 05/12/2017 Time Performed: 00:55:40 PTAGE: 61 years EKG: ELECTRONIC VENTRICULAR PACEMAKER PREVIOUS TRACING : 05/11/2017 16.52 Since previous tracing, no significant change noted DOCTOR: Dorothy Goldstein Interpretating Date/Time 05/12/2017 16:41:20
[2017-05-12] MEDS: WARFARIN SOD 7.5 MG TAB PO SCH (18:19)
[2017-05-12 19:18] LABS: AMPHETAMINE, URINE NEG (NEG); BARBITURATES, URINE NEG (NEG); COCAINE, URINE NEG (NEG)
[2017-05-13] VITALS (8 sets, daily range): BP systolic 97–149; BP diastolic 56–69; PULSE 60–80; RESP 14–21; TEMP 96.9–98.1; O2SAT 96–99
[2017-05-13] MEDS: FUROSEMIDE 40 MG TAB PO SCH ×3 (00:01→21:02)
[2017-05-13] MEDS: SODIUM CHLORIDE 0.9% FLUSH 10 ML FLUSH IV FLUSH SCH ×3 (00:02→21:02)
[2017-05-13] MEDS: MORPHINE SULFATE 4 MG/ML INJ IV PUSH PRN ×5 (00:54→20:56)
[2017-05-13] MEDS: MULTIVITAMINS/MINERALS THERAPEUTIC TAB PO SCH (08:23)
[2017-05-13] MEDS: CARVEDILOL 6.25 MG TAB PO SCH ×2 (08:23→21:00)
[2017-05-13] MEDS: FOLIC ACID 1 MG TAB PO SCH (08:23)
[2017-05-13] MEDS: THIAMINE HCL 100 MG TAB PO SCH (08:23)
[2017-05-13] MEDS: RAMIPRIL 5 MG CAP PO SCH (08:24)
[2017-05-13] MEDS: ASPIRIN 81 MG CHEW TAB CHEW SCH (08:24)
[2017-05-13 09:34] LABS: AUTOMATED NEUTROPHIL # 2.1 TH/MM3 (1.8-7.7); BASOPHIL % 1.3 % (0.0-2.0); EOSINOPHIL # 0.2 TH/MM3 (0-0.4); EOSINOPHIL % 5.3 % (0.0-4.0); HEMATOCRIT 32.4 % (39.0-51.0); HEMO FLAGS DIFF FINAL; LYMPH % 20.2 % (9.0-44.0); LYMPHOCYTE # 0.7 TH/MM3 (1.0-4.8); MEAN CELL VOLUME 87.8 FL (80.0-100.0); MONO % 9.8 % (0.0-8.0); NEUT % 63.4 % (16.0-70.0); PLATELET COUNT 109 TH/MM3 (150-450); RED BLOOD COUNT 3.69 MIL/MM3 (4.50-5.90); RED CELL DISTRIBUTION WIDTH 16.7 % (11.6-17.2); WHITE BLOOD COUNT 3.4 TH/MM3 (4.0-11.0)
[2017-05-13 09:42] LABS: INTERNATIONAL NORMALIZED RATIO 1.2 RATIO; PROTHROMBIN TIME - PATIENT 13.9 SEC (9.8-11.6)
[2017-05-13 10:05] LABS: BICARBONATE 29.1 MEQ/L (21.0-32.0); POTASSIUM 3.6 MEQ/L (3.5-5.1)
--- NOTE | 2017-05-13 12:21 | EKG ---
Date Performed: 05/13/2017 Time Performed: 08:30:34 PTAGE: 61 years EKG: ELECTRONIC ATRIAL PACEMAKER ELECTRONIC VENTRICULAR PACEMAKER ABNORMAL RHYTHM ECG NO PREVIOUS TRACING DOCTOR: Taye Cuenca Interpretating Date/Time 05/13/2017 12:20:46
[2017-05-13] MEDS ORDERED: ALUMINUM/MAGNESIUM/SIMETH 30 ML CUP PO ONE (13:45)
--- NOTE | 2017-05-13 13:50 | HHI.PR ---
Subjective Remarks Follow-up for chest pain and subdural hematoma. The patient states that he had a pretty good night with regards to chest pain, but the chest pain did recur later in the morning. He states that with the chest pain he gets shortness of breath. Currently chest pain and shortness breath are resolved. The patient denies any pain with deep breathing. He states he's had 2 normal pulmonary angiogram so far this urine doesn't really want to repeat one. He states he had an upper endoscopy in the past that was reportedly normal. He does have some pain behind his left thigh today. He states he was seen by neurosurgery today who recommended continued monitoring. He feels like chest pain is worse afternoon and in the evening. He feels like the chest pain is relieved whenever he drinks a cold beverage. Objective Vitals Vital Signs Date Time Temp Pulse Resp B/P Pulse Ox O2 Delivery O2 Flow Rate FiO2 05/13/17 10:04 96.9 66 14 149/69 99 05/13/17 07:34 60 05/13/17 04:00 97.7 65 20 130/64 96 05/13/17 00:00 97.1 61 20 134/65 96 05/12/17 20:00 98.5 69 20 115/62 94 05/12/17 20:00 57 05/12/17 16:21 98.1 62 18 105/52 94 I/O 05/12/17 05/12/17 05/12/17 05/13/17 05/13/17 05/13/17 07:00 15:00 23:00 07:00 15:00 23:00 Intake Total 240 ml 360 ml 360 ml Output Total 400 ml 500 ml Balance -160 ml 360 ml -500 ml 360 ml Intake Oral 240 ml 360 ml 360 ml Output Urine Total 400 ml 500 ml Result Diagram: 05/13/17 0915 05/13/17 0915 Imaging Last Impressions Head CT 05/12/17 0000 Signed Impressions: Service Date/Time: Friday, May 12, 2017 05:07 - CONCLUSION: 1. Questionable small amounts of subdural blood in between the leaves of the falx cerebri. Otherwise no evidence of intracranial hemorrhage. No mass effect or midline shift. 2. There are nonacute extra-axial fluid collections anterior to both temporal lobes typical of benign arachnoid cysts. These are right larger than left. Nito Fisher MD ADDENDUM: A mildly displaced, non-acute healed appearing fracture seen of the left zygomatic arch. There is mildly comminuted , minimally displaced fracture of the lateral wall of the left orbit that is also probably nonacute. I don't see any associated periorbital soft tissue swelling. Nito Fisher MD Chest X-Ray 05/11/17 1648 Signed Impressions: Service Date/Time: Thursday, May 11, 2017 16:53 - CONCLUSION: No definite acute abnormality is seen. There is a pacing/AICD device in good position. Nito Silva MD CT Angiography 05/11/17 0000 Signed Impressions: Service Date/Time: Thursday, May 11, 2017 19:54 - CONCLUSION: No PE or acute abnormality is identified. Nito Borja MD Objective Remarks GENERAL: Well-developed well-nourished. In no acute distress. SKIN: Warm and dry. Left periorbital ecchymosis. HEENT: Normocephalic. Pupils equal and round. Mucous membranes pink and moist. CARDIOVASCULAR: Regular rate and rhythm. No murmur appreciated. Chest wall nontender to palpation. RESPIRATORY: No accessory muscle use. Clear to auscultation. Breath sounds equal bilaterally. GASTROINTESTINAL: Abdomen soft, non-tender, nondistended. Bowel sounds x4. MUSCULOSKELETAL: No obvious deformities. No clubbing or cyanosis. 1+ bilateral lower extremity edema. NEUROLOGICAL: Awake and alert. No focal neurological deficits. Moves upper and lower extremities spontaneously. Normal speech. PSYCHIATRIC: Pleasant mood and affect; insight and judgment normal. A/P Assessment and Plan 61-year-old male with history of HTN, CHF, nonischemic cardiomyopathy, s/p AICD , bilateral DVTs on Coumadin, presents with chest pain, recent fall Atypical chest pain: s/p cardiac catheterization 03/10/[address] Goldstein showed 30% ostial LAD lesion, recommended medical management. CT-PA reviewed, no evidence for PE. Troponins 0.05, 0.06, 0.06 and EKG without acute ischemic changes. Possible GI etiology. -continue BB, JOE -aspirin on hold with subdural hematoma -[employer] pacer interrogation showed normal pacer function, no VT/VF episodes, however with 15 episodes SVT and sinus tach -IV morphine prn chest pain -patient with ongoing chest pain, consulted cardiology -GI cocktail 1 and start Protonix CHF/Nonischemic Cardiomyopathy: EF by cath 20% in February 2017. S/p pacer/AICD. BNP 91. Does not appear to be in acute exacerbation. -continue home medications including Coreg, Rampiril, and Lasix 40mg bid Subdural Hematoma: secondary to recent fall 3 days prior to arrival. -Head CT reviewed, shows questionable subdural hematoma. Also has old healed maxillofacial fractures. -Patient cannot undergo MRI due to AICD placement. -monitor neuro checks -control blood pressure -consulted neurosurgery, cleared to resume anticoagulation. Frequent falls: suspect secondary to alcohol abuse although patient denies alcohol use with recent fall. +Left periorbital ecchymosis, seems to be improving. -Consult PT Alcohol abuse: patient denies recent alcohol abuse however told admitting MD he relapsed, but stopped drinking 3 days ago -Monitor for withdrawal -[facility] protocol -thiamine/folate/multivitamin Chronic anticoagulation with Subtherapeutic INR: on Coumadin for DVTs per the patient. However ran out of meds and did not take for 2 days, patient did refill prescription yesterday.States a PCP in [place] follows his INR however he hasn't had any recent INR check because he's been on Coumadin since age 37 and he knows when his level is "out of whack". -INR 1.2 subtherapeutic -Clear by neurosurgery, resumed Coumadin with pharmacy consult -Monitor INR daily Thrombocytopenia: suspect secondary to EtOH abuse. -monitor CBC, currently appears stable Hypertension: patient reports not taking meds for a few months. -monitor BP, adjust antihypertensives as needed DVT prophylaxis: teds/SCDs, avoid chemical prophylaxis until cleared by neurosurgery Discharge Planning Follow-up cardiology recommendations, follow-up neurosurgery recommendations, follow-up PT recommendations. Amish Wilson May 13, 2017 13:50
[2017-05-13] MEDS: PANTOPRAZOLE SOD 40 MG DELAYED RELEASE TAB PO SCH (14:26)
[2017-05-13] MEDS: WARFARIN SOD 7.5 MG TAB PO SCH (16:05)
--- NOTE | 2017-05-13 21:48 | MB ---
cc: NAMITA DUQUE M.D. DATE OF CONSULTATION 05/13/17 REASON FOR CONSULTATION Chest pain. HISTORY OF PRESENT ILLNESS Mr. Valenzuela is a 61-year-old gentleman with history of congestive heart failure, coronary artery disease, previous DVT with a defibrillator implantation, ejection fraction 30%. The gentleman was admitted due to chest pain. Gentleman refers having a fall a couple of days before hospitalization. A CT scan possible subdural hematoma. A chest x-ray indicated chronic subdural hematoma. I was consulted for further evaluation and management. The chart was reviewed. The patient was evaluated. ALLERGIES NITROGLYCERIN. SOCIAL HISTORY The patient currently smokes half-a-pack of cigarettes a day but stopped drinking 6 months ago. FAMILY HISTORY Noncontributory to his current medical condition. MEDICATIONS The gentleman is on: 1. Coumadin. 2. Aspirin. 3. Coreg. 4. Folic acid. 5. Lasix. 6. Altace. 7. Protonix. 8. Thiamine. REVIEW OF SYSTEMS Gentleman refers chest pain but chest pain relieved with painkiller. There was no radiation of the chest pain. But no shortness of breath. He refers some headache. PHYSICAL EXAMINATION GENERAL: Alert, fully oriented. VITAL SIGNS: His blood pressure on evaluation was 130/64, pulse 65, respiratory rate 20 LUNGS: Ventilated. CARDIOVASCULAR: S1-S2, regular. No gallop. ABDOMEN: Soft. No mass. No bruits. EXTREMITIES: No edema. CARDIOLOGY STUDIES Electrocardiogram shows AV synchronized pacing. LABORATORY DATA Hemoglobin 10.7, white blood cell 3.4. The patient was positive for opioid and positive for alcohol in urine. Potassium 3.6, creatinine 0.97, troponin 0.06. INR 1.2. ASSESSMENT AND RECOMMENDATIONS Mr. Valenzuela apparently he was drinking 3 days straight before hospitalization. He has a fall. He has some subdural hematoma. He complained about chest pain. There was no radiation of the chest pain. At the same time pain relief with painkiller. This is not typical angina. Also, because of the possible subdural hematoma the patient is not a good candidate for antiplatelet therapy. Troponin 0.06. At that point my recommendation is continue with current management. Observation. Apparently, there is a plan by neurosurgery to repeat head CT scan in 3-5 days. I will monitor the gentleman during hospitalization. MD ADÁN Saeed /7:08 PM /9:39 PM
[2017-05-14 01:38] VITALS: BP 104/56; PULSE 68; RESP 20; TEMP 98.3; O2SAT 96
[2017-05-14 04:16] VITALS: BP 116/65; PULSE 59; RESP 19; TEMP 98.1; O2SAT 95
[2017-05-14] MEDS: MORPHINE SULFATE 4 MG/ML INJ IV PUSH PRN ×2 (05:29→11:37)
[2017-05-14 06:17] VITALS: BP 108/58; PULSE 61; RESP 21; TEMP 98.1; O2SAT 93
[2017-05-14 07:48] VITALS: BP 122/60; PULSE 67; RESP 24; TEMP 98.1; O2SAT 98
[2017-05-14] MEDS: THIAMINE HCL 100 MG TAB PO SCH (08:27)
[2017-05-14] MEDS: ASPIRIN 81 MG CHEW TAB CHEW SCH (08:27)
[2017-05-14] MEDS: FUROSEMIDE 40 MG TAB PO SCH (08:28)
[2017-05-14] MEDS: FOLIC ACID 1 MG TAB PO SCH (08:28)
[2017-05-14] MEDS: PANTOPRAZOLE SOD 40 MG DELAYED RELEASE TAB PO SCH (08:28)
[2017-05-14] MEDS: CARVEDILOL 6.25 MG TAB PO SCH (08:28)
[2017-05-14] MEDS: MULTIVITAMINS/MINERALS THERAPEUTIC TAB PO SCH (08:28)
[2017-05-14] MEDS: RAMIPRIL 5 MG CAP PO SCH (08:28)
[2017-05-14] MEDS ORDERED: ONDANSETRON HCL 4 MG/2 ML VIAL IV PUSH PRN (09:00)
[2017-05-14] MEDS: SODIUM CHLORIDE 0.9% FLUSH 10 ML FLUSH IV FLUSH SCH (09:04)
--- NOTE | 2017-05-14 09:52 | HHI.PR ---
Subjective Remarks Follow-up for chest pain and subdural hematoma. The patient continues to complain of midsternal chest pain, unchanged overnight. He reports no relief with GI cocktail. He states the only thing that helps the pain is morphine. He is willing to try oral pain control. He understands the need for outpatient follow-up. He states he walked well with PT today and did not need a walker. The patient states he takes ibuprofen for chest pain maybe once a week, denies daily use. Objective Vitals Vital Signs Date Time Temp Pulse Resp B/P Pulse Ox O2 Delivery O2 Flow Rate FiO2 05/14/17 07:48 98.1 67 24 122/60 98 05/14/17 06:17 98.1 61 21 108/58 93 05/14/17 04:16 98.1 59 19 116/65 95 05/14/17 01:38 98.3 68 20 104/56 96 05/13/17 23:01 98.1 75 20 98/56 96 05/13/17 20:00 97.1 68 21 122/59 98 05/13/17 20:00 70 05/13/17 17:04 97.3 80 16 147/65 97 05/13/17 14:44 60 97/57 05/13/17 10:04 96.9 66 14 149/69 99 I/O 05/13/17 05/13/17 05/13/17 05/14/17 05/14/17 05/14/17 07:00 15:00 23:00 07:00 15:00 23:00 Intake Total 360 ml Output Total 500 ml Balance -500 ml 360 ml Intake Oral 360 ml Output Urine Total 500 ml # Voids 1 Result Diagram: 05/13/17 0915 05/13/17 0915 Imaging Last Impressions Head CT 05/12/17 0000 Signed Impressions: Service Date/Time: Friday, May 12, 2017 05:07 - CONCLUSION: 1. Questionable small amounts of subdural blood in between the leaves of the falx cerebri. Otherwise no evidence of intracranial hemorrhage. No mass effect or midline shift. 2. There are nonacute extra-axial fluid collections anterior to both temporal lobes typical of benign arachnoid cysts. These are right larger than left. Nito Fisher MD ADDENDUM: A mildly displaced, non-acute healed appearing fracture seen of the left zygomatic arch. There is mildly comminuted , minimally displaced fracture of the lateral wall of the left orbit that is also probably nonacute. I don't see any associated periorbital soft tissue swelling. Nito Fisher MD Chest X-Ray 05/11/17 1648 Signed Impressions: Service Date/Time: Thursday, May 11, 2017 16:53 - CONCLUSION: No definite acute abnormality is seen. There is a pacing/AICD device in good position. Nito Silva MD CT Angiography 05/11/17 0000 Signed Impressions: Service Date/Time: Thursday, May 11, 2017 19:54 - CONCLUSION: No PE or acute abnormality is identified. Nito Borja MD Objective Remarks GENERAL: Well-developed well-nourished. In no acute distress. SKIN: Warm and dry. Left periorbital ecchymosis. HEENT: Normocephalic. Pupils equal and round. Mucous membranes pink and moist. CARDIOVASCULAR: Regular rate and rhythm. No murmur appreciated. Chest wall nontender to palpation. RESPIRATORY: No accessory muscle use. Clear to auscultation. Breath sounds equal bilaterally. GASTROINTESTINAL: Abdomen soft, non-tender, nondistended. Bowel sounds x4. MUSCULOSKELETAL: No obvious deformities. No clubbing or cyanosis. 1+ bilateral lower extremity edema. NEUROLOGICAL: Awake and alert. No focal neurological deficits. Moves upper and lower extremities spontaneously. Normal speech. PSYCHIATRIC: Appropriate mood and affect; insight and judgment normal. A/P Assessment and Plan 61-year-old male with history of HTN, CHF, nonischemic cardiomyopathy, s/p AICD , bilateral DVTs on Coumadin, presents with chest pain, recent fall Atypical chest pain: s/p cardiac catheterization 03/10/[address] Goldstein showed 30% ostial LAD lesion, recommended medical management. CT-PA reviewed, no evidence for PE. Troponins 0.05, 0.06, 0.06 and EKG without acute ischemic changes. Possible GI or musculoskeletal etiology. -continue BB, JOE -aspirin on hold with subdural hematoma -[employer] pacer interrogation showed normal pacer function, no VT/VF episodes, however with 15 episodes SVT and sinus tach -Wean IV morphine to oral tramadol. -consulted cardiology with ongoing chest pain, Dr. Adames recommended continuing current management, no further input from cardiology -started Protonix, patient counseled to avoid NSAIDs, recommended GI follow- up outpatient CHF/Nonischemic Cardiomyopathy: EF by cath 20% in February 2017. S/p pacer/AICD. BNP 91. Does not appear to be in acute exacerbation. -continue home medications including Coreg, Rampiril, and Lasix 40mg bid Subdural Hematoma: secondary to recent fall 3 days prior to arrival. -Head CT reviewed, shows questionable subdural hematoma. Also has old healed maxillofacial fractures. -Patient cannot undergo MRI due to AICD placement. -monitor neuro checks -control blood pressure -consulted neurosurgery, cleared to resume anticoagulation, will need repeat head CT in 5-7 days -Follow-up final neurosurgery recommendations Frequent falls: suspect secondary to alcohol abuse although patient denies alcohol use with recent fall. +Left periorbital ecchymosis, seems to be improving. -Consulted PT, patient ambulated well, follow-up report Alcohol abuse: patient denies recent alcohol abuse however told admitting MD he relapsed, but stopped drinking 3 days ago. Counseled on alcohol and the patient reports he intends no further alcohol use. -Monitor for withdrawal -[facility] protocol -thiamine/folate/multivitamin Chronic anticoagulation with Subtherapeutic INR: on Coumadin for DVTs per the patient. However ran out of meds and did not take for 2 days, patient did refill prescription yesterday.States a PCP in [place] follows his INR however he hasn't had any recent INR check because he's been on Coumadin since age 37 and he knows when his level is "out of whack". -INR 1.2 subtherapeutic -Clear by neurosurgery, resumed Coumadin with pharmacy consult -Monitor INR daily Thrombocytopenia: suspect secondary to EtOH abuse. -monitor CBC, currently appears stable Hypertension: patient reports not taking meds for a few months. -monitor BP, adjust antihypertensives as needed DVT prophylaxis: teds/SCDs, avoid chemical prophylaxis until cleared by neurosurgery Discharge Planning Follow-up INR, follow-up neurosurgery recommendations, follow-up PT recommendations. Possible discharge later today with outpatient follow-up if patient cleared. Amish Wilson May 14, 2017 09:52
[2017-05-14] MEDS ORDERED: traMADol HCL 50 MG TAB PO PRN (10:00)
[2017-05-14 11:23] LABS: INTERNATIONAL NORMALIZED RATIO 1.3 RATIO; PROTHROMBIN TIME - PATIENT 14.1 SEC (9.8-11.6)
[2017-05-14 11:42] VITALS: RESP 16
[2017-05-14] MEDS ORDERED: PANT40TA3 PO (11:43)
[2017-05-14] MEDS ORDERED: ULTR50TA5 PO (11:43)
[2017-05-14] MEDS ORDERED: CARV6.25 PO (11:43)
[2017-05-14] MEDS ORDERED: RAMI5CAP PO (11:43)
[2017-05-14] MEDS ORDERED: TRAM50TA PO (11:47)
--- NOTE | 2017-05-14 11:48 | HHI.NSPN ---
History Chief Complaint: Chest pain Interval History 05/12: This is a 61-year-old male who was going down the steps at his home and fell. He states that he struck his face which is numb and painful to the left cheek. He denies any loss of consciousness but did say it "rang my carrion." He endorses some lightheadedness after that but is unable to say whether it was present before he fell. Then two days ago he had nausea with vomiting and developed chest pain which was worse yesterday prompting him to come into the Emergency Department for evaluation. The pain did radiate toward the left shoulder. He was taking warfarin for a history of deep venous thromboses to the right lower extremity. He reported not having taken it for a few days before admission and his INR was within normal limits. 05/14: The patient states that he is doing okay today. He states that he is still having the chest pain that brought him to the ED. He states that he still has the pain and numbness to the left side of the face and states that if feels full under the eye. He denies any headache today but did have one yesterday. System Review Comments CONSTITUTIONAL: Patient denies any fever or chills. HEENT: Patient still with pain and numbness to the left cheek and blood to the left eye. He denies any visual problems at present. NECK: Patient denies any neck pain. RESPIRATORY: Patient has shortness of breath only with severe pain. He denies any productive cough. CARDIOVASCULAR: Patient still with chest pain and a racing heart when he has the pain. He denies any irregular heartbeat. GASTROINTESTINAL: Patient denies any abdominal pain, nausea, vomiting or incontinence of stool. GENITOURINARY: Patient denies any incontinence of urine. INTEGUMENTARY: Patient states several small abrasions and cuts from fall. MUSCULOSKELETAL: Patient denies any back or extremity pain or any extremity weakness. NEUROLOGICAL: Patient with left side facial numbness still. He did have a headache yesterday but none at present. He denies any dizziness or tingling. Exam Results Vital Signs Date Time Temp Pulse Resp B/P Pulse Ox O2 Delivery O2 Flow Rate FiO2 05/14/17 11:18 16 05/14/17 07:48 98.1 67 122/60 98 05/11/17 20:39 Room Air Intake and Output 05/13/17 05/13/17 05/14/17 08:00 16:00 00:00 Intake Total 360 ml Output Total 500 ml Balance -500 ml 360 ml Physical Examination GENERAL: Awake & alert, no apparent distress. HEENT: Normocephalic. Left maxilla & zygoma numb & mildly TTP and extends to nasal bridge. PERRLA, EOMs intact, inferior left lateral eye subconjunctival haemorrhage. NECK: No JVD, trachea midline. RESPIRATORY: CTAB w/o W/R/R, equal excursion, nonlaboured, on RA. CARDIOVASCULAR: S1S2 w/RRR w/o M/G/R, radial & pedal pulses 2+ bilaterally, cap refill < 2 sec. GASTROINTESTINAL: Abdomen soft, nontender, positive bowel sounds. INTEGUMENTARY: Several small abrasions/lacerations are noted to the upper extremities w/o any evident drainage, erythema or streaking. No other rashes, lesions or ulcerations are noted. MUSCULOSKELETAL: CARDONA w/o difficulty, no deformities or clubbing, extremities NTTP. NEUROLOGICAL: AAOx3. Speech clear & appropriate. Follows simple commands. CN II - XII intact except for numbness/pain along branches 2 & 3 of the left CN VII. Sensation intact to light touch to all extremities. Motor strength 5/5 to all major flexion & extension muscle groups. PSYCHIATRIC: Flat affect but readily interacts. Medical Decision Making Impression and Plan Impression: Small bilateral middle fossa probable chronic subdural haematomas Numbness along the left CN VII 2nd & 3rd branches Inferior left lateral subconjunctival haemorrhage Chest pain S/P fall 3-4 days ago The increased subdural space at the bilateral anterior middle fossa may represent arachnoid cyst versus small chronic subdural effusion or hematoma. Patient remains neurologically intact Plan: Discussed plan of care with patient who verbalised his understanding and no questions asked. Primary mgmt per Hospitalist Neuro checks Mobilise patient w/assistance PRN No indication for NSGY intervention, will therefore sign off. If we may be of further assistance please consult the service as needed. Thank you for allowing us to participate in your patient's care. The patient should have a follow-up CT scan of the head in 5-7 days in order to ascertain that the anterior middle fossa fluid collections are stable. Once the CT is done we will see him in the office. Sixto Connolly May 14, 2017 11:48
--- NOTE | 2017-05-14 11:49 | HHI.DS ---
Discharge Summary Admission Date May 11, 2017 at 20:38 Discharge Date: May 14, 2017 Admitting Diagnosis chest pain r/o ACS, tachycardia (1) Chest pain ICD Code: R07.9 Diagnosis: Principal (2) Arrhythmia, ventricular ICD Code: I49.9 Diagnosis: Secondary (3) Cardiomyopathy ICD Code: I42.9 Diagnosis: Secondary (4) Subdural hematoma ICD Code: I62.00 Diagnosis: Principal Procedures None Brief History - From Admission c/o chest pain since yesterday never went away sharp stabbing pain radiates to left shoulder was nauseous vomited yesterday 3-4x , no black or red pain worsened with breathing, or pushing chest fell down 3-4 days ago coming down the stairs and missed a step and hit head, but no loss of consciousness Initially reported he is not on blood thinners. However later stated that he is on Coumadin at home and that he has not taken it for past 3 days or so. His INR is within normal limits. no fever no cough dizziness , light headead shortness of breath yesterday no diarrhea, no burning urination, no blood tachycardia here CBC/BMP: 05/13/17 0915 05/13/17 0915 Significant Findings Laboratory Tests Test 05/11/17 05/11/17 05/11/17 05/12/17 16:50 17:50 19:05 02:53 Red Blood Count 3.57 MIL/MM3 3.12 MIL/MM3 (4.50-5.90) (4.50-5.90) Hemoglobin 10.4 GM/DL 9.1 GM/DL (13.0-17.0) (13.0-17.0) Hematocrit 31.6 % 27.7 % (39.0-51.0) (39.0-51.0) Red Cell Distribution Width 17.3 % (11.6-17.2) Platelet Count 135 TH/MM3 99 TH/MM3 (150-450) (150-450) Neutrophils (%) (Auto) 96.9 % 82.1 % (16.0-70.0) (16.0-70.0) Lymphocytes (%) (Auto) 2.1 % (9.0-44.0) Lymphocytes # (Auto) 0.1 TH/MM3 0.8 TH/MM3 (1.0-4.8) (1.0-4.8) Estimat Glomerular Filtration 78 ML/MIN (>89) 86 ML/MIN (>89) Rate Random Glucose 128 MG/DL (74-106) Calcium Level 8.1 MG/DL 7.4 MG/DL (8.5-10.1) (8.5-10.1) Direct Bilirubin 0.4 MG/DL (0.0-0.2) Aspartate Amino Transf 109 U/L (15-37) (AST/SGOT) Albumin 2.6 GM/DL (3.4-5.0) Ethyl Alcohol Level 13 MG/DL (0-5) Prothrombin Time 13.6 SEC (9.8-11.6) Platelet Estimate LOW (NORMAL) Protein Corrected Calcium 7.7 MG/DL (8.5-10.1) Troponin I 0.06 NG/ML (0.02-0.05) Test 05/12/17 05/12/17 05/13/17 05/14/17 09:30 18:14 09:15 10:50 Troponin I 0.06 NG/ML (0.02-0.05) Urine Opiates Screen POS (NEG) White Blood Count 3.4 TH/MM3 (4.0-11.0) Red Blood Count 3.69 MIL/MM3 (4.50-5.90) Hemoglobin 10.7 GM/DL (13.0-17.0) Hematocrit 32.4 % (39.0-51.0) Platelet Count 109 TH/MM3 (150-450) Monocytes (%) (Auto) 9.8 % (0.0-8.0) Eosinophils (%) (Auto) 5.3 % (0.0-4.0) Lymphocytes # (Auto) 0.7 TH/MM3 (1.0-4.8) Prothrombin Time 13.9 SEC 14.1 SEC (9.8-11.6) (9.8-11.6) Blood Urea Nitrogen 20 MG/DL (7-18) Estimat Glomerular Filtration 79 ML/MIN (>89) Rate Calcium Level 8.4 MG/DL (8.5-10.1) Imaging Last Impressions Head CT 05/12/17 0000 Signed Impressions: Service Date/Time: Friday, May 12, 2017 05:07 - CONCLUSION: 1. Questionable small amounts of subdural blood in between the leaves of the falx cerebri. Otherwise no evidence of intracranial hemorrhage. No mass effect or midline shift. 2. There are nonacute extra-axial fluid collections anterior to both temporal lobes typical of benign arachnoid cysts. These are right larger than left. Nito Fisher MD ADDENDUM: A mildly displaced, non-acute healed appearing fracture seen of the left zygomatic arch. There is mildly comminuted , minimally displaced fracture of the lateral wall of the left orbit that is also probably nonacute. I don't see any associated periorbital soft tissue swelling. Nito Fisher MD Chest X-Ray 05/11/17 1648 Signed Impressions: Service Date/Time: Thursday, May 11, 2017 16:53 - CONCLUSION: No definite acute abnormality is seen. There is a pacing/AICD device in good position. Nito Silva MD CT Angiography 05/11/17 0000 Signed Impressions: Service Date/Time: Thursday, May 11, 2017 19:54 - CONCLUSION: No PE or acute abnormality is identified. Nito Borja MD PE at Discharge GENERAL: Well-developed well-nourished. In no acute distress. SKIN: Warm and dry. Left periorbital ecchymosis. HEENT: Normocephalic. Pupils equal and round. Mucous membranes pink and moist. CARDIOVASCULAR: Regular rate and rhythm. No murmur appreciated. Chest wall nontender to palpation. RESPIRATORY: No accessory muscle use. Clear to auscultation. Breath sounds equal bilaterally. GASTROINTESTINAL: Abdomen soft, non-tender, nondistended. Bowel sounds x4. MUSCULOSKELETAL: No obvious deformities. No clubbing or cyanosis. 1+ bilateral lower extremity edema. NEUROLOGICAL: Awake and alert. No focal neurological deficits. Moves upper and lower extremities spontaneously. Normal speech. PSYCHIATRIC: Appropriate mood and affect; insight and judgment normal. Pt update on day of discharge Discussed with neurosurgery, clear for discharge from their perspective for outpatient CT and follow-up. INR today subtherapeutic, outpatient INR monitoring with PCP and cardiology. 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 Goldstein showed 30% ostial LAD lesion, recommended medical management. CT-PA reviewed, no evidence for PE. Troponins 0.05, 0.06, 0.06 and EKG without acute ischemic changes. Possible GI or musculoskeletal etiology. -continue BB, JOE, aspirin -[employer] pacer interrogation showed normal pacer function, no VT/VF episodes, however with 15 episodes SVT and sinus tach -Oral tramadol prn pain. -consulted cardiology with ongoing chest pain, Dr. Adames recommended continuing current management, no further input from cardiology -started Protonix, patient counseled to avoid NSAIDs, recommended GI follow- up outpatient CHF/Nonischemic Cardiomyopathy: EF by cath 20% in February 2017. S/p pacer/AICD. BNP 91. Does not appear to be in acute exacerbation. -continue home medications including Coreg, Rampiril, and Lasix 40mg bid Subdural Hematoma: secondary to recent fall 3 days prior to arrival. -Head CT reviewed, shows questionable subdural hematoma. Also has old healed maxillofacial fractures. -Patient cannot undergo MRI due to AICD placement. -consulted neurosurgery, cleared to resume anticoagulation, will need repeat head CT, and an outpatient follow-up Frequent falls: suspect secondary to alcohol abuse although patient denies alcohol use with recent fall. +Left periorbital ecchymosis, seems to be improving. -Consulted PT, recommended no restrictions Chronic anticoagulation with Subtherapeutic INR: on Coumadin for DVTs per the patient. However ran out of meds and did not take for 2 days, patient did refill prescription yesterday.States a PCP in [place] follows his INR however he hasn't had any recent INR check because he's been on Coumadin since age 37 and he knows when his level is "out of whack". -INR 1.3 subtherapeutic -Clear by neurosurgery, resumed Coumadin with pharmacy consult -Monitor INR Pt Condition on Discharge: Stable Discharge Disposition: Discharge Home Discharge Time: > 30 minutes Discharge Instructions DIET: Follow Instructions for: Heart Healthy Diet Activities you can perform: Regular-No Restrictions Activities to Avoid: Concussion Sports, Contact Sports Follow up Referrals: Cardiology - 10 Days with Tea Adames MD Neurosurgery - 1 Week with Domenico Sanford MD PCP Follow-up - 1 Week New Orders: CT Brain W/O Contrast - 05/18/17 PT/INR - 3-5 Days New Medications: Tramadol (Tramadol) 50 Mg Tab 50 MG PO Q8H PRN PAIN #10 Ref 0 TAB Carvedilol (Coreg) 6.25 Mg Tab 3.125 MG PO Q12HR Blood Pressure Management #30 TAB Pantoprazole (Pantoprazole) 40 Mg Tab 40 MG PO DAILY Reflux #30 TAB Ramipril (Ramipril) 5 Mg Cap 5 MG PO DAILY Blood Pressure Management #30 CAP Continued Medications: Aspirin (Aspirin) 81 Mg Chew 81 MG CHEW DAILY Blood Clot Prevention #30 Ref 0 TAB Furosemide (Furosemide) 40 Mg Tab 40 MG PO BID Blood Pressure Management #60 Ref 0 TAB Warfarin (Warfarin) 7.5 Mg Tab 7.5 MG PO DAILY Blood Clot Prevention #30 Ref 0 TAB Amish Wilson May 14, 2017 11:49 Salud Myers MD May 14, 2017 21:14
== END 2017-05-14 12:38 | disposition home or self-care (01) ==
LOC: NEPC 16:42 → NEDA 20:38 → NEPHCDU 21:49
PROVIDERS: ADMIT Hospitalist; ATTEND Hospitalist
DX: R07.89 Other chest pain (principal); R00.0 Tachycardia, unspecified; I42.9 Cardiomyopathy, unspecified; I11.0 Hypertensive heart disease with heart failure; I50.9 Heart failure, unspecified; J44.9 Chronic obstructive pulmonary disease, unspecified; R29.6 Repeated falls; D69.6 Thrombocytopenia, unspecified; F10.10 Alcohol abuse, uncomplicated; R20.0 Anesthesia of skin; H11.32 Conjunctival hemorrhage, left eye; I73.9 Peripheral vascular disease, unspecified; I25.2 Old myocardial infarction; Z82.49 Family history of ischemic heart disease and other diseases of the circulatory system; F17.210 Nicotine dependence, cigarettes, uncomplicated; Z95.0 Presence of cardiac pacemaker; Z86.718 Personal history of other venous thrombosis and embolism; Z79.01 Long term (current) use of anticoagulants; Z88.8 Allergy status to other drugs, medicaments and biological substances; Z79.82 Long term (current) use of aspirin
CPT/HCPCS: 70450; 71010; 71275; 80048; 80076; 80307; 82550; 82552; 83690; 83880; 84155; 84484; 85025; 85610; 85730; 93005; 96361; 96374; 96375; 97163; 99285; G0378; J0610; J2060; J2270; J2405; J7030; Q9967

== ENCOUNTER 2017-05-29 22:59 | Inpatient (IN) | payer MEDICAID ==
[~2017-05-29] VITALS: Ht 170.2 cm; Wt 92.0 kg
[~2017-05-29 22:59] MED LIST changes: -AMIO400T PO; +PANT40TA3 PO; -THIA100T PO; +TRAM50TA PO
[2017-05-29 23:13] VITALS: BP 123/59; PULSE 96; RESP 16; TEMP 98.1; O2SAT 98
[2017-05-29 23:19] VITALS: RESP 16; O2SAT 98
[2017-05-29] MEDS ORDERED: SODIUM CHLORIDE 0.9% FLUSH 10 ML FLUSH IVF PRN (23:30)
[2017-05-29] MEDS ORDERED: ASPIRIN 81 MG CHEW TAB PO ONE (23:30)
[2017-05-29 23:45] LABS: AUTOMATED NEUTROPHIL # 2.5 TH/MM3 (1.8-7.7); BASOPHIL # 0.1 TH/MM3 (0-0.2); BASOPHIL % 1.5 % (0.0-2.0); EOSINOPHIL # 0.1 TH/MM3 (0-0.4); EOSINOPHIL % 2.8 % (0.0-4.0); HEMATOCRIT 36.5 % (39.0-51.0); HEMO FLAGS DIFF FINAL; LYMPH % 39.6 % (9.0-44.0); LYMPHOCYTE # 2.1 TH/MM3 (1.0-4.8); MEAN CELL VOLUME 88.6 FL (80.0-100.0); MEAN CORPUSCULAR HEMOGLOBIN 29.1 PG (27.0-34.0); MEAN CORPUSCULAR HGB CONC 32.9 % (32.0-36.0); MONO % 8.1 % (0.0-8.0); PLATELET COUNT 163 TH/MM3 (150-450); RED BLOOD COUNT 4.12 MIL/MM3 (4.50-5.90); RED CELL DISTRIBUTION WIDTH 16.6 % (11.6-17.2); WHITE BLOOD COUNT 5.2 TH/MM3 (4.0-11.0)
[2017-05-29 23:47] LABS: APTT (PATIENT) 33.8 SEC (24.3-30.1); INTERNATIONAL NORMALIZED RATIO 1.5 RATIO; PROTHROMBIN TIME - PATIENT 16.7 SEC (9.8-11.6)
[2017-05-30] VITALS (11 sets, daily range): BP systolic 123–149; BP diastolic 60–71; PULSE 66–89; RESP 16–18; TEMP 97.3–98.5; O2SAT 94–98
--- NOTE | 2017-05-30 00:03 | RADRPT ---
EXAM DATE/TIME: 05/29/2017 23:21 [facility] COMPARISON: CHEST SINGLE AP, May 11, 2017, 16:53. INDICATIONS : Chest pain. MEDICAL HISTORY : None. SURGICAL HISTORY : Pacemaker. ENCOUNTER: Initial ACUITY: 1 day PAIN SCORE: 7/10 LOCATION: Bilateral chest FINDINGS: A single view of the chest demonstrates the lungs to be hypoinflated with minimal bibasilar atelectat ic changes. Accounting for the low lung volumes, the heart size is upper limits of normal. Left subcl adriana bipolar pacer/defibrillator is radiographically intact. Osseous structures are intact. CONCLUSION: Hypoinflation with minimal bibasilar atelectatic changes but no confluent infiltrate. Octavio Reeder MD on May 29, 2017 at 23:47 Board Certified Radiologist. This report was verified electronically.
[2017-05-30 00:09] LABS: BICARBONATE 30.1 MEQ/L (21.0-32.0); POTASSIUM 3.4 MEQ/L (3.5-5.1)
--- NOTE | 2017-05-30 01:26 | PD ---
HPI Chief Complaint: Chest Pain Time Seen by Provider: 23:16 Travel History International Travel<30 days: No Contact w/Intl Traveler<30days: No Traveled to known affect area: No History of Present Illness HPI Patient is a 61 year old male who comes in complaining of chest pain. He says the pain started about an hour ago. He has history of CHF with EF of 20%. He says he has some shortness of breath. He denies nausea or vomiting. He drinks daily. PFSH Past Medical History Hx Anticoagulant Therapy: Yes (COUMADIN ) Asthma: No Blood Disorders: No Anxiety: Yes Depression: Yes Heart Rhythm Problems: Yes Cancer: No Cardiac Catheterization: Yes Cardiovascular Problems: Yes (HTN ) High Cholesterol: Yes Chemotherapy: No Chest Pain: Yes Congestive Heart Failure: Yes COPD: No Diabetes: No Diminished Hearing: No Endocrine: No Gastrointestinal Disorders: No Genitourinary: No Hypertension: No Immune Disorder: No Implanted Vascular Access Dvce: Yes Musculoskeletal: No Neurologic: No Psychiatric: No Reproductive: No Respiratory: No Immunizations Current: Yes Radiation Therapy: No Sleep Apnea: No Thyroid Disease: No Tetanus Vaccination: Unknown Influenza Vaccination: Yes Past Surgical History Abdominal Surgery: Yes (GALLBLADDER REMOVAL) Body Medical Devices: pacemaker Cardiac Surgery: Yes (CATH , [employer] ICD PLACEMENT 2017 ) Coronary Artery Bypass Graft: No Pacemaker: Yes (v paced) Other Surgery: Yes (HEART CATH, LEFT FEM-POP BYPASS, AICD ) Family History Family Myocardial Infarction: Yes (father) Social History Alcohol Use: Yes (RARE) Tobacco Use: No Substance Use: No Allergies-Medications (Allergen,Severity, Reaction): Coded Allergies: Nitroglycerin (Verified Allergy, Severe, Anaphylaxis, 05/29/17) Reported Meds & Prescriptions Reported Meds & Active Scripts Active Tramadol (Tramadol HCl) 50 Mg Tab 50 Mg PO Q8H PRN Pantoprazole (Pantoprazole Sodium) 40 Mg Tab 40 Mg PO DAILY Ramipril 5 Mg Cap 5 Mg PO DAILY Coreg (Carvedilol) 6.25 Mg Tab 3.125 Mg PO Q12HR Furosemide 40 Mg Tab 40 Mg PO BID Aspirin 81 Mg Chew 81 Mg CHEW DAILY Reported Warfarin 7.5 Mg Tab 7.5 Mg PO DAILY Review of Systems Except as stated in HPI: all other systems reviewed are Neg General / Constitutional: No: Fever, Chills HENT: No: Headaches, Lightheadedness Cardiovascular: Positive: Chest Pain or Discomfort Respiratory: Positive: Shortness of Breath, No: Cough Gastrointestinal: No: Nausea, Vomiting Skin: No Rash, No Change in Pigmentation Neurologic: No: Weakness, Dizziness Physical Exam Narrative GENERAL: Awake and alert, in no acute distress. SKIN: Focused skin assessment warm/dry. HEAD: Atraumatic. Normocephalic. EYES: Pupils equal and round. No scleral icterus. ENT: Mucous membranes pink and moist. NECK: Trachea midline. No JVD. CARDIOVASCULAR: Regular rate and rhythm. No murmur appreciated. RESPIRATORY: No accessory muscle use. Clear to auscultation. Breath sounds equal bilaterally. GASTROINTESTINAL: Abdomen soft, non-tender, nondistended. MUSCULOSKELETAL: No obvious deformities. No clubbing. No cyanosis. No edema. NEUROLOGICAL: Awake and alert. No obvious cranial nerve deficits. Motor grossly within normal limits. Normal speech. PSYCHIATRIC: Appropriate mood and affect; insight and judgment normal. Data Data Last Documented VS Vital Signs Date Time Temp Pulse Resp B/P Pulse Ox O2 Delivery O2 Flow Rate FiO2 05/29/17 23:19 16 98 Room Air 05/29/17 23:13 98.1 96 123/59 Orders Basic Metabolic Panel (Bmp) (05/29/17 23:17) Complete Blood Count With Diff (05/29/17 23:17) Prothrombin Time / Inr (Pt) (05/29/17 23:17) Act Partial Throm Time (Ptt) (05/29/17 23:17) Troponin I (05/29/17 23:17) Lipase (05/29/17 23:17) Chest, Single Ap (05/29/17 23:17) Ecg Monitoring (05/29/17 23:17) Iv Access Insert/Monitor (05/29/17 23:17) Oximetry (05/29/17 23:17) Aspirin Chew (Aspirin Chew) (05/29/17 23:30) Sodium Chloride 0.9% Flush (Ns Flush) (05/29/17 23:30) Alcohol (Ethanol) (05/29/17 23:17) Activity Bed Rest With Brp (05/30/17 01:24) Vital Signs (Adult) Q4H (05/30/17 01:24) Cardiac Rhythm .As Directed (05/30/17 01:24) Notify Dr: Other .PRN (05/30/17 01:24) Notify Dr. Parameters (05/30/17 01:24) Resp Oxygen Nasal Cannula (05/30/17 ) Diet Heart Healthy (05/30/17 Breakfast) Ckmb (Isoenzyme) Profile (05/30/17 02:20) Ckmb (Isoenzyme) Profile (05/30/17 05:20) Troponin I (05/30/17 02:20) Troponin I (05/30/17 05:20) Electrocardiogram (05/30/17 02:20) Electrocardiogram (05/30/17 05:20) ^ Obtain (05/30/17 01:24) Sodium Chloride 0.9% Flush (Ns Flush) (05/30/17 01:30) Sodium Chloride 0.9% Flush (Ns Flush) (05/30/17 09:00) Construction Supervisor/Carpenter / Telemetry MAGEU.Q8H (05/30/17 01:24) Admit Order (Ed Use Only) (05/30/17 ) CKMB (05/30/17 02:45) CKMB% (05/30/17 02:45) Labs Laboratory Tests Test 05/29/17 23:20 White Blood Count 5.2 TH/MM3 Red Blood Count 4.12 MIL/MM3 Hemoglobin 12.0 GM/DL Hematocrit 36.5 % Mean Corpuscular Volume 88.6 FL Mean Corpuscular Hemoglobin 29.1 PG Mean Corpuscular Hemoglobin 32.9 % Concent Red Cell Distribution Width 16.6 % Platelet Count 163 TH/MM3 Mean Platelet Volume 9.1 FL Neutrophils (%) (Auto) 48.0 % Lymphocytes (%) (Auto) 39.6 % Monocytes (%) (Auto) 8.1 % Eosinophils (%) (Auto) 2.8 % Basophils (%) (Auto) 1.5 % Neutrophils # (Auto) 2.5 TH/MM3 Lymphocytes # (Auto) 2.1 TH/MM3 Monocytes # (Auto) 0.4 TH/MM3 Eosinophils # (Auto) 0.1 TH/MM3 Basophils # (Auto) 0.1 TH/MM3 CBC Comment DIFF FINAL Differential Comment Prothrombin Time 16.7 SEC Prothromb Time International 1.5 RATIO Ratio Activated Partial 33.8 SEC Thromboplast Time Sodium Level 148 MEQ/L Potassium Level 3.4 MEQ/L Chloride Level 111 MEQ/L Carbon Dioxide Level 30.1 MEQ/L Anion Gap 7 MEQ/L Blood Urea Nitrogen 17 MG/DL Creatinine 1.12 MG/DL Estimat Glomerular Filtration 67 ML/MIN Rate Random Glucose 104 MG/DL Calcium Level 8.5 MG/DL Troponin I 0.05 NG/ML Lipase 187 U/L Ethyl Alcohol Level 363 MG/DL MDM Medical Decision Making Medical Screen Exam Complete: Yes Emergency Medical Condition: Yes Medical Record Reviewed: Yes Interpretation(s) ECG shows paced rhythm Differential Diagnosis ACS vs NSTEMI vs STEMI Narrative Course Patient is a 61 year old male who comes in complaining of chest pain. Exam shows no acute abnormalities. IV established, labs sent. 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 Labs show negative Troponin. Given Aspirin. Placed in chest pain center for further management. Diagnosis Primary Impression: Chest pain Qualified Code: R07.9 - Chest pain, unspecified type Admitting Information Admitting Physician Requests: Spring Rice MD May 30, 2017 01:26
[2017-05-30] MEDS ORDERED: SODIUM CHLORIDE 0.9% FLUSH 10 ML FLUSH IV FLUSH PRN (01:30)
[2017-05-30 04:12] LABS: CREATINE KINASE 102 U/L (39-308)
[2017-05-30 04:24] LABS: CKMB 0.9 NG/ML (0.5-3.6)
[2017-05-30] MEDS ORDERED: BISACODYL 10 MG SUPP RECTAL PRN (05:45)
[2017-05-30] MEDS ORDERED: MAGNESIUM HYDROXIDE SUSP 30 ML CUP PO PRN (05:45)
[2017-05-30] MEDS ORDERED: ACETAMINOPHEN 325 MG TAB PO PRN ×2 (05:45)
[2017-05-30] MEDS ORDERED: LACTULOSE SYRUP 20 GM/30 ML CUP PO PRN (05:45)
[2017-05-30] MEDS ORDERED: SENNOSIDES 8.6 MG TAB PO PRN (05:45)
[2017-05-30] MEDS ORDERED: NALOXONE HCL 0.4 MG/ML AMP IV PRN (05:45)
--- NOTE | 2017-05-30 05:51 | HHI.HP ---
[facility] Service [facility] Hospital[facility] Primary Care Physician No Primary Care Physician Admission Diagnosis Chest Pain Diagnoses: Chief Complaint: chest pain Travel History International Travel<30 Days: No Contact w/Intl Traveler <30 Da: No Traveled to Known Affected Are: No History of Present Illness Written by Anais Kelley, acting as scribe for Dr. Cooper] on 05/30/17 at 05: 51. 61 y/o male with a history of HTN, COPD, CHF, AICD and DVTs presents to the ED with complaints of chest pain. He describes the pain as burning mid sternal chest pain, 10/10, with associated nausea that started today. Upon examination patient looks very painful and emotional. He states he is a recovering alcoholic and started drinking 2 days ago. He denies any fever, chills, sob, or vomiting. Recently admitted April 2017 for similar episode, No intervention was needed. Last cardiac catheterization 03/10/[address] Goldstein showed 30% ostial LAD lesion, recommended medical management Review of Systems Constitutional: DENIES: Fever, Chills Respiratory: DENIES: Cough, Shortness of breath Cardiovascular: COMPLAINS OF: Chest pain, DENIES: Lower Extremity Edema Gastrointestinal: COMPLAINS OF: Nausea, DENIES: Vomiting Genitourinary: DENIES: Hematuria, Dysuria Musculoskeletal: DENIES: Back pain, Neck pain Integumentary: DENIES: Rash Hematologic/lymphatic: DENIES: Lymphadenopathy Immunologic/allergic: DENIES: Urticaria Past Family Social History Past Medical History HTN CHF, EF 30% aicd ppm copd DVT - bilateral - latest one was RLE chronic anticoagulation on coumadin Past Surgical History Arterial bypass Cholecystectomy Reported Medications Reported Meds & Active Scripts Active Tramadol (Tramadol HCl) 50 Mg Tab 50 Mg PO Q8H PRN Pantoprazole (Pantoprazole Sodium) 40 Mg Tab 40 Mg PO DAILY Ramipril 5 Mg Cap 5 Mg PO DAILY Coreg (Carvedilol) 6.25 Mg Tab 3.125 Mg PO Q12HR Furosemide 40 Mg Tab 40 Mg PO BID Aspirin 81 Mg Chew 81 Mg CHEW DAILY Reported Warfarin 7.5 Mg Tab 7.5 Mg PO DAILY Allergies: Coded Allergies: Nitroglycerin (Verified Allergy, Severe, Anaphylaxis, 05/29/17) Active Ordered Medications Current Medications Medications (Trade) Dose Ordered Sig/Amelia Route Start Time Stop Time Status Last Admin (NS Flush) 2 ml UNSCH PRN IVF 05/29/17 23:30 (NS Flush) 2 ml UNSCH PRN IV FLUSH 05/30/17 01:30 (NS Flush) 2 ml BID IV FLUSH 05/30/17 09:00 (NS Flush) 2 ml UNSCH PRN IV FLUSH 05/30/17 05:45 UNV (NS Flush) 2 ml BID IV FLUSH 05/30/17 09:00 UNV (Tylenol) 650 mg Q4H PRN PO 05/30/17 05:45 UNV (Zofran Inj) 4 mg Q6H PRN IVP 05/30/17 05:45 UNV (Tylenol) 650 mg Q6H PRN PO 05/30/17 05:45 UNV (Anderson 5-325 Mg) 1 tab Q4H PRN PO 05/30/17 05:45 UNV (Anderson 7.5-325 Mg) 1 tab Q4H PRN PO 05/30/17 05:45 UNV (Narcan Inj) 0.4 mg UNSCH PRN IV 05/30/17 05:45 UNV (Milk Of Magnesia Liq) 30 ml Q12H PRN PO 05/30/17 05:45 UNV (Senokot) 17.2 mg Q12H PRN PO 05/30/17 05:45 UNV (Dulcolax Supp) 10 mg DAILY PRN RECTAL 05/30/17 05:45 UNV (Lactulose Liq) 30 ml DAILY PRN PO 05/30/17 05:45 UNV Family History mother- vascular problems- varicose veins Social History Tobacco use: 1 PP week Alcohol use: recovering alcoholic, started drinking again 2 days ago Illicit drug use: Denies Physical Exam Vital Signs Vital Signs Date Time Temp Pulse Resp B/P Pulse Ox O2 Delivery O2 Flow Rate FiO2 05/30/17 04:26 82 05/30/17 03:26 98.0 77 16 123/60 98 05/30/17 01:31 98 21 05/29/17 23:19 16 98 Room Air 7/7/17 23:13 98.1 96 16 123/59 98 05/29/17 23:08 104 16 97 Room Air Physical Exam GENERAL: This is a well-nourished, well-developed patient, who is having chest pain and is very emotional SKIN: No rashes, ecchymoses or lesions. Cool and dry. HEAD: Atraumatic. Normocephalic. No temporal or scalp tenderness. EYES: Pupils equal round and reactive. Extraocular motions intact. ENT: Nose without bleeding, purulent drainage or septal hematoma. Throat without erythema, tonsillar hypertrophy or exudate. Uvula midline. Airway patent. NECK: Trachea midline. No JVD or lymphadenopathy. Supple, nontender, no meningeal signs. CARDIOVASCULAR: Regular rate and rhythm without murmurs, gallops, or rubs. RESPIRATORY: Clear to auscultation. Breath sounds equal bilaterally. No wheezes , rales, or rhonchi. GASTROINTESTINAL: Abdomen soft, non-tender, nondistended. No hepato-splenomegaly , or palpable masses. No guarding. MUSCULOSKELETAL: Extremities without clubbing, cyanosis, or edema. No joint tenderness, effusion, or edema noted. No calf tenderness. Negative Homans sign bilaterally. NEUROLOGICAL: Awake and alert. Cranial nerves II through XII intact. Motor and sensory grossly within normal limits. Five out of 5 muscle strength in all muscle groups. Normal speech. Laboratory Laboratory Tests Test 05/29/17 05/30/17 23:20 02:45 White Blood Count 5.2 Red Blood Count 4.12 Hemoglobin 12.0 Hematocrit 36.5 Mean Corpuscular Volume 88.6 Mean Corpuscular Hemoglobin 29.1 Mean Corpuscular Hemoglobin 32.9 Concent Red Cell Distribution Width 16.6 Platelet Count 163 Mean Platelet Volume 9.1 Neutrophils (%) (Auto) 48.0 Lymphocytes (%) (Auto) 39.6 Monocytes (%) (Auto) 8.1 Eosinophils (%) (Auto) 2.8 Basophils (%) (Auto) 1.5 Neutrophils # (Auto) 2.5 Lymphocytes # (Auto) 2.1 Monocytes # (Auto) 0.4 Eosinophils # (Auto) 0.1 Basophils # (Auto) 0.1 CBC Comment DIFF FINAL Differential Comment Prothrombin Time 16.7 Prothromb Time International 1.5 Ratio Activated Partial 33.8 Thromboplast Time Sodium Level 148 Potassium Level 3.4 Chloride Level 111 Carbon Dioxide Level 30.1 Anion Gap 7 Blood Urea Nitrogen 17 Creatinine 1.12 Estimat Glomerular Filtration 67 Rate Random Glucose 104 Calcium Level 8.5 Troponin I 0.05 0.07 Lipase 187 Ethyl Alcohol Level 363 Total Creatine Kinase 102 Creatine Kinase MB 0.9 Result Diagram: 05/29/17 2320 05/29/17 2320 Assessment and Plan Problem List: (1) Chest pain ICD Code: R07.9 Status: Acute (2) Elevated troponin ICD Code: R74.8 Status: Acute Assessment and Plan 61 y/o male with a history of HTN, COPD, CHF, AICD and DVTs presents to the ED with complaints of chest pain. Atypical Chest pain r/o ACS, patient is noted to have chest pain admissions after alcohol binges Troponin .05-->.07, baseline is .06 -3rd set pending -EKG shows paced rhythm, no ST elevation -Consult Cardiology -Morphine IV for pain management ETOH abuse -Encouraged to quit -Withdraw precautions -CIWA protocol ordered DVT prophylaxis: SCDs This note was transcribed by keith Kelley. I, Dr. Jacques Barber personally performed the history, physical exam, and medical decision making; and confirmed the accuracy of the information in the transcribed note. Authenticated by Dr. Jacques Barber on 05/30/17 at 06:26. Discussed Condition With Patient and RN Problem Qualifiers (1) Chest pain: Qualified Code: R07.9 - Chest pain, unspecified type Anais Kelley May 30, 2017 05:51 Jacques Barber MD May 30, 2017 06:26
[2017-05-30] MEDS ORDERED: MORPHINE SULFATE 8 MG/ML INJ IV PUSH ONE (06:00)
[2017-05-30] MEDS ORDERED: CALCIUM CARBONATE 500 MG CHEWABLE TAB CHEW PRN (06:00)
[2017-05-30] MEDS ORDERED: MORPHINE SULFATE 4 MG/ML INJ IV PUSH ONE (06:15)
[2017-05-30] MEDS: PANTOPRAZOLE SODIUM 40 MG VIAL IV PUSH SCH (06:17)
[2017-05-30] MEDS ORDERED: LORazepam 2 MG/ML VIAL IV PUSH PRN ×4 (06:30)
[2017-05-30] MEDS ORDERED: LORazepam 1 MG TAB PO PRN (06:30)
[2017-05-30] MEDS ORDERED: LORazepam 2 MG TAB PO PRN (06:30)
[2017-05-30] MEDS ORDERED: FLUMAZENIL 0.5 MG/5 ML VIAL IV PUSH PRN (06:30)
[2017-05-30 06:37] LABS: BICARBONATE 29.6 MEQ/L (21.0-32.0); POTASSIUM 3.5 MEQ/L (3.5-5.1)
[2017-05-30] MEDS: MULTIVITAMINS/MINERALS THERAPEUTIC TAB PO SCH (08:07)
[2017-05-30] MEDS: SODIUM CHLORIDE 0.9% FLUSH 10 ML FLUSH IV FLUSH SCH ×2 (08:07→20:33)
[2017-05-30] MEDS: THIAMINE HCL 100 MG TAB PO SCH (08:07)
[2017-05-30] MEDS: FOLIC ACID 1 MG TAB PO SCH (08:07)
[2017-05-30] MEDS: ACETAMINOPHEN/HYDROcodone 325 MG/7.5 MG TAB PO PRN ×3 (08:08→20:33)
[2017-05-30] MEDS ORDERED: SODIUM CHLORIDE 0.9% FLUSH 10 ML FLUSH IV FLUSH SCH (09:00)
[2017-05-30] MEDS ORDERED: LORazepam 2 MG/ML VIAL IV PUSH ONE (09:30)
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
[2017-05-30] MEDS: RAMIPRIL 5 MG CAP PO SCH (10:14)
[2017-05-30] MEDS: CARVEDILOL 3.125 MG TAB PO SCH ×2 (10:14→20:33)
[2017-05-30] MEDS ORDERED: DIATRIZOATE MEGLUM/DIATRIZOATE SOD 9 ML CUP PO ONE (10:15)
[2017-05-30 10:18] LABS: INDIRECT BILIRUBIN 0.4 MG/DL (0.0-0.8); TOTAL BILIRUBIN ADULT 0.6 MG/DL (0.2-1.0)
--- NOTE | 2017-05-30 11:53 | PD.CONS ---
HPI History of Present Illness This is a 61 year old male with past medical history of HTN, COPD, CHF, AICD and DVTs on Coumadin EF of 20 %, presents to the ED with complaints of chest pain. The pain is described as constant burning below and mid sternum, started 8 hrs ago. States, it hurts to breath. The pain was preceded by 2 episodes of vomiting. He is recovering alcoholic. He was sober for 8 months, but started drinking heavily 2 days ago, etoh levels 363. He denies any fever, chills, hematemesis, melena, hematochezia or change in bowels. He never had EGD/ colonoscopy before. He reports 90 ibs weight loss due to eating better and walking. Troponin high, cardiology consulted. (Meliza Ricci) PFSH Past Medical History HTN CHF, EF 30% aicd ppm copd DVT - bilateral - latest one was RLE chronic anticoagulation on coumadin Past Surgical History Arterial bypass Cholecystectomy (Meliza Ricci) Coded Allergies: Nitroglycerin (Verified Allergy, Severe, Anaphylaxis, 05/29/17) Medications Current Medications Medications (Trade) Dose Ordered Sig/Amelia Route Start Time Stop Time Status Last Admin (NS Flush) 2 ml UNSCH PRN IV FLUSH 05/30/17 05:45 (NS Flush) 2 ml BID IV FLUSH 05/30/17 09:00 05/30/17 08:07 (Tylenol) 650 mg Q4H PRN PO 05/30/17 05:45 (Zofran Inj) 4 mg Q6H PRN IVP 05/30/17 05:45 (Tylenol) 650 mg Q6H PRN PO 05/30/17 05:45 ([place] 5-325 Mg) 1 tab Q4H PRN PO 05/30/17 05:45 ([place] 7.5-325 Mg) 1 tab Q4H PRN PO 05/30/17 05:45 05/30/17 08:08 (Narcan Inj) 0.4 mg UNSCH PRN IV 05/30/17 05:45 (Milk Of Magnesia Liq) 30 ml Q12H PRN PO 05/30/17 05:45 (Senokot) 17.2 mg Q12H PRN PO 05/30/17 05:45 (Dulcolax Supp) 10 mg DAILY PRN RECTAL 7/8/17 05:45 (Lactulose Liq) 30 ml DAILY PRN PO 05/30/17 05:45 (Tums Chew) 500 mg Q2H PRN CHEW 05/30/17 06:00 (Protonix Inj) 40 mg Q24H IV PUSH 05/30/17 06:00 05/30/17 06:17 (Romazicon Inj) 0.2 mg Q1M PRN IV PUSH 05/30/17 06:30 (Ativan) 1 mg Q4H PRN PO 05/30/17 06:30 (Ativan Inj) 1 mg Q4H PRN IV PUSH 05/30/17 06:30 (Ativan) 2 mg Q2H PRN PO 05/30/17 06:30 (Ativan Inj) 2 mg Q2H PRN IV PUSH 05/30/17 06:30 (Ativan Inj) 2 mg Q1H PRN IV PUSH 05/30/17 06:30 (Ativan Inj) 2 mg Q15M PRN IV PUSH 05/30/17 06:30 (Folate) 1 mg DAILY PO 05/30/17 09:00 06/04/17 08:59 05/30/17 08:07 (Vitamin B1) 100 mg DAILY PO 05/30/17 09:00 05/30/17 08:07 (Theragran M Tab) 1 tab DAILY PO 05/30/17 09:00 06/04/17 08:59 05/30/17 08:07 (Aspirin Chew) 81 mg DAILY CHEW 05/31/17 09:00 (Coreg) 3.125 mg Q12HR PO 05/30/17 09:30 05/30/17 10:14 (Altace) 5 mg DAILY PO 05/30/17 09:30 05/30/17 10:14 Family History No family hx of colon or gastric cancer Social History Tobacco use: 1 PP week Alcohol use: recovering alcoholic, started drinking again 2 days ago Illicit drug use: Denies (Meliza Ricci) Review of Systems Constitutional: COMPLAINS OF: Fatigue, DENIES: Chills Endocrine: DENIES: Polyuria Eyes: DENIES: Double Vision Ears, nose, mouth, throat: DENIES: Hoarseness Respiratory: COMPLAINS OF: Shortness of breath Cardiovascular: DENIES: Lower Extremity Edema Gastrointestinal: COMPLAINS OF: Abdominal pain, Nausea, Vomiting, DENIES: Black stools, Bloody stools, Constipation, Diarrhea, Difficulty Swallowing, Odynophagia, Swelling of Abdomen, Heartburn, Hematemesis Genitourinary: DENIES: Hematuria Musculoskeletal: DENIES: Neck pain Integumentary: DENIES: Jaundice Hematologic/lymphatic: DENIES: Bruising Immunologic/allergic: DENIES: Eczema Neurologic: DENIES: Abnormal gait Psychiatric: DENIES: Anxiety (Meliza Ricci) GI Exam Vitals I&O Vital Signs Date Time Temp Pulse Resp B/P Pulse Ox O2 Delivery O2 Flow Rate FiO2 05/30/17 08:00 97.3 86 18 132/68 97 05/30/17 04:26 82 05/30/17 03:26 98.0 77 16 123/60 98 05/30/17 01:31 98 21 05/29/17 23:19 16 98 Room Air 05/29/17 23:13 98.1 96 16 123/59 98 05/29/17 23:08 104 16 97 Room Air I/O 05/29/17 05/29/17 05/29/17 05/30/17 05/30/17 05/30/17 07:00 15:00 23:00 07:00 15:00 23:00 Intake Total 240 ml Balance 240 ml Intake Oral 240 ml Imaging Last Impressions Chest X-Ray 05/29/17 2507 Signed Impressions: Service Date/Time: Monday, May 29, 2017 23:21 - CONCLUSION: Hypoinflation with minimal bibasilar atelectatic changes but no confluent infiltrate. Octavio Reeder MD Laboratory Test 05/29/17 05/30/17 05/30/17 23:20 02:45 05:50 White Blood Count 5.2 TH/MM3 Red Blood Count 4.12 MIL/MM3 Hemoglobin 12.0 GM/DL Hematocrit 36.5 % Mean Corpuscular Volume 88.6 FL Mean Corpuscular Hemoglobin 29.1 PG Mean Corpuscular Hemoglobin 32.9 % Concent Red Cell Distribution Width 16.6 % Platelet Count 163 TH/MM3 Mean Platelet Volume 9.1 FL Neutrophils (%) (Auto) 48.0 % Lymphocytes (%) (Auto) 39.6 % Monocytes (%) (Auto) 8.1 % Eosinophils (%) (Auto) 2.8 % Basophils (%) (Auto) 1.5 % Neutrophils # (Auto) 2.5 TH/MM3 Lymphocytes # (Auto) 2.1 TH/MM3 Monocytes # (Auto) 0.4 TH/MM3 Eosinophils # (Auto) 0.1 TH/MM3 Basophils # (Auto) 0.1 TH/MM3 CBC Comment DIFF FINAL Differential Comment Prothrombin Time 16.7 SEC Prothromb Time International 1.5 RATIO Ratio Activated Partial 33.8 SEC Thromboplast Time Sodium Level 148 MEQ/L 148 MEQ/L Potassium Level 3.4 MEQ/L 3.5 MEQ/L Chloride Level 111 MEQ/L 112 MEQ/L Carbon Dioxide Level 30.1 MEQ/L 29.6 MEQ/L Anion Gap 7 MEQ/L 6 MEQ/L Blood Urea Nitrogen 17 MG/DL 17 MG/DL Creatinine 1.12 MG/DL 0.95 MG/DL Estimat Glomerular Filtration 67 ML/MIN 81 ML/MIN Rate Random Glucose 104 MG/DL 90 MG/DL Calcium Level 8.5 MG/DL 8.0 MG/DL Troponin I 0.05 NG/ML 0.07 NG/ML 0.06 NG/ML Lipase 187 U/L Ethyl Alcohol Level 363 MG/DL Total Creatine Kinase 102 U/L 89 U/L Creatine Kinase MB 0.9 NG/ML Total Bilirubin 0.6 MG/DL Direct Bilirubin 0.2 MG/DL Indirect Bilirubin 0.4 MG/DL Aspartate Amino Transf 138 U/L (AST/SGOT) Alanine Aminotransferase 70 U/L (ALT/SGPT) Alkaline Phosphatase 86 U/L Total Protein 7.4 GM/DL Albumin 2.7 GM/DL Physical Examination HEENT: normocephalic; atraumatic; no jaundice. NECK: Neck is supple, no JVD, no lymphadenopathy. CHEST: Chest is clear to auscultation and percussion. CARDIAC: Regular rate and rhythm with no murmur gallop or rubs. ABDOMEN: Soft, nondistended, epigastric pain; no hepatosplenomegaly; bowel sounds are present in all four quadrants. EXTREMITIES: No clubbing, cyanosis, or edema. SKIN: Normal; no rash; no jaundice. SHIP SCALER: No focal deficits; alert and oriented times three. (Meliza Ricci) Assessment and Plan Plan - Atypical chest pain- patient with hx of COPD, CHF, AICD, EF of 20, elevated troponin- Cardiology consulted and symptoms felt to be noncardiac in nature and signed off. - upper abdomen burning pain for 8 hrs with 2 episodes of vomiting- no hx of PUD , never had EGD before, started drinking heavily for [address] ordered but pending - Wt loss of 90 ibs weight loss due to eating better and walking. Never had colonoscopy before - Alcohol abuse- He is recovering alcoholic. He was sober for 8 months, but started drinking heavily 2 days ago etoh levels 363. It seems has hx of on going melonie drinking - Slight anemia (12.0/36.5)- no active bleeding - Elevation in AST- likely related to alcohol intake, rest normal, lipase normal - HTN, COPD, CHF, AICD and DVTs on Coumadin, per attending Plan: - EGD/colonoscopy on Thursday if still here or could be done as an OP - Await CT - Advised to alcohol cessation - Supportive care - Patient seen and examined by Dr Blanco and myself and this note is written on her behalf. (Meliza Ricci) Physician Comments seen, examined agree with above advance diet (Emily Blanco MD) Meliza Ricci May 30, 2017 11:53 Emily Blanco MD May 30, 2017 17:41
[2017-05-30] MEDS ORDERED: IOHEXOL 350 MG/ML 10 ML VIAL (for RAD DIAG) IV ONE (13:33)
--- NOTE | 2017-05-30 13:56 | RADRPT ---
EXAM DATE/TIME: 05/30/2017 13:18 [place] COMPARISON: No previous studies available for comparison. INDICATIONS : Diffuse abdomen pain for one day. IV CONTRAST: 100 cc Omnipaque 350 (iohexol) IV ORAL CONTRAST: Prescribed oral contrast ingested. RADIATION DOSE: 10.09 CTDIvol (mGy) MEDICAL HISTORY : Hypertension. Cardiovascular disease SURGICAL HISTORY : Cholecystectomy. ENCOUNTER: Initial ACUITY: 1 day PAIN SCALE: 7/10 LOCATION: Bilateral upper quadrant TECHNIQUE: Volumetric scanning of the abdomen and pelvis was performed. Using automated exposure control and ad justment of the mA and/or kV according to patient size, radiation dose was kept as low as reasonably achievable to obtain optimal diagnostic quality images. DICOM format image data is available electro nically for review and comparison. FINDINGS: LOWER LUNGS: The visualized lower lungs are clear. Gynecomastia on the right. LIVER: Nodular cirrhotic liver without lesion. There is no dilation of the biliary tree. No abdominal asci rashmi. Cholecystectomy. SPLEEN: Normal size without lesion. PANCREAS: Within normal limits. KIDNEYS: Normal in size and shape. There is no mass, stone or hydronephrosis. ADRENAL GLANDS: Within normal limits. VASCULAR: There is no aortic aneurysm. BOWEL/MESENTERY: Diverticulosis without diverticulitis. There is no free intraperitoneal air or fluid. ABDOMINAL WALL: Within normal limits. RETROPERITONEUM: There is no lymphadenopathy. BLADDER: No wall thickening or mass. REPRODUCTIVE: Within normal limits. INGUINAL: There is no lymphadenopathy or hernia. MUSCULOSKELETAL: Within normal limits for patient age. CONCLUSION: 1. Cirrhotic appearing liver without abdominal ascites. 2. Diverticulosis without diverticulitis. 3. Gynecomastia on the right. Eric Sherman MD on May 30, 2017 at 13:52 Board Certified Radiologist. This report was verified electronically.
--- NOTE | 2017-05-30 15:22 | MB ---
cc: TRISTAN SU MD DATE OF CONSULTATION: 05/30/2017. REASON FOR CONSULTATION: Atypical chest pain. Indeterminate troponin. HISTORY OF PRESENT ILLNESS: The patient is a 61-year-old alcoholic gentleman who presents with sharp pleuritic chest pain. He also has a history of a nonischemic cardiomyopathy with most recent cardiac catheterization only this past February showing only mild coronary disease and exclusion of noncardiac chest pain was made. Currently the patient says he is feeling better though still is somewhat tender in epigastric region. PAST MEDICAL HISTORY: 1. Noncardiac chest pain with cardiac catheterization 03/10/2017 showing only a 30% left anterior descending lesion for which medical therapy was recommended. 2. AICD. 3. DVTs (the patient is supposed to be on warfarin but history of subtherapeutic INRs). 4. COPD. 5. Alcohol abuse. CURRENT MEDICATIONS: 1. Aspirin 81 milligrams daily. 2. Coreg 3.125 milligrams q. 12. 3. Ramipril 5 milligrams daily. 4. Folate 1 milligrams daily. 5. Thiamine. ALLERGIES: NITROGLYCERIN. PHYSICAL EXAMINATION: VITAL SIGNS: Afebrile, pulse 86, respiratory rate 18, blood pressure 132/68, satting 97 on two liters. GENERAL: A pleasant gentleman in no distress. NECK: No jugular venous distention. LUNGS: Clear to auscultation bilaterally. CARDIOVASCULAR: Regular rate and rhythm. No murmurs appreciated. ABDOMEN: Mildly tender in the epigastric region. EXTREMITIES: No edema. LABORATORY DATA: INR is 1.5. Toxicology positive for alcohol. Sodium 148, potassium 3.5, chloride 112, bicarb 29.6, BUN 17, creatinine 0.95. Troponin 0.05, 0.07, 0.06. White count 5.2, hematocrit 36.5, platelets 163. EKGS: EKG shows a paced rhythm. IMPRESSION: 1. Atypical chest pain. The patient has a history of atypical / noncardiac chest pain and presents with same. His cardiac catheterization showing only mild coronary disease was less than 3 months ago, and I would not recommend a repeat study based on this. His indeterminate level troponin is nonspecific, particularly in the setting of a low ejection fraction. His pains are atypical and pleuritic and more epigastric than substernal or left upper chest. The GI team has been consulted as well. Given the absence of significant coronary disease on his recent cardiac catheterization, I will sign off at this time. He does not require any further cardiac risk stratification prior to any planned procedure; however, given his low ejection fraction, he would be at a high risk for any said procedure, particularly if significant fluids are given. Please call with any further questions. Thank you again for the opportunity to participate in this patient's care. MD ENREIDA Nguyen/LYNETTE /11:50 AM /3:20 PM
--- NOTE | 2017-05-30 15:24 | EKG ---
Date Performed: 05/30/2017 Time Performed: 08:02:23 PTAGE: 61 years EKG: ELECTRONIC VENTRICULAR PACEMAKER ABNORMAL RHYTHM ECG PREVIOUS TRACING : 05/30/2017 05.49 Compared to prior tracing no significant change DOCTOR: Gene Rendon Interpretating Date/Time 05/30/2017 15:22:40
--- NOTE | 2017-05-30 15:30 | EKG ---
Date Performed: 05/30/2017 Time Performed: 05:49:11 PTAGE: 61 years EKG: ELECTRONIC VENTRICULAR PACEMAKER ABNORMAL RHYTHM ECG PREVIOUS TRACING : 05/30/2017 02.53 Compared to prior tracing no significant change DOCTOR: Gene Rendon Interpretating Date/Time 05/30/2017 15:28:35
--- NOTE | 2017-05-30 15:48 | EKG ---
Date Performed: 05/30/2017 Time Performed: 02:53:24 PTAGE: 61 years EKG: ELECTRONIC VENTRICULAR PACEMAKER, electronic atrial pacemaker ABNORMAL RHYTHM ECG PREVIOUS TRACING : 05/13/2017 08.30 Compared to prior tracing no significant change DOCTOR: Gene Rendon Interpretating Date/Time 05/30/2017 15:46:13
--- NOTE | 2017-05-30 16:06 | EKG ---
Date Performed: 05/29/2017 Time Performed: 23:12:04 PTAGE: 61 years EKG: ELECTRONIC VENTRICULAR PACEMAKER ABNORMAL RHYTHM ECG Compared to the PREVIOUS TRACING from 05/13/17, previously AV paced, now V-paced with rate increase DOCTOR: Gene Rendon Interpretating Date/Time 05/30/2017 16:04:33
[2017-05-31] VITALS (7 sets, daily range): BP systolic 122–136; BP diastolic 60–70; PULSE 61–67; RESP 18–20; TEMP 97.3–98; O2SAT 93–98
[2017-05-31] MEDS: ACETAMINOPHEN/HYDROcodone 325 MG/7.5 MG TAB PO PRN ×3 (00:33→10:01)
[2017-05-31] MEDS: PANTOPRAZOLE SODIUM 40 MG VIAL IV PUSH SCH (05:07)
[2017-05-31 07:42] LABS: AUTOMATED NEUTROPHIL # 1.5 TH/MM3 (1.8-7.7); BASOPHIL # 0.1 TH/MM3 (0-0.2); EOSINOPHIL # 0.2 TH/MM3 (0-0.4); EOSINOPHIL % 5.8 % (0.0-4.0); HEMATOCRIT 33.6 % (39.0-51.0); HEMO FLAGS DIFF FINAL; LYMPH % 31.8 % (9.0-44.0); LYMPHOCYTE # 0.9 TH/MM3 (1.0-4.8); MEAN CELL VOLUME 87.7 FL (80.0-100.0); MEAN CORPUSCULAR HEMOGLOBIN 29.6 PG (27.0-34.0); MEAN CORPUSCULAR HGB CONC 33.7 % (32.0-36.0); MONO % 8.2 % (0.0-8.0); NEUT % 52.2 % (16.0-70.0); PLATELET COUNT 119 TH/MM3 (150-450); RED BLOOD COUNT 3.83 MIL/MM3 (4.50-5.90); WHITE BLOOD COUNT 2.8 TH/MM3 (4.0-11.0)
[2017-05-31] MEDS: MULTIVITAMINS/MINERALS THERAPEUTIC TAB PO SCH (08:08)
[2017-05-31] MEDS: THIAMINE HCL 100 MG TAB PO SCH (08:08)
[2017-05-31] MEDS: RAMIPRIL 5 MG CAP PO SCH (08:08)
[2017-05-31] MEDS: CARVEDILOL 3.125 MG TAB PO SCH ×2 (08:08→21:04)
[2017-05-31] MEDS: ONDANSETRON HCL 4 MG/2 ML VIAL IVP PRN (08:09)
[2017-05-31] MEDS: FOLIC ACID 1 MG TAB PO SCH (08:09)
[2017-05-31] MEDS: SODIUM CHLORIDE 0.9% FLUSH 10 ML FLUSH IV FLUSH SCH ×2 (08:09→21:04)
[2017-05-31] MEDS: ASPIRIN 81 MG CHEW TAB CHEW SCH (08:09)
[2017-05-31 08:10] LABS: BICARBONATE 31.6 MEQ/L (21.0-32.0); MAGNESIUM 1.6 MG/DL (1.5-2.5)
[2017-05-31 08:23] LABS: POTASSIUM 3.9 MEQ/L (3.5-5.1)
--- NOTE | 2017-05-31 14:48 | HHI.PR ---
Subjective Remarks Patient reports he still having mid epigastric discomfort and chest pain. He believes anxiety is contributing. Objective Vitals Vital Signs Date Time Temp Pulse Resp B/P Pulse Ox O2 Delivery O2 Flow Rate FiO2 05/31/17 12:00 97.8 61 20 133/65 95 05/31/17 08:00 65 05/31/17 08:00 97.9 66 20 133/70 93 05/31/17 08:00 65 05/31/17 06:43 18 05/31/17 04:00 98.0 61 18 133/65 94 05/31/17 00:00 97.8 63 18 136/65 98 05/30/17 22:44 66 05/30/17 22:15 98.5 82 18 145/63 95 05/30/17 19:52 94 05/30/17 19:23 98.5 77 18 149/71 96 05/30/17 19:22 89 05/30/17 16:00 97.9 75 18 149/71 97 I/O 05/30/17 05/30/17 05/30/17 05/31/17 05/31/17 05/31/17 07:00 15:00 23:00 07:00 15:00 23:00 Intake Total 240 ml 700 ml 496 ml 240 ml Output Total 450 ml Balance 240 ml 700 ml 496 ml -210 ml Intake Oral 240 ml 700 ml 480 ml 240 ml IV Total 16 ml Output Urine Total 450 ml # Voids 2 2 # Bowel Movements 1 2 Result Diagram: 05/31/17 0652 05/31/17 0652 Imaging Last Impressions Abdomen/Pelvis CT 05/30/17 0000 Signed Impressions: Service Date/Time: Tuesday, May 30, 2017 13:18 - CONCLUSION: 1. Cirrhotic appearing liver without abdominal ascites. 2. Diverticulosis without diverticulitis. 3. Gynecomastia on the right. Eric Sherman MD Chest X-Ray 05/29/17 5456 Signed Impressions: Service Date/Time: Monday, May 29, 2017 23:21 - CONCLUSION: Hypoinflation with minimal bibasilar atelectatic changes but no confluent infiltrate. Octavio Reeder MD Objective Remarks GENERAL: This is a well-nourished, well-developed patient, in no apparent distress. CARDIOVASCULAR: Normal rate and regular rhythm without murmurs, gallops, or rubs. RESPIRATORY: Good respiratory efforts. Breath sounds equal and clear to auscultation bilaterally. GASTROINTESTINAL: Abdomen soft, non-distended. Mild midepigastric tenderness to palpation. Normal active bowel sounds MUSCULOSKELETAL: Extremities without cyanosis, or edema. NEURO: Alert & Oriented x4 to person, place, time, situation. Moves all ext x4 PSYCH: Anxious A/P Problem List: (1) Chest pain ICD Code: R07.9 Status: Acute (2) Elevated troponin ICD Code: R74.8 Status: Acute Assessment and Plan 61 y/o male with a history of HTN, COPD, CHF, AICD and DVTs presents to the ED with complaints of chest pain. Atypical Chest Pain: rule out ACS, upon review of EMR, patient is noted to have chest pain admissions after alcohol binges. Cardiac catheterization February2017 showed 30% ostial LAD lesion Dr. Goldstein recommended medical management, with nonischemic cardiomyopathy. CT-PA on 03/09/17 and 05/11/17 negative for PE. -Trend serial cardiac enzymes, Troponin 0.05 -->0.07 --> 0.06 (baseline is 0.06 on previous admissions) -EKG shows paced rhythm, no acute ischemic changes -Cardiology evaluated the patient. Advised continuing medical management. No further workup indicated at this time. -continue medical management for now with aspirin, BB, ACEi Epigastric Pain: suspect gastritis with recent alcohol binge, patient tender to palpation at epigastric area, no prior work up with endoscopy or CT abdomen -CT abdomen unremarkable -continue IV protonix 40mg daily -GI following and recommends EGD/Colonoscopy tomorrow if he is still in the hospital. Alcohol Abuse with Acute Alcohol Withdrawal: patient binges on alcohol, etoh level 363 upon arrival -Counseled on alcohol cessation -Withdrawal precautions -[facility] protocol ordered -thiamine/folate/multivitamin DVT on Coumadin: patient reportedly on Coumadin since age 37 -INR 1.5 -Continue to hold Coumadin for now DVT prophylaxis: SCDs Discharge Planning Probable discharge tomorrow after endoscopy is cleared by GI. Problem Qualifiers (1) Chest pain: Qualified Code: R07.9 - Chest pain, unspecified type Consuelo Laboy MD May 31, 2017 14:48
[2017-05-31] MEDS: oxyCODONE/ACETAMINOPHEN 10 MG/325 MG TAB PO PRN (15:51)
[2017-05-31] MEDS ORDERED: PEG (High)/E-LYTE SOLN 4000 ML BTL PO ONE (16:30)
--- NOTE | 2017-05-31 16:34 | HHI.GIFU ---
Subjective Remarks Pt still with epigastric pain, relatively unchanged. (Esther Louie E GAUTAM) Objective Vitals I&O Vital Signs Date Time Temp Pulse Resp B/P Pulse Ox O2 Delivery O2 Flow Rate FiO2 05/31/17 12:00 97.8 61 20 133/65 95 05/31/17 08:00 65 05/31/17 08:00 97.9 66 20 133/70 93 05/31/17 08:00 65 05/31/17 06:43 18 05/31/17 04:00 98.0 61 18 133/65 94 05/31/17 00:00 97.8 63 18 136/65 98 05/30/17 22:44 66 05/30/17 22:15 98.5 82 18 145/63 95 05/30/17 19:52 94 05/30/17 19:23 98.5 77 18 149/71 96 05/30/17 19:22 89 I/O 05/30/17 05/30/17 05/30/17 05/31/17 05/31/17 05/31/17 07:00 15:00 23:00 07:00 15:00 23:00 Intake Total 240 ml 700 ml 496 ml 240 ml Output Total 450 ml Balance 240 ml 700 ml 496 ml -210 ml Intake Oral 240 ml 700 ml 480 ml 240 ml IV Total 16 ml Output Urine Total 450 ml # Voids 2 2 # Bowel Movements 1 2 Laboratory Laboratory Tests Test 05/31/17 06:52 White Blood Count 2.8 Red Blood Count 3.83 Hemoglobin 11.3 Hematocrit 33.6 Mean Corpuscular Volume 87.7 Mean Corpuscular Hemoglobin 29.6 Mean Corpuscular Hemoglobin 33.7 Concent Red Cell Distribution Width 16.0 Platelet Count 119 Mean Platelet Volume 9.4 Neutrophils (%) (Auto) 52.2 Lymphocytes (%) (Auto) 31.8 Monocytes (%) (Auto) 8.2 Eosinophils (%) (Auto) 5.8 Basophils (%) (Auto) 2.0 Neutrophils # (Auto) 1.5 Lymphocytes # (Auto) 0.9 Monocytes # (Auto) 0.2 Eosinophils # (Auto) 0.2 Basophils # (Auto) 0.1 CBC Comment DIFF FINAL Differential Comment Sodium Level 138 Potassium Level 3.9 Chloride Level 101 Carbon Dioxide Level 31.6 Anion Gap 5 Blood Urea Nitrogen 17 Creatinine 0.85 Estimat Glomerular Filtration 92 Rate Random Glucose 94 Calcium Level 8.4 Magnesium Level 1.6 Imaging Last Impressions Abdomen/Pelvis CT 05/30/17 0000 Signed Impressions: Service Date/Time: Tuesday, May 30, 2017 13:18 - CONCLUSION: 1. Cirrhotic appearing liver without abdominal ascites. 2. Diverticulosis without diverticulitis. 3. Gynecomastia on the right. Eric Sherman MD Chest X-Ray 05/29/17 2317 Signed Impressions: Service Date/Time: Monday, May 29, 2017 23:21 - CONCLUSION: Hypoinflation with minimal bibasilar atelectatic changes but no confluent infiltrate. Octavio Reeder MD Physical Exam HEENT: Pupils round and reactive to light; normocephalic; atraumatic; no jaundice. Throat is clear. CHEST: CTA CARDIAC: Regular ABDOMEN: +BS, soft nondistended, epigastric tenderness. EXTREMITIES: No clubbing, cyanosis, or edema. SKIN: Normal; no rash; no jaundice. EXPEDITIONARY FORCE COMBAT SKILLS: No focal deficits; alert and oriented times three. (Esther Louie) Assessment and Plan Plan ASSESSMENT: - Atypical chest pain. Patient with hx of COPD, CHF, AICD, EF of 20%, elevated but flat troponin. Pt was seen by Cardiology and felt to be noncardiac in nature. - Epigastric abdomen burning pain with episodic of vomiting. Pt with no known hx of PUD, never had EGD before, started drinking heavily for [address] Abdomen/pelvis (05/30/18) ---> 1. Cirrhotic appearing liver without abdominal ascites. 2. Diverticulosis without diverticulitis. 3. Gynecomastia on the right. - Wt loss of 90 lbs weight loss due to eating better and walking. No previous evaluation with colonoscopy. - Alcohol abuse- He is recovering alcoholic. He was sober for 8 months, but started drinking heavily 2 days prior to admission. Ethyl alcohol levels 363 at admission. Pt seems to have issues with ongoing binge drinking. CT Abd/pelvis with evidence of cirrhosis. Viral hepatitis panel is pending. - Slight anemia. No active bleeding. H/H 11.3/33.6. - Elevation in AST. Likely related to alcohol. Lipase normal - Hx of DVTs on Coumadin. Pt has been on Coumadin since age 37. INR 1.5 on 05/29. Coumadin has been on hold. Repeat INR in AM - HTN, COPD, CHF, AICD per attending. Plan: - Repeat INR in AM - Plan for evaluation with EGD/colonoscopy for tomorrow. - GoLytely - NPO after MN except meds - Stressed to alcohol cessation - Await viral hepatitis results. - Pt will need outpt followup with GI as well for continued monitoring of his liver - Supportive care - Patient seen and examined by Dr Blanco and myself and this note is written on her behalf. (Esther Louie) Esther Louie May 31, 2017 16:34 Emily Blanco MD May 31, 2017 17:28
[2017-05-31] MEDS ORDERED: MORPHINE SULFATE 8 MG/ML INJ IV PUSH ONE (21:15)
[2017-05-31] MEDS: SODIUM CHLORIDE 0.9% FLUSH 10 ML FLUSH IV FLUSH PRN (21:45)
[2017-06-01] VITALS (8 sets, daily range): BP systolic 109–153; BP diastolic 56–76; PULSE 66–80; RESP 18–20; TEMP 97.5–98; O2SAT 94–99
[2017-06-01] MEDS: oxyCODONE/ACETAMINOPHEN 10 MG/325 MG TAB PO PRN ×4 (02:29→20:22)
[2017-06-01] MEDS: SODIUM CHLORIDE 0.9% FLUSH 10 ML FLUSH IV FLUSH PRN (05:30)
[2017-06-01] MEDS: PANTOPRAZOLE SODIUM 40 MG VIAL IV PUSH SCH (05:30)
[2017-06-01] MEDS: CARVEDILOL 3.125 MG TAB PO SCH ×2 (08:36→20:22)
[2017-06-01] MEDS: SODIUM CHLORIDE 0.9% FLUSH 10 ML FLUSH IV FLUSH SCH ×2 (09:00→20:22)
[2017-06-01 09:41] LABS: INTERNATIONAL NORMALIZED RATIO 1.3 RATIO; PROTHROMBIN TIME - PATIENT 14.6 SEC (9.8-11.6)
[2017-06-01] MEDS ORDERED: GLUCAGON 1 MG/ML VIAL OTHER ONE ×2 (09:57→10:11)
[2017-06-01] MEDS ORDERED: PROPOFOL 200 MG/20 ML AMP IV ONE (10:21)
--- NOTE | 2017-06-01 10:30 | HHI.GIFU ---
Subjective Remarks Immediate postop note: EGD with biopsy and colonoscopy with snare polypectomy with biopsy Indication: abdominal pain Meds: MAC Findings: Esophagus: normal Stomach: antral gastritis, biopsy taken Duodenum: normal Cecum: normal hepatic flexure small polyp cold snare transverse colon small polyp cold biopsy, another polyp 9mm snare polypectomy with cautery severe sigmoid diverticulosis with spasm Rectum hemorrhoids Objective Vitals I&O Vital Signs Date Time Temp Pulse Resp B/P Pulse Ox O2 Delivery O2 Flow Rate FiO2 06/01/17 08:50 97.9 69 18 153/67 95 06/01/17 08:00 97.9 67 20 116/57 94 06/01/17 06:34 97.5 66 19 137/62 94 06/01/17 01:53 97.8 79 20 140/62 97 05/31/17 21:08 97.3 67 20 127/61 98 05/31/17 19:52 66 05/31/17 16:00 97.8 65 20 122/60 95 05/31/17 12:00 97.8 61 20 133/65 95 I/O 05/31/17 05/31/17 05/31/17 06/01/17 06/01/17 06/01/17 07:00 15:00 23:00 07:00 15:00 23:00 Intake Total 496 ml 240 ml Output Total 450 ml Balance 496 ml -210 ml Intake Oral 480 ml 240 ml IV Total 16 ml Output Urine Total 450 ml # Voids 2 # Bowel Movements 2 Laboratory Laboratory Tests Test 06/01/17 08:36 Prothrombin Time 14.6 Prothromb Time International 1.3 Ratio Physical Exam HEENT: Pupils round and reactive to light; normocephalic; atraumatic; no jaundice. Throat is clear. CHEST: CTA CARDIAC: Regular ABDOMEN: +BS, soft nondistended, epigastric tenderness. EXTREMITIES: No clubbing, cyanosis, or edema. SKIN: Normal; no rash; no jaundice. FINANCIAL EXAMINER: No focal deficits; alert and oriented times three. Assessment and Plan Plan ASSESSMENT: - Atypical chest pain. Patient with hx of COPD, CHF, AICD, EF of 20%, elevated but flat troponin. Pt was seen by Cardiology and felt to be noncardiac in nature. - Epigastric abdomen burning pain with episodic of vomiting. Pt with no known hx of PUD, never had EGD before, started drinking heavily for [address] Abdomen/pelvis (05/30/18) ---> 1. Cirrhotic appearing liver without abdominal ascites. 2. Diverticulosis without diverticulitis. 3. Gynecomastia on the right. - Wt loss of 90 lbs weight loss due to eating better and walking. No previous evaluation with colonoscopy. - Alcohol abuse- He is recovering alcoholic. He was sober for 8 months, but started drinking heavily 2 days prior to admission. Ethyl alcohol levels 363 at admission. Pt seems to have issues with ongoing binge drinking. CT Abd/pelvis with evidence of cirrhosis. Viral hepatitis panel is pending. - Slight anemia. No active bleeding. H/H 11.3/33.6. - Elevation in AST. Likely related to alcohol. Lipase normal - Hx of DVTs on Coumadin. Pt has been on Coumadin since age 37. INR 1.5 on 05/29. Coumadin has been on hold. Repeat INR in AM - HTN, COPD, CHF, AICD per attending. Plan: - Repeat INR in AM - EGD and colonoscopy performed, findings antral gastritis and few small colon polyps. One removed with mild cautery - Resume cardiac diet - Stressed to alcohol cessation - Await viral hepatitis results. - Pt will need outpt followup with GI as well for continued monitoring of his liver - Supportive care Jackson Orozco MD Jun 01, 2017 10:30
--- NOTE | 2017-06-01 11:24 | MR ---
cc: JACKSON OROZCO JR., MD, MICHAEL DATE: 06/01/2017 PROCEDURE Esophagogastroduodenoscopy with biopsy, and colonoscopy with snare polypectomy with biopsy. INDICATION Abdominal pain. DETAILS OF PROCEDURE After informed consent was obtained the patient was placed in the left side down position. He was sedated by the anesthesia service. After adequate sedation was achieved the Pentax videoscope was inserted in the oropharynx and advanced through the esophagus, stomach and duodenum. It was then slowly withdrawn examining the mucosal surfaces carefully. A biopsy was obtained from the gastric antrum. The scope was retroflexed in the fundus and cardia. The scope was then straightened and pulled out through the esophagus and the procedure was terminated. A colonoscopy was then performed. A digital rectal examination was normal. The Pentax video colonoscope was inserted in the anal canal and advanced to the colon reaching the base of the cecum. Glucagon was administered to decrease the contractions of the colon. The scope was then slowly withdrawn examining the mucosal surfaces carefully. In the hepatic flexure area there was a small polyp removed with cold snare polypectomy technique. The scope was then withdrawn into the transverse colon. A small polyp was removed with cold forceps biopsy technique. The scope was further withdrawn adjacent to the other polyp in the transverse colon, a slightly larger polyp that was erythematous. This was removed with snare polypectomy technique with mild cautery. The scope was then withdrawn through the remainder of the colon. It was retroflexed in the rectum and then straightened and pulled through the anal canal. The procedure was terminated. She tolerated the procedure well and was returned to the recovery area in good condition. FINDINGS 1. The esophagus was normal. 2. In the stomach there was antral gastritis and biopsy was taken. 3. The duodenum was normal. 4. The cecum was normal. 5. In the hepatic flexure there was a small polyp removed with cold snare polypectomy technique. 6. In the transverse colon there were two polyps, a small polyp removed with cold forceps technique and a larger polyp 9 mm removed with snare polypectomy technique with mild cautery. They were submitted together. 7. There was severe sigmoid diverticulosis with spasm. 8. There was internal hemorrhoids. IMPRESSION 1. Gastritis. 2. Colon polyps. 3. Severe diverticulosis. 4. Hemorrhoids. RECOMMENDATIONS 1. Will await the biopsy result. 2. Will start the patient on a regular cardiac diet. 3. The patient should start back on Coumadin in about 5 days. 4. The patient should take Metamucil one tablespoon daily because of the severe diverticulosis with spasm. Jackson Orozco MD HHS/BT /10:44 AM /11:18 AM
[2017-06-01] MEDS: RAMIPRIL 5 MG CAP PO SCH (11:25)
[2017-06-01] MEDS: ASPIRIN 81 MG CHEW TAB CHEW SCH (11:25)
[2017-06-01] MEDS: FOLIC ACID 1 MG TAB PO SCH (11:25)
[2017-06-01] MEDS: THIAMINE HCL 100 MG TAB PO SCH (11:25)
[2017-06-01] MEDS: MULTIVITAMINS/MINERALS THERAPEUTIC TAB PO SCH (11:25)
[2017-06-01] MEDS ORDERED: ePHEDrine/NS 25 MG/5 ML SYR IV ONE (12:00)
--- NOTE | 2017-06-01 14:31 | HHI.PR ---
Subjective Remarks The patient says he has significant pain in the rib area. He said it was 10/10 in severity. He was concerned it might be his lungs. He was not the findings of the endoscopies. He said he was anxious. Objective Vitals Vital Signs Date Time Temp Pulse Resp B/P Pulse Ox O2 Delivery O2 Flow Rate FiO2 06/01/17 10:47 75 18 105/50 95 06/01/17 10:37 78 18 114/61 97 06/01/17 10:27 97.9 86 18 108/50 99 06/01/17 08:50 97.9 69 18 153/67 95 06/01/17 08:00 71 06/01/17 08:00 97.9 67 20 116/57 94 06/01/17 06:34 97.5 66 19 137/62 94 06/01/17 01:53 97.8 79 20 140/62 97 05/31/17 21:08 97.3 67 20 127/61 98 05/31/17 19:52 66 05/31/17 16:00 97.8 65 20 122/60 95 I/O 05/31/17 05/31/17 05/31/17 06/01/17 06/01/17 06/01/17 07:00 15:00 23:00 07:00 15:00 23:00 Intake Total 496 ml 240 ml 600 ml Output Total 450 ml Balance 496 ml -210 ml 600 ml Intake Oral 480 ml 240 ml IV Total 16 ml Other 600 ml Output Urine Total 450 ml # Voids 2 2 # Bowel Movements 2 Result Diagram: 05/31/17 0652 05/31/17 0652 Imaging Last Impressions Abdomen/Pelvis CT 05/30/17 0000 Signed Impressions: Service Date/Time: Tuesday, May 30, 2017 13:18 - CONCLUSION: 1. Cirrhotic appearing liver without abdominal ascites. 2. Diverticulosis without diverticulitis. 3. Gynecomastia on the right. Eric Sherman MD Chest X-Ray 05/29/17 1076 Signed Impressions: Service Date/Time: Monday, May 29, 2017 23:21 - CONCLUSION: Hypoinflation with minimal bibasilar atelectatic changes but no confluent infiltrate. Octavio Reeder MD Objective Remarks GENERAL: This is a well-nourished, well-developed patient, in no apparent distress. HEENT: NC, AT. CARDIOVASCULAR: Normal rate and regular rhythm without murmurs, gallops, or rubs. RESPIRATORY: Good respiratory efforts. Breath sounds equal and clear to auscultation bilaterally. GASTROINTESTINAL: Abdomen soft, non-distended. No epigastric tenderness to palpation. Normal active bowel sounds MUSCULOSKELETAL: Extremities without cyanosis, or edema. NEURO: Alert & Oriented x4 to person, place, time, situation. Moves all ext x4 PSYCH: Flat affect Procedures EGD/ colonoscopy Medications and IVs Current Medications Medications (Trade) Dose Ordered Sig/Amelia Route Start Time Stop Time Status Last Admin (NS Flush) 2 ml UNSCH PRN IV FLUSH 05/30/17 05:45 06/01/17 05:30 (NS Flush) 2 ml BID IV FLUSH 05/30/17 09:00 05/31/17 21:04 (Tylenol) 650 mg Q4H PRN PO 05/30/17 05:45 (Zofran Inj) 4 mg Q6H PRN IVP 05/30/17 05:45 05/31/17 08:09 (Tylenol) 650 mg Q6H PRN PO 05/30/17 05:45 ([place] 5-325 Mg) 1 tab Q4H PRN PO 05/30/17 05:45 (Narcan Inj) 0.4 mg UNSCH PRN IV 05/30/17 05:45 (Milk Of Magnesia Liq) 30 ml Q12H PRN PO 05/30/17 05:45 (Senokot) 17.2 mg Q12H PRN PO 05/30/17 05:45 (Dulcolax Supp) 10 mg DAILY PRN RECTAL 05/30/17 05:45 (Lactulose Liq) 30 ml DAILY PRN PO 05/30/17 05:45 (Tums Chew) 500 mg Q2H PRN CHEW 05/30/17 06:00 (Romazicon Inj) 0.2 mg Q1M PRN IV PUSH 05/30/17 06:30 (Ativan) 1 mg Q4H PRN PO 05/30/17 06:30 05/30/17 20:33 (Ativan Inj) 1 mg Q4H PRN IV PUSH 05/30/17 06:30 (Ativan) 2 mg Q2H PRN PO 05/30/17 06:30 (Ativan Inj) 2 mg Q2H PRN IV PUSH 05/30/17 06:30 (Ativan Inj) 2 mg Q1H PRN IV PUSH 05/30/17 06:30 (Ativan Inj) 2 mg Q15M PRN IV PUSH 05/30/17 06:30 (Folate) 1 mg DAILY PO 05/30/17 09:00 06/04/17 08:59 06/01/17 11:25 (Vitamin B1) 100 mg DAILY PO 05/30/17 09:00 06/01/17 11:25 (Theragran M Tab) 1 tab DAILY PO 05/30/17 09:00 06/04/17 08:59 06/01/17 11:25 (Aspirin Chew) 81 mg DAILY CHEW 05/31/17 09:00 06/01/17 11:25 (Coreg) 3.125 mg Q12HR PO 05/30/17 09:30 06/01/17 08:36 (Altace) 5 mg DAILY PO 05/30/17 09:30 06/01/17 11:25 (Percocet 10-325 Mg) 1 tab Q4H PRN PO 06/01/17 17:15 UNV (Protonix) 40 mg Q12HR PO 06/01/17 21:00 UNV (Mag-Al Plus Susp Liq) 30 ml ONCE ONCE PO 06/01/17 14:45 06/01/17 14:46 UNV A/P Problem List: (1) Chest pain ICD Code: R07.9 Status: Acute (2) Elevated troponin ICD Code: R74.8 Status: Acute Assessment and Plan 61 y/o male with a history of HTN, COPD, CHF, AICD and DVTs presents to the ED with complaints of chest pain. Atypical Chest Pain Cardiac catheterization February 2017 showed 30% ostial LAD lesion, Dr. Goldstein recommended medical management, with nonischemic cardiomyopathy. CT- PA on 03/09/17 and 05/11/17 negative for PE. Cardiology evaluated the patient, advised continuing medical management, no further workup indicated at this time. - continue medical management for now with aspirin, BB, ACEi. - telemetry. Epigastric Pain Suspect gastritis with recent alcohol binge. CT abdomen unremarkable. EGD/ colonoscopy 06/01: antral gastritis, polyps, severe sigmoid diverticulosis with spasm, rectum hemorrhoids. - continue Protonix 40mg BID. - follow up with GI. - repeat LFTs, lipase. - repeat CXR. - Maalox as needed. - follow pathology. Alcohol Abuse with Acute Alcohol Withdrawal Patient binges on alcohol, etoh level 363 upon arrival. - Counseled on alcohol cessation. - Withdrawal precautions. - thiamine/folate/multivitamin. DVT on Coumadin Patient reportedly on Coumadin since age 37. - resume Coumadin on 06/06 per GI. Anxiety Chronic. - Ativan as needed. Pancytopenia May be s/t underlying liver disease. - follow CBC. DVT prophylaxis: SCDs Discharge Planning Awaiting clinical improvement Problem Qualifiers (1) Chest pain: Qualified Code: R07.9 - Chest pain, unspecified type Gato Swanson DO Jun 01, 2017 14:31
[2017-06-01] MEDS ORDERED: LORazepam 0.5 MG TAB PO ONE (15:00)
[2017-06-01] MEDS ORDERED: ALUMINUM/MAGNESIUM/SIMETH 30 ML CUP PO ONE (15:00)
--- NOTE | 2017-06-01 16:38 | RADRPT ---
EXAM DATE/TIME: 06/01/2017 15:56 [facility] COMPARISON: CHEST SINGLE AP, May 29, 2017, 23:21. INDICATIONS : Chest pain. MEDICAL HISTORY : Hypertension. Cardiovascular disease. SURGICAL HISTORY : Pacemaker. Cholecystectomy. ENCOUNTER: Initial ACUITY: 4 - 6 days PAIN SCORE: 8/10 LOCATION: Bilateral chest FINDINGS: The lungs are clear without infiltrate, nodule, or mass. There is no appreciable pleural effusion fo r technique. Heart and mediastinum are unremarkable. Left subclavian transvenous pacer wires are pre sent with tips in the right atrium and right ventricle. CONCLUSION: No acute cardiopulmonary disease. Danyell Pollard MD on June 01, 2017 at 16:35 Board Certified Radiologist. This report was verified electronically.
[2017-06-01 17:16] LABS: AUTOMATED NEUTROPHIL # 1.5 TH/MM3 (1.8-7.7); BASOPHIL % 1.4 % (0.0-2.0); EOSINOPHIL # 0.2 TH/MM3 (0-0.4); EOSINOPHIL % 5.4 % (0.0-4.0); LYMPH % 32.4 % (9.0-44.0); MEAN CELL VOLUME 89.8 FL (80.0-100.0); MEAN CORPUSCULAR HGB CONC 32.4 % (32.0-36.0); MONO % 12.1 % (0.0-8.0); NEUT % 48.7 % (16.0-70.0); PLATELET COUNT 92 TH/MM3 (150-450); RED BLOOD COUNT 3.68 MIL/MM3 (4.50-5.90); RED CELL DISTRIBUTION WIDTH 15.9 % (11.6-17.2)
[2017-06-01 17:19] LABS: HEMO FLAGS AUTO DIFF
[2017-06-01 17:30] LABS: ALT (GPT) 61 U/L (12-78); ANION GAP 6 MEQ/L (5-15); AST (GOT) 104 U/L (15-37); BICARBONATE 29.4 MEQ/L (21.0-32.0); BLOOD UREA NITROGEN 13 MG/DL (7-18); CHLORIDE 103 MEQ/L (98-107); GLOMERULAR FILTRATION RATE 86 ML/MIN (>89); POTASSIUM 3.7 MEQ/L (3.5-5.1); SODIUM (NA) 138 MEQ/L (136-145)
[2017-06-01 17:33] LABS: ALKALINE PHOSPHATASE 92 U/L (45-117)
[2017-06-01 18:07] LABS: SCAN/DIFF AUTO DIFF CONFIRMED
[2017-06-01] MEDS: PANTOPRAZOLE SOD 40 MG DELAYED RELEASE TAB PO SCH (20:22)
[2017-06-01] MEDS: LORazepam 0.5 MG TAB PO PRN (20:23)
[2017-06-02] VITALS (7 sets, daily range): BP systolic 107–117; BP diastolic 54–58; PULSE 64–73; RESP 12–18; TEMP 97.5–98.1; O2SAT 96–98
[2017-06-02] MEDS: oxyCODONE/ACETAMINOPHEN 10 MG/325 MG TAB PO PRN ×5 (00:19→20:29)
[2017-06-02] MEDS: LORazepam 0.5 MG TAB PO PRN ×2 (04:23→20:29)
[2017-06-02 07:08] LABS: HEMATOCRIT 30.8 % (39.0-51.0); MEAN CELL VOLUME 88.5 FL (80.0-100.0); MEAN CORPUSCULAR HEMOGLOBIN 29.4 PG (27.0-34.0); MEAN CORPUSCULAR HGB CONC 33.2 % (32.0-36.0); PLATELET COUNT 88 TH/MM3 (150-450); RED BLOOD COUNT 3.48 MIL/MM3 (4.50-5.90); RED CELL DISTRIBUTION WIDTH 15.9 % (11.6-17.2); WHITE BLOOD COUNT 2.5 TH/MM3 (4.0-11.0)
[2017-06-02 07:11] LABS: REVIEW FLAG FINAL
[2017-06-02 07:31] LABS: BICARBONATE 29.3 MEQ/L (21.0-32.0); MAGNESIUM 1.6 MG/DL (1.5-2.5); POTASSIUM 3.6 MEQ/L (3.5-5.1)
[2017-06-02] MEDS: FOLIC ACID 1 MG TAB PO SCH (09:14)
[2017-06-02] MEDS: ASPIRIN 81 MG CHEW TAB CHEW SCH (09:14)
[2017-06-02] MEDS: MULTIVITAMINS/MINERALS THERAPEUTIC TAB PO SCH (09:14)
[2017-06-02] MEDS: CARVEDILOL 3.125 MG TAB PO SCH ×2 (09:14→20:29)
[2017-06-02] MEDS: PANTOPRAZOLE SOD 40 MG DELAYED RELEASE TAB PO SCH ×2 (09:14→20:29)
[2017-06-02] MEDS: SODIUM CHLORIDE 0.9% FLUSH 10 ML FLUSH IV FLUSH SCH ×2 (09:14→20:28)
[2017-06-02] MEDS: THIAMINE HCL 100 MG TAB PO SCH (09:14)
[2017-06-02] MEDS: RAMIPRIL 5 MG CAP PO SCH (09:14)
[2017-06-02] MEDS: ONDANSETRON HCL 4 MG/2 ML VIAL IVP PRN ×3 (09:54→20:29)
[2017-06-02] MEDS ORDERED: ALUMINUM/MAGNESIUM/SIMETH 30 ML CUP PO PRN (13:30)
--- NOTE | 2017-06-02 13:35 | HHI.PR ---
Subjective Remarks The patient says that he feels a little bit better. He says he still has abdominal pain when he eats. He also feels pretty lethargic. He feels like his pacemaker leads are bothering him. He says he follows with a student services director in [place]. He says his anxiety is improved with the Ativan. Discussed with nursing. Objective Vitals Vital Signs Date Time Temp Pulse Resp B/P Pulse Ox O2 Delivery O2 Flow Rate FiO2 06/02/17 12:00 97.9 73 16 107/55 97 06/02/17 08:00 64 06/02/17 08:00 97.7 70 12 117/58 97 06/02/17 07:00 97 Room Air 06/02/17 04:20 Room Air 06/02/17 04:00 97.7 65 18 107/54 97 06/02/17 00:00 Room Air 06/02/17 00:00 98.1 70 18 110/57 96 06/01/17 20:37 66 06/01/17 20:10 Room Air 06/01/17 20:00 98.0 68 18 109/56 98 06/01/17 16:00 97.8 80 20 129/69 96 I/O 06/01/17 06/01/17 06/01/17 06/02/17 06/02/17 06/02/17 07:00 15:00 23:00 07:00 15:00 23:00 Intake Total 600 ml 482 ml 240 ml Balance 600 ml 482 ml 240 ml Intake Oral 480 ml 240 ml IV Total 0 ml 2 ml Other 600 ml # Voids 2 1 1 Result Diagram: 06/02/17 0615 06/02/17 0615 Imaging Last Impressions Chest X-Ray 06/01/17 0000 Signed Impressions: Service Date/Time: Thursday, June 01, 2017 15:56 - CONCLUSION: No acute cardiopulmonary disease. Danyell Pollard MD Abdomen/Pelvis CT 05/30/17 0000 Signed Impressions: Service Date/Time: Tuesday, May 30, 2017 13:18 - CONCLUSION: 1. Cirrhotic appearing liver without abdominal ascites. 2. Diverticulosis without diverticulitis. 3. Gynecomastia on the right. Eric Sherman MD Objective Remarks GENERAL: This is a well-nourished, well-developed patient, in no apparent distress. HEENT: NC, AT. CARDIOVASCULAR: Normal rate and regular rhythm without murmurs, gallops, or rubs. RESPIRATORY: Good respiratory efforts. Breath sounds equal and clear to auscultation bilaterally. GASTROINTESTINAL: Abdomen soft, non-distended. No epigastric tenderness to palpation. Normal active bowel sounds MUSCULOSKELETAL: Extremities without cyanosis, or edema. NEURO: Alert & Oriented x4 to person, place, time, situation. Moves all ext x4 PSYCH: Flat affect Procedures EGD/ colonoscopy Medications and IVs Current Medications Medications (Trade) Dose Ordered Sig/Amelia Route Start Time Stop Time Status Last Admin (NS Flush) 2 ml UNSCH PRN IV FLUSH 05/30/17 05:45 06/01/17 05:30 (NS Flush) 2 ml BID IV FLUSH 05/30/17 09:00 06/02/17 09:14 (Tylenol) 650 mg Q4H PRN PO 05/30/17 05:45 (Zofran Inj) 4 mg Q6H PRN IVP 05/30/17 05:45 06/02/17 09:54 (Tylenol) 650 mg Q6H PRN PO 05/30/17 05:45 ([place] 5-325 Mg) 1 tab Q4H PRN PO 05/30/17 05:45 (Narcan Inj) 0.4 mg UNSCH PRN IV 05/30/17 05:45 (Milk Of Magnesia Liq) 30 ml Q12H PRN PO 05/30/17 05:45 (Senokot) 17.2 mg Q12H PRN PO 05/30/17 05:45 (Dulcolax Supp) 10 mg DAILY PRN RECTAL 05/30/17 05:45 (Lactulose Liq) 30 ml DAILY PRN PO 05/30/17 05:45 (Tums Chew) 500 mg Q2H PRN CHEW 05/30/17 06:00 (Romazicon Inj) 0.2 mg Q1M PRN IV PUSH 05/30/17 06:30 (Folate) 1 mg DAILY PO 05/30/17 09:00 06/04/17 08:59 06/02/17 09:14 (Vitamin B1) 100 mg DAILY PO 05/30/17 09:00 06/02/17 09:14 (Theragran M Tab) 1 tab DAILY PO 05/30/17 09:00 06/04/17 08:59 06/02/17 09:14 (Aspirin Chew) 81 mg DAILY CHEW 05/31/17 09:00 06/02/17 09:14 (Coreg) 3.125 mg Q12HR PO 05/30/17 09:30 06/02/17 09:14 (Altace) 5 mg DAILY PO 05/30/17 09:30 06/02/17 09:14 (Percocet 10-325 Mg) 1 tab Q4H PRN PO 06/01/17 17:15 06/02/17 09:53 (Protonix) 40 mg Q12HR PO 06/01/17 21:00 06/02/17 09:14 (Ativan) 0.5 mg Q6H PRN PO 06/01/17 15:00 06/02/17 04:23 A/P Problem List: (1) Chest pain ICD Code: R07.9 Status: Acute (2) Elevated troponin ICD Code: R74.8 Status: Acute Assessment and Plan 61 y/o male with a history of HTN, COPD, CHF, AICD and DVTs presents to the ED with complaints of chest pain. Atypical chest pain Cardiac catheterization February 2017 showed 30% ostial LAD lesion, Dr. Goldstein recommended medical management, with nonischemic cardiomyopathy. CT- PA on 03/09/17 and 05/11/17 negative for PE. Cardiology evaluated the patient, advised continuing medical management, no further workup indicated at this time. The pt is concerned his pacemaker lead may be out of place. - continue medical management for now with aspirin, BB, ACEi. - telemetry. - outpt follow-up with cardiology. Epigastric pain Suspect gastritis with recent alcohol binge. CT abdomen unremarkable. EGD/ colonoscopy 06/01: antral gastritis, polyps, severe sigmoid diverticulosis with spasm, rectum hemorrhoids. AST slightly elevated but improved. - continue Protonix 40mg BID. - follow up with GI. - Maalox as needed. - follow pathology. Alcohol abuse with acute alcohol withdrawal Patient binges on alcohol, etoh level 363 upon arrival. - Counseled on alcohol cessation. - Withdrawal precautions. - thiamine/folate/multivitamin. DVT on Coumadin Patient reportedly on Coumadin since age 37. - resume Coumadin on 06/06 per GI. Anxiety Chronic. - Ativan as needed. Pancytopenia May be s/t underlying liver disease, alcohol induced bone marrow suppression. - follow CBC. - alcohol cessation instruction. DVT prophylaxis: SCDs Discharge Planning Anticipate d/c home in AM Problem Qualifiers (1) Chest pain: Qualified Code: R07.9 - Chest pain, unspecified type Gato Swanson DO Jun 02, 2017 13:35
--- NOTE | 2017-06-02 15:22 | HHI.GIFU ---
Subjective Remarks Pt resting in bed. c/o CP like when he came in. Objective Vitals I&O Vital Signs Date Time Temp Pulse Resp B/P Pulse Ox O2 Delivery O2 Flow Rate FiO2 06/02/17 12:00 97.9 73 16 107/55 97 06/02/17 08:00 64 06/02/17 08:00 97.7 70 12 117/58 97 06/02/17 07:00 97 Room Air 06/02/17 04:20 Room Air 06/02/17 04:00 97.7 65 18 107/54 97 06/02/17 00:00 Room Air 06/02/17 00:00 98.1 70 18 110/57 96 06/01/17 20:37 66 06/01/17 20:10 Room Air 06/01/17 20:00 98.0 68 18 109/56 98 06/01/17 16:00 97.8 80 20 129/69 96 I/O 06/01/17 06/01/17 06/01/17 06/02/17 06/02/17 06/02/17 07:00 15:00 23:00 07:00 15:00 23:00 Intake Total 600 ml 482 ml 240 ml 600 ml Balance 600 ml 482 ml 240 ml 600 ml Intake Oral 480 ml 240 ml 600 ml IV Total 0 ml 2 ml Other 600 ml # Voids 2 1 1 2 Laboratory Laboratory Tests Test 06/01/17 06/02/17 16:12 06:15 White Blood Count 3.0 2.5 Red Blood Count 3.68 3.48 Hemoglobin 10.7 10.2 Hematocrit 33.0 30.8 Mean Corpuscular Volume 89.8 88.5 Mean Corpuscular Hemoglobin 29.0 29.4 Mean Corpuscular Hemoglobin 32.4 33.2 Concent Red Cell Distribution Width 15.9 15.9 Platelet Count 92 88 Mean Platelet Volume 9.5 9.6 Neutrophils (%) (Auto) 48.7 Lymphocytes (%) (Auto) 32.4 Monocytes (%) (Auto) 12.1 Eosinophils (%) (Auto) 5.4 Basophils (%) (Auto) 1.4 Neutrophils # (Auto) 1.5 Lymphocytes # (Auto) 1.0 Monocytes # (Auto) 0.4 Eosinophils # (Auto) 0.2 Basophils # (Auto) 0.0 CBC Comment AUTO DIFF Differential Comment AUTO DIFF CONFIRMED Sodium Level 138 139 Potassium Level 3.7 3.6 Chloride Level 103 103 Carbon Dioxide Level 29.4 29.3 Anion Gap 6 7 Blood Urea Nitrogen 13 14 Creatinine 0.90 0.75 Estimat Glomerular Filtration 86 106 Rate Random Glucose 99 91 Calcium Level 8.5 8.5 Total Bilirubin 1.0 Aspartate Amino Transf 104 (AST/SGOT) Alanine Aminotransferase 61 (ALT/SGPT) Alkaline Phosphatase 92 Total Protein 6.6 Albumin 2.3 Lipase 89 Blood Smear Pathologist Review Magnesium Level 1.6 Imaging Last Impressions Chest X-Ray 06/01/17 0000 Signed Impressions: Service Date/Time: Thursday, June 01, 2017 15:56 - CONCLUSION: No acute cardiopulmonary disease. Danyell Pollard MD Abdomen/Pelvis CT 05/30/17 0000 Signed Impressions: Service Date/Time: Tuesday, May 30, 2017 13:18 - CONCLUSION: 1. Cirrhotic appearing liver without abdominal ascites. 2. Diverticulosis without diverticulitis. 3. Gynecomastia on the right. Eric Sherman MD Physical Exam HEENT: Pupils round and reactive to light; normocephalic; atraumatic; no jaundice. CHEST: CTA CARDIAC: Regular ABDOMEN: +BS, soft nondistended, epigastric tenderness. EXTREMITIES: No clubbing, cyanosis, or edema. SKIN: Normal; no rash; no jaundice. RELATIONS LIAISON: No focal deficits; alert and oriented times three. Assessment and Plan Plan ASSESSMENT: - Atypical chest pain. Patient with hx of COPD, CHF, AICD, EF of 20%, elevated but flat troponin. Pt was seen by Cardiology and felt to be noncardiac in nature. - Epigastric abdomen burning pain with episodic of vomiting. Pt with no known hx of PUD, never had EGD before, started drinking heavily for 2 days. s/p EGD/colonoscopy --> antral gastritis, polyps, severe sigmoid diverticulosis with spasm, diverticulosis CT Abdomen/pelvis (05/30/18) ---> 1. Cirrhotic appearing liver without abdominal ascites. 2. Diverticulosis without diverticulitis. 3. Gynecomastia on the right. - Wt loss of 90 lbs weight loss due to eating better and walking. No previous evaluation with colonoscopy. - Alcohol abuse- He is recovering alcoholic. He was sober for 8 months, but started drinking heavily 2 days prior to admission. Ethyl alcohol levels 363 at admission. Pt seems to have issues with ongoing binge drinking. CT Abd/pelvis with evidence of cirrhosis. Viral hepatitis panel is pending. - Slight anemia. No active bleeding. H/H 11.3/33.6. - Elevation in AST. Likely related to alcohol. Lipase normal. hep c ab reactive , will order viral load & genotype. - Hx of DVTs on Coumadin. Pt has been on Coumadin since age 37. INR 1.5 on 05/29. Coumadin has been on hold. Repeat INR in AM - HTN, COPD, CHF, AICD per attending. Plan: - hold coumadin 5d - Resume cardiac diet - Stressed to alcohol cessation - hep c viral load & genotype - F/U with GI on d/c for hep C labwork & liver monitoring - ok to d/c from GI standpoint with outpatient follow up - Supportive care This pt seen by myself and Dr Orozco and this note is written on his behalf. Teetee Corona Jun 02, 2017 15:22
[2017-06-03] VITALS (7 sets, daily range): BP systolic 101–137; BP diastolic 50–63; PULSE 61–70; RESP 16–20; TEMP 97.8–98.4; O2SAT 95–99
[2017-06-03] MEDS: oxyCODONE/ACETAMINOPHEN 10 MG/325 MG TAB PO PRN ×3 (04:06→18:55)
[2017-06-03] MEDS: ASPIRIN 81 MG CHEW TAB CHEW SCH (08:47)
[2017-06-03] MEDS: SODIUM CHLORIDE 0.9% FLUSH 10 ML FLUSH IV FLUSH SCH ×2 (08:48→21:05)
[2017-06-03] MEDS: FOLIC ACID 1 MG TAB PO SCH (08:48)
[2017-06-03] MEDS: MULTIVITAMINS/MINERALS THERAPEUTIC TAB PO SCH (08:48)
[2017-06-03] MEDS: CARVEDILOL 3.125 MG TAB PO SCH ×2 (08:48→21:05)
[2017-06-03] MEDS: THIAMINE HCL 100 MG TAB PO SCH (08:48)
[2017-06-03] MEDS: PANTOPRAZOLE SOD 40 MG DELAYED RELEASE TAB PO SCH ×2 (08:48→21:05)
[2017-06-03] MEDS: RAMIPRIL 5 MG CAP PO SCH (08:48)
[2017-06-03] MEDS: ACETAMINOPHEN/HYDROcodone 325 MG/5 MG TAB PO PRN ×2 (08:49→23:59)
--- NOTE | 2017-06-03 12:16 | HHI.PR ---
Subjective Remarks The patient said that he still had chest pain in the center of his chest that radiated to his left chest. He also complained of shortness of breath. He said the Maalox wasn't working. He wanted increased pain medication. Objective Vitals Vital Signs Date Time Temp Pulse Resp B/P Pulse Ox O2 Delivery O2 Flow Rate FiO2 06/03/17 10:00 20 06/03/17 08:54 97.8 70 20 101/50 95 06/03/17 05:42 Room Air 06/03/17 04:09 98.4 66 18 120/59 97 06/03/17 00:02 Room Air 06/03/17 00:00 98.0 69 18 110/53 96 06/02/17 20:15 Room Air 06/02/17 20:00 97.7 70 18 113/56 98 06/02/17 19:20 67 06/02/17 16:00 97.5 70 16 113/58 97 I/O 06/02/17 06/02/17 06/02/17 06/03/17 06/03/17 06/03/17 07:00 15:00 23:00 07:00 15:00 23:00 Intake Total 240 ml 600 ml 802 ml 600 ml Output Total 1000 ml 1200 ml Balance 240 ml 600 ml -198 ml -600 ml Intake Oral 240 ml 600 ml 800 ml 600 ml IV Total 2 ml Output Urine Total 1000 ml 1200 ml # Voids 1 2 # Bowel Movements 0 0 Result Diagram: 06/02/17 0615 06/02/17 0615 Imaging Last Impressions Chest X-Ray 06/01/17 0000 Signed Impressions: Service Date/Time: Thursday, June 01, 2017 15:56 - CONCLUSION: No acute cardiopulmonary disease. Danyell Pollard MD Abdomen/Pelvis CT 05/30/17 0000 Signed Impressions: Service Date/Time: Tuesday, May 30, 2017 13:18 - CONCLUSION: 1. Cirrhotic appearing liver without abdominal ascites. 2. Diverticulosis without diverticulitis. 3. Gynecomastia on the right. Eric Sherman MD Objective Remarks GENERAL: This is a well-nourished, well-developed patient, in no apparent distress. HEENT: NC, AT. CARDIOVASCULAR: Normal rate and regular rhythm without murmurs, gallops, or rubs. RESPIRATORY: Good respiratory efforts. Breath sounds equal and clear to auscultation bilaterally. GASTROINTESTINAL: Abdomen soft, non-distended. No epigastric tenderness to palpation. Normal active bowel sounds MUSCULOSKELETAL: Pacemaker in FLYNN chest. Extremities without cyanosis, or edema. NEURO: Alert & Oriented x4 to person, place, time, situation. Moves all ext x4 PSYCH: Flat affect Procedures EGD/ colonoscopy Medications and IVs Current Medications Medications (Trade) Dose Ordered Sig/Amelia Route Start Time Stop Time Status Last Admin (NS Flush) 2 ml UNSCH PRN IV FLUSH 05/30/17 05:45 06/01/17 05:30 (NS Flush) 2 ml BID IV FLUSH 05/30/17 09:00 06/03/17 08:48 (Tylenol) 650 mg Q4H PRN PO 05/30/17 05:45 (Zofran Inj) 4 mg Q6H PRN IVP 05/30/17 05:45 06/02/17 20:29 (Tylenol) 650 mg Q6H PRN PO 05/30/17 05:45 ([place] 5-325 Mg) 1 tab Q4H PRN PO 05/30/17 05:45 06/03/17 08:49 (Narcan Inj) 0.4 mg UNSCH PRN IV 05/30/17 05:45 (Milk Of Magnesia Liq) 30 ml Q12H PRN PO 05/30/17 05:45 (Senokot) 17.2 mg Q12H PRN PO 05/30/17 05:45 (Dulcolax Supp) 10 mg DAILY PRN RECTAL 05/30/17 05:45 (Lactulose Liq) 30 ml DAILY PRN PO 05/30/17 05:45 (Tums Chew) 500 mg Q2H PRN CHEW 05/30/17 06:00 (Romazicon Inj) 0.2 mg Q1M PRN IV PUSH 05/30/17 06:30 (Folate) 1 mg DAILY PO 05/30/17 09:00 06/04/17 08:59 06/03/17 08:48 (Vitamin B1) 100 mg DAILY PO 05/30/17 09:00 06/03/17 08:48 (Theragran M Tab) 1 tab DAILY PO 05/30/17 09:00 06/04/17 08:59 06/03/17 08:48 (Aspirin Chew) 81 mg DAILY CHEW 05/31/17 09:00 06/03/17 08:47 (Coreg) 3.125 mg Q12HR PO 05/30/17 09:30 06/03/17 08:48 (Altace) 5 mg DAILY PO 05/30/17 09:30 06/03/17 08:48 (Percocet 10-325 Mg) 1 tab Q4H PRN PO 06/01/17 17:15 06/03/17 04:06 (Protonix) 40 mg Q12HR PO 06/01/17 21:00 06/03/17 08:48 (Ativan) 0.5 mg Q6H PRN PO 06/01/17 15:00 06/02/17 20:29 (Mag-Al Plus Susp Liq) 30 ml Q6H PRN PO 06/02/17 13:30 06/02/17 15:16 A/P Problem List: (1) Chest pain ICD Code: R07.9 Status: Acute (2) Elevated troponin ICD Code: R74.8 Status: Acute Assessment and Plan 61 y/o male with a history of HTN, COPD, CHF, AICD and DVTs presents to the ED with complaints of chest pain. Atypical chest pain Cardiac catheterization February 2017 showed 30% ostial LAD lesion, Dr. Goldstein recommended medical management, with nonischemic cardiomyopathy. CT- PA on 03/09/17 and 05/11/17 negative for PE. Cardiology evaluated the patient, advised continuing medical management, no further workup indicated at this time. The pt is concerned his pacemaker lead may be out of place. The pt has had the same complaints before, likely costochondritis. - continue medical management for now with aspirin, BB, ACEi. - telemetry. - outpt follow-up with cardiology. Reconsult in house if no improvement. - recheck troponins. - oxycodone and troponins as needed. Epigastric pain Suspect gastritis with recent alcohol binge. CT abdomen unremarkable. EGD/ colonoscopy 06/01: antral gastritis, polyps, severe sigmoid diverticulosis with spasm, rectum hemorrhoids. AST slightly elevated but improved. - continue Protonix 40mg BID. - follow up with GI. - Maalox as needed. - follow pathology. Alcohol abuse with acute alcohol withdrawal Patient binges on alcohol, etoh level 363 upon arrival. - Counseled on alcohol cessation. - Withdrawal precautions. - thiamine/folate/multivitamin. DVT on Coumadin Patient reportedly on Coumadin since age 37. - resume Coumadin on 06/06 per GI. Anxiety Chronic. - Ativan as needed. Pancytopenia May be s/t underlying liver disease, alcohol induced bone marrow suppression. - follow CBC. - alcohol cessation instruction. - check HIV screen. - hematology consult if no improvement. DVT prophylaxis: SCDs Discharge Planning Awaiting clinical improvement Problem Qualifiers (1) Chest pain: Qualified Code: R07.9 - Chest pain, unspecified type Gato Swanson DO Jun 03, 2017 12:16
[2017-06-03 15:04] LABS: AUTOMATED NEUTROPHIL # 1.8 TH/MM3 (1.8-7.7); BASOPHIL % 0.8 % (0.0-2.0); EOSINOPHIL # 0.2 TH/MM3 (0-0.4); HEMATOCRIT 32.2 % (39.0-51.0); LYMPHOCYTE # 0.7 TH/MM3 (1.0-4.8); MEAN CELL VOLUME 89.3 FL (80.0-100.0); MEAN CORPUSCULAR HEMOGLOBIN 29.4 PG (27.0-34.0); MEAN CORPUSCULAR HGB CONC 32.9 % (32.0-36.0); MONO % 9.1 % (0.0-8.0); NEUT % 60.1 % (16.0-70.0); PLATELET COUNT 91 TH/MM3 (150-450); RED BLOOD COUNT 3.61 MIL/MM3 (4.50-5.90); RED CELL DISTRIBUTION WIDTH 15.9 % (11.6-17.2); WHITE BLOOD COUNT 2.9 TH/MM3 (4.0-11.0)
[2017-06-03 15:07] LABS: HEMO FLAGS AUTO DIFF
[2017-06-03 16:04] LABS: PLATELET ESTIMATE SMEAR LOW (NORMAL); PLATELET MORPHOLOGY NORMAL (NORMAL); SCAN/DIFF AUTO DIFF CONFIRMED
[2017-06-03 16:05] LABS: OVALOCYTES 1+ (NORMAL)
[2017-06-03] MEDS: ONDANSETRON HCL 4 MG/2 ML VIAL IVP PRN (21:05)
[2017-06-03] MEDS: LORazepam 0.5 MG TAB PO PRN (21:05)
[2017-06-04] VITALS (7 sets, daily range): BP systolic 128–152; BP diastolic 60–69; PULSE 50–88; RESP 18–20; TEMP 97.7–98.3; O2SAT 98–100
[2017-06-04] MEDS: ASPIRIN 81 MG CHEW TAB CHEW SCH (08:06)
[2017-06-04] MEDS: RAMIPRIL 5 MG CAP PO SCH (08:07)
[2017-06-04] MEDS: CARVEDILOL 3.125 MG TAB PO SCH ×2 (08:07→21:15)
[2017-06-04] MEDS: SODIUM CHLORIDE 0.9% FLUSH 10 ML FLUSH IV FLUSH SCH ×2 (08:07→21:13)
[2017-06-04] MEDS: PANTOPRAZOLE SOD 40 MG DELAYED RELEASE TAB PO SCH ×2 (08:08→21:14)
[2017-06-04] MEDS: THIAMINE HCL 100 MG TAB PO SCH (08:08)
[2017-06-04] MEDS: MULTIVITAMINS/MINERALS THERAPEUTIC TAB PO SCH (08:08)
[2017-06-04] MEDS: FOLIC ACID 1 MG TAB PO SCH (08:08)
[2017-06-04] MEDS: oxyCODONE/ACETAMINOPHEN 10 MG/325 MG TAB PO PRN ×4 (08:09→23:15)
--- NOTE | 2017-06-04 10:02 | RADRPT ---
EXAM DATE/TIME: 06/04/2017 09:33 [facility] COMPARISON: CT PULMONARY ANGIOGRAM, May 11, 2017, 19:54. CT ABDOMEN & PELVIS W CONTRAST, May 30, 2017, 13:18. INDICATIONS : Dyspnea RADIATION DOSE: 6.91 CTDIvol (mGy) MEDICAL HISTORY : Cardiovascular disease. Hypertension. SURGICAL HISTORY : Pacemaker. ENCOUNTER: Initial ACUITY: 2 days PAIN SCALE: 7/10 LOCATION: chest TECHNIQUE: Volumetric scanning of the chest was performed. Using automated exposure control and adjustment of t he mA and/or kV according to patient size, radiation dose was kept as low as reasonably achievable to obtain optimal diagnostic quality images. DICOM format image data is available electronically for r eview and comparison. Follow-up recommendations for incidentally detected pulmonary nodules are based at a minimum on nodul e size and patient risk factors according to Fleischner Society Guidelines. FINDINGS: There is groundglass haziness in left upper lobe most likely inflammatory. There is no pleural effusi on. No appreciable pathological adenopathy is seen within the mediastinum. The spleen measures 15.2 cm in AP diameter enlarged and the liver appears cirrhotic. Coronary artery calcifications are seen t ypically seen with CAD and need to be evaluated clinically. CONCLUSION: Hazy opacity left upper lobe most likely inflammatory not present on the CT pulmonary angiogram dated 05/11/2017. Danyell Pollard MD on June 04, 2017 at 9:56 Board Certified Radiologist. This report was verified electronically.
[2017-06-04 10:37] LABS: AUTOMATED NEUTROPHIL # 1.7 TH/MM3 (1.8-7.7); BASOPHIL % 1.2 % (0.0-2.0); EOSINOPHIL # 0.2 TH/MM3 (0-0.4); EOSINOPHIL % 5.7 % (0.0-4.0); HEMATOCRIT 32.2 % (39.0-51.0); LYMPH % 26.4 % (9.0-44.0); LYMPHOCYTE # 0.8 TH/MM3 (1.0-4.8); MEAN CORPUSCULAR HGB CONC 32.6 % (32.0-36.0); MONO % 8.5 % (0.0-8.0); NEUT % 58.2 % (16.0-70.0); PLATELET COUNT 98 TH/MM3 (150-450); RED BLOOD COUNT 3.62 MIL/MM3 (4.50-5.90); RED CELL DISTRIBUTION WIDTH 15.6 % (11.6-17.2); WHITE BLOOD COUNT 2.9 TH/MM3 (4.0-11.0)
[2017-06-04 10:42] LABS: HEMO FLAGS AUTO DIFF
[2017-06-04] MEDS ORDERED: Vancomycin Consult Pharmacy 1 EA OTHER SCH (10:45)
[2017-06-04] MEDS: SUCRALFATE 1 GM/10 ML CUP PO SCH ×3 (11:43→21:00)
[2017-06-04] MEDS: PIPERACIL-TAZO 4.5 GM PREMIX 100 ML IV SCH ×2 (11:44→18:05)
[2017-06-04 12:02] LABS: OVALOCYTES 1+ (NORMAL); PLATELET ESTIMATE SMEAR LOW (NORMAL); PLATELET MORPHOLOGY NORMAL (NORMAL); SCAN/DIFF AUTO DIFF CONFIRMED
--- NOTE | 2017-06-04 12:42 | HHI.PR ---
Subjective Remarks The patient complained of continued left-sided chest pain. He also endorsed shortness of breath. He was wondering what he could take to feel better. Discussed with nursing. Objective Vitals Vital Signs Date Time Temp Pulse Resp B/P Pulse Ox O2 Delivery O2 Flow Rate FiO2 06/04/17 09:26 20 06/04/17 08:00 98.1 71 20 152/69 100 06/04/17 08:00 98.3 60 20 129/60 99 06/04/17 04:00 97.7 50 18 148/67 98 06/04/17 00:36 97.9 67 18 128/62 98 06/03/17 20:00 61 06/03/17 20:00 Room Air 06/03/17 20:00 97.8 65 16 114/57 97 06/03/17 17:25 61 06/03/17 17:24 18 06/03/17 16:00 98.2 64 20 137/63 99 06/03/17 13:29 95 Room Air I/O 06/03/17 06/03/17 06/03/17 06/04/17 06/04/17 06/04/17 07:00 15:00 23:00 07:00 15:00 23:00 Intake Total 600 ml 480 ml 550 ml 720 ml Output Total 1200 ml 600 ml 800 ml Balance -600 ml 480 ml -50 ml -80 ml Intake Oral 600 ml 480 ml 550 ml 720 ml IV Total 0 ml Output Urine Total 1200 ml 600 ml 800 ml # Voids 3 # Bowel Movements 0 0 1 0 Result Diagram: 06/04/17 1020 06/02/17 0615 Imaging Last Impressions Chest CT 06/04/17 0000 Signed Impressions: Service Date/Time: May 09:33 - CONCLUSION: Hazy opacity left upper lobe most likely inflammatory not present on the CT pulmonary angiogram dated 05/11/2017. Danyell Pollard MD Chest X-Ray 06/01/17 0000 Signed Impressions: Service Date/Time: Thursday, June 01, 2017 15:56 - CONCLUSION: No acute cardiopulmonary disease. Danyell Pollard MD Abdomen/Pelvis CT 05/30/17 0000 Signed Impressions: Service Date/Time: Tuesday, May 30, 2017 13:18 - CONCLUSION: 1. Cirrhotic appearing liver without abdominal ascites. 2. Diverticulosis without diverticulitis. 3. Gynecomastia on the right. Eric hSerman MD Objective Remarks GENERAL: This is a well-nourished, well-developed patient, in no apparent distress. HEENT: NC, AT. CARDIOVASCULAR: Normal rate and regular rhythm without murmurs, gallops, or rubs. RESPIRATORY: Good respiratory efforts. Breath sounds equal and clear to auscultation bilaterally. GASTROINTESTINAL: Abdomen soft, non-distended. No epigastric tenderness to palpation. Normal active bowel sounds. MUSCULOSKELETAL: Pacemaker in FLYNN chest. Extremities without cyanosis, or edema. NEURO: Alert & Oriented x4 to person, place, time, situation. Moves all ext x4. PSYCH: Flat affect. Procedures EGD/ colonoscopy Medications and IVs Current Medications Medications (Trade) Dose Ordered Sig/Amelia Route Start Time Stop Time Status Last Admin (NS Flush) 2 ml UNSCH PRN IV FLUSH 05/30/17 05:45 06/01/17 05:30 (NS Flush) 2 ml BID IV FLUSH 05/30/17 09:00 06/04/17 08:07 (Tylenol) 650 mg Q4H PRN PO 05/30/17 05:45 (Zofran Inj) 4 mg Q6H PRN IVP 05/30/17 05:45 06/03/17 21:05 (Tylenol) 650 mg Q6H PRN PO 05/30/17 05:45 ([place] 5-325 Mg) 1 tab Q4H PRN PO 05/30/17 05:45 06/03/17 23:59 (Narcan Inj) 0.4 mg UNSCH PRN IV 05/30/17 05:45 (Milk Of Magnesia Liq) 30 ml Q12H PRN PO 05/30/17 05:45 (Senokot) 17.2 mg Q12H PRN PO 05/30/17 05:45 (Dulcolax Supp) 10 mg DAILY PRN RECTAL 05/30/17 05:45 (Lactulose Liq) 30 ml DAILY PRN PO 05/30/17 05:45 (Tums Chew) 500 mg Q2H PRN CHEW 05/30/17 06:00 (Romazicon Inj) 0.2 mg Q1M PRN IV PUSH 05/30/17 06:30 (Vitamin B1) 100 mg DAILY PO 05/30/17 09:00 06/04/17 08:08 (Aspirin Chew) 81 mg DAILY CHEW 05/31/17 09:00 06/04/17 08:06 (Coreg) 3.125 mg Q12HR PO 05/30/17 09:30 06/04/17 08:07 (Altace) 5 mg DAILY PO 05/30/17 09:30 06/04/17 08:07 (Percocet 10-325 Mg) 1 tab Q4H PRN PO 06/01/17 17:15 06/04/17 08:09 (Protonix) 40 mg Q12HR PO 06/01/17 21:00 06/04/17 08:08 (Ativan) 0.5 mg Q6H PRN PO 06/01/17 15:00 06/03/17 21:05 (Mag-Al Plus Susp Liq) 30 ml Q6H PRN PO 06/02/17 13:30 06/02/17 15:16 (Roxicodone) 5 mg Q4H PRN PO 06/03/17 12:00 06/04/17 11:34 Sucralfate 1 gm 1 gm ACHS PO 06/04/17 11:00 06/04/17 11:43 Pharmacy Profile Note 0 ml @ 0 mls/hr UNSCH OTHER 06/04/17 10:45 Vancomycin HCl 1500 mg/Sodium Chloride 515 ml @ 250 mls/hr Q12H IV 06/04/17 13:00 (Zosyn 4.5 Gm Premix) 100 ml @ 200 mls/hr Q6H IV 06/04/17 12:00 06/04/17 11:44 Miscellaneous Information SPECIFIC LAB TO BE DRAWN:VANCOMYCIN TROUGH DATE TO... ONCE ONCE .XX 06/06/17 00:45 06/06/17 00:46 A/P Problem List: (1) Chest pain ICD Code: R07.9 Status: Acute (2) Elevated troponin ICD Code: R74.8 Status: Acute Assessment and Plan 61 y/o male with a history of HTN, COPD, CHF, AICD and DVTs presents to the ED with complaints of chest pain. Atypical chest pain/ HCAP Cardiac catheterization February 2017 showed 30% ostial LAD lesion, Dr. Goldstein recommended medical management, with nonischemic cardiomyopathy. CT- PA on 03/09/17 and 05/11/17 negative for PE. Cardiology evaluated the patient, advised continuing medical management, no further workup indicated at this time. The pt is concerned his pacemaker lead may be out of place. CT showed: Hazy opacity left upper lobe, most likely inflammatory. - continue medical management for now with aspirin, BB, ACEi. - telemetry. - outpt follow-up with cardiology. - start IV vancomycin and Zosyn 06/04 to treat for HCAP. Epigastric pain Suspect gastritis with recent alcohol binge. CT abdomen unremarkable. EGD/ colonoscopy 06/01: antral gastritis, polyps, severe sigmoid diverticulosis with spasm, rectum hemorrhoids. AST slightly elevated but improved. HCAP noted as above. - continue Protonix 40mg BID. - follow up with GI. - Maalox as needed. Add sucralfate. - follow pathology. - continue antibiotics. Alcohol abuse with acute alcohol withdrawal Patient binges on alcohol, etoh level 363 upon arrival. - Counseled on alcohol cessation. - Withdrawal precautions. - thiamine/folate/multivitamin. DVT on Coumadin Patient reportedly on Coumadin since age 37. - resume Coumadin on 06/06 per GI. Anxiety Chronic. - Ativan as needed. Pancytopenia May be s/t underlying liver disease, alcohol induced bone marrow suppression. - follow CBC. - alcohol cessation instruction. - check HIV screen. - hematology consult if no improvement. DVT prophylaxis: SCDs Discharge Planning Awaiting clinical improvement Problem Qualifiers (1) Chest pain: Qualified Code: R07.9 - Chest pain, unspecified type Gato Swanson DO Jun 04, 2017 12:42
[2017-06-04] MEDS: LORazepam 0.5 MG TAB PO PRN ×2 (13:21→21:15)
[2017-06-04] MEDS: VANCOMYCIN INJ 1,500 MG in SODIUM CHLORID 0.9% 500 ML INJ 500 ML IV SCH (13:23)
[2017-06-04] MEDS: ACETAMINOPHEN/HYDROcodone 325 MG/5 MG TAB PO PRN (23:16)
[2017-06-05] VITALS (7 sets, daily range): BP systolic 114–134; BP diastolic 56–64; PULSE 59–73; RESP 18–20; TEMP 97.8–98.7; O2SAT 96–100
[2017-06-05] MEDS: PIPERACIL-TAZO 4.5 GM PREMIX 100 ML IV SCH ×4 (00:55→17:28)
[2017-06-05] MEDS: VANCOMYCIN INJ 1,500 MG in SODIUM CHLORID 0.9% 500 ML INJ 500 ML IV SCH ×2 (01:45→13:36)
[2017-06-05] MEDS: SUCRALFATE 1 GM/10 ML CUP PO SCH ×4 (06:21→21:26)
[2017-06-05] MEDS: LORazepam 0.5 MG TAB PO PRN (06:48)
[2017-06-05] MEDS: oxyCODONE/ACETAMINOPHEN 10 MG/325 MG TAB PO PRN ×4 (06:49→21:27)
[2017-06-05] MEDS: THIAMINE HCL 100 MG TAB PO SCH (08:44)
[2017-06-05] MEDS: ASPIRIN 81 MG CHEW TAB CHEW SCH (08:46)
[2017-06-05] MEDS: PANTOPRAZOLE SOD 40 MG DELAYED RELEASE TAB PO SCH ×2 (08:46→21:27)
[2017-06-05] MEDS: CARVEDILOL 3.125 MG TAB PO SCH ×2 (08:46→21:27)
[2017-06-05] MEDS: SODIUM CHLORIDE 0.9% FLUSH 10 ML FLUSH IV FLUSH SCH ×2 (08:47→21:26)
[2017-06-05] MEDS: RAMIPRIL 5 MG CAP PO SCH ×3 (08:47→09:00)
--- NOTE | 2017-06-05 16:45 | HHI.PR ---
Subjective Remarks The patient was saying he had a bad day. He wanted increased pain medications. He wanted to know why he was on antibiotics. He said he had pneumonia months ago and was wondering if it was the same one. Objective Vitals Vital Signs Date Time Temp Pulse Resp B/P Pulse Ox O2 Delivery O2 Flow Rate FiO2 06/05/17 12:00 97.8 61 20 124/59 97 06/05/17 08:00 97 Room Air 06/05/17 08:00 73 06/05/17 08:00 98.7 59 20 123/60 97 06/05/17 06:45 97.8 61 20 114/56 100 06/05/17 00:00 98.1 62 20 134/63 96 06/04/17 20:00 98.0 68 20 138/61 98 06/04/17 20:00 61 06/04/17 19:00 Room Air I/O 06/04/17 06/04/17 06/04/17 06/05/17 06/05/17 06/05/17 06:59 14:59 22:59 06:59 14:59 22:59 Intake Total 720 ml 1790 ml Output Total 800 ml Balance -80 ml 1790 ml Intake Oral 720 ml 1440 ml IV Total 350 ml Output Urine Total 800 ml # Voids 8 # Bowel Movements 0 2 Result Diagram: 06/04/17 1020 06/05/17 0647 Imaging Last Impressions Chest CT 06/04/17 0000 Signed Impressions: Service Date/Time: May 09:33 - CONCLUSION: Hazy opacity left upper lobe most likely inflammatory not present on the CT pulmonary angiogram dated 05/11/2017. Danyell Pollard MD Chest X-Ray 06/01/17 0000 Signed Impressions: Service Date/Time: Thursday, June 01, 2017 15:56 - CONCLUSION: No acute cardiopulmonary disease. Danyell Pollard MD Abdomen/Pelvis CT 05/30/17 0000 Signed Impressions: Service Date/Time: Tuesday, May 30, 2017 13:18 - CONCLUSION: 1. Cirrhotic appearing liver without abdominal ascites. 2. Diverticulosis without diverticulitis. 3. Gynecomastia on the right. Eric Sherman MD Objective Remarks GENERAL: This is a well-nourished, well-developed patient, in no apparent distress. HEENT: NC, AT. CARDIOVASCULAR: Normal rate and regular rhythm without murmurs, gallops, or rubs. RESPIRATORY: Good respiratory efforts. Breath sounds equal and clear to auscultation bilaterally. GASTROINTESTINAL: Abdomen soft, non-distended. No epigastric tenderness to palpation. Normal active bowel sounds. MUSCULOSKELETAL: Pacemaker in FLYNN chest. Extremities without cyanosis, or edema. NEURO: Alert & Oriented x4 to person, place, time, situation. Moves all ext x4. PSYCH: Flat affect. Procedures EGD/ colonoscopy Medications and IVs Current Medications Medications (Trade) Dose Ordered Sig/Amelia Route Start Time Stop Time Status Last Admin (NS Flush) 2 ml UNSCH PRN IV FLUSH 05/30/17 05:45 06/01/17 05:30 (NS Flush) 2 ml BID IV FLUSH 05/30/17 09:00 06/05/17 08:47 (Tylenol) 650 mg Q4H PRN PO 05/30/17 05:45 (Zofran Inj) 4 mg Q6H PRN IVP 05/30/17 05:45 06/03/17 21:05 (Tylenol) 650 mg Q6H PRN PO 05/30/17 05:45 ([place] 5-325 Mg) 1 tab Q4H PRN PO 05/30/17 05:45 06/04/17 23:16 (Narcan Inj) 0.4 mg UNSCH PRN IV 05/30/17 05:45 (Milk Of Magnesia Liq) 30 ml Q12H PRN PO 05/30/17 05:45 (Senokot) 17.2 mg Q12H PRN PO 05/30/17 05:45 (Dulcolax Supp) 10 mg DAILY PRN RECTAL 05/30/17 05:45 (Lactulose Liq) 30 ml DAILY PRN PO 05/30/17 05:45 (Tums Chew) 500 mg Q2H PRN CHEW 05/30/17 06:00 (Romazicon Inj) 0.2 mg Q1M PRN IV PUSH 05/30/17 06:30 (Vitamin B1) 100 mg DAILY PO 05/30/17 09:00 06/05/17 08:44 (Aspirin Chew) 81 mg DAILY CHEW 05/31/17 09:00 06/05/17 08:46 (Coreg) 3.125 mg Q12HR PO 05/30/17 09:30 06/05/17 08:46 (Altace) 5 mg DAILY PO 05/30/17 09:30 06/04/17 08:07 (Percocet 10-325 Mg) 1 tab Q4H PRN PO 06/01/17 17:15 06/05/17 16:05 (Protonix) 40 mg Q12HR PO 06/01/17 21:00 06/04/17 21:14 (Ativan) 0.5 mg Q6H PRN PO 06/01/17 15:00 06/05/17 06:48 (Mag-Al Plus Susp Liq) 30 ml Q6H PRN PO 06/02/17 13:30 06/02/17 15:16 (Roxicodone) 5 mg Q4H PRN PO 06/03/17 12:00 06/05/17 13:35 Sucralfate 1 gm 1 gm ACHS PO 06/04/17 11:00 06/05/17 16:05 Pharmacy Profile Note 0 ml @ 0 mls/hr UNSCH OTHER 06/04/17 10:45 Vancomycin HCl 1500 mg/Sodium Chloride 515 ml @ 250 mls/hr Q12H IV 06/04/17 13:00 06/05/17 13:36 (Zosyn 4.5 Gm Premix) 100 ml @ 200 mls/hr Q6H IV 06/04/17 12:00 06/05/17 11:08 Miscellaneous Information SPECIFIC LAB TO BE DRAWN:VANCOMYCIN TROUGH DATE TO... ONCE ONCE .XX 06/06/17 00:45 06/06/17 00:46 A/P Problem List: (1) Chest pain ICD Code: R07.9 Status: Acute (2) Elevated troponin ICD Code: R74.8 Status: Acute Assessment and Plan 61 y/o male with a history of HTN, COPD, CHF, AICD and DVTs presents to the ED with complaints of chest pain. Atypical chest pain/ HCAP Cardiac catheterization February 2017 showed 30% ostial LAD lesion, Dr. Goldstein recommended medical management, with nonischemic cardiomyopathy. CT- PA on 03/09/17 and 05/11/17 negative for PE. Cardiology evaluated the patient, advised continuing medical management, no further workup indicated at this time. The pt is concerned his pacemaker lead may be out of place. CT showed: Hazy opacity left upper lobe, most likely inflammatory. - continue medical management for now with aspirin, BB, ACEi. - telemetry. - outpt follow-up with cardiology. - start IV vancomycin and Zosyn 06/04 to treat for HCAP. - pain control with a bowel regimen. Epigastric pain Suspect gastritis with recent alcohol binge. CT abdomen unremarkable. EGD/ colonoscopy 06/01: antral gastritis, polyps, severe sigmoid diverticulosis with spasm, rectum hemorrhoids. AST slightly elevated but improved. HCAP noted as above. - continue Protonix 40mg BID. - follow up with GI. - Maalox as needed. - follow pathology. - continue antibiotics. Alcohol abuse with acute alcohol withdrawal Patient binges on alcohol, etoh level 363 upon arrival. - Counseled on alcohol cessation. - Withdrawal precautions. - thiamine/folate/multivitamin. DVT on Coumadin Patient reportedly on Coumadin since age 37. - resume Coumadin on 06/06 per GI. Anxiety Chronic. - Ativan as needed. Pancytopenia May be s/t underlying liver disease, alcohol induced bone marrow suppression. HIV screen negative. - follow CBC. - alcohol cessation instruction. - hematology consult if no improvement. DVT prophylaxis: SCDs Discharge Planning Anticipate discharge in 1-2 days. Problem Qualifiers (1) Chest pain: Qualified Code: R07.9 - Chest pain, unspecified type Gato Swanson DO Jun 05, 2017 16:45
[2017-06-05] MEDS: ONDANSETRON HCL 4 MG/2 ML VIAL IVP PRN (22:10)
[2017-06-06] VITALS (7 sets, daily range): BP systolic 114–131; BP diastolic 55–68; PULSE 61–73; RESP 18–20; TEMP 97.6–98.2; O2SAT 95–98
[2017-06-06] MEDS: LORazepam 0.5 MG TAB PO PRN ×2 (00:21→22:07)
[2017-06-06] MEDS: PIPERACIL-TAZO 4.5 GM PREMIX 100 ML IV SCH ×5 (00:21→23:58)
[2017-06-06] MEDS ORDERED: PHARMACY ORDERED LAB ONE (00:45)
[2017-06-06] MEDS: VANCOMYCIN INJ 1,500 MG in SODIUM CHLORID 0.9% 500 ML INJ 500 ML IV SCH ×2 (01:50→13:31)
[2017-06-06] MEDS: oxyCODONE/ACETAMINOPHEN 10 MG/325 MG TAB PO PRN ×6 (01:59→23:59)
[2017-06-06] MEDS: SUCRALFATE 1 GM/10 ML CUP PO SCH ×4 (06:18→20:09)
[2017-06-06 09:16] LABS: AUTOMATED NEUTROPHIL # 1.3 TH/MM3 (1.8-7.7); BASOPHIL % 1.1 % (0.0-2.0); EOSINOPHIL # 0.1 TH/MM3 (0-0.4); EOSINOPHIL % 5.7 % (0.0-4.0); HEMATOCRIT 29.7 % (39.0-51.0); LYMPH % 29.1 % (9.0-44.0); LYMPHOCYTE # 0.7 TH/MM3 (1.0-4.8); MEAN CELL VOLUME 89.3 FL (80.0-100.0); MEAN CORPUSCULAR HGB CONC 33.6 % (32.0-36.0); MONO % 12.9 % (0.0-8.0); NEUT % 51.2 % (16.0-70.0); PLATELET COUNT 71 TH/MM3 (150-450); RED BLOOD COUNT 3.33 MIL/MM3 (4.50-5.90); WHITE BLOOD COUNT 2.5 TH/MM3 (4.0-11.0)
[2017-06-06 09:17] LABS: HEMO FLAGS AUTO DIFF
[2017-06-06 09:20] LABS: INTERNATIONAL NORMALIZED RATIO 1.1 RATIO; PROTHROMBIN TIME - PATIENT 12.7 SEC (9.8-11.6)
[2017-06-06 09:47] LABS: OVALOCYTES 1+ (NORMAL); PLATELET ESTIMATE SMEAR LOW (NORMAL); PLATELET MORPHOLOGY NORMAL (NORMAL); SCAN/DIFF AUTO DIFF CONFIRMED
[2017-06-06] MEDS: ASPIRIN 81 MG CHEW TAB CHEW SCH (09:47)
[2017-06-06] MEDS: PANTOPRAZOLE SOD 40 MG DELAYED RELEASE TAB PO SCH ×2 (09:47→20:07)
[2017-06-06] MEDS: THIAMINE HCL 100 MG TAB PO SCH (09:47)
[2017-06-06] MEDS: RAMIPRIL 5 MG CAP PO SCH (09:47)
[2017-06-06] MEDS: CARVEDILOL 3.125 MG TAB PO SCH ×2 (09:48→20:07)
[2017-06-06] MEDS: ACETAMINOPHEN/HYDROcodone 325 MG/5 MG TAB PO PRN (09:48)
--- NOTE | 2017-06-06 11:36 | HHI.PR ---
Subjective Remarks The patient was still complaining of left chest pain as well as epigastric pain. He said he is very tired. He had questions regarding his pneumonia and pain medications. Discussed with nursing. He has been ambulating. Objective Vitals Vital Signs Date Time Temp Pulse Resp B/P Pulse Ox O2 Delivery O2 Flow Rate FiO2 06/06/17 08:00 97.9 66 20 131/68 98 06/06/17 04:00 97.6 61 20 128/59 95 06/06/17 00:00 97.8 67 20 121/58 97 06/05/17 20:08 64 06/05/17 20:00 Room Air 06/05/17 20:00 98.0 61 20 133/64 99 06/05/17 16:00 98.0 63 18 124/59 98 06/05/17 12:00 97.8 61 20 124/59 97 I/O 06/05/17 06/05/17 06/05/17 06/06/17 06/06/17 06/06/17 07:00 15:00 23:00 07:00 15:00 23:00 Intake Total 240 ml 48 ml 628 ml Output Total 200 ml 400 ml 850 ml Balance 40 ml -352 ml -222 ml Intake Oral 240 ml 48 ml 60 ml IV Total 568 ml Output Urine Total 200 ml 400 ml 850 ml # Bowel Movements 0 Result Diagram: 06/06/17 0900 06/05/17 0647 Imaging Last Impressions Chest CT 06/04/17 0000 Signed Impressions: Service Date/Time: May 09:33 - CONCLUSION: Hazy opacity left upper lobe most likely inflammatory not present on the CT pulmonary angiogram dated 05/11/2017. Danyell Pollard MD Chest X-Ray 06/01/17 0000 Signed Impressions: Service Date/Time: Thursday, June 01, 2017 15:56 - CONCLUSION: No acute cardiopulmonary disease. Danyell Pollard MD Abdomen/Pelvis CT 05/30/17 0000 Signed Impressions: Service Date/Time: Tuesday, May 30, 2017 13:18 - CONCLUSION: 1. Cirrhotic appearing liver without abdominal ascites. 2. Diverticulosis without diverticulitis. 3. Gynecomastia on the right. Eric Sherman MD Objective Remarks GENERAL: This is a well-nourished, well-developed patient, in no apparent distress. HEENT: NC, AT. CARDIOVASCULAR: Normal rate and regular rhythm without murmurs, gallops, or rubs. RESPIRATORY: Good respiratory efforts. Breath sounds equal and clear to auscultation bilaterally. GASTROINTESTINAL: Abdomen soft, non-distended. No epigastric tenderness to palpation. Normal active bowel sounds. MUSCULOSKELETAL: Pacemaker in FLYNN chest. Extremities without cyanosis, or edema. NEURO: Alert & Oriented x4 to person, place, time, situation. Moves all ext x4. PSYCH: Flat affect. Procedures EGD/ colonoscopy Medications and IVs Current Medications Medications (Trade) Dose Ordered Sig/Amelia Route Start Time Stop Time Status Last Admin (NS Flush) 2 ml UNSCH PRN IV FLUSH 05/30/17 05:45 06/01/17 05:30 (NS Flush) 2 ml BID IV FLUSH 05/30/17 09:00 06/05/17 21:26 (Tylenol) 650 mg Q4H PRN PO 05/30/17 05:45 (Zofran Inj) 4 mg Q6H PRN IVP 05/30/17 05:45 06/05/17 22:10 (Tylenol) 650 mg Q6H PRN PO 05/30/17 05:45 (Narcan Inj) 0.4 mg UNSCH PRN IV 05/30/17 05:45 (Milk Of Magnesia Liq) 30 ml Q12H PRN PO 05/30/17 05:45 (Senokot) 17.2 mg Q12H PRN PO 05/30/17 05:45 (Dulcolax Supp) 10 mg DAILY PRN RECTAL 05/30/17 05:45 (Lactulose Liq) 30 ml DAILY PRN PO 05/30/17 05:45 (Tums Chew) 500 mg Q2H PRN CHEW 05/30/17 06:00 (Romazicon Inj) 0.2 mg Q1M PRN IV PUSH 05/30/17 06:30 (Vitamin B1) 100 mg DAILY PO 05/30/17 09:00 06/06/17 09:47 (Aspirin Chew) 81 mg DAILY CHEW 05/31/17 09:00 06/06/17 09:47 (Coreg) 3.125 mg Q12HR PO 05/30/17 09:30 06/06/17 09:48 (Altace) 5 mg DAILY PO 05/30/17 09:30 06/06/17 09:47 (Percocet 10-325 Mg) 1 tab Q4H PRN PO 06/01/17 17:15 06/06/17 09:59 (Protonix) 40 mg Q12HR PO 06/01/17 21:00 06/06/17 09:47 (Ativan) 0.5 mg Q6H PRN PO 06/01/17 15:00 06/06/17 00:21 (Mag-Al Plus Susp Liq) 30 ml Q6H PRN PO 06/02/17 13:30 06/02/17 15:16 Sucralfate 1 gm 1 gm ACHS PO 06/04/17 11:00 06/05/17 16:05 Pharmacy Profile Note 0 ml @ 0 mls/hr UNSCH OTHER 06/04/17 10:45 Vancomycin HCl 1500 mg/Sodium Chloride 515 ml @ 250 mls/hr Q12H IV 06/04/17 13:00 06/06/17 01:50 (Zosyn 4.5 Gm Premix) 100 ml @ 200 mls/hr Q6H IV 06/04/17 12:00 06/06/17 06:18 (Roxicodone) 10 mg Q4H PRN PO 06/05/17 20:00 06/06/17 00:26 Warfarin Sodium 7.5 mg 7.5 mg DAILY@16 PO 06/06/17 16:00 (Coumadin Consult Pharmacy) 0 ml @ 0 mls/hr UNSCH OTHER 06/05/17 16:45 Miscellaneous Information SPECIFIC LAB TO BE ... ONCE ONCE .XX 06/07/17 00:45 06/07/17 00:46 A/P Problem List: (1) Chest pain ICD Code: R07.9 Status: Acute (2) Elevated troponin ICD Code: R74.8 Status: Acute Assessment and Plan 61 y/o male with a history of HTN, COPD, CHF, AICD and DVTs presents to the ED with complaints of chest pain. Atypical chest pain/ HCAP Cardiac catheterization February 2017 showed 30% ostial LAD lesion, Dr. Goldstein recommended medical management, with nonischemic cardiomyopathy. CT- PA on 03/09/17 and 05/11/17 negative for PE. Cardiology evaluated the patient, advised continuing medical management, no further workup indicated at this time. The pt is concerned his pacemaker lead may be out of place. CT showed: Hazy opacity left upper lobe, most likely inflammatory. - continue medical management for now with aspirin, BB, ACEi. - telemetry. - outpt follow-up with cardiology. - start IV vancomycin and Zosyn 06/04 to treat for HCAP. - pain control with a bowel regimen. Epigastric pain Suspect gastritis with recent alcohol binge. CT abdomen unremarkable. EGD/ colonoscopy 06/01: antral gastritis, polyps, severe sigmoid diverticulosis with spasm, rectum hemorrhoids. AST slightly elevated but improved. HCAP noted as above. - continue Protonix 40mg BID. - follow up with GI. - Maalox as needed. - follow pathology. - continue antibiotics. Alcohol abuse with acute alcohol withdrawal Patient binges on alcohol, etoh level 363 upon arrival. - Counseled on alcohol cessation. - Withdrawal precautions. - thiamine/folate/multivitamin. Pancytopenia May be s/t underlying liver disease, alcohol induced bone marrow suppression. HIV screen negative. - follow CBC. - alcohol cessation instruction. - hematology consult requested. - Neutropenic precautions. DVT on Coumadin Patient reportedly on Coumadin since age 37. - resume Coumadin on 06/06 per GI. May need to hold s/t to thrombocytopenia. Follow up with hematology. DVT prophylaxis: SCDs Discharge Planning Awaiting hematology evaluation. Problem Qualifiers (1) Chest pain: Qualified Code: R07.9 - Chest pain, unspecified type Gato Swanson DO Jun 06, 2017 11:36
[2017-06-06 11:53] LABS: HCV RNA PCR IU/ML 4680000 IU/mL (()); HCV RNA PCR LOGIU/ML 6.67 (())
[2017-06-06] MEDS: SODIUM CHLORIDE 0.9% FLUSH 10 ML FLUSH IV FLUSH SCH ×2 (12:37→20:08)
[2017-06-06 15:51] LABS: ANION GAP 12 MEQ/L (5-15); AST (GOT) 125 U/L (15-37); BICARBONATE 21.3 MEQ/L (21.0-32.0); BLOOD UREA NITROGEN 14 MG/DL (7-18); CHLORIDE 106 MEQ/L (98-107); GLOMERULAR FILTRATION RATE 68 ML/MIN (>89); POTASSIUM 4.4 MEQ/L (3.5-5.1); SODIUM (NA) 139 MEQ/L (136-145)
[2017-06-06] MEDS ORDERED: WARFARIN SOD 7.5 MG TAB PO SCH (16:00)
[2017-06-06] MEDS: WARFARIN SOD 10 MG TAB PO SCH (16:14)
[2017-06-06 16:18] LABS: ALKALINE PHOSPHATASE 81 U/L (45-117); ALT (GPT) 92 U/L (12-78); TOTAL BILIRUBIN ADULT 0.7 MG/DL (0.2-1.0)
[2017-06-07] VITALS (7 sets, daily range): BP systolic 119–137; BP diastolic 54–63; PULSE 53–87; RESP 18–20; TEMP 97.9–98.4; O2SAT 97–99
[2017-06-07] MEDS ORDERED: PHARMACY ORDERED LAB ONE (00:45)
[2017-06-07] MEDS: VANCOMYCIN INJ 1,500 MG in SODIUM CHLORID 0.9% 500 ML INJ 500 ML IV SCH ×2 (01:00→11:37)
[2017-06-07] MEDS: oxyCODONE/ACETAMINOPHEN 10 MG/325 MG TAB PO PRN ×4 (03:56→20:18)
[2017-06-07] MEDS: PIPERACIL-TAZO 4.5 GM PREMIX 100 ML IV SCH ×4 (06:09→23:41)
[2017-06-07] MEDS: SUCRALFATE 1 GM/10 ML CUP PO SCH ×4 (06:09→20:19)
[2017-06-07] MEDS: CARVEDILOL 3.125 MG TAB PO SCH ×2 (09:10→20:18)
[2017-06-07] MEDS: ASPIRIN 81 MG CHEW TAB CHEW SCH (09:10)
[2017-06-07] MEDS: RAMIPRIL 5 MG CAP PO SCH (09:10)
[2017-06-07] MEDS: PANTOPRAZOLE SOD 40 MG DELAYED RELEASE TAB PO SCH ×2 (09:10→20:18)
[2017-06-07] MEDS: THIAMINE HCL 100 MG TAB PO SCH (09:10)
[2017-06-07] MEDS: SODIUM CHLORIDE 0.9% FLUSH 10 ML FLUSH IV FLUSH SCH ×2 (09:11→20:19)
--- NOTE | 2017-06-07 09:44 | HHI.PR ---
Subjective Remarks The patient says he talked with the blood doctor last night and had a good discussion. He said that his right arm got swollen with antibiotics yesterday but that has resolved. He continues to complain of left-sided chest and epigastric pain. Objective Vitals Vital Signs Date Time Temp Pulse Resp B/P Pulse Ox O2 Delivery O2 Flow Rate FiO2 06/07/17 08:00 97.9 62 18 134/63 97 06/07/17 04:00 97.9 82 18 129/60 98 06/07/17 04:00 Room Air 06/07/17 00:00 Room Air 06/07/17 00:00 98.3 61 18 128/58 98 06/06/17 20:00 Room Air 06/06/17 20:00 98.0 73 18 130/62 97 06/06/17 19:58 65 06/06/17 18:58 18 06/06/17 16:00 66 06/06/17 16:00 98.2 62 20 114/55 97 06/06/17 12:00 97.9 68 20 117/64 97 06/06/17 11:00 18 I/O 06/06/17 06/06/17 06/06/17 06/07/17 06/07/17 06/07/17 07:00 15:00 23:00 07:00 15:00 23:00 Intake Total 628 ml 480 ml 600 ml 1080 ml Output Total 850 ml 200 ml 400 ml Balance -222 ml 480 ml 400 ml 680 ml Intake Oral 60 ml 480 ml 600 ml 480 ml IV Total 568 ml 600 ml Output Urine Total 850 ml 200 ml 400 ml # Voids 3 2 2 # Bowel Movements 1 0 0 Result Diagram: 06/06/17 0900 06/06/17 0130 Imaging Last Impressions Chest CT 06/04/17 0000 Signed Impressions: Service Date/Time: May 09:33 - CONCLUSION: Hazy opacity left upper lobe most likely inflammatory not present on the CT pulmonary angiogram dated 05/11/2017. Danyell Pollard MD Chest X-Ray 06/01/17 0000 Signed Impressions: Service Date/Time: Thursday, June 01, 2017 15:56 - CONCLUSION: No acute cardiopulmonary disease. Danyell Pollard MD Abdomen/Pelvis CT 05/30/17 0000 Signed Impressions: Service Date/Time: Tuesday, May 30, 2017 13:18 - CONCLUSION: 1. Cirrhotic appearing liver without abdominal ascites. 2. Diverticulosis without diverticulitis. 3. Gynecomastia on the right. Eric Sherman MD Objective Remarks GENERAL: This is a well-nourished, well-developed patient, in no apparent distress. HEENT: NC, AT. CARDIOVASCULAR: Normal rate and regular rhythm without murmurs, gallops, or rubs. RESPIRATORY: Good respiratory efforts. Breath sounds equal and clear to auscultation bilaterally. GASTROINTESTINAL: Abdomen soft, non-distended. No epigastric tenderness to palpation. Normal active bowel sounds. MUSCULOSKELETAL: Pacemaker in FLYNN chest. Extremities without cyanosis, or edema. NEURO: Alert & Oriented x4 to person, place, time, situation. Moves all ext x4. PSYCH: Flat affect. Procedures EGD/ colonoscopy Medications and IVs Current Medications Medications (Trade) Dose Ordered Sig/Amelia Route Start Time Stop Time Status Last Admin (NS Flush) 2 ml UNSCH PRN IV FLUSH 05/30/17 05:45 06/01/17 05:30 (NS Flush) 2 ml BID IV FLUSH 05/30/17 09:00 06/07/17 09:11 (Tylenol) 650 mg Q4H PRN PO 05/30/17 05:45 (Zofran Inj) 4 mg Q6H PRN IVP 05/30/17 05:45 06/05/17 22:10 (Tylenol) 650 mg Q6H PRN PO 05/30/17 05:45 (Narcan Inj) 0.4 mg UNSCH PRN IV 05/30/17 05:45 (Milk Of Magnesia Liq) 30 ml Q12H PRN PO 05/30/17 05:45 (Senokot) 17.2 mg Q12H PRN PO 05/30/17 05:45 (Dulcolax Supp) 10 mg DAILY PRN RECTAL 05/30/17 05:45 (Lactulose Liq) 30 ml DAILY PRN PO 05/30/17 05:45 (Tums Chew) 500 mg Q2H PRN CHEW 05/30/17 06:00 (Romazicon Inj) 0.2 mg Q1M PRN IV PUSH 05/30/17 06:30 (Vitamin B1) 100 mg DAILY PO 05/30/17 09:00 06/07/17 09:10 (Aspirin Chew) 81 mg DAILY CHEW 05/31/17 09:00 06/07/17 09:10 (Coreg) 3.125 mg Q12HR PO 05/30/17 09:30 06/07/17 09:10 (Altace) 5 mg DAILY PO 05/30/17 09:30 06/07/17 09:10 (Percocet 10-325 Mg) 1 tab Q4H PRN PO 06/01/17 17:15 06/07/17 09:34 (Protonix) 40 mg Q12HR PO 06/01/17 21:00 06/07/17 09:10 (Ativan) 0.5 mg Q6H PRN PO 06/01/17 15:00 06/06/17 22:07 (Mag-Al Plus Susp Liq) 30 ml Q6H PRN PO 06/02/17 13:30 06/02/17 15:16 Sucralfate 1 gm 1 gm ACHS PO 06/04/17 11:00 06/07/17 09:10 Pharmacy Profile Note 0 ml @ 0 mls/hr UNSCH OTHER 06/04/17 10:45 Vancomycin HCl 1500 mg/Sodium Chloride 515 ml @ 250 mls/hr Q12H IV 06/04/17 13:00 06/07/17 01:00 (Zosyn 4.5 Gm Premix) 100 ml @ 200 mls/hr Q6H IV 06/04/17 12:00 06/07/17 06:09 Oxycodone HCl 10 mg 10 mg Q4H PRN PO 06/05/17 20:00 06/07/17 06:09 (Coumadin Consult Pharmacy) 0 ml @ 0 mls/hr UNSCH OTHER 06/05/17 16:45 (Coumadin) 10 mg DAILY@1600 PO 06/06/17 16:00 06/06/17 16:14 A/P Problem List: (1) Chest pain ICD Code: R07.9 Status: Acute (2) Elevated troponin ICD Code: R74.8 Status: Acute Assessment and Plan 61 y/o male with a history of HTN, COPD, CHF, AICD and DVTs presents to the ED with complaints of chest pain. Atypical chest pain/ HCAP Cardiac catheterization February 2017 showed 30% ostial LAD lesion, Dr. Goldstein recommended medical management, with nonischemic cardiomyopathy. CT- PA on 03/09/17 and 05/11/17 negative for PE. Cardiology evaluated the patient, advised continuing medical management, no further workup indicated at this time. The pt is concerned his pacemaker lead may be out of place. CT showed: Hazy opacity left upper lobe, most likely inflammatory. - continue medical management for now with aspirin, BB, ACEi. - telemetry. - follow-up with cardiology. - start IV vancomycin and Zosyn 06/04 to treat for HCAP. - pain control with a bowel regimen. Epigastric pain Suspect gastritis with recent alcohol binge. CT abdomen unremarkable. EGD/ colonoscopy 06/01: antral gastritis, polyps, severe sigmoid diverticulosis with spasm, rectum hemorrhoids. AST slightly elevated but improved. HCAP noted as above. - continue Protonix 40mg BID. - follow up with GI. - Maalox as needed. - continue antibiotics. Alcohol abuse with acute alcohol withdrawal Patient binges on alcohol, etoh level 363 upon arrival. - Counseled on alcohol cessation. - Withdrawal precautions. - thiamine/folate/multivitamin. Pancytopenia May be s/t underlying liver disease, alcohol induced bone marrow suppression. HIV screen negative. - follow CBC. - alcohol cessation instruction. - hematology consult requested. - Neutropenic precautions. DVT on Coumadin Patient reportedly on Coumadin since age 37. - resumed Coumadin on 06/06 per GI. May need to hold s/t to thrombocytopenia. Follow up with hematology. INR 1.1 06/06. DVT prophylaxis: SCDs Discharge Planning Awaiting hematology evaluation. Problem Qualifiers (1) Chest pain: Qualified Code: R07.9 - Chest pain, unspecified type Gato Swanson DO Jun 07, 2017 09:44
[2017-06-07 10:39] LABS: AUTOMATED NEUTROPHIL # 1.5 TH/MM3 (1.8-7.7); BASOPHIL # 0.1 TH/MM3 (0-0.2); BASOPHIL % 2.3 % (0.0-2.0); EOSINOPHIL # 0.2 TH/MM3 (0-0.4); EOSINOPHIL % 5.9 % (0.0-4.0); HEMATOCRIT 32.1 % (39.0-51.0); LYMPH % 29.5 % (9.0-44.0); LYMPHOCYTE # 0.9 TH/MM3 (1.0-4.8); MEAN CELL VOLUME 91.1 FL (80.0-100.0); MEAN CORPUSCULAR HEMOGLOBIN 29.4 PG (27.0-34.0); MEAN CORPUSCULAR HGB CONC 32.2 % (32.0-36.0); NEUT % 48.3 % (16.0-70.0); PLATELET COUNT 83 TH/MM3 (150-450); RED BLOOD COUNT 3.53 MIL/MM3 (4.50-5.90); RED CELL DISTRIBUTION WIDTH 15.6 % (11.6-17.2); WHITE BLOOD COUNT 3.1 TH/MM3 (4.0-11.0)
[2017-06-07 10:41] LABS: HEMO FLAGS AUTO DIFF
[2017-06-07 10:55] LABS: INTERNATIONAL NORMALIZED RATIO 1.1 RATIO; PROTHROMBIN TIME - PATIENT 12.5 SEC (9.8-11.6)
[2017-06-07 11:18] LABS: PLATELET ESTIMATE SMEAR LOW (NORMAL); PLATELET MORPHOLOGY NORMAL (NORMAL); SCAN/DIFF AUTO DIFF CONFIRMED
--- NOTE | 2017-06-07 12:25 | MB ---
cc: LUCY GUEVARA DATE OF CONSULTATION: 06/06/2017 DATE OF : 1955. REASON FOR CONSULTATION Patient with pancytopenia. HISTORY OF PRESENT ILLNESS This is a 61-year-old male who has a history of hypertension, COPD, CHF, AICD and history of recurrent DVTs who presented to the emergency department with chest pain. He has a history of cardiac catheterization in February and he was found to have 30% ostial LAD lesion and medical management was recommended. He also has a history of alcohol abuse and liver cirrhosis. He says that he only drinks two alcoholic beverages per day. The patient is currently undergoing cardiac workup and has been seen by cardiology. He is also being treated with left upper lobe pneumonia. He has had epigastric pain. He has undergone EGD and colonoscopy on 06/01 and was found to have antral gastritis, polyps, severe sigmoid diverticulosis with spasm, rectal hemorrhoids. The patient was found to have low blood counts on admission. His most recent CBC shows WBC of 2.5, hemoglobin of 10, platelet count of 16. MCV is 89.3. He has not had any bleeding. Hematology has been consulted to make further recommendations. The patient has a history of arterial occlusion in the left lower extremity, approximately 24 years ago. He has had bypass surgery to his left lower extremity, arterial circulation. He was on anticoagulation with Coumadin for many years. In 2006, an attempt to switch him to Plavix was made and Coumadin was stopped. He tells me then he developed right lower extremity DVT and he was restarted on Coumadin. He is unclear whether he has been tested for an underlying hypercoagulable state. REVIEW OF SYSTEMS: A comprehensive 14 point review of systems was completed which is negative except as described in the HPI. PAST MEDICAL HISTORY: 1. Hypertension. 2. CHF with EF of 30%. 3. AICD placement. 4. COPD. 5. Bilateral lower extremity DVT. 6. Chronic anticoagulation on Coumadin. PAST SURGICAL HISTORY: 1. Arterial bypass. 2. Cholecystectomy. MEDICATIONS: 1. Coumadin 10 milligrams p.o. daily. 2. Oxycodone 10 milligrams p.o. q4 hours p.r.n. 3. Vancomycin 1500 milligrams IV q12 hours. 4. Zosyn q6 hours IV. 5. Carafate one gram p.o. q hs. 6. Ativan 0.5 milligrams p.o. q6 hours p.r.n. 7. Aspirin 81 milligrams p.o. daily. 8. Carvedilol 3.125 milligrams p.o. q12 hours. 9. Ramipril 5 milligrams p.o. daily. 10. Thiamine 100 milligrams p.o. daily 11. Tums 500 milligrams q2 hours p.r.n. 12. Tylenol 650 p.o. q4 hours p.r.n. 13. Zofran 4 milligrams IV q6 hours p.r.n. 14. Senna 17.2 milligrams p.o. q12 hours. 15. Dulcolax 10 milligrams p.o. p.r.n. 16. Lactulose 30 cc p.o. p.r.n. ALLERGIES: Nitroglycerin PHYSICAL EXAMINATION: Vital signs: Blood pressure is 130/62, pulse is in the 70s, temperature is 98, O2 sats are 97% on room air. General: Well-developed, well-nourished obese male in no apparent distress. HEENT: Pupils are equal, round, reactive to light. EOMI. No oral thrush. No oral lesions. Neck is supple. No JVD, no bruits or lymphadenopathy. Chest: Clear to auscultation bilaterally. Cardiac: S1-S2 regular rate and rhythm. Abdomen: Soft, nontender, nondistended. Bowel sounds are present. Extremities: Without any edema, erythema or cyanosis. Skin: Without any petechiae lesion or bruises. Neuro: No focal deficits. Psychiatric: Mood and affect is appropriate. LABORATORY DATA WBC 2.5, hemoglobin 10, platelet count 71,000. MCV is 89.3, serum chemistry, sodium 139, potassium 4.4. Chloride 106, anion gap 12, BUN 14, creatinine 1.11, calcium 6.8, total bilirubin 0.7, AST is 125, ALT 92, ALK phos 81, total protein 6.9, albumin is 2.6, B12 is 546, folate 20, hepatitis panel shows Hep C positive, Hep B and HIV negative. ASSESSMENT AND PLAN: Mr. Valenzuela is a 61 year-old male who has a history of coronary artery disease, hypertension, hyperlipidemia, tobacco abuse, history of alcohol abuse, liver cirrhosis, who presents to the emergency department with chest pain and he was found to have pneumonia. He was also pancytopenic. 1. Mild leukopenia with ANC greater than 1200, mild anemia with hemoglobin 10, platelet count 71,000. His counts are low due to underlying history of alcohol abuse and liver cirrhosis. He is also positive for Hep C. His Hepatitis C viral load is high. I do not believe that he has TTP or ITP. There may be some consumption due to pneumonia and sepsis but basically his counts are low due to alcohol abuse, Hepatitis C and liver disease. We will check LDH and haptoglobin, and fibrinogen. We will continue to monitor him closely. 2. Hepatitis C with high viral load. He needs GI evaluation for treatment of Hepatitis C. 3. H-CAP, currently being treated with antibiotics. 4. History of recurrent DVT of lower extremities. He will need lifelong anticoagulation. He is currently on Coumadin. If his platelet count drops below 40,000, I would recommend stopping Coumadin, but at this time will continue anticoagulation. Thank you for allowing me to participate in the care of this patient. I will continue to follow this patient along. MD MELLY Piña/MERCED /10:54 AM /12:06 PM
[2017-06-07] MEDS: WARFARIN SOD 10 MG TAB PO SCH (16:53)
[2017-06-07] MEDS: LORazepam 0.5 MG TAB PO PRN (20:18)
[2017-06-08] VITALS: BP 139/63; PULSE 76; RESP 20; TEMP 97.9; O2SAT 97
[2017-06-08] MEDS: oxyCODONE/ACETAMINOPHEN 10 MG/325 MG TAB PO PRN ×3 (00:13→12:25)
[2017-06-08] MEDS: VANCOMYCIN INJ 1,500 MG in SODIUM CHLORID 0.9% 500 ML INJ 500 ML IV SCH (01:10)
[2017-06-08 04:00] VITALS: BP 128/59; PULSE 60; RESP 20; TEMP 97.7; O2SAT 98
[2017-06-08] MEDS: PIPERACIL-TAZO 4.5 GM PREMIX 100 ML IV SCH ×2 (06:24→12:00)
[2017-06-08] MEDS: SUCRALFATE 1 GM/10 ML CUP PO SCH ×2 (06:27→10:55)
[2017-06-08] MEDS: SODIUM CHLORIDE 0.9% FLUSH 10 ML FLUSH IV FLUSH SCH (07:42)
[2017-06-08] MEDS: RAMIPRIL 5 MG CAP PO SCH (07:42)
[2017-06-08] MEDS: PANTOPRAZOLE SOD 40 MG DELAYED RELEASE TAB PO SCH (07:42)
[2017-06-08] MEDS: THIAMINE HCL 100 MG TAB PO SCH (07:42)
[2017-06-08] MEDS: CARVEDILOL 3.125 MG TAB PO SCH (07:42)
[2017-06-08] MEDS: ASPIRIN 81 MG CHEW TAB CHEW SCH (07:42)
[2017-06-08] MEDS: ONDANSETRON HCL 4 MG/2 ML VIAL IVP PRN (07:46)
[2017-06-08 08:00] VITALS: BP 131/71; PULSE 60; PULSE 77; RESP 20; TEMP 98.7; O2SAT 100
--- NOTE | 2017-06-08 09:23 | PD.ONC.PN ---
Subjective Subjective Remarks Afebrile overnight. Patient resting in bed. States he continues to have chest pain. Otherwise without complaints. Objective Data Date Time Temp Pulse Resp B/P Pulse Ox O2 Delivery O2 Flow Rate FiO2 06/08/17 08:00 98.7 60 20 131/71 100 06/08/17 04:00 97.7 60 20 128/59 98 06/08/17 00:00 97.9 76 20 139/63 97 06/07/17 20:00 Room Air 06/07/17 20:00 98.3 62 20 119/58 99 06/07/17 20:00 75 06/07/17 16:00 98.3 72 18 137/60 98 06/07/17 12:00 98.4 87 18 124/54 99 06/07/17 10:35 20 Result Diagram: 06/07/17 1010 06/07/17 1010 Laboratory Results Laboratory Tests Test 06/07/17 10:10 White Blood Count 3.1 TH/MM3 Red Blood Count 3.53 MIL/MM3 Hemoglobin 10.4 GM/DL Hematocrit 32.1 % Mean Corpuscular Volume 91.1 FL Mean Corpuscular Hemoglobin 29.4 PG Mean Corpuscular Hemoglobin 32.2 % Concent Red Cell Distribution Width 15.6 % Platelet Count 83 TH/MM3 Mean Platelet Volume 9.4 FL Neutrophils (%) (Auto) 48.3 % Lymphocytes (%) (Auto) 29.5 % Monocytes (%) (Auto) 14.0 % Eosinophils (%) (Auto) 5.9 % Basophils (%) (Auto) 2.3 % Neutrophils # (Auto) 1.5 TH/MM3 Lymphocytes # (Auto) 0.9 TH/MM3 Monocytes # (Auto) 0.4 TH/MM3 Eosinophils # (Auto) 0.2 TH/MM3 Basophils # (Auto) 0.1 TH/MM3 CBC Comment AUTO DIFF Differential Comment AUTO DIFF CONFIRMED Platelet Estimate LOW Platelet Morphology Comment NORMAL Prothrombin Time 12.5 SEC Prothromb Time International 1.1 RATIO Ratio Creatinine 1.18 MG/DL Estimat Glomerular Filtration 63 ML/MIN Rate Administered Medications Medications (Trade) Dose Ordered Sig/Amelia Route PRN Reason Start Time Stop Time Status Last Admin Dose Admin Sodium Chloride (NS Flush) 2 ml UNSCH PRN IV FLUSH FLUSH AFTER USING IV ACCESS 05/30/17 05:45 06/01/17 05:30 Sodium Chloride (NS Flush) 2 ml BID IV FLUSH 05/30/17 09:00 06/08/17 07:42 Ondansetron HCl (Zofran Inj) 4 mg Q6H PRN IVP NAUSEA OR VOMITING 05/30/17 05:45 06/08/17 07:46 Thiamine HCl (Vitamin B1) 100 mg DAILY PO 05/30/17 09:00 06/08/17 07:42 Aspirin (Aspirin Chew) 81 mg DAILY CHEW 05/31/17 09:00 06/08/17 07:42 Carvedilol (Coreg) 3.125 mg Q12HR PO 05/30/17 09:30 06/08/17 07:42 Ramipril (Altace) 5 mg DAILY PO 05/30/17 09:30 06/08/17 07:42 Oxycodone/ Acetaminophen (Percocet 10-325 Mg) 1 tab Q4H PRN PO Pain 3-10 06/01/17 17:15 06/08/17 06:24 Pantoprazole Sodium (Protonix) 40 mg Q12HR PO 06/01/17 21:00 06/08/17 07:42 Lorazepam (Ativan) 0.5 mg Q6H PRN PO Anxiety 06/01/17 15:00 06/07/17 20:18 Al Hydrox/Mg Hydrox/Simethicone (Mag-Al Plus Susp Liq) 30 ml Q6H PRN PO Indigestion 06/02/17 13:30 06/02/17 15:16 Sucralfate 1 gm 1 gm ACHS PO 06/04/17 11:00 06/07/17 09:10 Vancomycin HCl 1500 mg/Sodium Chloride 515 ml @ 250 mls/hr Q12H IV 06/04/17 13:00 06/08/17 01:10 Piperacillin Sod/ Tazobactam Sod (Zosyn 4.5 Gm Premix) 100 ml @ 200 mls/hr Q6H IV 06/04/17 12:00 06/08/17 06:24 Oxycodone HCl (Roxicodone) 10 mg Q4H PRN PO Breakthrough pain 06/05/17 20:00 06/08/17 07:50 Warfarin Sodium (Coumadin) 10 mg DAILY@1600 PO 06/06/17 16:00 06/07/17 16:53 Objective Remarks GENERAL: Middle aged male upright in halls SKIN: Warm and dry. HEAD: Normocephalic. EYES: No injection or drainage. NECK: Supple, trachea midline. CARDIOVASCULAR: Regular rate and rhythm RESPIRATORY: Breath sounds equal bilaterally. No accessory muscle use. GASTROINTESTINAL: Abdomen soft, non-tender, nondistended. EXTREMITIES: No cyanosis NEUROLOGICAL: No obvious focal deficit. Awake, alert, and oriented x3. Assessment/Plan Problem List: (1) Pancytopenia Status: Acute Plan: -- counts are low due to underlying history of alcohol abuse and liver cirrhosis. --positive for Hep C. His Hepatitis C viral load is high. --may also be some consumption due to pneumonia and sepsis --LDH, haptoglobin, and fibrinogen pending (2) Hepatitis C Status: Acute Plan: --Hepatitis C with high viral load. --GI following (3) Hospital acquired PNA Status: Acute Plan: --on antibiotic (4) DVT (deep venous thrombosis) Status: Acute Plan: --History of recurrent DVT of lower extremities. --will need lifelong anticoagulation. --currently on Coumadin. --If his platelet count drops below 40,000, would recommend stopping Coumadin, but at this time will continue anticoagulation. Assessment 61y/o male admitted with chest pain, hematology consulted for pancytopenia. history of hypertension, COPD, CHF, AICD and history of recurrent DVTs who presented to the emergency department with chest pain. history of cardiac catheterization in February and he was found to have 30% ostial LAD lesion and medical management was recommended. history of alcohol abuse and liver cirrhosis. EGD and colonoscopy on 06/01 and was found to have antral gastritis, polyps, severe sigmoid diverticulosis with spasm, rectal hemorrhoids. history of arterial occlusion in the left lower extremity, approximately 24 years ago. He has had bypass surgery to his left lower extremity, arterial circulation. He was on anticoagulation with Coumadin for many years. In 2006, an attempt to switch him to Plavix was made and Coumadin was stopped. He tells me then he developed right lower extremity DVT and he was restarted on Coumadin. He is unclear whether he has been tested for an underlying hypercoagulable state. Plan 1. monitor CBC 2. continue AC with coumadin 3. hepatitis C treatment per Margareth Conner 17, 2017 09:23
[2017-06-08 11:13] LABS: AUTOMATED NEUTROPHIL # 1.4 TH/MM3 (1.8-7.7); BASOPHIL # 0.1 TH/MM3 (0-0.2); BASOPHIL % 2.8 % (0.0-2.0); EOSINOPHIL # 0.2 TH/MM3 (0-0.4); EOSINOPHIL % 5.3 % (0.0-4.0); HEMATOCRIT 33.3 % (39.0-51.0); LYMPH % 27.6 % (9.0-44.0); LYMPHOCYTE # 0.8 TH/MM3 (1.0-4.8); MEAN CELL VOLUME 89.6 FL (80.0-100.0); MEAN CORPUSCULAR HEMOGLOBIN 29.6 PG (27.0-34.0); MONO % 14.6 % (0.0-8.0); NEUT % 49.7 % (16.0-70.0); PLATELET COUNT 79 TH/MM3 (150-450); RED BLOOD COUNT 3.71 MIL/MM3 (4.50-5.90); RED CELL DISTRIBUTION WIDTH 15.9 % (11.6-17.2); WHITE BLOOD COUNT 2.8 TH/MM3 (4.0-11.0)
[2017-06-08 11:14] LABS: HEMO FLAGS AUTO DIFF
[2017-06-08 11:32] LABS: APTT (PATIENT) 32.6 SEC (24.3-30.1); INTERNATIONAL NORMALIZED RATIO 1.3 RATIO; PROTHROMBIN TIME - PATIENT 14.9 SEC (9.8-11.6)
[2017-06-08 12:00] VITALS: BP 124/58; PULSE 60; RESP 20; TEMP 98.2; O2SAT 94
[2017-06-08 12:35] LABS: PLATELET ESTIMATE SMEAR LOW (NORMAL); PLATELET MORPHOLOGY NORMAL (NORMAL); SCAN/DIFF AUTO DIFF CONFIRMED
[2017-06-08] MEDS ORDERED: SUCR1S PO (12:35)
[2017-06-08] MEDS ORDERED: PANT40TA3 PO (12:35)
[2017-06-08] MEDS ORDERED: DOXY100C PO (12:35)
--- NOTE | 2017-06-08 12:38 | HHI.DS ---
Discharge Summary Admission Date May 30, 2017 at 05:48 Discharge Date: Jun 08, 2017 Admitting Diagnosis Chest Pain (1) Chest pain ICD Code: R07.9 Diagnosis: Principal (2) Elevated troponin ICD Code: R74.8 Diagnosis: Principal (3) Pancytopenia ICD Code: D61.818 Diagnosis: Principal (4) Pneumonia ICD Code: J18.9 Diagnosis: Principal (5) Hepatitis C ICD Code: B19.20 Diagnosis: Principal (6) Alcohol intoxication ICD Code: F10.129 Diagnosis: Principal Procedures EGD/ colonoscopy Brief History - From Admission Written by Anais Kelley, acting as scribe for Dr. Cooper] on 05/30/17 at 05: 51. 61 y/o male with a history of HTN, COPD, CHF, AICD and DVTs presents to the ED with complaints of chest pain. He describes the pain as burning mid sternal chest pain, 10/10, with associated nausea that started today. Upon examination patient looks very painful and emotional. He states he is a recovering alcoholic and started drinking 2 days ago. He denies any fever, chills, sob, or vomiting. Recently admitted April 2017 for similar episode, No intervention was needed. Last cardiac catheterization 03/10/[address] Goldstein showed 30% ostial LAD lesion, recommended medical management CBC/BMP: 06/08/17 1054 06/07/17 1010 Significant Findings Laboratory Tests Test 06/06/17 06/06/17 06/07/17 06/07/17 01:30 09:00 00:50 10:10 Estimat Glomerular Filtration 68 ML/MIN (>89) 63 ML/MIN (>89) Rate Aspartate Amino Transf 125 U/L (15-37) (AST/SGOT) Alanine Aminotransferase 92 U/L (12-78) (ALT/SGPT) Albumin 2.6 GM/DL (3.4-5.0) Folate GREATER THAN 20.0 NG/ML (3.1-17.5) Vancomycin Level Trough 18.9 MCG/ML 17.4 MCG/ML (5.0-10.0) (5.0-10.0) White Blood Count 2.5 TH/MM3 3.1 TH/MM3 (4.0-11.0) (4.0-11.0) Red Blood Count 3.33 MIL/MM3 3.53 MIL/MM3 (4.50-5.90) (4.50-5.90) Hemoglobin 10.0 GM/DL 10.4 GM/DL (13.0-17.0) (13.0-17.0) Hematocrit 29.7 % 32.1 % (39.0-51.0) (39.0-51.0) Platelet Count 71 TH/MM3 83 TH/MM3 (150-450) (150-450) Monocytes (%) (Auto) 12.9 % 14.0 % (0.0-8.0) (0.0-8.0) Eosinophils (%) (Auto) 5.7 % (0.0-4.0) 5.9 % (0.0-4.0) Neutrophils # (Auto) 1.3 TH/MM3 1.5 TH/MM3 (1.8-7.7) (1.8-7.7) Lymphocytes # (Auto) 0.7 TH/MM3 0.9 TH/MM3 (1.0-4.8) (1.0-4.8) Platelet Estimate LOW (NORMAL) LOW (NORMAL) Ovalocytes 1+ (NORMAL) Prothrombin Time 12.7 SEC 12.5 SEC (9.8-11.6) (9.8-11.6) Basophils (%) (Auto) 2.3 % (0.0-2.0) Test 06/08/17 10:54 White Blood Count 2.8 TH/MM3 (4.0-11.0) Red Blood Count 3.71 MIL/MM3 (4.50-5.90) Hemoglobin 11.0 GM/DL (13.0-17.0) Hematocrit 33.3 % (39.0-51.0) Platelet Count 79 TH/MM3 (150-450) Monocytes (%) (Auto) 14.6 % (0.0-8.0) Eosinophils (%) (Auto) 5.3 % (0.0-4.0) Basophils (%) (Auto) 2.8 % (0.0-2.0) Neutrophils # (Auto) 1.4 TH/MM3 (1.8-7.7) Lymphocytes # (Auto) 0.8 TH/MM3 (1.0-4.8) Platelet Estimate LOW (NORMAL) Prothrombin Time 14.9 SEC (9.8-11.6) Activated Partial 32.6 SEC Thromboplast Time (24.3-30.1) Imaging Last Impressions Chest CT 06/04/17 0000 Signed Impressions: Service Date/Time: May 09:33 - CONCLUSION: Hazy opacity left upper lobe most likely inflammatory not present on the CT pulmonary angiogram dated 05/11/2017. Danyell Pollard MD Chest X-Ray 06/01/17 0000 Signed Impressions: Service Date/Time: Thursday, June 01, 2017 15:56 - CONCLUSION: No acute cardiopulmonary disease. Danyell Pollard MD Abdomen/Pelvis CT 05/30/17 0000 Signed Impressions: Service Date/Time: Tuesday, May 30, 2017 13:18 - CONCLUSION: 1. Cirrhotic appearing liver without abdominal ascites. 2. Diverticulosis without diverticulitis. 3. Gynecomastia on the right. Eric Sherman MD PE at Discharge GENERAL: This is a well-nourished, well-developed patient, in no apparent distress. CARDIOVASCULAR: Normal rate and regular rhythm without murmurs, gallops, or rubs. RESPIRATORY: Good respiratory efforts. Breath sounds equal and clear to auscultation bilaterally. GASTROINTESTINAL: Abdomen soft, non-distended. No epigastric tenderness to palpation. Normal active bowel sounds. MUSCULOSKELETAL: Pacemaker in FLYNN chest. Extremities without cyanosis, or edema. NEURO: Alert & Oriented x4 to person, place, time, situation. Moves all ext x4. PSYCH: Affect is appropriate. Pt update on day of discharge Follow-up for pneumonia Patient denies any shortness of breathing or cough. He stated that he never has shortness breathing or respiratory symptoms. He remains afebrile. Patient stated that he came into the hospital due to chest pain. Chest pain is persistent more of annoying. Unsure if it's associated with food. Otherwise he has no other complaints. He stated that he he sees nurse practitioner Cinthya or goes to a Coumadin clinic nearby for his INR check. Patient stated that he's been on 7.5 mg every day for the past 20 years and it has been therapeutic. Deny any GI bleed. Otherwise patient's very anxious to go home and wants to be discharged soon. Hospital Course 61 y/o male with a history of HTN, COPD, CHF, AICD and DVTs presents to the ED with complaints of chest pain. Atypical chest pain Cardiac catheterization February 2017 showed 30% ostial LAD lesion, Dr. Goldstein recommended medical management, with nonischemic cardiomyopathy. CT- PA on 03/09/17 and 05/11/17 negative for PE. Cardiology evaluated the patient, advised continuing medical management, no further workup indicated at this time. The pt is concerned his pacemaker lead may be out of place. CT showed: Hazy opacity left upper lobe, most likely inflammatory. - continue medical management for now with aspirin, BB, ACEi. -.The hospital course seems to be constipated and did not worsen. He may have a component of anxiety to this. -Patient was cleared by commercial installer. Very unlikely cardiac in nature. Questionable pneumonia found on CT scan -Patient was asymptomatic. He had no signs or symptoms of pneumonia throughout his hospital course. He was afebrile and no white count. he did have pancytopenia. Despite treatment with vancomycin and Zosyn he remained stable. -Very unlikely with this clinical picture did patient have HCAP. -Patient was transitioned to doxycycline to cover for possible community- acquired pneumonia. Epigastric pain -Suspect gastritis with recent alcohol binge. CT abdomen unremarkable. EGD/ colonoscopy 06/01: antral gastritis, polyps, severe sigmoid diverticulosis with spasm, rectum hemorrhoids. AST slightly elevated but improved. -Did well on Protonix. Alcohol abuse with acute alcohol withdrawal Patient binges on alcohol, etoh level 363 upon arrival. - Counseled on alcohol cessation. - Withdrawal precautions. - thiamine/folate/multivitamin. Pancytopenia May be s/t underlying liver disease, alcohol induced bone marrow suppression. HIV screen negative. -[employer] Installer consulted and stated most likely secondary to liver disease. - d/w fish farm manager GAUTAM Mendenhall on day of discharge and she stated that patient is cleared for discharge and no bridging is needed. DVT on Coumadin Patient reportedly on Coumadin since age 37. - resumed Coumadin on 06/06 per GI. Per commercial installer will need to discontinue Coumadin if platelets is less than 40,000. Patient educated on management extensively. He stated that he understood. -Encourage him to stop drinking which can worsen/decrease his platelets. Patient stated that he understood. Pt Condition on Discharge: Good Discharge Disposition: Discharge Home Discharge Time: > 30 minutes Discharge Instructions DIET: Follow Instructions for: Heart Healthy Diet Additional Diet Instructions: coumadin diet Activities you can perform: Regular-No Restrictions Other Activity Instructions: Please avoid alcohol use due to liver disease. Follow up Referrals: Gastroenterology @ [facility] PCP Follow-up - 2-3 Days New Medications: Doxycycline Hyclate (Doxycycline Hyclate) 100 Mg Cap 100 MG PO BID Infection #10 Ref 0 CAP Pantoprazole (Pantoprazole) 40 Mg Tab 40 MG PO Q12HR gastritis #30 Ref 0 TAB Sucralfate Liq (Sucralfate Liq) 1 Gm/10 Ml Oralia 1 GM PO ACHS gastritis #200 Ref 0 ML Continued Medications: Aspirin (Aspirin) 81 Mg Chew 81 MG CHEW DAILY Blood Clot Prevention #30 Ref 0 TAB Carvedilol (Coreg) 6.25 Mg Tab 3.125 MG PO Q12HR Blood Pressure Management #30 TAB Furosemide (Furosemide) 40 Mg Tab 40 MG PO BID Blood Pressure Management #60 Ref 0 TAB Ramipril (Ramipril) 5 Mg Cap 5 MG PO DAILY Blood Pressure Management #30 CAP Tramadol (Tramadol) 50 Mg Tab 50 MG PO Q8H PRN PAIN #10 Ref 0 TAB Warfarin (Warfarin) 7.5 Mg Tab 7.5 MG PO DAILY Blood Clot Prevention #30 Ref 0 TAB Discontinued Medications: Pantoprazole (Pantoprazole) 40 Mg Tab 40 MG PO DAILY Reflux #30 TAB Additional Information Patient told will need to follow with INR closely. Recheck in 3-5 days. Goal INR 2-3. Edyta Cruz MD Jun 08, 2017 12:38
--- NOTE | 2017-06-08 12:38 | HHI.DCPOC ---
Discharge Care Plan Diagnosis: (1) Chest pain (2) Pneumonia (3) Hepatitis C (4) Pancytopenia Goals to Promote Your Health * To prevent worsening of your condition and complications * To maintain your health at the optimal level Directions to Meet Your Goals Take your medications as prescribed Follow your dietary instruction Follow activity as directed Keep your appointments as scheduled Take your immunizations and boosters as scheduled If your symptoms worsen call your PCP, if no PCP go to Urgent Care Center or Emergency Room Smoking is Dangerous to Your Health. Avoid second hand smoke Call the 24-hour hour crisis hotline for domestic abuse at Edyta Cruz MD Jun 08, 2017 12:38
== END 2017-06-08 13:34 | disposition home or self-care (01) | DRG 313 ==
LOC: NEPE 22:59 → NEDA 05-30 01:27 → NEPGCP 05-30 03:12 → OBSVTOIN 05-30 05:48 → N04B 05-30 21:53
PROVIDERS: ADMIT Family Medicine; ATTEND Family Medicine
PROC: 0DBL8ZX Excision of Transverse Colon, Via Natural or Artificial Opening Endoscopic, Diagnostic (ICD-10-PCS; 2017-06-01)
PROC: 0DB68ZX Excision of Stomach, Via Natural or Artificial Opening Endoscopic, Diagnostic (ICD-10-PCS; principal; 2017-06-01 08:50)
PROC: 0DBK8ZX Excision of Ascending Colon, Via Natural or Artificial Opening Endoscopic, Diagnostic (ICD-10-PCS; 2017-06-01 08:50)
DX: R07.89 Other chest pain (principal); I25.10 Atherosclerotic heart disease of native coronary artery without angina pectoris; D61.818 Other pancytopenia; J18.9 Pneumonia, unspecified organism; I11.0 Hypertensive heart disease with heart failure; K29.60 Other gastritis without bleeding; I50.9 Heart failure, unspecified; K70.30 Alcoholic cirrhosis of liver without ascites; I42.8 Other cardiomyopathies; F10.239 Alcohol dependence with withdrawal, unspecified; K57.30 Diverticulosis of large intestine without perforation or abscess without bleeding; K64.8 Other hemorrhoids; D12.3 Benign neoplasm of transverse colon; K63.5 Polyp of colon; D64.9 Anemia, unspecified; Y90.8 Blood alcohol level of 240 mg/100 ml or more; B19.20 Unspecified viral hepatitis C without hepatic coma; E78.5 Hyperlipidemia, unspecified; J44.9 Chronic obstructive pulmonary disease, unspecified; F41.9 Anxiety disorder, unspecified; F10.229 Alcohol dependence with intoxication, unspecified; F17.210 Nicotine dependence, cigarettes, uncomplicated; R74.8 Abnormal levels of other serum enzymes; Z86.718 Personal history of other venous thrombosis and embolism; Z95.810 Presence of automatic (implantable) cardiac defibrillator; Z79.01 Long term (current) use of anticoagulants; Z88.8 Allergy status to other drugs, medicaments and biological substances
CPT/HCPCS: 71010; 71250; 74177; 76937; 80048; 80053; 80074; 80076; 80202; 80307; 82550; 82552; 82565; 82607; 82746; 83010; 83615; 83690; 83735; 84484; 85025; 85027; 85060; 85384; 85610; 85730; 86703; 87522; 87902; 88305; 88312; 93005; C9113; J1610; J2060; J2270; J2405; J2543; J3370; J7040; Q9963; Q9967

== ENCOUNTER 2017-06-29 13:42 | Emergency (ER) | payer MEDICAID ==
[~2017-06-29] VITALS: Ht 172.7 cm; Wt 93.0 kg
[~2017-06-29 13:42] MED LIST changes: +DOXY100C PO; +SUCR1S PO
--- NOTE | 2017-06-29 14:13 | PD ---
HPI Chief Complaint: psych Time Seen by Provider: 14:13 Travel History International Travel<30 days: No Contact w/Intl Traveler<30days: No History of Present Illness HPI 61-year-old male with history of alcohol abuse, CAD, AICD implantation, hepatitis C, HTN, CHF, PVD presents to the ED under [employer] act for psychiatric evaluation. According to the [employer] act paper work the patient threatened to kill his roommate as well as telling the arresting officer that he would "head butt him." On presentation the patient denies suicidal or homicidal ideation. He does sarcastically state that "I'll just pat my roommate on the back when I see him." The patient does admit to arguing with his roommate before presentation. He endorses drinking a half pint of liquor last night. He denies alcohol consumption today. He denies illicit drug use. He denies psychiatric medical history. He complains of "heavy" chest pain, radiating to the left shoulder. Onset "about a month ago." Worsened during the stress of today's events. He endorses associated palpitations. He denies shortness of breath, nausea, vomiting. He endorses compliance with his daily medications. PFSH Past Medical History Hx Anticoagulant Therapy: Yes (COUMADIN ) Asthma: No Blood Disorders: No Anxiety: Yes Depression: Yes Heart Rhythm Problems: No Cancer: No Cardiac Catheterization: No Cardiovascular Problems: Yes High Cholesterol: No Chemotherapy: No Chest Pain: Yes Congestive Heart Failure: No COPD: No Diabetes: No Diminished Hearing: No Endocrine: No Gastrointestinal Disorders: No Genitourinary: No Hypertension: No Immune Disorder: No Implanted Vascular Access Dvce: Yes Musculoskeletal: No Neurologic: No Psychiatric: No Reproductive: No Respiratory: No Immunizations Current: Yes Radiation Therapy: No Sleep Apnea: No Thyroid Disease: No Past Surgical History Abdominal Surgery: Yes (GALLBLADDER REMOVAL) Body Medical Devices: pacemaker Cardiac Surgery: Yes (CATH , [employer] ICD PLACEMENT 2017 ) Coronary Artery Bypass Graft: No Pacemaker: Yes (v paced) Other Surgery: Yes (HEART CATH, LEFT FEM-POP BYPASS, AICD ) Social History Alcohol Use: Yes (RARE) Tobacco Use: No Substance Use: No Allergies-Medications (Allergen,Severity, Reaction): Coded Allergies: Nitroglycerin (Verified Allergy, Severe, Anaphylaxis, 06/29/17) Reported Meds & Prescriptions Reported Meds & Active Scripts Active Ramipril 5 Mg Cap 5 Mg PO DAILY Coreg (Carvedilol) 6.25 Mg Tab 3.125 Mg PO Q12HR Furosemide 40 Mg Tab 40 Mg PO BID Aspirin 81 Mg Chew 81 Mg CHEW DAILY Reported Warfarin 7.5 Mg Tab 7.5 Mg PO DAILY Review of Systems Except as stated in HPI: all other systems reviewed are Neg Physical Exam Exam Limitations: Intoxication Narrative GENERAL: Well-nourished, well-developed white male in no acute distress. PSYCHIATRIC: alternately defiant and tearful. SKIN: Focused skin assessment warm/dry. Old, crusted abrasions of the left elbow. HEAD: Normocephalic. EYES: No scleral icterus. No injection or drainage. NECK: Supple, trachea midline. No JVD or lymphadenopathy. CARDIOVASCULAR: Regular rate and rhythm without murmurs, gallops, or rubs. RESPIRATORY: Breath sounds clear and equal bilaterally. No accessory muscle use. GASTROINTESTINAL: Abdomen soft, non-tender, nondistended. Active bowel sounds. MUSCULOSKELETAL: No cyanosis. 2+ RLE edema to the mid bustos. Homans sign negative bilaterally. BACK: Nontender without obvious deformity. No CVA tenderness. Data Data Last Documented VS Vital Signs Date Time Temp Pulse Resp B/P Pulse Ox O2 Delivery O2 Flow Rate FiO2 06/29/17 14:23 98.5 113 20 131/67 96 Room Air Orders Complete Blood Count With Diff (06/29/17 14:12) Comprehensive Metabolic Panel (06/29/17 14:12) Psych Screen (06/29/17 14:12) Drug Screen, Random Urine (06/29/17 14:12) Alcohol (Ethanol) (06/29/17 14:12) Lorazepam (Ativan) (06/29/17 15:30) Electrocardiogram (06/29/17 15:16) B-Type Natriuretic Peptide (06/29/17 15:16) Chest, Single Ap (06/29/17 15:16) Diet Heart Healthy (06/29/17 Dinner) Alcohol Withdrawal Asmt-Ciwa ONCE (06/29/17 16:07) Flumazenil Inj (Romazicon Inj) (06/29/17 16:15) Lorazepam (Ativan) (06/29/17 16:15) Lorazepam Inj (Ativan Inj) (06/29/17 16:15) Lorazepam (Ativan) (06/29/17 16:15) Lorazepam Inj (Ativan Inj) (06/29/17 16:15) Lorazepam Inj (Ativan Inj) (06/29/17 16:15) Lorazepam Inj (Ativan Inj) (06/29/17 16:15) Ckmb (Isoenzyme) Profile (06/29/17 14:40) Troponin I (06/29/17 14:40) Labs Laboratory Tests Test 06/29/17 06/29/17 14:40 14:55 White Blood Count 5.2 TH/MM3 Red Blood Count 3.66 MIL/MM3 Hemoglobin 11.0 GM/DL Hematocrit 33.4 % Mean Corpuscular Volume 91.1 FL Mean Corpuscular Hemoglobin 30.1 PG Mean Corpuscular Hemoglobin 33.1 % Concent Red Cell Distribution Width 17.1 % Platelet Count 133 TH/MM3 Mean Platelet Volume 9.0 FL Neutrophils (%) (Auto) 58.3 % Lymphocytes (%) (Auto) 32.1 % Monocytes (%) (Auto) 6.0 % Eosinophils (%) (Auto) 2.3 % Basophils (%) (Auto) 1.3 % Neutrophils # (Auto) 3.0 TH/MM3 Lymphocytes # (Auto) 1.7 TH/MM3 Monocytes # (Auto) 0.3 TH/MM3 Eosinophils # (Auto) 0.1 TH/MM3 Basophils # (Auto) 0.1 TH/MM3 CBC Comment DIFF FINAL Differential Comment Sodium Level 147 MEQ/L Potassium Level 3.4 MEQ/L Chloride Level 113 MEQ/L Carbon Dioxide Level 27.2 MEQ/L Anion Gap 7 MEQ/L Blood Urea Nitrogen 11 MG/DL Creatinine 0.99 MG/DL Estimat Glomerular Filtration 77 ML/MIN Rate Random Glucose 103 MG/DL Calcium Level 8.5 MG/DL Total Bilirubin 0.7 MG/DL Aspartate Amino Transf 160 U/L (AST/SGOT) Alanine Aminotransferase 73 U/L (ALT/SGPT) Alkaline Phosphatase 100 U/L Total Creatine Kinase 82 U/L Troponin I 0.05 NG/ML B-Type Natriuretic Peptide 113 PG/ML Total Protein 8.0 GM/DL Albumin 2.9 GM/DL Ethyl Alcohol Level 277 MG/DL Urine Opiates Screen NEG Urine Barbiturates Screen NEG Urine Amphetamines Screen NEG Urine Benzodiazepines Screen POS Urine Cocaine Screen NEG Urine Cannabinoids Screen NEG MDM Medical Decision Making Medical Screen Exam Complete: Yes Emergency Medical Condition: Yes Differential Diagnosis Adjustment disorder versus anxiety versus bipolar versus depression versus dementia versus electrolyte disorder versus malingering versus mood disorder versus ODD versus psychosis versus PTSD versus schizophrenia versus schizoaffective disorder versus substance-induced mood disorder versus other Narrative Course 61-year-old male with history of alcohol abuse, CAD, AICD implantation, hep C, HTN, CHF, PVD presents to the ED under [employer] act for psychiatric evaluation. According to the [employer] act paper work the patient threatened to kill his roommate as well as telling the arresting officer that he would "head butt him. " On presentation the patient denies suicidal or homicidal ideation. He does sarcastically state that "I'll just pat my roommate on the back when I see him. " He endorses daily alcohol consumption, denies illicit drug use. He denies psychiatric medical history. Also complains of month-long history of chest pain , worsened by today's events. Vitals reviewed. Physical exam reveals an intoxicated, argumentative white male in no acute distress. There is right lower extremity edema with negative Homans sign, exam otherwise unremarkable. EKG rate 111, paced rhythm. Normal axis. No acute ST changes. Reviewed by Dr. Bailey. No acute disease on CXR. Cardiac enzymes negative 1. BNP 113. Hemoglobin 11, potassium 3.4 EtOH 277. Tox screen positive for benzodiazepines. The patient was administered 2 mg of Ativan by mouth due to his agitation. He placed on Ceclor protocol. He is medically clear for psychiatric evaluation. Please see psych notes for disposition. Diagnosis Primary Impression: Alcohol intoxication Qualified Code: F10.920 - Alcoholic intoxication without complication Additional Impression: Medical clearance for psychiatric admission Cecy Romero Jun 29, 2017 14:13
[2017-06-29 14:19] VITALS: BP 131/67; PULSE 115; RESP 20; TEMP 98.5; O2SAT 96
[2017-06-29 14:23] VITALS: BP 131/67; PULSE 113; RESP 20; TEMP 98.5; O2SAT 96
[2017-06-29 15:27] LABS: BASOPHIL # 0.1 TH/MM3 (0-0.2); BASOPHIL % 1.3 % (0.0-2.0); EOSINOPHIL # 0.1 TH/MM3 (0-0.4); EOSINOPHIL % 2.3 % (0.0-4.0); HEMATOCRIT 33.4 % (39.0-51.0); HEMO FLAGS DIFF FINAL; LYMPH % 32.1 % (9.0-44.0); LYMPHOCYTE # 1.7 TH/MM3 (1.0-4.8); MEAN CELL VOLUME 91.1 FL (80.0-100.0); MEAN CORPUSCULAR HEMOGLOBIN 30.1 PG (27.0-34.0); MEAN CORPUSCULAR HGB CONC 33.1 % (32.0-36.0); NEUT % 58.3 % (16.0-70.0); PLATELET COUNT 133 TH/MM3 (150-450); RED BLOOD COUNT 3.66 MIL/MM3 (4.50-5.90); RED CELL DISTRIBUTION WIDTH 17.1 % (11.6-17.2); WHITE BLOOD COUNT 5.2 TH/MM3 (4.0-11.0)
[2017-06-29] MEDS ORDERED: LORazepam 2 MG TAB PO ONE (15:30)
[2017-06-29 15:32] LABS: AMPHETAMINE, URINE NEG (NEG); BARBITURATES, URINE NEG (NEG); COCAINE, URINE NEG (NEG)
[2017-06-29 15:49] LABS: ALT (GPT) 73 U/L (12-78); ANION GAP 7 MEQ/L (5-15); AST (GOT) 160 U/L (15-37); BICARBONATE 27.2 MEQ/L (21.0-32.0); BLOOD UREA NITROGEN 11 MG/DL (7-18); CHLORIDE 113 MEQ/L (98-107); GLOMERULAR FILTRATION RATE 77 ML/MIN (>89); POTASSIUM 3.4 MEQ/L (3.5-5.1); SODIUM (NA) 147 MEQ/L (136-145)
[2017-06-29 15:51] LABS: ALKALINE PHOSPHATASE 100 U/L (45-117); TOTAL BILIRUBIN ADULT 0.7 MG/DL (0.2-1.0)
[2017-06-29] MEDS ORDERED: LORazepam 2 MG/ML VIAL IV PUSH PRN ×4 (16:15)
[2017-06-29] MEDS ORDERED: FLUMAZENIL 0.5 MG/5 ML VIAL IV PUSH PRN (16:15)
[2017-06-29] MEDS ORDERED: LORazepam 2 MG TAB PO PRN (16:15)
[2017-06-29] MEDS ORDERED: LORazepam 1 MG TAB PO PRN (16:15)
--- NOTE | 2017-06-29 16:19 | RADRPT ---
EXAM DATE/TIME: 06/29/2017 15:25 [facility] COMPARISON: CHEST SINGLE AP, June 01, 2017, 15:56. INDICATIONS : Chest pain and shortness of breath. MEDICAL HISTORY : Cardiovascular disease. Hypertension SURGICAL HISTORY : Pacemaker. ENCOUNTER: Initial ACUITY: 1 day PAIN SCORE: 10/10 LOCATION: Bilateral chest FINDINGS: A single view of the chest demonstrates the lungs to be symmetrically aerated without evidence of mas s, infiltrate or effusion. Pacemaker implant on the left. The cardiomediastinal contours are unrema rkable. Osseous structures are intact. CONCLUSION: No acute disease. Vince Aparicio MD FACR on June 29, 2017 at 16:17 Board Certified Radiologist. This report was verified electronically.
[2017-06-29 17:12] LABS: CREATINE KINASE 82 U/L (39-308)
[2017-06-29 18:13] VITALS: BP 137/75; PULSE 100; RESP 18; O2SAT 97
[2017-06-29] MEDS ORDERED: ACETAMINOPHEN 325 MG TAB PO ONE (19:45)
[2017-06-29 19:56] VITALS: BP 152/76; PULSE 100; RESP 18; O2SAT 96
[2017-06-30 01:57] VITALS: BP 145/76; PULSE 93; RESP 21; TEMP 98; O2SAT 93
[2017-06-30 05:34] VITALS: BP 167/91; PULSE 97; RESP 22; TEMP 98.2; O2SAT 93
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
--- NOTE | 2017-06-30 15:41 | EKG ---
Date Performed: 06/29/2017 Time Performed: 19:41:15 PTAGE: 61 years EKG: ELECTRONIC VENTRICULAR PACEMAKER ABNORMAL RHYTHM ECG NO PREVIOUS TRACING DOCTOR: Tea Adames Interpretating Date/Time 06/30/2017 15:37:58
--- NOTE | 2017-06-30 15:48 | EKG ---
Date Performed: 06/29/2017 Time Performed: 15:30:14 PTAGE: 61 years EKG: ELECTRONIC VENTRICULAR PACEMAKER ABNORMAL RHYTHM ECG PREVIOUS TRACING : 05/30/2017 08.02 DOCTOR: Tea Adames Interpretating Date/Time 06/30/2017 15:42:29
== END 2017-06-30 09:17 | disposition home or self-care (01) ==
LOC: NEPD 13:42
DX: F10.229 Alcohol dependence with intoxication, unspecified (principal); R07.9 Chest pain, unspecified; R00.2 Palpitations; R94.31 Abnormal electrocardiogram [ECG] [EKG]; I25.10 Atherosclerotic heart disease of native coronary artery without angina pectoris; B19.20 Unspecified viral hepatitis C without hepatic coma; I11.0 Hypertensive heart disease with heart failure; I50.9 Heart failure, unspecified; Z79.899 Other long term (current) drug therapy
CPT/HCPCS: 71010; 80053; 80307; 82550; 83880; 84484; 85025; 93005; 99284

== ENCOUNTER 2018-03-06 01:33 | Observation (INO) | payer MEDICARE, OTHER ==
[~2018-03-06] VITALS: Ht 172.7 cm; Wt 90.0 kg
[2018-03-06] VITALS (11 sets, daily range): BP systolic 104–166; BP diastolic 53–81; PULSE 69–107; RESP 16–22; TEMP 97.3–98.7; O2SAT 94–100
[~2018-03-06 01:33] MED LIST changes: -ASPI81CH CHEW; +CARV3.125 PO; -CARV6.25 PO; -DOXY100C PO; +DOXY100T PO; +FAMO20TA2 PO; +Lactulose Liq PO; -PANT40TA3 PO; +POTA20TA5 PO; +RAMI2.5C PO; -RAMI5CAP PO; -SUCR1S PO; -TRAM50TA PO; +WALKER WHEELS/F1 MIS
[2018-03-06] MEDS ORDERED: LORazepam 2 MG/ML VIAL IV PUSH ONE ×2 (02:30→21:45)
--- NOTE | 2018-03-06 02:36 | PD ---
HPI Chief Complaint: Syncope/Near-Syncope Time Seen by Provider: 02:05 Travel History International Travel<30 days: No Contact w/Intl Traveler<30days: No Traveled to known affect area: No History of Present Illness HPI Patient is a 62-year-old male who said tonight he was got up out of bed he went to the refrigerator about 20 feet from his bed bent over to get something out of the refrigerator stood back up in the next thing he knew he was on the floor. He says he landed on his back he denies head trauma he denies any injury to his hands or his legs or feet. Patient has a past medical history of having a internal defibrillator as well as a permanent pacemaker which has been in for over 20 years. He did not get shocked tonight he did not feel any discharge in the last few months he had his battery change the pacemaker a year ago patient is on Coumadin 7.5 mg daily for having had a femorofemoral bypass many years ago at the age of 38. Patient in the ER says I feel shaky I feel scared and very nervous monica I pass out this has not happened to me before. Patient denies chest pain he denies nausea vomiting he just had the syncopal episode after getting out of bed leaning over from the fulgurator stood up rapidly and passed out apparently. On initial trauma exam there is no long bone pain there is no head injury no hematoma no laceration and he is no spinous process tenderness either patient with a CT of his head EKG shows a paced rhythm with a few PVCs at a rate of 94 PFSH Past Medical History Hx Anticoagulant Therapy: Yes (aspirin) Asthma: No Blood Disorders: No Anxiety: Yes Depression: Yes Heart Rhythm Problems: No Cancer: No Cardiac Catheterization: No Cardiovascular Problems: Yes High Cholesterol: No Chemotherapy: No Chest Pain: Yes Congestive Heart Failure: Yes COPD: No Diabetes: No Diminished Hearing: No Endocrine: No Gastrointestinal Disorders: No Genitourinary: No Hypertension: Yes Immune Disorder: No Musculoskeletal: No Neurologic: No Psychiatric: Yes Reproductive: No Respiratory: No Immunizations Current: Yes Radiation Therapy: No Sleep Apnea: No Thyroid Disease: No Tetanus Vaccination: < 5 Years Past Surgical History Abdominal Surgery: Yes (GALLBLADDER REMOVAL) AICD: Yes Body Medical Devices: pacemaker, defibrillator Cardiac Surgery: Yes (CATH , [employer] ICD PLACEMENT 2016 ) Cholecystectomy: Yes Coronary Artery Bypass Graft: No Pacemaker: Yes (v paced) Tonsillectomy: Yes Other Surgery: Yes (HEART CATH, LEFT FEM-POP BYPASS, AICD ) Family History Family Myocardial Infarction: Yes (father) Social History Alcohol Use: No Tobacco Use: Yes (1 PACK PER WEEK) Substance Use: No Allergies-Medications (Allergen,Severity, Reaction): Coded Allergies: nitroglycerin (Unverified Allergy, Severe, Anaphylaxis, 03/06/18) Reported Meds & Prescriptions Reported Meds & Active Scripts Active [Lactulose Liq] 30 ML Syrp 30 Ml PO QD titrate to 3 loose stools per day Walker with Front Wheels (Device) 1 Mis Mis Ea .ROUTE DIRECTED Famotidine 20 Mg Tab 20 Mg PO BID Potassium Chloride Microencaps 20 Meq Tab 40 Meq PO Q12HR Ramipril 2.5 Mg Cap 2.5 Mg PO DAILY Furosemide 40 Mg Tab 40 Mg PO BID Reported Warfarin 5 Mg Tab 5 Mg PO DAILY Physical Exam Narrative GENERAL: pt talking in halted almost hushed tone " I'm really worried doc , Nothing like this has never happened to me before" SKIN: Warm and dry. HEAD: Atraumatic. Normocephalic. EYES: Pupils equal and round. No scleral icterus. No injection or drainage. ENT: No nasal bleeding or discharge. Mucous membranes pink and moist. NECK: Trachea midline. No JVD. CARDIOVASCULAR: Regular rate and rhythm. Pace maker battery palpated RESPIRATORY: No accessory muscle use. Clear to auscultation. Breath sounds equal bilaterally. GASTROINTESTINAL: Abdomen soft, non-tender, nondistended. Hepatic and splenic margins not palpable. MUSCULOSKELETAL: Extremities without clubbing, cyanosis, or edema. No obvious deformities. NEUROLOGICAL: Awake and alert. No obvious cranial nerve deficits. Motor grossly within normal limits. Five out of 5 muscle strength in the arms and legs. Normal speech. PSYCHIATRIC: Appropriate mood and affect; insight and judgment normal. Data Data Last Documented VS Vital Signs Date Time Temp Pulse Resp B/P (MAP) Pulse Ox O2 Delivery O2 Flow Rate FiO2 03/06/18 01:38 98.7 107 22 157/72 (100) 100 Orders Orders Complete Blood Count With Diff (03/06/18 02:21) Comprehensive Metabolic Panel (03/06/18 02:21) Creatine Kinase (Cpk) (03/06/18 02:21) Ckmb (Isoenzyme) Profile (03/06/18 02:21) Troponin I (03/06/18 02:21) Lipase (03/06/18 02:21) Chest, Single Ap (03/06/18 02:21) Ct Brain W/O Iv Contrast(Rout) (03/06/18 02:21) Lorazepam Inj (Ativan Inj) (03/06/18 02:30) Aspirin Chew (Aspirin Chew) (03/06/18 04:45) Urinalysis - C+S If Indicated (03/06/18 04:52) Place In Observation (03/06/18 ) Vital Signs (Adult) Q4H (03/06/18 04:52) Activity Oob With Assistance (03/06/18 04:52) Elevators Inspector / Telemetry .CONTINUOUS (03/06/18 04:52) Intake + Output MAGUE.QSHIFT (03/06/18 04:52) Diet Heart Healthy (03/06/18 Breakfast) Sodium Chloride 0.9% Flush (Ns Flush) (03/06/18 05:00) Sodium Chloride 0.9% Flush (Ns Flush) (03/06/18 09:00) Ondansetron Inj (Zofran Inj) (03/06/18 05:00) Comprehensive Metabolic Panel (03/07/18 06:00) Complete Blood Count With Diff (03/07/18 06:00) Troponin I (03/06/18 08:00) Troponin I (03/06/18 14:00) Prothrombin Time / Inr (Pt) (03/07/18 06:00) Pharmacologic Contraindication (03/06/18 04:52) Acetaminophen (Tylenol) (03/06/18 05:00) Acetamin-Hydrocod 325-5 Mg (Leming 5-325 (03/06/18 05:00) Acetamin-Hydrocod 325-10 Mg (Leming 10-32 (03/06/18 05:00) Docusate Sodium-Senna (Aliyah-Colace) (03/06/18 09:00) Magnesium Hydroxide Liq (Milk Of Magnesi (03/06/18 05:00) Sennosides (Senokot) (03/06/18 05:00) Bisacodyl Supp (Dulcolax Supp) (03/06/18 05:00) Lactulose Liq (Lactulose Liq) (03/06/18 05:00) Carvedilol (Coreg) (03/06/18 09:00) Ramipril (Altace) (03/06/18 09:00) Warfarin (Coumadin) (03/06/18 16:00) Admit Order (Ed Use Only) (03/06/18 04:58) Labs Laboratory Tests Test 03/06/18 02:24 White Blood Count 3.7 TH/MM3 Red Blood Count 3.87 MIL/MM3 Hemoglobin 12.0 GM/DL Hematocrit 35.1 % Mean Corpuscular Volume 90.5 FL Mean Corpuscular Hemoglobin 30.9 PG Mean Corpuscular Hemoglobin Concent 34.1 % Red Cell Distribution Width 14.7 % Platelet Count 97 TH/MM3 Mean Platelet Volume 9.0 FL Neutrophils (%) (Auto) 49.1 % Lymphocytes (%) (Auto) 33.7 % Monocytes (%) (Auto) 11.7 % Eosinophils (%) (Auto) 4.4 % Basophils (%) (Auto) 1.1 % Neutrophils # (Auto) 1.8 TH/MM3 Lymphocytes # (Auto) 1.3 TH/MM3 Monocytes # (Auto) 0.4 TH/MM3 Eosinophils # (Auto) 0.2 TH/MM3 Basophils # (Auto) 0.0 TH/MM3 CBC Comment AUTO DIFF Differential Comment AUTO DIFF CONFIRMED Blood Urea Nitrogen 15 MG/DL Creatinine 1.16 MG/DL Random Glucose 114 MG/DL Total Protein 7.1 GM/DL Albumin 2.7 GM/DL Calcium Level 8.5 MG/DL Alkaline Phosphatase 78 U/L Aspartate Amino Transf (AST/SGOT) 73 U/L Alanine Aminotransferase (ALT/SGPT) 40 U/L Total Bilirubin 0.6 MG/DL Sodium Level 140 MEQ/L Potassium Level 4.2 MEQ/L Chloride Level 104 MEQ/L Carbon Dioxide Level 31.5 MEQ/L Anion Gap 5 MEQ/L Estimat Glomerular Filtration Rate 64 ML/MIN Total Creatine Kinase 79 U/L Troponin I 0.04 NG/ML Lipase 95 U/L MDM Medical Decision Making Medical Screen Exam Complete: Yes Emergency Medical Condition: Yes Differential Diagnosis syncope of cardiogenic vs vasovagal vs hypoglycemia vs HI or arrhythmia causing hypotension then syncope other Narrative Course CXR and labs EKG and examined and admitted for syncope Trop equivicable at 0.04 will admit to tele aspirin PO given for possible ischemia Diagnosis Primary Impression: Syncope Qualified Codes: R55 - Syncope and collapse Admitting Information Admitting Physician Requests: Admit Scripts Carvedilol (Coreg) 3.125 Mg Tab 3.125 MG PO Q12HR for HR and BP management, #60 TAB Prov: Richmond Sagastume 03/07/18 Eugene Castillo MD Mar 06, 2018 02:36
[2018-03-06 02:40] LABS: AUTOMATED NEUTROPHIL # 1.8 TH/MM3 (1.8-7.7); BASOPHIL % 1.1 % (0.0-2.0); EOSINOPHIL # 0.2 TH/MM3 (0-0.4); EOSINOPHIL % 4.4 % (0.0-4.0); HEMATOCRIT 35.1 % (39.0-51.0); LYMPH % 33.7 % (9.0-44.0); LYMPHOCYTE # 1.3 TH/MM3 (1.0-4.8); MEAN CELL VOLUME 90.5 FL (80.0-100.0); MEAN CORPUSCULAR HEMOGLOBIN 30.9 PG (27.0-34.0); MEAN CORPUSCULAR HGB CONC 34.1 % (32.0-36.0); MONO % 11.7 % (0.0-8.0); MONOCYTE # 0.4 TH/MM3 (0-0.9); NEUT % 49.1 % (16.0-70.0); PLATELET COUNT 97 TH/MM3 (150-450); RED BLOOD COUNT 3.87 MIL/MM3 (4.50-5.90); RED CELL DISTRIBUTION WIDTH 14.7 % (11.6-17.2); WHITE BLOOD COUNT 3.7 TH/MM3 (4.0-11.0)
[2018-03-06 03:03] LABS: ALBUMIN 2.7 GM/DL (3.4-5.0); ALT (GPT) 40 U/L (12-78); AST (GOT) 73 U/L (15-37); BICARBONATE 31.5 MEQ/L (21.0-32.0); BLOOD UREA NITROGEN 15 MG/DL (7-18); CALCIUM 8.5 MG/DL (8.5-10.1); CHLORIDE 104 MEQ/L (98-107); CREATININE 1.16 MG/DL (0.60-1.30); GLOMERULAR FILTRATION RATE 64 ML/MIN (>89); GLUCOSE,RANDOM 114 MG/DL (74-106); SODIUM (NA) 140 MEQ/L (136-145)
[2018-03-06 03:07] LABS: ALKALINE PHOSPHATASE 78 U/L (45-117); TOTAL BILIRUBIN ADULT 0.6 MG/DL (0.2-1.0); TOTAL PROTEIN 7.1 GM/DL (6.4-8.2); TROPONIN I 0.04 NG/ML (0.02-0.05)
--- NOTE | 2018-03-06 03:20 | RADRPT ---
EXAM DATE/TIME: 03/06/2018 02:27 [facility] COMPARISON: CHEST SINGLE AP, November 09, 2017, 14:53. INDICATIONS : Syncopal episode today MEDICAL HISTORY : Congestive heart failure. Cardiovascular disease. Hypertension SURGICAL HISTORY : Pacemaker. ENCOUNTER: Initial ACUITY: 1 day PAIN SCORE: 0/10 LOCATION: Bilateral chest FINDINGS: The cardiac silhouette is enlarged in transverse diameter. A defibrillator device is in place via a l eft sided approach. There is prominence of the central pulmonary vasculature with indistinct vascular margins compatible with vascular congestion but no evidence of overt failure. No pleural effusions a re identified. CONCLUSION: Cardiomegaly and findings of vascular congestion without overt failure. Miky Medina MD on March 06, 2018 at 3:18 Board Certified Radiologist. This report was verified electronically.
--- NOTE | 2018-03-06 03:22 | RADRPT ---
EXAM DATE/TIME: 03/06/2018 02:45 [facility] COMPARISON: CT BRAIN W/O CONTRAST, November 11, 2017, 10:45. INDICATIONS : Syncopal episode. RADIATION DOSE: 56.35 CTDIvol (mGy) MEDICAL HISTORY : Cardiovascular disease. Hypertension. SURGICAL HISTORY : None. ENCOUNTER: Initial ACUITY: 1 day PAIN SCALE: 0/10 LOCATION: cranial TECHNIQUE: Multiple contiguous axial images were obtained of the head. Using automated exposure control and adj ustment of the mA and/or kV according to patient size, radiation dose was kept as low as reasonably a chievable to obtain optimal diagnostic quality images. DICOM format image data is available electro nically for review and comparison. FINDINGS: Noncontrast axial head CT demonstrates the ventricles to be normal in size and configuration with a n ormal sulcal pattern. No acute intracranial hemorrhage, acute cortical infarction, mass or midline sh ift is seen. There is an arachnoid cyst in the right middle cranial fossa measuring 4 cm in diameter. There has been no significant change when compared to the prior exam. Posterior fossa structures ar e unremarkable. Bone windows are unremarkable. CONCLUSION: 1. No evidence of acute intracranial pathology. No masses are identified. 2. Stable arachnoid cyst right middle cranial fossa Miky Medina MD on March 06, 2018 at 3:19 Board Certified Radiologist. This report was verified electronically.
[2018-03-06] MEDS ORDERED: ASPIRIN 81 MG CHEW TAB CHEW ONE (04:45)
[2018-03-06] MEDS ORDERED: SODIUM CHLORIDE 0.9% FLUSH 10 ML FLUSH IV FLUSH PRN (05:00)
[2018-03-06] MEDS ORDERED: ACETAMINOPHEN/HYDROcodone 325 MG/10 MG TAB PO PRN (05:00)
[2018-03-06] MEDS ORDERED: ACETAMINOPHEN/HYDROcodone 325 MG/5 MG TAB PO PRN (05:00)
[2018-03-06] MEDS ORDERED: MAGNESIUM HYDROXIDE SUSP 30 ML CUP PO PRN (05:00)
[2018-03-06] MEDS ORDERED: BISACODYL 10 MG SUPP RECTAL PRN (05:00)
[2018-03-06] MEDS ORDERED: ACETAMINOPHEN 325 MG TAB PO PRN (05:00)
[2018-03-06] MEDS ORDERED: SENNOSIDES 8.6 MG TAB PO PRN (05:00)
[2018-03-06] MEDS ORDERED: LACTULOSE SYRUP 20 GM/30 ML CUP PO PRN (05:00)
[2018-03-06] MEDS ORDERED: ONDANSETRON HCL 4 MG/2 ML VIAL IVP PRN (05:00)
--- NOTE | 2018-03-06 05:12 | HHI.HP ---
[facility] Service [facility] Primary Care Physician Unknown Admission Diagnosis syncope Diagnoses: (1) Syncope Diagnosis: Principal (2) CHF (congestive heart failure) Diagnosis: Principal (3) Thrombocytopenia Diagnosis: Principal Travel History International Travel<30 Days: No Contact w/Intl Traveler <30 Da: No Traveled to Known Affected Are: No History of Present Illness This is a 62-year-old male with a PMH of Anxiety, Depression, h/o Alcohol Abuse , Hepatitis C, CHF (Echo 11/11/2017 with EF 20-25%), AICD, Chronic Anticoagulation and Tobacco Abuse who is brought to the ER by EMS after syncopal event. Per patient he had gotten up from bed to go to the kitchen when he had acute syncopal event. Denies dizziness or lightheadedness, only states "I was exhausted" prior to event. No chest pain, SOB, cough, fever or chills. States he follows w/ [facility], but cannot recall name of doc, states has upcoming appt. Reports no AICD firing. On arrival, BP 157/72, HR 107, O2 sat 100% RA, Afebrile. CBC essentially at baseline. Platelets 97, previously 89 on 11/14/2017. Chemistry unremarkable. Troponin 0.04. CXR with cardiomegaly and vascular congestion. CT I would no acute intracranial pathology. Review of Systems Except as stated in HPI: all other systems reviewed are Neg ROS: 14 point review of systems otherwise negative. Past Family Social History Past Medical History PMH Anxiety, Depression, h/o Alcohol Abuse, Hepatitis C, CHF (Echo 11/11/2017 with EF 20-25%), AICD, Chronic Anticoagulation and Tobacco Abuse Past Surgical History PAST SURGICAL HISTORY: Cholecystectomy, AICD, Tonsillectomy, Left Femoropopliteal Bypass Allergies: Coded Allergies: nitroglycerin (Unverified Allergy, Severe, Anaphylaxis, 03/06/18) Family History PAST FAMILY HISTORY: Reviewed. No h/o DM or CAD Social History PAST SOCIAL HISTORY: Negative for alcohol or drugs. Smokes 1 pack per week Physical Exam Vital Signs Vital Signs Date Time Temp Pulse Resp B/P (MAP) Pulse Ox O2 Delivery O2 Flow Rate FiO2 03/06/18 01:38 98.7 107 22 157/72 (100) 100 Physical Exam PE: GENERAL: Middle-aged white male in no acute distress, lethargic after receiving Ativan. +sunburned HEENT: PERRLA, EOMI. No scleral icterus or conjunctival pallor. No lid lag or facial droop. CARDIOVASCULAR: Regular rate and rhythm. No obvious murmurs to auscultation. No chest tenderness to palpation. RESPIRATORY: No obvious rhonchi or wheezing. Clear to auscultation. Breath sounds equal bilaterally. GASTROINTESTINAL: Abdomen soft, non-tender, nondistended. BS normal. MUSCULOSKELETAL: Extremities without clubbing, cyanosis, or edema. No obvious deformities. NEUROLOGICAL: Awake, alert and oriented x4. No focal neurologic deficits. Moving both upper and lower extremities spontaneously. Laboratory Laboratory Tests Test 03/06/18 02:24 White Blood Count 3.7 Red Blood Count 3.87 Hemoglobin 12.0 Hematocrit 35.1 Mean Corpuscular Volume 90.5 Mean Corpuscular Hemoglobin 30.9 Mean Corpuscular Hemoglobin Concent 34.1 Red Cell Distribution Width 14.7 Platelet Count 97 Mean Platelet Volume 9.0 Neutrophils (%) (Auto) 49.1 Lymphocytes (%) (Auto) 33.7 Monocytes (%) (Auto) 11.7 Eosinophils (%) (Auto) 4.4 Basophils (%) (Auto) 1.1 Neutrophils # (Auto) 1.8 Lymphocytes # (Auto) 1.3 Monocytes # (Auto) 0.4 Eosinophils # (Auto) 0.2 Basophils # (Auto) 0.0 CBC Comment AUTO DIFF Differential Comment AUTO DIFF CONFIRMED Blood Urea Nitrogen 15 Creatinine 1.16 Random Glucose 114 Total Protein 7.1 Albumin 2.7 Calcium Level 8.5 Alkaline Phosphatase 78 Aspartate Amino Transf (AST/SGOT) 73 Alanine Aminotransferase (ALT/SGPT) 40 Total Bilirubin 0.6 Sodium Level 140 Potassium Level 4.2 Chloride Level 104 Carbon Dioxide Level 31.5 Anion Gap 5 Estimat Glomerular Filtration Rate 64 Total Creatine Kinase 79 Troponin I 0.04 Lipase 95 Result Diagram: 03/06/1822303/06/18223 Caprini VTE Risk Assessment Caprini VTE Risk Assessment: Mod/High Risk (score >= 2) Caprini Risk Assessment Model Point Value = 1 Point Value = 2 Point Value = 3 Point Value = 5 Age 41-60 Minor surgery BMI > 25 kg/m2 Swollen legs Varicose veins or History of unexplained or recurrent spontaneous Oral contraceptives or hormone replacement Sepsis (< 1 month) Serious lung disease, including pneumonia (< 1 month) Abnormal pulmonary function Acute myocardial infarction Congestive heart failure (< 1 month) History of inflammatory bowel disease Medical patient at bed rest Age 61-74 Arthroscopic surgery Major open surgery (> 45 min) Laparoscopic surgery (> 45 min) Malignancy Confined to bed (> 72 hours) Immobilizing plaster cast Central venous access Age >= 75 History of VTE Family history of VTE Factor V Leiden Prothrombin [id number] Lupus anticoagulant Anticardiolipin antibodies Elevated serum homocysteine Heparin-induced thrombocytopenia Other congenital or acquired thrombophilia Stroke (< 1 month) Elective arthroplasty Hip, pelvis, or leg fracture Acute spinal cord injury (< 1 month) Prophylaxis Regimen Total Risk Factor Score Risk Level Prophylaxis Regimen 0-1 Low Early ambulation 2 Moderate Order ONE of the following: *Sequential Compression Device (SCD) *Heparin 5000 units SQ BID 3-4 Higher Order ONE of the following medications: *Heparin 5000 units SQ TID *Enoxaparin/Lovenox 40 mg SQ daily (WT < 150 kg, CrCl > 30 mL/min) *Enoxaparin/Lovenox 30 mg SQ daily (WT < 150 kg, CrCl > 10-29 mL/min) *Enoxaparin/Lovenox 30 mg SQ BID (WT < 150 kg, CrCl > 30 mL/min) AND/OR *Sequential Compression Device (SCD) 5 or more Highest Order ONE of the following medications: *Heparin 5000 units SQ TID (Preferred with Epidurals) *Enoxaparin/Lovenox 40 mg SQ daily (WT < 150 kg, CrCl > 30 mL/min) *Enoxaparin/Lovenox 30 mg SQ daily (WT < 150 kg, CrCl > 10-29 mL/min) *Enoxaparin/Lovenox 30 mg SQ BID (WT < 150 kg, CrCl > 30 mL/min) AND *Sequential Compression Device (SCD) Assessment and Plan Problem List: (1) Syncope ICD Code: R55 - Syncope and collapse (2) CHF (congestive heart failure) ICD Code: I50.9 - Heart failure, unspecified (3) Thrombocytopenia ICD Code: D69.6 - Thrombocytopenia, unspecified Assessment and Plan A/P: 1. Syncope: acute syncopal event, possibly vasovagal, however will eval for underlying cardiac abnormality in light of extensive cardiac disease. Admit for Obs, telemetry, check serial cardiac enzymes to eval for possible ischemia. CT Head w/ no acute findings, images reviewed by me. 2. CHF: Acute on Chronic. Systolic. Echo 11/11/17 w/ EF 20-25%, CXR w/ vascular congestion, images reviewed by me. Lasix 40mg bid, monitor I/O, repeat labs. 3. Thrombocytopenia: Chronic. Platelets 97, previously 89 on 11/14/17. No active bleeding, monitor closely as on Coumadin. Check INR. 4. DVT Prophylaxis: On Coumadin 5. Social work for d/c planning as needed. 6. Case discussed w/ ER physician at length, labs/records/imaging reviewed by me. Feli Rodriguez MD Mar 06, 2018 05:12
[2018-03-06] MEDS ORDERED: WARF-23 PO (05:35)
[2018-03-06] MEDS ORDERED: LISI-519 PO (05:35)
[2018-03-06 08:47] LABS: INTERNATIONAL NORMALIZED RATIO 2.9 RATIO; PROTHROMBIN TIME - PATIENT 28.9 SEC (9.8-11.6)
[2018-03-06] MEDS ORDERED: RAMIPRIL 2.5 MG CAP PO SCH (09:00)
[2018-03-06] MEDS: SODIUM CHLORIDE 0.9% FLUSH 10 ML FLUSH IV FLUSH SCH ×2 (09:18→21:30)
[2018-03-06] MEDS: FUROSEMIDE 40 MG TAB PO SCH ×2 (09:18→21:31)
[2018-03-06] MEDS: DOCUSATE SODIUM 50 MG/SENNA 8.6 MG TAB PO SCH ×3 (09:18→21:30)
[2018-03-06] MEDS: CARVEDILOL 3.125 MG TAB PO SCH ×3 (09:18→21:30)
--- NOTE | 2018-03-06 10:05 | HHI.PR ---
Subjective Remarks in no acute distress. denies chest pain or sob. says that he's feeling weak. Objective Vitals Vital Signs Date Time Temp Pulse Resp B/P (MAP) Pulse Ox O2 Delivery O2 Flow Rate FiO2 03/06/18 09:34 70 03/06/18 09:15 98.3 69 18 117/57 (77) 96 03/06/18 05:58 97.3 82 16 109/55 (73) 96 03/06/18 05:30 92 17 95 Room Air 03/06/18 01:38 98.7 107 22 157/72 (100) 100 Result Diagram: 03/06/1822303/06/18223 Imaging Last Impressions Head CT 03/06/18220 Signed Impressions: Service Date/Time: Tuesday, March 06, 2018 02:45 - CONCLUSION: 1. No evidence of acute intracranial pathology. No masses are identified. 2. Stable arachnoid cyst right middle cranial fossa Miky Medina MD Chest X-Ray 03/06/18220 Signed Impressions: Service Date/Time: Tuesday, March 06, 2018 02:27 - CONCLUSION: Cardiomegaly and findings of vascular congestion without overt failure. Miky Medina MD Objective Remarks GENERAL: This is a well-nourished, well-developed patient, in no apparent distress. CARDIOVASCULAR: Regular rate and regular rhythm without murmurs, gallops, or rubs. RESPIRATORY: Clear to auscultation. Breath sounds equal bilaterally. No wheezes , rales, or rhonchi. GASTROINTESTINAL: Abdomen soft, non-tender, nondistended. Normal, active bowel sounds MUSCULOSKELETAL: Extremities without clubbing, cyanosis, or edema. NEURO: Alert & Oriented x4 to person, place, time, situation. Moves all ext x4 Medications and IVs Inpatient Medications Acetaminophen (Tylenol) 650 mg Q6H PRN PO FEVER/PAIN SCALE 1 TO 2; Start at 05:00 Acetaminophen/ Hydrocodone Bitart ([place] 5-325 Mg) 1 tab Q4H PRN PO PAIN SCALE 3 TO 5; Start 03/06/18 at 05:00 Acetaminophen/ Hydrocodone Bitart ([place] 10-325 Mg) 1 tab Q4H PRN PO PAIN SCALE 6 TO 10; Start 03/06/18 at 05:00 Aspirin (Aspirin Chew) 162 mg ONCE ONCE CHEW Last administered on 03/06/18at 05 :31; Start 03/06/18 at 04:45; Stop 03/06/18 at 04:46; Status DC Bisacodyl (Dulcolax Supp) 10 mg DAILY PRN RECTAL SEVERE CONSITIPATION/ IF NPO ; Start 03/06/18 at 05:00 Carvedilol (Coreg) 3.125 mg Q12HR PO Last administered on 03/06/18at 09:18; Start 03/06/18 at 09:00 Furosemide (Lasix) 40 mg BID PO Last administered on 03/06/18at 09:18; Start at 09:00 Lactulose (Lactulose Liq) 30 ml DAILY PRN PO SEVERE CONSITIPATION/ IF PO; Start 03/06/18 at 05:00 Lorazepam (Ativan Inj) 0.5 mg ONCE ONCE IV PUSH Last administered on at 03:02; Start 03/06/18 at 02:30; Stop 03/06/18 at 02:31; Status DC Magnesium Hydroxide (Milk Of Magnesia Liq) 30 ml Q12H PRN PO Mild constipation ; Start 03/06/18 at 05:00 Ondansetron HCl (Zofran Inj) 4 mg Q6H PRN IVP NAUSEA OR VOMITING; Start at 05:00 Ramipril (Altace) 2.5 mg DAILY PO Last administered on 03/06/18at 09:18; Start 03/06/18 at 09:00 Senna/Docusate Sodium (Aliyah-Colace) 1 tab BID PO Last administered on at 09:18; Start 03/06/18 at 09:00 Sennosides (Senokot) 17.2 mg Q12H PRN PO Moderate constipation; Start 03/06/18 at 05:00 Sodium Chloride (NS Flush) 2 ml BID IV FLUSH Last administered on 03/06/18at 09: 18; Start 03/06/18 at 09:00 Warfarin Sodium (Coumadin) 7.5 mg DAILY@1600 PO ; Start 03/06/18 at 16:00 A/P Problem List: (1) Syncope ICD Code: R55 - Syncope and collapse (2) CHF (congestive heart failure) ICD Code: I50.9 - Heart failure, unspecified (3) Thrombocytopenia ICD Code: D69.6 - Thrombocytopenia, unspecified Assessment and Plan A/P 1. Syncope: acute syncopal event, possibly vasovagal- continue to monitor on telemetry- check orthostatic BP- had carotid doppelr few months ago with less than 50% stenosis bilaterally. 2. CHF: Acute on Chronic. Systolic. Echo 11/11/17 w/ EF 20-25%, CXR w/ vascular congestion. Lasix 40mg bid, monitor I/O, repeat labs. 3. Thrombocytopenia: Chronic. Platelets 97, previously 89 on 11/14/17. No active bleeding, monitor closely as on Coumadin. Check INR. 4.history of alcohol abuse- will watch for withdrawal. 5. DVT Prophylaxis: On Coumadin Jessie Young MD Mar 06, 2018 10:05
[2018-03-06 11:26] LABS: BILIRUBIN, URINE NEG (NEG); BLOOD, URINE NEG (NEG); GLUCOSE,URINE NEG (NEG); HYALINE CAST, URINE 2 /lpf (RARE); KETONE, URINE NEG (NEG); NITRITE,URINE NEG (NEG); PH, URINE 6.5 (5.0-8.5); URINE COLOR YELLOW (YELLW/STRAW); URINE LEUKOCYTE ESTERASE NEG (NEG)
[2018-03-06] MEDS ORDERED: WARFARIN SOD 7.5 MG TAB PO SCH (16:00)
--- NOTE | 2018-03-06 16:42 | EKG ---
Date Performed: 03/06/2018 Time Performed: 02:12:50 PTAGE: 62 years EKG: A sensed V paced rhythm with PVCs. Likely no significant change. ABNORMAL RHYTHM ECG PREVIOUS TRACING : 11/11/2017 11.10 DOCTOR: Dorothy Goldstein Interpretating Date/Time 03/06/2018 16:41:25
[2018-03-07] VITALS: PULSE 75
[2018-03-07 04:00] VITALS: PULSE 73
[2018-03-07 06:19] LABS: AUTOMATED NEUTROPHIL # 1.3 TH/MM3 (1.8-7.7); BASOPHIL % 1.4 % (0.0-2.0); EOSINOPHIL # 0.1 TH/MM3 (0-0.4); EOSINOPHIL % 5.2 % (0.0-4.0); HEMATOCRIT 36.8 % (39.0-51.0); HEMOGLOBIN 12.4 GM/DL (13.0-17.0); LYMPH % 36.7 % (9.0-44.0); MEAN CELL VOLUME 90.4 FL (80.0-100.0); MEAN CORPUSCULAR HEMOGLOBIN 30.5 PG (27.0-34.0); MEAN CORPUSCULAR HGB CONC 33.7 % (32.0-36.0); MEAN PLATELET VOLUME 9.7 FL (7.0-11.0); MONO % 9.1 % (0.0-8.0); MONOCYTE # 0.3 TH/MM3 (0-0.9); NEUT % 47.6 % (16.0-70.0); PLATELET COUNT 86 TH/MM3 (150-450); RED BLOOD COUNT 4.07 MIL/MM3 (4.50-5.90); RED CELL DISTRIBUTION WIDTH 14.4 % (11.6-17.2); WHITE BLOOD COUNT 2.8 TH/MM3 (4.0-11.0)
[2018-03-07 06:23] LABS: INTERNATIONAL NORMALIZED RATIO 2.9 RATIO
[2018-03-07 06:33] LABS: ALBUMIN 2.4 GM/DL (3.4-5.0); AST (GOT) 83 U/L (15-37); BICARBONATE 27.1 MEQ/L (21.0-32.0); BLOOD UREA NITROGEN 17 MG/DL (7-18); CALCIUM 8.8 MG/DL (8.5-10.1); CHLORIDE 108 MEQ/L (98-107); CREATININE 0.85 MG/DL (0.60-1.30); GLOMERULAR FILTRATION RATE 92 ML/MIN (>89); GLUCOSE,RANDOM 85 MG/DL (74-106); SODIUM (NA) 141 MEQ/L (136-145)
[2018-03-07 06:38] LABS: ALKALINE PHOSPHATASE 74 U/L (45-117); ALT (GPT) 42 U/L (12-78); TOTAL PROTEIN 6.7 GM/DL (6.4-8.2)
[2018-03-07 08:20] VITALS: BP 121/60; PULSE 68; RESP 20; TEMP 98.2; O2SAT 96
[2018-03-07] MEDS: SODIUM CHLORIDE 0.9% FLUSH 10 ML FLUSH IV FLUSH SCH (08:42)
[2018-03-07] MEDS: DOCUSATE SODIUM 50 MG/SENNA 8.6 MG TAB PO SCH (08:42)
[2018-03-07] MEDS: CARVEDILOL 3.125 MG TAB PO SCH (08:42)
[2018-03-07] MEDS: FUROSEMIDE 40 MG TAB PO SCH (08:42)
[2018-03-07 08:44] LABS: OVALOCYTES 1+ (NORMAL)
--- NOTE | 2018-03-07 09:09 | HHI.PR ---
Subjective Remarks in no acute distress. denies chest pain or sob. feels anxious and received a dose of ativan earlier. d/w the RN. Objective Vitals Vital Signs Date Time Temp Pulse Resp B/P (MAP) Pulse Ox O2 Delivery O2 Flow Rate FiO2 03/07/18 08:20 98.2 68 20 121/60 (80) 96 03/07/18 04:00 73 03/07/18 00:00 75 03/06/18 23:48 98.5 76 16 104/53 (70) 94 03/06/18 21:16 98.0 70 20 118/57 (77) 98 139/63 (88) 125/67 (86) 03/06/18 20:00 82 03/06/18 15:11 121/69 (86) 03/06/18 10:39 123/58 (79) 124/61 (82) 120/58 (78) 03/06/18 09:34 70 03/06/18 09:15 98.3 69 18 117/57 (77) 96 I/O 03/06/18 03/06/18 03/06/18 03/07/18 03/07/18 03/07/18 07:00 15:00 23:00 07:00 15:00 23:00 Intake Total 650 ml Output Total 1000 ml Balance -350 ml Intake Oral 650 ml Output Urine Total 1000 ml Result Diagram: 03/07/18 0507 03/07/18 050 Imaging Last Impressions Head CT 03/06/18220 Signed Impressions: Service Date/Time: Tuesday, March 06, 2018 02:45 - CONCLUSION: 1. No evidence of acute intracranial pathology. No masses are identified. 2. Stable arachnoid cyst right middle cranial fossa Miky Medina MD Chest X-Ray 03/06/18220 Signed Impressions: Service Date/Time: Tuesday, March 06, 2018 02:27 - CONCLUSION: Cardiomegaly and findings of vascular congestion without overt failure. Miyk Medina MD Objective Remarks GENERAL: This is a well-nourished, well-developed patient, in no apparent distress. CARDIOVASCULAR: Regular rate and regular rhythm without murmurs, gallops, or rubs. RESPIRATORY: Clear to auscultation. Breath sounds equal bilaterally. No wheezes , rales, or rhonchi. GASTROINTESTINAL: Abdomen soft, non-tender, nondistended. Normal, active bowel sounds MUSCULOSKELETAL: Extremities without clubbing, cyanosis, or edema. NEURO: Alert & Oriented x4 to person, place, time, situation. Moves all ext x4 Medications and IVs Inpatient Medications Acetaminophen (Tylenol) 650 mg Q6H PRN PO FEVER/PAIN SCALE 1 TO 2; Start at 05:00 Acetaminophen/ Hydrocodone Bitart ([place] 5-325 Mg) 1 tab Q4H PRN PO PAIN SCALE 3 TO 5; Start 03/06/18 at 05:00 Acetaminophen/ Hydrocodone Bitart ([place] 10-325 Mg) 1 tab Q4H PRN PO PAIN SCALE 6 TO 10; Start 03/06/18 at 05:00 Aspirin (Aspirin Chew) 162 mg ONCE ONCE CHEW Last administered on 03/06/18at 05 :31; Start 03/06/18 at 04:45; Stop 03/06/18 at 04:46; Status DC Bisacodyl (Dulcolax Supp) 10 mg DAILY PRN RECTAL SEVERE CONSITIPATION/ IF NPO ; Start 03/06/18 at 05:00 Carvedilol (Coreg) 3.125 mg Q12HR PO Last administered on 03/07/18at 08:42; Start 03/06/18 at 09:00 Furosemide (Lasix) 40 mg BID PO Last administered on 03/07/18at 08:42; Start at 09:00 Lactulose (Lactulose Liq) 30 ml DAILY PRN PO SEVERE CONSITIPATION/ IF PO; Start 03/06/18 at 05:00 Lorazepam (Ativan Inj) 0.5 mg ONCE ONCE IV PUSH Last administered on at 03:26; Start 03/06/18 at 21:45; Stop 03/06/18 at 21:46; Status DC Magnesium Hydroxide (Milk Of Magnesia Liq) 30 ml Q12H PRN PO Mild constipation ; Start 03/06/18 at 05:00 Ondansetron HCl (Zofran Inj) 4 mg Q6H PRN IVP NAUSEA OR VOMITING; Start at 05:00 Ramipril (Altace) 2.5 mg DAILY PO Last administered on 03/06/18at 09:18; Start 03/06/18 at 09:00 Senna/Docusate Sodium (Aliyah-Colace) 1 tab BID PO Last administered on at 08:42; Start 03/06/18 at 09:00 Sennosides (Senokot) 17.2 mg Q12H PRN PO Moderate constipation; Start 03/06/18 at 05:00 Sodium Chloride (NS Flush) 2 ml BID IV FLUSH Last administered on 03/07/18at 08: 42; Start 03/06/18 at 09:00 Warfarin Sodium (Coumadin) 7.5 mg DAILY@1600 PO Last administered on 03/06/18at 16:47; Start 03/06/18 at 16:00 A/P Problem List: (1) Syncope ICD Code: R55 - Syncope and collapse (2) CHF (congestive heart failure) ICD Code: I50.9 - Heart failure, unspecified (3) Thrombocytopenia ICD Code: D69.6 - Thrombocytopenia, unspecified Assessment and Plan A/P 1. Syncope: acute syncopal event, possibly vasovagal- continue to monitor on telemetry- ICD interrogation. no orthostatic BP- had carotid doppelr few months ago with less than 50% stenosis bilaterally. 2. CHF: chronic. Systolic. Echo 11/11/17 w/ EF 20-25%, CXR w/ vascular congestion. Lasix 40mg bid, monitor I/O, repeat labs. 3. Thrombocytopenia: Chronic. Platelets 97, previously 89 on 11/14/17. No active bleeding, monitor closely as on Coumadin. Check INR. 4.history of alcohol abuse- will watch for withdrawal. 5.anxiety; says that he quit drinking few months ago- will add ativan as needed. 6. DVT Prophylaxis: On Coumadin Discharge Planning dc home tomorrow if stable- pending ICD interrogation. Jessie Young MD Mar 07, 2018 09:09
[2018-03-07] MEDS ORDERED: LORazepam 2 MG/ML VIAL IV PUSH PRN (09:15)
[2018-03-07 11:25] VITALS: BP 122/58; PULSE 122; RESP 18; TEMP 97.8; O2SAT 95
[2018-03-07] MEDS ORDERED: CARV3.125 PO (12:47)
--- NOTE | 2018-03-07 12:48 | HHI.DCPOC ---
Discharge Care Plan Diagnosis: (1) Thrombocytopenia (2) Syncope (3) CHF (congestive heart failure) (4) DVT (deep venous thrombosis) Your Health Problems Are: Anxiety Leg Swelling Chest Pain Shortness of Breath Goals to Promote Your Health * To prevent worsening of your condition and complications * To maintain your health at the optimal level Directions to Meet Your Goals Take your medications as prescribed Follow your dietary instruction Follow activity as directed Keep your appointments as scheduled Take your immunizations and boosters as scheduled If your symptoms worsen call your PCP, if no PCP go to Urgent Care Center or Emergency Room Smoking is Dangerous to Your Health. Avoid second hand smoke Call the 24-hour hour crisis hotline for domestic abuse at [facility] Mar 07, 2018 12:48
--- NOTE | 2018-03-07 13:26 | HHI.PR ---
Addendum To [facility] Progress Not Reason for addendum: Additonal documentation (ICD was interrogated and d/w the coating technician- ICD is functioning properly with no need for further adjustments- patient will be discharged home.) Jessie Young MD Mar 07, 2018 13:26
== END 2018-03-07 15:25 | disposition home or self-care (01) ==
LOC: NEPE 01:33 → NEDA 05:00 → NEPGCP 05:44
PROVIDERS: ADMIT Internal Medicine; ATTEND Internal Medicine
DX: D69.6 Thrombocytopenia, unspecified (principal); R55 Syncope and collapse; I50.9 Heart failure, unspecified; I11.0 Hypertensive heart disease with heart failure; R53.1 Weakness; F17.210 Nicotine dependence, cigarettes, uncomplicated; F41.9 Anxiety disorder, unspecified; Z79.01 Long term (current) use of anticoagulants; Z95.810 Presence of automatic (implantable) cardiac defibrillator
CPT/HCPCS: 70450; 71045; 80053; 81001; 82550; 83690; 84484; 85025; 85610; 93005; 96374; 96376; 97161; 99285; G0378; G8987; G8988; J2060